=== PATIENT | male | born 1995 | race Caucasian/White ===

== ENCOUNTER → 2018-06-09 | Outpatient (CLI) | payer OTHER ==
--- NOTE | 2018-06-09 19:24 | DIAGNOSTIC IMAGING REPORT ---
FACIAL BONES 6 VIEWS RTN CLINICAL HISTORY: S09.93XA Injury of jaw trauma pain COMPARISON STUDY: No previous studies for comparison. FINDINGS: There is left maxillary sinus mucosal thickening. No air-fluid levels are visualized. There is no orbital emphysema. There is a nondisplaced fracture of the anterior body and submental portion of the right hemimandible. There is no evidence of condylar dislocation on conventional radiographic imaging. Further evaluation of this patient's fracture could be obtained with CT scanning as deemed clinically necessary. IMPRESSION: Acute fracture of the right hemimandible. Electronically signed by: Darvin Whitley M.D. 06/09/2018 7:23 PM Dictated Date/Time: 06/09/2018 7:18 PM
== END | disposition home or self-care (01) ==
LOC: C.RAD 18:11
PROVIDERS: ATTEND Internal Medicine
DX: S02.609A Fracture of mandible, unspecified, initial encounter for closed fracture (principal); X58.XXXA Exposure to other specified factors, initial encounter

== ENCOUNTER 2023-11-29 10:29 | Inpatient (IN) ==
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
--- OUTSIDE RECORDS SUMMARY | 2023-11-29 10:37 | External Medical Summary | Summary of Care ---
Author Name Unknown Organization [facility] Address [address] [facility] [place] [address] Phone [phone] Care Team Providers Care Landscape Architecture Teacher Name Role Phone Power Beltran Attnola DO Primary Care Provider Encounter Details Date Type Department Care Team (Late st Contact Info) Description 11/28/2023 Orders Only PATIENT PORTAL DO NOT DELETE THIS DEPT USED BY [facility] [place] [id number] Allergies Active Allergy Reactions Criticality Noted Date Comments Adhesive Tape 08/12/2018 documented as of this encounter (statuses as of 11/28/2023) Medications Medication Sig Dispensed Refills Start Date [...] before bedtime. 180 Tablet 1 11/27/2023 Active documented as of this encounter (statuses as of 11/28/2023) Active Problems Problem Noted Date Diagnosed Date [...] as of this encounter (statuses as of 11/28/2023) Social History Tobacco Use Types Packs/Day Years [...] No 09/12/2023 documented as of this encounter Plan of Treatment Upcoming Encounters Date Type Department Care Team (Late st Contact Info) Description 12/14/2023 1:30 PM EST Imaging Radiology [address] [place] [address] 12/15/2023 9:30 AM EST Telemedicine Neurosurgery, [place] [address] [place] [address] Ministerio Graham MD [address] [place] [address] 12/28/2023 [place] [facility] [facility] [place]AN[place] [address] [place], [place] [phone] Ministerio Graham MD [address] [place] [address] Scheduled Procedures Name Priority Associated Diagnoses Date/Ti [...] this encounter Medical Devices Implanted Type Area Rn Admission Device Identifier Shelf Expiration Date Model / Serial / Lot Graft Mesh Duragen Pl 4.0x5in - [id number] - [id number] Implanted:Qty: 1 on 09/14/2023 by Ministerio Graham MD [place] [facility] Head [employer] [id number] 01/06/2026 [id number] / [id number] / [id number] documented as of this encounter Advance Directives Latest Code Status on File Code Status Date Activated Date Inactivated Comments Full Code 09/12/2023 6:51 AM 09/24/2023 8:31 PM This order reflects the patients wishes and were consensually agreed upon. Question Answer Comments Discussion of Advance Directives occurred with: Patient Care Teams Landscape Architecture Teacher Relationship Specialty Start Date End Date Power Beltran DO [address] [place] [address] PCP - General Family Medicine 11/04/23 documented as of this encounter
--- OUTSIDE RECORDS SUMMARY | 2023-11-29 10:37 | External Medical Summary | Summary of Care ---
Author Name Unknown Organization [facility] Address [address] [place] [address] Phone [phone] Care Team Providers Care Licensed Dispensing Optician Name Role Phone Power Beltran DO Primary [...] Seizure (HCC) Montserrat Walsh PA-C [address] [place] [address] Referral ID Status Reason Start Date Expiration Date Visits Requested Visits Authorized [id number] Pending Review Specialty Services Required 11/17/[phone] Encounter Details Date Type Department Care Team (Late st Contact Info) Description 11/27/2023 1:00 PM EST Telemedicine Neurology [facility] Mec[place] [address] [facility] [place] [address] Thomas Garrett DO [address] [place] [address] Traumatic brain injury with loss of consciousness, [...] 11/27/2023 1:05 PM EST [place] [address] NAME: Juan Hill Date of : 1995 [...] performed by Ministerio Graham MD at [place] [facility] Family History Problem Relation Age of Onset Diabetes Mother Type 1 Coronary Artery disease Mother [place], CABG Social History Socioeconomic History Marital status: [...] CT head non contrast from 11/08/23 at [facility]: Post surgical changes. No hemorrhage or [...] Keppra level. Did discuss driving rules in [place]: no driving for 6 months after a seizure. Encouraged him to avoid alcohol and compliance with Keppra. Will arrange follow up in 6 months or sooner if needed. Thomas Garrett DO Patient location: HOME. I was not in a hospital or clinic location. After connecting through televideo, patient was verified with two unique identifiers. Patient (or authorized legal lead generation representative) was then informed that this was [...] Description 12/14/2023 1:30 PM EST Imaging Radiology [address] [address] 12/15/2023 9:30 AM EST Telemedicine Neurosurgery, [place] [address] [place], [place] [phone] Ministerio Graham MD [address] [place], [place] [phone] 12/28/2023 Hospital Encounter [place] [facility] ROOM [facility] [address] [place], [place] [phone] Ministerio Graham MD [address] [place], [place] [phone] Scheduled Orders Name Type Priority Associated Diagnoses [...] this encounter Medical Devices Implanted Type Area Shaker Out Device Identifier Shelf Expiration Date Model / Serial / Lot Graft Mesh Duragen [address] 4.0x5in - [id number] - [id number] Implanted:Qty: 1 on 09/14/2023 by Ministerio Graham MD at [place] [facility] Head [employer] [id number] 01/06/2026 [id number] / [id number] / [id number] documented as of this encounter Visit Diagnoses [...] Advance Directives occurred with: Patient Care Teams Licensed Dispensing Optician Relationship Specialty Start Date End Date Power Beltran DO [address] [place] [address] PCP - General Family Medicine 11/04/23 documented as of this encounter
--- OUTSIDE RECORDS SUMMARY | 2023-11-29 10:38 | External Medical Summary | Summary of Care ---
Author Name Unknown Organization [facility] Address [address] [place] [address] Phone [phone] Care Team Providers Care Pt Sitter Name Role Phone BeltranRogeliokiran Chatman DO Primary Care Provider Encounter Details Date Type Department Care Team (Late st Contact Info) Description 09/12/2023 Orders Only Neurosurgery, [place] [address] [place], [place] [phone] Ministerio Graham MD [address] [place] [address] Allergies Active Allergy Reactions Criticality Noted Date Comments Adhesive Tape 08/12/2018 documented as of this encounter (statuses as of 11/18/2023) Medications Medication Sig Dispensed Refills Start Date End Date Status Cetirizine HCl 10 MG Oral Tablet (ZyrTEC Allergy) Take 1 Tablet by mouth daily as needed for Rhinitis. 0 Active Vitamin B-12 1000 MCG Oral Tablet (Cyanocobalamin) Take 1 Tablet by mouth every morning. 60 Tablet 0 09/25/2023 11/24/2023 Active Folic Acid 1 MG Oral Tablet Take 1 Tablet by mouth every morning. 60 Tablet 0 09/25/2023 11/24/2023 Active Multi-Vitamins Oral Tablet Take 1 Tablet by mouth daily at noon. 60 Tablet 0 09/24/2023 11/23/2023 Active Thiamine HCl 100 MG Oral Tablet (vitamin B-1) Take 1 Tablet by mouth every morning. 60 Tablet 0 09/25/2023 11/24/2023 Active oxyCODONE HCl 5 MG Oral Tablet (Oxy IR) Take 1 Tablet by mouth every 4 hours as needed for moderate or severe pain. 30 Tablet 0 09/24/2023 Active documented as of this encounter (statuses as of 11/18/2023) Active Problems Problem Noted Date Diagnosed Date [...] as of this encounter (statuses as of 11/18/2023) Social History Tobacco Use Types Packs/Day Years Used Date Smoking Tobacco: Former Cigarettes 0.5 Smokeless Tobacco: Never Alcohol Use Standard Drinks/Week Comments Yes 0 (1 standard drink = 0.6 oz pur e alcohol) some PHQ-2 Answer Date Recorded PHQ-2 Score 0 [...] (15 years old or older) No 09/12/20 23 Cognitive Status Response Date of Assessm ent Because of a physical, menta l, or emotional condition, do you have serious difficulty concentrating, remembering, or making decisions? (5 years old or older) No 09/12/2023 documented as of this encounter Plan of Treatment Upcoming Encounters Date Type Department Care Team (Late st Contact Info) Description 12/14/2023 1:30 PM EST Imaging Radiology [address] [facility] [place] [address] 12/22/2023 10:40 AM EST Office Visit Neurology [facility] [address] [place] [address] Cele Dodge MD [address] [facility] [place] [address] Health Maintenance Due Date Last Done Comments [...] this encounter Medical Devices Implanted Type Area Shutdown Planner Device Identifier Shelf Expiration Date Model / Serial / Lot Graft Mesh Duragen Pl 4.0x5in - [id number] - [id number] Implanted:Qty: 1 on 09/14/2023 by Ministerio Graham MD [place] [facility] [place] [employer] [id number] 01/06/2026 [id number] / [id number] / [id number] documented as of this encounter Procedures Procedure Name Priority Date/Time Associated Diagnosis Comments RADIOLOGY EXAM - CT (IMAGES ONLY, NO REPORT) Routine 09/12/2023 1:05 AM EDT documented in this encounter Results * RADIOLOGY EXAM - CT (IMAGES ONLY, NO REPORT) (09/12/2023 1:05 AM EDT) 09/12/2023 1:00 AM EDT Narrative Scheduling, Silent - 11/18/2023 8:55 AM EST This is an imaging study not interpreted or resulted by a [employer] or [employer] contracted radiologist. Ministerio Graham MD RAD CT documented in this encounter Advance Directives Latest Code Status on File Code Status Date Activated Date Inactivated Comments Full Code 09/12/2023 6:51 AM 09/24/2023 8:31 PM This order reflects the patients wishes and were consensually agreed upon. Question Answer Comments Discussion of Advance Directives occurred with: Patient Care Teams Pt Sitter Relationship Specialty Start Date End Date Power Beltran DO [address] [place] [address] PCP - General Family Medicine 11/04/23 documented as of this encounter
--- OUTSIDE RECORDS SUMMARY | 2023-11-29 10:38 | External Medical Summary | Summary of Care ---
Author Name Unknown Organization [facility] Address [address] [place] [address] Phone [phone] Care Team Providers Care Service Rig Operator Name Role Phone BeltranRogeliokiran Chatman DO Primary Care Provider Encounter Details Date Type Department Care Team (Late st Contact Info) Description 11/08/2023 Orders Only [facility] [place] [address] [place] [address] Ministerio Graham MD [address] [place] [address] Allergies Active Allergy Reactions Criticality [...] Description 12/14/2023 1:30 PM EST Imaging Radiology [address] 132 [facility] [place] [address] 12/22/2023 10:40 AM EST Office Visit Neurology [facility] [address] [place] [address] Cele Dodge MD 200 [facility] [place] [place] [address] Health Maintenance Due Date Last Done Comments [...] this encounter Medical Devices Implanted Type Area Footwear Factory Worker Device Identifier Shelf Expiration Date Model / Serial / Lot Graft Mesh Duragen [address] 4.0x5in - [id number] - [id number] Implanted:Qty: 1 on 09/14/2023 by Ministerio Graham MD at OR [facility] Head [employer] [id number] 01/06/2026 [id number] / [id number] / [id number] documented as of this encounter Procedures Procedure Name Priority Date/Time Associated Diagnosis Comments RADIOLOGY EXAM - CT (IMAGES ONLY, NO REPORT) Routine 11/08/2023 6:20 PM EST documented in this encounter Results * RADIOLOGY EXAM - CT (IMAGES ONLY, NO REPORT) (11/08/2023 6:20 PM EST) 11/08/2023 6:16 PM EST Narrative Scheduling, Silent - 11/18/2023 8:54 AM EST This is an imaging study not interpreted or resulted by a [employer] or [employer] contracted radiologist. Ministerio Graham MD RAD CT documented in this encounter Advance Directives Latest Code Status on File Code Status Date Activated Date Inactivated Comments Full Code 09/12/2023 6:51 AM 09/24/2023 8:31 PM This order reflects the patients wishes and were consensually agreed upon. Question Answer Comments Discussion of Advance Directives occurred with: Patient Care Teams Service Rig Operator Relationship Specialty Start Date End Date Power Beltran DO [address] [place] [address] PCP - General Family Medicine 11/04/23 documented as of this encounter
--- OUTSIDE RECORDS SUMMARY | 2023-11-29 10:38 | External Medical Summary | Summary of Care ---
Author Name Unknown Organization [facility] Address [address] [place] [address] Phone [phone] Care Team Providers Care Seasonal Recruiter Name Role Phone Rogelio Beltrankiran Chatman DO Primary Care Provider Reason for Visit * Reason Onset Date Comments Appointment 11/18/2023 PT WILL CALL TO SCHEDULE EMG, MAY WANT TO DO AT OSH Encounter Details Date Type Department Care Team (Late st Contact Info) Description 11/18/2023 Telephone Neurophysiology, [place] [address] [place] [address] Specified, [facility] [address] [place] [address] Appointment (PT WILL CALL TO SCHEDULE EMG,... Allergies Active Allergy Reactions Criticality Noted Date [...] Tablet before bedtime. 40 Tablet 0 11/17/2023 Active documented as of this encounter (statuses [...] No 09/12/2023 documented as of this encounter Miscellaneous Notes * Telephone Encounter - Sowmya Alvarez OSA - 11/18/2023 8:38 AM EST PT WILL CALL TO SCHEDULE EMG, MAY WANT TO DO AT OSH documented in this encounter Plan of Treatment Upcoming Encounters Date Type Department Care Team (Late st Contact Info) Description 12/14/2023 1:30 PM EST Imaging Radiology [address] 132 [facility] Yusef [facility] [place] [address] 12/22/2023 10:40 AM EST Office Visit Neurology [facility] 200 [facility] [place] [address] Cele Dodge MD 200 [facility] [place] [address] Health Maintenance Due Date Last Done Comments [...] this encounter Medical Devices Implanted Type Area Progressive Die Maker Device Identifier Shelf Expiration Date Model / Serial / Lot Graft Mesh Duragen [address] 4.0x5in - [id number] - [id number] Implanted:Qty: 1 on 09/14/2023 by Ministerio Graham MD at OR [facility] Head [employer] [id number] 01/06/2026 [id number] / [id number] / [id number] documented as of this encounter Advance Directives Latest Code Status on File Code Status Date Activated Date Inactivated Comments Full Code 09/12/2023 6:51 AM 09/24/2023 8:31 PM This order reflects the patients wishes and were consensually agreed upon. Question Answer Comments Discussion of Advance Directives occurred with: Patient Care Teams Seasonal Recruiter Relationship Specialty Start Date End Date Power Beltran DO [address] [employer] | mentor | [place] [address] PCP - General Family Medicine 11/04/23 documented as of this encounter"
--- OUTSIDE RECORDS SUMMARY | 2023-11-29 10:38 | External Medical Summary | Summary of Care ---
Author Name Unknown Organization [facility] Address [address] [place] [address] Phone [phone] Care Team Providers Care Managed Care Provider Name Role Phone Power Beltran DO Primary Care Provider Encounter Details Date Type Department Care Team (Latest Contact Info) Description 11/08/2023 6:20 PM EST - 11/08/2023 11:59 PM EST Hospital Encounter Radiology Film [place] [address] [place] [address] Discharge Disposition: Home - Self Care Allergies Active Allergy Reactions Criticality Noted Date Comments Adhesive Tape 08/12/2018 documented as of this encounter (statuses as of 11/19/2023) Medications Medication Sig Dispensed Refills Start Date [...] as of this encounter (statuses as of 11/19/2023) Active Problems Problem Noted Date Diagnosed Date [...] as of this encounter (statuses as of 11/19/2023) Social History Tobacco Use Types Packs/Day Years [...] Care Team (Late st Contact Info) Description 11/25/2023 6:45 AM EST NeuroDiagnostic Study Neurophysiology, [facility] 400 [facility] [place] [address] [place], Neurophys Tech [facility] [place] [address] 11/27/2023 1:00 PM EST Office Visit Neurology [facility] [address] [place] [address] Thomas Garrett, DO [address] [place] [address] 12/14/2023 1:30 PM EST Imaging Radiology [address] 132 [facility] [place] [address] Health Maintenance Due Date Last Done Comments [...] this encounter Medical Devices Implanted Type Area Drive Man Device Identifier Shelf Expiration Date Model / Serial / Lot Graft Mesh Dur[address] 4.0x5in - [id number] - [id number] Implanted:Qty: 1 on 09/14/2023 by Ministerio Graham MD at OR [facility] Head [employer] [id number] 01/06/2026 [id number] / [id number] / [id number] documented as of this encounter Procedures Procedure [...] study not interpreted or resulted by a [facility] or [facility] contracted radiologist. Ministerio Graham MD RAD CT documented in this encounter Advance Directives Latest Code Status on File Code Status Date Activated Date Inactivated Comments Full Code 09/12/2023 6:51 AM 09/24/2023 8:31 PM This order reflects the patients wishes and were consensually agreed upon. Question Answer Comments Discussion of Advance Directives occurred with: Patient Care Teams Managed Care Provider Relationship Specialty Start Date End Date Power Beltran DO [address] [facility] [place] [address] PCP - General Family Medicine 11/04/23 documented as of this encounter
--- OUTSIDE RECORDS SUMMARY | 2023-11-29 10:38 | External Medical Summary | Summary of Care ---
Author Name Unknown Organization [facility] Address [address] [place] [address] Phone [phone] Care Team Providers Care Jigmaker Name Role Phone Power Beltran DO Primary Care Provider Encounter Details Date Type Department Care Team (Late st Contact Info) Description 11/27/2023 Orders Only Neurosurgery, [place] [address] [place] [address] Montserrat Walsh PA-C [address] [place] [address] Status post craniectomy*; Traumatic brain injury with loss of consciousness, subsequent encounter; Seizure (HCC); Brain edema (HCC); SDH (subdural hematoma) (HCC); Pre-op testing Allergies Active Allergy Reactions Criticality Noted Date [...] Description 11/27/2023 1:00 PM EST Telemedicine Neurology [facility] [address] [place] [address] Thomas Garrett, DO [address] [place] [address] 12/14/2023 1:30 PM EST Imaging Radiology [address], [place] 132 Michelle Yusef [facility] [place] [id number] 12/15/2023 9:30 AM EST Telemedicine Neurosurgery, [place] [address] [place] [address] Ministerio Graham MD [address], [place] [id number] 12/28/2023 Hospital Encounter OR [facility], OPERATING ROOM [facility], [facility] [address], [place] [id number] Ministerio Graham MD [address], [place] [id number] Scheduled Orders Name Type Priority Associated Diagnoses Orde r Schedule CBC WITH WBC DIFFERENTIAL Lab Routine Traumatic brain injury with loss of consciousness, subsequent encounter Seizure (HCC) Brain edema (HCC) SDH (subdural hematoma) (HCC) Status post craniectomy Pre-op testing Expected: 12/22/2023 (Approximate), Expires: 05/25/2024 BASIC METABOLIC PANEL Lab Routine Traumatic brain injury with loss of consciousness, subsequent encounter Seizure (HCC) Brain edema (HCC) SDH (subdural hematoma) (HCC) Status post craniectomy Pre-op testing Expected: 12/22/2023 (Approximate), Expires: 05/25/2024 PT INR Lab Routine Traumatic brain injury with loss of consciousness, subsequent encounter Seizure (HCC) Brain edema (HCC) SDH (subdural hematoma) (HCC) Status post craniectomy Pre-op testing Expected: 12/22/2023 (Approximate), Expires: 05/25/2024 APTT Lab Routine Traumatic brain injury with loss of consciousness, subsequent encounter Seizure (HCC) Brain edema (HCC) SDH (subdural hematoma) (HCC) Status post craniectomy Pre-op testing Expected: 12/22/2023 (Approximate), Expires: 05/25/2024 TYPE AND SCREEN Lab Routine Traumatic brain injury with loss of consciousness, subsequent encounter Seizure (HCC) Brain edema (HCC) SDH (subdural hematoma) (HCC) Status post craniectomy Pre-op testing Expected: 12/22/2023 (Approximate), Expires: 05/25/2024 STAPH AUREUS PCR Lab Routine Traumatic brain injury with loss of consciousness, subsequent encounter Seizure (HCC) Brain edema (HCC) SDH (subdural hematoma) (HCC) Status post craniectomy Pre-op testing Expected: 12/22/2023 (Approximate), Expires: 11/27/2024 URINALYSIS, REFLEX TO MICROSCOPIC Lab Routine Traumatic brain injury with loss of consciousness, subsequent encounter Seizure (HCC) Brain edema (HCC) SDH (subdural hematoma) (HCC) Status post craniectomy Pre-op testing Expected: 12/22/2023 (Approximate), Expires: 11/27/2024 XR CHEST 2 VIEWS Medical Imaging Routine Traumatic brain injury with loss of consciousness, subsequent encounter Seizure (HCC) Brain edema (HCC) SDH (subdural hematoma) (HCC) Status post craniectomy Pre-op testing Expected: 12/22/2023, Expires: 12/28/2024 Scheduled Procedures Name Priority Associated Diagnoses Date/Ti [...] Screening 08/12/2019 08/12/2018 COVID-19 Vaccine (3 - 3-2 4 season) 2023 08/15/2021, 07/25/2021 Influenza Vaccine (FLU shot) (#1) 2023 GARDASIL-HPV IMMUNIZATION SERIES Aged Out No longer eligible b ased on patient's age to complete this topic MENINGOCOCCAL (MENACTRA/MENVEO) Aged Out No longer eligible b ased on patient's age to complete this topic documented as of this encounter Medical Devices Implanted Type Area Director Of Neighborhood Service Center Device Identifier Shelf Expiration Date Model / Serial / Lot Graft Mesh Duragen [address] 4.0x5in - [id number] - [id number] Implanted:Qty: 1 on 09/14/2023 by Ministerio Graham MD at OR [facility] Head [employer] [id number] 01/06/2026 [id number] / [id number] / [id number] documented as of this encounter Visit Diagnoses Diagnosis Status post craniectomy- Primary Traumatic brain injury with loss of consciousness, subsequent encounter Seizure (HCC) Other convulsions Brain edema (HCC) Cerebral edema SDH (subdural hematoma) (HCC) Subdural hemorrhage Pre-op testing Preoperative examination, unspecified documented in this encounter Advance Directives Latest Code Status on File Code Status Date Activated Date Inactivated Comments Full Code 09/12/2023 6:51 AM 09/24/2023 8:31 PM This order reflects the patients wishes and were consensually agreed upon. Question Answer Comments Discussion of Advance Directives occurred with: Patient Care Teams Jigmaker Relationship Specialty Start Date End Date Power Beltran DO [address] [place] [address] PCP - General Family Medicine 11/04/23 documented as of this encounter
--- OUTSIDE RECORDS SUMMARY | 2023-11-29 10:38 | External Medical Summary | Summary of Care ---
Author Name Unknown Organization [facility] Address [address] [facility] [place] [address] Phone [phone] Care Team Providers Care Moto Mix Operator Name Role Phone Unavailable Primary Care Provider Unavailabl e Encounter Details Date Type Department Care Team (Latest Contact Info) Description 09/12/2023 1:00 AM EDT - 09/12/2023 5:34 AM EDT Hospital Encounter Radiology Film File [address] [facility] [place] [address] Discharge Disposition: Home - Self Care [...] 11/25/2023 6:45 AM EST NeuroDiagnostic Study Neurophysiology, [facility] [address] [place] [address] [facility], Neurophys Tech 400 [facility] [place] [address] 11/27/2023 1:00 PM EST Office Visit Neurology [facility] [address] [place] [address] Thomas Garrett, DO [address] [place] [address] 12/14/2023 1:30 PM EST Imaging Radiology [address] 132 [facility] [place] [address] Health Maintenance Due Date Last Done Comments [...] this encounter Medical Devices Implanted Type Area Training And Development Head Device Identifier Shelf Expiration Date Model / Serial / Lot Graft Mesh Dur[address] 4.0x5in - [id number] - [id number] Implanted:Qty: 1 on 09/14/2023 by Ministerio Graham MD [place] [facility] Head [employer] [id number] 01/06/2026 [id number] / [id number] / [id number] documented as of this encounter Procedures Procedure Name Priority Date/Time Associated Diagnosis Comments RADIOLOGY EXAM - CT (IMAGES ONLY, NO REPORT) Routine 09/12/2023 1:00 AM EDT documented in this encounter Results * RADIOLOGY EXAM - CT (IMAGES ONLY, NO REPORT) (09/12/2023 1:00 AM EDT) 09/12/2023 1:00 AM EDT Narrative Scheduling, Silent - 11/17/2023 3:23 PM EST This is an imaging study not interpreted or resulted by a [employer] or [employer] contracted radiologist. Ministerio Graham MD RAD CT documented in this encounter Advance Directives Latest Code Status on File Code Status Date Activated Date Inactivated Comments Full Code 09/12/2023 6:51 AM 09/24/2023 8:31 PM This order reflects the patients wishes and were consensually agreed upon. Question Answer Comments Discussion of Advance Directives occurred with: Patient
--- OUTSIDE RECORDS SUMMARY | 2023-11-29 10:38 | External Medical Summary | Summary of Care ---
Author Name Unknown Organization [facility] Address [address] [place] [address] Phone [phone] Care Team Providers Care Refrigeration Operator Name Role Phone BeltranRogeliokiran Chatman DO Primary Care Provider Encounter Details Date Type Department Care Team (Late st Contact Info) Description 09/12/2023 Orders Only Neurosurgery, [place] [address] [place], [place] [id number] Ministerio Graham MD [address] [place] [address] Allergies Active Allergy Reactions Criticality Noted Date Comments Adhesive Tape 08/12/2018 documented as of this encounter (statuses as of 11/17/2023) Medications Medication Sig Dispensed Refills Start Date [...] as of this encounter (statuses as of 11/17/2023) Active Problems Problem Noted Date Diagnosed Date [...] as of this encounter (statuses as of 11/17/2023) Social History Tobacco Use Types Packs/Day Years [...] Description 12/14/2023 1:30 PM EST Imaging Radiology [address] 132 [facility] [place] [address] 12/22/2023 10:40 AM EST Office Visit Neurology [facility] [address] [place] [address] Cele Dodge MD 200 [place] [address] Health Maintenance Due Date Last Done Comments [...] this encounter Medical Devices Implanted Type Area Water Sander Device Identifier Shelf Expiration Date Model / Serial / Lot Graft Mesh Dur[address] 4.0x5in - [id number] - [id number] Implanted:Qty: 1 on 09/14/2023 by Ministerio Graham MD at OR [facility] Head [employer] [id number] 01/06/2026 [id number] / [id number] / [id number] documented as of this encounter Procedures Procedure [...] study not interpreted or resulted by a [employer] or [employer] contracted radiologist. Ministerio Graham MD RAD CT documented in this encounter Advance Directives Latest Code Status on File Code Status Date Activated Date Inactivated Comments Full Code 09/12/2023 6:51 AM 09/24/2023 8:31 PM This order reflects the patients wishes and were consensually agreed upon. Question Answer Comments Discussion of Advance Directives occurred with: Patient Care Teams Refrigeration Operator Relationship Specialty Start Date End Date Power Beltran DO [address] [place] [address] PCP - General Family Medicine 11/04/23 documented as of this encounter
--- OUTSIDE RECORDS SUMMARY | 2023-11-29 10:38 | External Medical Summary | Summary of Care ---
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 40 Tablet 0 11/17/2023 Active levETIRAcetam 500 MG Oral Tablet (Keppra) Take 1 Tablet by mouth in the morning and 1 Tablet before bedtime. Do all this for 20 days. 40 Tablet 0 09/24/2023 11/17/2023 Discontinued (Refill) documented as of this encounter [...] Tobacco: Former Cigarettes 0.5 Smokeless Tobacco: Never Tobacco Cessation:Counseling Given: Not Answered Alcohol Use Standard Drinks/Week Comments Yes 6 [...] on file documented as of this encounter Last Filed Vital Signs Vital Sign Reading Time Taken Comments Blood Pressure - - Pulse - - Temperature 36.8 C (98.2 F) 11/17/2023 1:51 PM ES T Respiratory Rate - - Oxygen Saturation - - Inhaled Oxygen Concentration - - Weight 65.4 kg (144 lb 1.6 oz) 11/17/2023 1:51 P M EST Height - - Body Mass Index 25.53 09/12/2023 9:01 AM EDT documented in this encounter Functional Status Functional Status Response [...] shopping? (15 years old or older) No 11/04/20 23 Cognitive Status Response Date of Assessm ent Because of a physical, menta l, or emotional condition, do you have serious difficulty concentrating, remembering, or making decisions? (5 years old or older) No 09/12/2023 documented as of this encounter Progress Notes * Ministerio Graham MD - 11/17/2023 2:20 PM EST PROGRESS NOTE - Neurosurgery [facility] [address] Name: Juan Hill Date: 11/17/2023 Time: 2:20 PM 28-year-old gentleman very well known to me, decompressive craniectomy with hematoma evacuation after he had a fall and experienced a blossoming of the intraparenchymal hematoma. Clinically he is doing very well, incision is well healing, flap is thinking appropriately. His left arm is improved substantially from the preoperative baseline. He has not been entirely compliant with his Keppra nor his helmet. He apparently experienced 2 seizures and was recently evaluated at [facility]. I think he is a candidate for cranioplasty in the coming weeks. 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 Would plan for admission and infectious workup in the week prior to performing the operation. We will also need to medically optimize him and ensure that his platelets another hematologic in metabolic parameters are under good control. The patient and his family voiced understanding and proceed as outlined. All questions answered. PAST MEDICAL HISTORY: No past medical history on file. PAST SURGICAL HISTORY: Past Surgical History: Procedure Laterality Date OPEN SKULL FOR REMOVAL OF HEMATOMA Right 09/14/2023 CRANIOTOMY EVACUATION OF SUBDURAL OR EXTRADURAL HEMATOMA SUPRATENTORIAL performed by Ministerio Graham MD at OR [facility] FAMILY HISTORY: Family History Problem Relation Age of Onset Diabetes Mother Type 1 Coronary Artery disease Mother CO, CABG SOCIAL HISTORY: Social History Tobacco Use Smoking status: Former Packs/day: .5 Types: Cigarettes Smokeless tobacco: Never Vaping Use Vaping Use: Never used Substance Use Topics Alcohol use: Yes Alcohol/week: 6.0 standard drinks of alcohol Types: 6 12 oz of beer per week Drug use: Not Currently Types: Marijuana Current Outpatient Medications: levETIRAcetam 500 MG Oral Tablet (Keppra), Take 1 Tablet by mouth in the morning and 1 Tablet before bedtime., Disp: 40 Tablet, Rfl: 0 Folic Acid 1 MG Oral Tablet, Take 1 Tablet by mouth every morning., Disp: 60 Tablet, Rfl: 0 Multi-Vitamins Oral Tablet, Take 1 Tablet by mouth daily at noon., Disp: 60 Tablet, Rfl: 0 oxyCODONE HCl 5 MG Oral Tablet (Oxy IR), Take 1 Tablet by mouth every 4 hours as needed for moderate or severe pain., Disp: 30 Tablet, Rfl: 0 Thiamine HCl 100 MG Oral Tablet (vitamin B-1), Take 1 Tablet by mouth every morning., Disp: 60 Tablet, Rfl: 0 Vitamin B-12 1000 MCG Oral Tablet (Cyanocobalamin), Take 1 Tablet by mouth every morning., Disp: 60Tablet, Rfl: 0 Cetirizine HCl 10 MG Oral Tablet (ZyrTEC Allergy), Take 1 Tablet by mouth daily as needed for Rhinitis., Disp: , Rfl: ALLERGIES: Adhesive tape VITALS: Temp 36.8 C (98.2 F) (Tympanic) | Wt 65.4 kg (144 lb 1.6 oz) | BMI 25.53 kg/m | BSA 1.7 m Ministerio Dai Neurosurgery This document was dictated using voice recognition software. Please excuse any errors. documented in this encounter Plan of Treatment Upcoming Encounters Date Type Department Care Team (Late st Contact Info) Description 12/14/2023 1:30 PM EST Imaging Radiology [facility] [address] [place] [address] 12/22/2023 10:40 AM EST Office Visit Neurology [facility] [place] [address] [facility] [place] [address] Cele Dodge MD [address] [place] [address] Scheduled Orders Name Type Priority Associated Diagnoses Orde r Schedule EEG ROUTINE Procedures Routine Status post craniectomy Traumatic brain injury with loss of consciousness, subsequent encounter 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, sequela (HCC) Seizure (HCC) Ordered: 11/17/2023 Scheduled Referrals Name Type Priority Associated Diagnoses Orde r Schedule NEUROLOGY REFERRAL OP Referral Within 10 days (routine) Status post craniectomy Traumatic brain injury with loss of consciousness, subsequent encounter 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, sequela (HCC) Seizure (HCC) Ordered: 11/17/2023 Health Maintenance Due Date Last Done Comments [...] Medical Devices Implanted Type Area Director Of Religious Activities Device Identifier Shelf Expiration Date Model / Serial / Lot Graft Mesh [employer] [address] 4.0x5in - [id number] - [id number] Implanted:Qty: 1 on 09/14/2023 by Ministerio Graham MD at OR [facility] Head [employer] [id number] 01/06/2026 [id number] / [id number] / [id number] documented as of this encounter Visit Diagnoses Diagnosis Seizure (HCC)- Primary Other convulsions Status post craniectomy Traumatic brain injury with loss of consciousness, subsequent encounter 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 Question Answer Comments Discussion of Advance Directives occurred with: Patient Care Teams Media Relations Coordinator Relationship Specialty Start Date End Date Power Beltran DO [address] [place] [address] PCP - General Family Medicine 11/04/23 documented as of this encounter"
--- OUTSIDE RECORDS SUMMARY | 2023-11-29 10:38 | External Medical Summary | Summary of Care ---
Author Name Unknown Organization [facility] Address [address] [facility] [place] [address] Phone [phone] Care Team Providers Care Creative Technologist Name Role Phone Unavailable Primary Care Provider Unavailabl e Encounter Details Date Type Department Care Team (Latest Contact Info) Description 09/12/2023 1:05 AM EDT - 09/12/2023 5:34 AM EDT Hospital Encounter Radiology [place] [address] [facility] [place] [address] Discharge Disposition: Home - [...] 11/25/2023 6:45 AM EST NeuroDiagnostic Study Neurophysiology, [facility] [address] [place] [address] [facility], Neurophys Tech [address] [facility] [place] [address] 11/27/2023 1:00 PM EST Office Visit Neurology [facility] [address] [place] [address] Thomas Garrett, DO [address] [place] [address] 12/14/2023 1:30 PM EST Imaging Radiology [address] [facility] [place] [address] Health Maintenance Due Date Last Done Comments [...] this encounter Medical Devices Implanted Type Area Intelligence Analyst Device Identifier Shelf Expiration Date Model / Serial / Lot Graft Mesh [address] 4.0x5in - [id number] - [id number] Implanted:Qty: 1 on 09/14/2023 by Ministerio Graham MD [place] [facility] [place] [email or web address] [id number] 01/06/2026 [id number] / [id number] / [id number] documented as of this encounter Procedures Procedure [...] study not interpreted or resulted by a [employer] or [employer] contracted radiologist. Ministerio Graham MD RAD CT documented in this encounter Advance Directives Latest Code Status on File Code Status Date Activated Date Inactivated Comments Full Code 09/12/2023 6:51 AM 09/24/2023 8:31 PM This order reflects the patients wishes and were consensually agreed upon. Question Answer Comments Discussion of Advance Directives occurred with: Patient
[2023-11-29 11:01] LABS: Basophils # (auto) 0.06 K/uL (0.00-0.20); Eosinophils # (auto) 0.32 K/uL (0.00-0.50); Eosinophils % (auto) 5.4 %; Hematocrit (blood only) 47.9 % (42.0-52.0); Hemoglobin 16.6 g/dl (14.0-18.0); Immature Granulocytes # (auto) 0.01 K/uL (0.01-0.20); Immature Granulocytes % (auto) 0.2 %; Lymphocytes # (auto) 1.32 K/uL (1.20-3.40); Lymphocytes % (auto) 22.3 %; Mean Corpuscular Hemoglobin 30.7 pg (25.0-34.0); Mean Corpuscular Hgb Conc 34.7 g/dL (32.0-36.0); Mean Corpuscular Volume 88.7 fL (80.0-100.0); Mean Platelet Volume 9.1 fL (9.4-12.4); Monocytes % (auto) 11.8 %; Neutrophils % (auto) 59.3 %; Platelet Count 233 K/uL (130-400); RDW Coefficient of Variation 12.3 % (11.5-14.5); RDW Standard Deviation 40.2 fL (36.4-46.3); White Blood Count 5.91 K/ul (4.8-10.8)
--- NOTE | 2023-11-29 11:03 | Emergency Department Note ---
Impression & Plan Stroke-like symptoms, Seizure disorder, Weakness, History of traumatic brain injury ED Provider Note NAME: KORTNEY CALL AGE: 28 SEX: M : 1995 ARRIVES VIA: Ambulance INFORMANT: Patient ED PROVIDER(S): Cr Gautam DO CHIEF COMPLAINT: Left-sided weakness HPI: Patient is a 28-year-old male with recent TBI back in September who ended up having a brain bleed and resection/removal of part of his skull who presents to the ER as he woke up this morning and he was okay. He went to get his coffee and noticed numbness on the left arm and left leg. This has progressed significantly. 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 He denies any headache or change in vision. No chest pain or shortness of breath. No belly pain, nausea, vomiting, or diarrhea. Does have a history of a recent seizure. ADDITIONAL HISTORY OBTAINED: Per HPI Chronic Medical/Social Conditions Affecting Care: Per HPI PAST MEDICAL HISTORY:See Below PAST SURGICAL HISTORY:See Below FAMILY HISTORY:See Below SOCIAL HISTORY:See Below HOME MEDICATIONS:See Below ALLERGIES:See Below VITALS:See Below PHYSICAL EXAMINATION: GENERAL: Sitting up in bed, alert, well appearing, well nourished, no distress, non-toxic EYE EXAM: normal conjunctiva. PERRL and EOM's intact. OROPHARYNX: no exudate, no erythema, lips, buccal mucosa, and tongue normal and mucous membranes are moist NECK: supple, no nuchal rigidity, no adenopathy, non-tender LUNGS: Clear to auscultation. Normal chest wall mechanics HEART: no murmurs, S1 normal and S2 normal ABDOMEN: abdomen soft, non-tender, normo-active bowel sounds, no masses, no rebound or guarding. BACK: Back is symmetrical on inspection and there is no deformity, no midline tenderness, no CVA tenderness. SKIN: no rashes and no bruising UPPER EXTREMITIES: upper extremities are grossly normal. LOWER EXTREMITIES: No pitting edema. NEURO EXAM: Normal sensorium, cranial nerves II-XII intact, normal speech, weakness with grasp as well as flexion extension shoulder elbow and wrist of the left upper extremity. No weakness of the right upper extremity. Subtle weakness in the left lower extremity. Unable to perform drift MEDICAL DECISION MAKING: Patient is a 28-year-old male with past medical history of a TBI and craniotomy who presents to the ER for left arm and leg numbness as well as weakness. This started earlier today. IV was established blood work is obtained. Patient is not a TNK candidate with a previous brain bleed/trauma in September into October. Labs show no significant leukocytosis or anemia. INR unremarkable. BMP along with LFTs bilirubin was unremarkable. Troponin was negative. CT angios of the head and neck showed no acute pathology. Patient was discussed with neurology. They evaluated the patient. They recommended aspirin which the patient declined rectally as he felt his dysphagia screen. I did recommend a Keppra load which I do feel this most consistent with his presentation of being possibly a seizure. He was given 1 g and they recommended 1 g twice daily. Patient and family were updated bedside. Consults/Care Managements Discussions: Per [facility] Triage Nursing notes reviewed. Limited review of prior medical records performed Vital Signs: reviewed and remarkable for no significant abnormalities Differential diagnosis: Differential Diagnosis includes but is not limited to ischemic Stroke, hemorrhagic stroke, bells palsy, mass, neoplasm, migraine headache, seizure, subarachnoid hemorrhage, TIA, and transient global amnesia. ER treatment provided: See below Diagnostics interpreted by me include EKG and cardiac monitoring as listed below: -Cardiac Monitoring: An order was placed for continuous cardiac monitoring. The monitor shows a rate of 98 with sinus rhythm. -ECG: Sinus rhythm rate 82 Normal axis No PVCs QTc 430 -Laboratory studies:Interpreted by me as stated above in [facility] and shown below. Imaging studies: Xrays: As interpreted by me:none CT of the head per my preliminary interpretation showed no obvious large bleed CTs show: CT angios of the head and neck as described above Procedures:none Critical Care: None Past Med/Surg History Medical History (Updated 11/29/23 @ 17:42 by Cr Gautam DO) Weakness Seizure disorder History of traumatic brain injury Stroke-like symptoms Pneumothorax on right Multiple rib fractures Surgical History No significant past surgical history Family History (Updated 11/29/23 @ 14:55 by BERNICE Benjamin) Mother Coronary heart disease Social History Smoking Status: Never smoker Tobacco Type: Cigarettes Hx Alcohol Use: No Preferred Language: Albanian marital status: Single Current Living Situation: Family current occupational status: employed Feels Safe at Home: Yes Allergies Allergies Allergy/AdvReac Type Severity Reaction Status Date / Time adhesive Allergy Intermediate REDDENED Verified 09/12/23 00:57 RASH Home Meds Home Medications Medication Instructions Recorded Confirmed levetiracetam 500 mg tablet 500 mg PO BID 11/29/23 11/29/23 Results & Data (ED) Vital Signs Vital Signs - 24 hr 11/29/23 10:49 11/29/23 11:10 11/29/23 11:11 Temperature 36.9 C Temperature Source Oral Pulse Rate 90 98 H Pulse Rate [Apical] Pulse Rate from SpO2 Sensor 98 H 100 H Pulse Rhythm [Apical] Pulse Strength [Apical] Respiratory Rate 18 20 Respiratory Effort / Characteristics Non-Labored Respiratory Depth Normal Respiratory Pattern Regular Blood Pressure 144/99 H 128/101 H Blood Pressure [Right Arm] Blood Pressure Mean 114 110 Blood Pressure Mean [Right Arm] Blood Pressure Position [Right Arm] Pulse Oximetry 95 96 99 Oxygen Delivery Method Room Air Room Air Sepsis Recent Fever Within 48 Hours No Sepsis New/Unexplained Change in Mental Status N/A Sepsis Action Taken by Nursing No Action Required 11/29/23 11:18 11/29/23 11:21 11/29/23 11:30 Temperature Temperature Source Pulse Rate 94 H 94 H Pulse Rate [Apical] 86 Pulse Rate from SpO2 Sensor Pulse Rhythm [Apical] Regular Pulse Strength [Apical] Normal Respiratory Rate 15 22 Respiratory Effort / Characteristics Non-Labored Spontaneous Respiratory Depth Normal Respiratory Pattern Regular Blood Pressure 129/87 Blood Pressure [Right Arm] 128/101 H Blood Pressure Mean 101 Blood Pressure Mean [Right Arm] 110 Blood Pressure Position [Right Arm] Semi-fowlers Pulse Oximetry 96 96 Oxygen Delivery Method Room Air Room Air Sepsis Recent Fever Within 48 Hours Sepsis New/Unexplained Change in Mental Status Sepsis Action Taken by Nursing 11/29/23 11:30 11/29/23 11:45 11/29/23 12:00 Temperature Temperature Source Pulse Rate 93 H 88 87 Pulse Rate [Apical] Pulse Rate from SpO2 Sensor 93 H 86 88 Pulse Rhythm [Apical] Pulse Strength [Apical] Respiratory Rate 15 16 14 Respiratory Effort / Characteristics Respiratory Depth Respiratory Pattern Blood Pressure 133/89 138/103 H 125/83 Blood Pressure [Right Arm] Blood Pressure Mean 103 114 97 Blood Pressure Mean [Right Arm] Blood Pressure Position [Right Arm] Pulse Oximetry 96 98 97 Oxygen Delivery Method Room Air Room Air Room Air Sepsis Recent Fever Within 48 Hours Sepsis New/Unexplained Change in Mental Status Sepsis Action Taken by Nursing Laboratory Data 11/29/23 10:35 11/29/23 10:35 Lab Results 11/29/23 11/29/23 11/29/23 Range/Units 10:35 10:50 10:55 WBC 5.91 (4.8-10.8) K/ul RBC 5.40 (4.70-6.10) M/uL Hgb 16.6 (14.0-18.0) g/dl Hct 47.9 (42.0-52.0) % MCV 88.7 (80.0-100.0) fL MCH 30.7 (25.0-34.0) pg MCHC 34.7 (32.0-36.0) g/dL RDW Std Deviation 40.2 (36.4-46.3) fL RDW Coeff of Arthur 12.3 (11.5-14.5) % Plt Count 233 (130-400) K/uL MPV 9.1 L (9.4-12.4) fL Immature Gran % (Auto) 0.2 % Neut % (Auto) 59.3 % Lymph % (Auto) 22.3 % [place] % (Auto) 11.8 % Eos % (Auto) 5.4 % Baso % (Auto) 1.0 % Neut # (Auto) 3.50 (1.40-6.50) K/uL Lymph # (Auto) 1.32 (1.20-3.40) K/uL [place] # (Auto) 0.70 H (0.11-0.59) K/uL Eos # (Auto) 0.32 (0.00-0.50) K/uL Baso # (Auto) 0.06 (0.00-0.20) K/uL Immature Gran # (Auto) 0.01 (0.01-0.20) K/uL PT 11.4 (9.0-12.0) Seconds INR 1.0 (0.9-1.1) APTT 26 (21-31) Seconds PTT Ratio 0.9 Sodium 138 (136-145) mmol/L Potassium 3.8 (3.5-5.1) mmol/L Chloride 103 (98-107) mmol/L Carbon Dioxide 28 (21-32) mmol/L Anion Gap 7 (3-11) BUN 5 L (6-23) mg/dl Creatinine 0.79 (0.6-1.4) mg/dl Est Cr Clr Drug Dosing 113.0 ml/min Est GFR ( Amer) 142.6 ml/min Est GFR (Non-Af Amer) 123.1 ml/min BUN/Creatinine Ratio 6.3 L (10-20) Glucose 97 (70-99(Fasting)) mg/dl POC Glucose 106 H (70-99) mg/dl Calcium 10.5 H (8.6-10.3) mg/dl Magnesium 1.8 (1.7-2.4) mg/dl Total Bilirubin 1.0 (0.2-1.0) mg/dl AST 52 H (13-39) U/L ALT 47 (7-52) U/L Alkaline Phosphatase 89 (34-104) U/L Troponin I High Sens 2.3 (0-20) pg/ml Total Protein 8.4 H (6.0-8.3) gm/dl Albumin 5.0 (3.4-5.0) gm/dl Globulin 3.4 (2.5-4.0) gm/dl Albumin/Globulin Ratio 1.5 (0.9-2) Triglycerides 139 (0-150) mg/dl Cholesterol 151 (0-200) mg/dl LDL Cholesterol, Calc 76 mg/dl VLDL Cholesterol, Calc 28 (0-30) mg/dl HDL Cholesterol 47 mg/dl Cholesterol/HDL Ratio 3.2 (0-5) Administered Medications Sodium Chloride (Nss) 1,000 mls @ 75 mls/hr IV .[id number] JERILYN Stop: 11/30/23 15:24 Last Admin: 11/29/23 12:55 Dose: 75 mls/hr Documented By: FANTA Acetaminophen (Ofirmev) 1,000 mg in 100 mls @ 400 mls/hr IV Q8H PRN PRN Reason: Pain Stop: 12/02/23 12:42 Last Admin: 11/29/23 12:53 Dose: 400 mls/hr Documented By: FANTA Thiamine HCl 100 mg/ Syringe 10 mls @ 2 mls/min IV QAM JERILYN Stop: 12/29/23 14:59 Last Admin: 11/29/23 15:37 Dose: 2 mls/min Documented By: REMEDIOS Folic Acid 1 mg/ Syringe 10 mls @ 5 mls/min IV QAM JERILYN Stop: 12/29/23 14:59 Last Admin: 11/29/23 15:38 Dose: 5 mls/min Documented By: REMEDIOS Discontinued Medications Acetaminophen (Acetaminophen 325 Mg Tab) 650 mg PO NOW STA Stop: 11/29/23 11:48 Last Admin: 11/29/23 12:22 Dose: Not Given Documented By: FANTA Sodium Chloride (Nss) 500 mls @ 50 mls/hr IV .Q10H JERILYN Stop: 12/29/23 11:59 Last Infusion: 11/29/23 12:25 Dose: 0 mls/hr Documented By: Admin: 11/29/23 12:21 Dose: 50 mls/hr Documented By: FANTA Levetiracetam 1,000 mg/ Sodium (Chloride) 110 mls @ 440 mls/hr IV NOW STA Stop: 11/29/23 12:17 Last Infusion: 11/29/23 12:46 Dose: Infused Documented By: Admin: 11/29/23 12:23 Dose: 440 mls/hr Documented By: FANTA Lorazepam (Lorazepam 1 Mg/1 Ml Syr Ed Inj Use) 2 mg IV ONE STA Stop: 11/29/23 12:05 Last Admin: 11/29/23 12:14 Dose: 2 mg Documented By: FANTA Ondansetron HCl (Ondansetron Inj 2 Mg/Ml 2 Ml Vial) Confirm Administered Dose 4 mg .ROUTE .STK-MED ONE Stop: 11/29/23 11:24 Last Admin: 11/29/23 11:28 Dose: Not Given Documented By: FANTA Ondansetron HCl (Ondansetron Inj 2 Mg/Ml 2 Ml Vial) 4 mg IV NOW STA Stop: 11/29/23 11:25 Last Admin: 11/29/23 11:28 Dose: 4 mg Documented By: FANTA Imaging Data Radiologist's Impression: Head CT 11/29/23 10:50 CT OF THE HEAD WITHOUT CONTRAST CLINICAL HISTORY: neuro deficit, acute stroke suspected COMPARISON STUDY: Head CT November 08, 2023. CT DOSE: 1129.97 mGy.cm TECHNIQUE: Helical axial images of the head were obtained without IV contrast. Automated exposure control was utilized for the study. A dose lowering technique was utilized adhering to the principles of ALARA. FINDINGS: No acute intracranial hemorrhage is identified. Right-sided craniectomy is unchanged in appearance since CT of November 08, 2023. Hypodensity within the right temporal lobe is unchanged. The appearance of the brain is unchanged. Basal cisterns are patent. Ventricular system is stable. There are no findings to suggest acute dural sinus thrombosis or acute territorial infarct. No acute calvarial fractures are present. IMPRESSION: 1. No acute intracranial findings. 2. Stable findings following right craniectomy since CT of November 08, 2023. No change in right temporal lobe hypodensity since prior exam. No significant change in appearance of the brain. ACT 112: Negative or not required by law. Electronically signed by: Bigg Godoy M.D. 11/29/2023 11:15 AM Head CTA 11/29/23 10:50 CTA ANGIOGRAPHY OF THE HEAD CLINICAL HISTORY: neuro deficit, acute stroke suspected COMPARISON STUDY: Head CT November 08, 2023. TECHNIQUE: Helical axial images of the head were obtained following uneventful intravenous administration of 117 cc of Optiray. Sagittal and coronal reconstructions were viewed as well as maximal intensity projections on an independent 3-D workstation. Automated exposure control was utilized for the study. A dose lowering technique was utilized adhering to the principles of ALARA. FINDINGS: No acute intracranial hemorrhage is identified. The ventricular system is unremarkable. Basal cisterns are patent. There are no extra axial collections. There are stable postoperative findings following right sided craniectomy. No significant change in appearance of brain since CT of November 08, 2023. Right temporal lobe hypodensity remains unchanged. The bilateral M1, M2, A1 and A2 segments are patent. There is no intracranial enhancing. There is no central vessel occlusion. Posterior circulation is intact. IMPRESSION: 1. No central vessel occlusion. No intracranial aneurysm. 2. Stable postoperative findings following right craniectomy. Stable hypodensity within the right temporal lobe. No significant change in appearance of the brain since CT of November 08, 2023. ACT 112: Negative or not required by law. Electronically signed by: Bigg Godoy M.D. 11/29/2023 11:30 AM Neck CTA 11/29/23 10:50 CT ANGIOGRAPHY OF THE NECK WITH CONTRAST CLINICAL HISTORY: neuro deficit, acute stroke suspected COMPARISON STUDY: No previous studies for comparison. Technique: CT angiography of the carotid and vertebral arteries was obtained using Optiray and 3D reconstruction on an independent workstation. NASCET criteria was utilized. Automated exposure control was utilized for the study. A dose lowering technique was utilized adhering to the principles of ALARA. Findings: Visual portions of the lung apices are unremarkable. There are several prominent mediastinal lymph nodes. Index prevascular node on image 12 of 384 measures 1 cm in short axis diameter. The bilateral common carotid, cervical internal carotid and vertebral arteries are patent. There is no stenosis or dissection within these vessels. No aneurysm within the neck is present. Right craniectomy and right temporal lobe hypodensity is better depicted on the head CT and CTA of the head which will be reported separately. IMPRESSION: Unremarkable CTA of the neck. No stenosis or dissection within the bilateral common carotid, cervical internal carotid or vertebral arteries. ACT 112: Negative or not required by law. Electronically signed by: Bigg Godoy M.D. 11/29/2023 11:22 AM Discharge Plan Visit Data Chief Complaint: Stroke/CVA Symptoms Stated Complaint: WEAKNESS TO L ARM & LEG ED Provider: Cr Gautam Discharge Problem: Stroke-like symptoms, Seizure disorder, Weakness, History of traumatic brain injury Patient Disposition: Admitted As Inpatient Discharge Instructions Interventions: ED Discharge Assessment Last Done: 11/29/23 14:06
[2023-11-29 11:14] LABS: Calcium 10.5 mg/dl (8.6-10.3); Magnesium 1.8 mg/dl (1.7-2.4); Partial Thromboplastin Ratio 0.9; Partial Thromboplastin Time 26 Seconds (21-31); Potassium 3.8 mmol/L (3.5-5.1); Prothrombin Time 11.4 Seconds (9.0-12.0)
--- NOTE | 2023-11-29 11:18 | CT Scan Report ---
CT OF THE HEAD WITHOUT CONTRAST CLINICAL HISTORY: neuro deficit, acute stroke suspected COMPARISON STUDY: Head CT November 08, 2023. CT DOSE: 1129.97 mGy.cm TECHNIQUE: Helical axial images of the head were obtained without IV contrast. Automated exposure con trol was utilized for the study. A dose lowering technique was utilized adhering to the principles o f ALARA. FINDINGS: No acute intracranial hemorrhage is identified. Right-sided craniectomy is unchanged in alan earance since CT of November 08, 2023. Hypodensity within the right temporal lobe is unchanged. The a ppearance of the brain is unchanged. Basal cisterns are patent. Ventricular system is stable. There a re no findings to suggest acute dural sinus thrombosis or acute territorial infarct. No acute calvari al fractures are present. IMPRESSION: 1. No acute intracranial findings. 2. Stable findings following right craniectomy since CT of November 08, 2023. No change in right temp oral lobe hypodensity since prior exam. No significant change in appearance of the brain. ACT 112: Negative or not required by law. Electronically signed by: Bigg Godoy M.D. 11/29/2023 11:15 AM
[2023-11-29 11:20] LABS: Albumin Globulin Ratio 1.5 (0.9-2); BUN Creatinine Ratio 6.3 (10-20); Est GFR (African American) 142.6 ml/min; Est GFR (Non-African American) 123.1 ml/min; Globulin 3.4 gm/dl (2.5-4.0); Total Protein 8.4 gm/dl (6.0-8.3)
[2023-11-29] MEDS ORDERED: ONDANSETRON INJ 2 MG/ML 2 ML VIAL ONE (11:23)
[2023-11-29] MEDS ORDERED: ONDANSETRON INJ 2 MG/ML 2 ML VIAL IV STA (11:24)
--- NOTE | 2023-11-29 11:25 | CT Scan Report ---
CT ANGIOGRAPHY OF THE NECK WITH CONTRAST CLINICAL HISTORY: neuro deficit, acute stroke suspected COMPARISON STUDY: No previous studies for comparison. Technique: CT angiography of the carotid and vertebral arteries was obtained using Optiray and 3D rec onstruction on an independent workstation. NASCET criteria was utilized. Automated exposure control was utilized for the study. A dose lowering technique was utilized adhering to the principles of ALA RA. Findings: Visual portions of the lung apices are unremarkable. There are several prominent mediastina l lymph nodes. Index prevascular node on image 12 of 384 measures 1 cm in short axis diameter. The bi lateral common carotid, cervical internal carotid and vertebral arteries are patent. There is no sten osis or dissection within these vessels. No aneurysm within the neck is present. Right craniectomy an d right temporal lobe hypodensity is better depicted on the head CT and CTA of the head which will be reported separately. IMPRESSION: Unremarkable CTA of the neck. No stenosis or dissection within the bilateral common carot id, cervical internal carotid or vertebral arteries. ACT 112: Negative or not required by law. Electronically signed by: Bigg Godoy M.D. 11/29/2023 11:22 AM
[2023-11-29 11:26] LABS: Troponin I High Sensitivity 2.3 pg/ml (0-20)
--- NOTE | 2023-11-29 11:32 | CT Scan Report ---
CTA ANGIOGRAPHY OF THE HEAD CLINICAL HISTORY: neuro deficit, acute stroke suspected COMPARISON STUDY: Head CT November 08, 2023. TECHNIQUE: Helical axial images of the head were obtained following uneventful intravenous administr ation of 117 cc of Optiray. Sagittal and coronal reconstructions were viewed as well as maximal inten sity projections on an independent 3-D workstation. Automated exposure control was utilized for the study. A dose lowering technique was utilized adhering to the principles of ALARA. FINDINGS: No acute intracranial hemorrhage is identified. The ventricular system is unremarkable. Bas al cisterns are patent. There are no extra axial collections. There are stable postoperative findings following right sided craniectomy. No significant change in appearance of brain since CT of November 08, 2023. Right temporal lobe hypodensity remains unchanged. The bilateral M1, M2, A1 and A2 segment s are patent. There is no intracranial enhancing. There is no central vessel occlusion. Posterior cir culation is intact. IMPRESSION: 1. No central vessel occlusion. No intracranial aneurysm. 2. Stable postoperative findings following right craniectomy. Stable hypodensity within the right tem poral lobe. No significant change in appearance of the brain since CT of November 08, 2023. ACT 112: Negative or not required by law. Electronically signed by: Bigg Godoy M.D. 11/29/2023 11:30 AM
[2023-11-29] MEDS ORDERED: ACETAMINOPHEN 325 MG TAB PO STA (11:47)
[2023-11-29] MEDS ORDERED: SODIUM CHLORIDE 0.9% 500 ML IV SCH (12:00)
[2023-11-29] MEDS ORDERED: levETIRAcetam 1,000 MG in 0.9 % SODIUM CHLORIDE 100 ML IV STA (12:03)
[2023-11-29] MEDS ORDERED: LORazepam 1 MG/1 ML SYR ED Inj Use IV STA (12:04)
[2023-11-29] MEDS ORDERED: ALUMINUM/MAGNESIUM SUSP 30 ML UDC PO PRN (12:06)
[2023-11-29] MEDS ORDERED: ONDANSETRON INJ 2 MG/ML 2 ML VIAL IV PRN (12:06)
[2023-11-29] MEDS ORDERED: POLYETHYLENE (MIRALAX) 17 GM PACK PO PRN (12:06)
[2023-11-29] MEDS ORDERED: MAGNESIUM HYDROXIDE SUSP 30 ML UDC PO PRN (12:06)
--- NOTE | 2023-11-29 12:22 | History & Physical Report ---
Date of Service November 29, 2023 Assessment & Plan (1) Stroke-like symptoms: (2) History of traumatic brain injury: (3) Seizure disorder: (4) Weakness: Plan Mr. Hill is a 28 year old male with an unfortunate history that includes a TBI in September secondary to an ICH s/p decompression craniotomy hematoma evacuation/intraparenchymal hemorrhage that was performed at [facility] by neurosurgeon Dr. Graham. Consideration for a cranioplasty in the coming weeks/month whom presents to the ED today with stroke like symptoms. He woke up this morning, not feeling well. He proceeded to make his coffee and started to have numbness in both of his hands, more on his left and proceeded into his left leg. He lives with his grandparents. 911 was called and he proceeded to the ED. ED MD called stroke alert and spoke with Dr. Man at [facility]. Last known well last evening at 2100. He had an isolated breakthrough tonic clonic seizure that occurred on 11/08/23. There was questionable compliance at that time with his Keppra. Today reports compliance with Keppra. Head CT: No acute intracranial findings and with stable findings following right craniectomy since CT of November 08, 2023. No change in right temporal lobe hypodensity since prior exam. No significant change in appearance of the brain. Head and neck CTAs: Unremarkable CTA of the neck. No stenosis or dissection within the bilateral common carotid, cervical internal carotid or vertebral arteries. No leukocytosis otherwise labs unremarkable. Hemodynamically stable and on room air [facility] stroke team recommended rectal ASA and Keppra load started. Recommended increase Keppra to 1000mg BID. He is not a TNK candidate. Patients grandfather stated that Juan's mother at the age of 47 and had numerous AMI's secondary to hypertrophic heart disease and known alcoholism. Father has never been involved. Pt denies tobacco use and recreational drug use. Pt reports he has been alcohol free for 16 days. Pt is AAx4 and able to answer some questions appropriately. Cranial nerves II-XII intact, normal speech, weakness with grasp as well as flexion extension shoulder elbow and wrist of the left upper extremity. No weakness of the right upper extremity. Subtle weakness in the left lower extremity. Unable to perform drift. Does have facial droop. Grandfather largely involved in providing history. Patient will be admitted for continuation of stroke workup including MRI brain, echocardiogram, PT/OT/ST, formal neurology consultation, as per recommended by [facility] stroke center loaded with 1 g Keppra and continue at increased dose of 1 g twice daily. Due to patient's known alcoholism will add folic acid and thiamine. weakness with grasp as well as flexion extension shoulder elbow and wrist of the left upper extremity. No weakness of the right upper extremity. Subtle weakness in the left lower extremity. Unable to perform drift. Does have facial droop. Stroke Like Symptoms: Acute Head CT: No acute intracranial findings and with stable findings following right craniectomy since CT of November 08, 2023. No change in right temporal lobe hypodensity since prior exam. No significant change in appearance of the brain. Head and neck CTAs: Unremarkable CTA of the neck. No stenosis or dissection within the bilateral common carotid, cervical internal carotid or vertebral arteries. MRI brain, echocardiogram ordered Just had an EEG; unable to obtain records As per recommended by [facility] stroke center loaded with 1 g Keppra and continue at increased dose of 1 g twice daily A1C, lipid panel PT/OT/ST Initially failed dysphagia screen; if passes will order diet; if continues to fail; will add IVF formal neurology consultation; Discussed with Neurologist Dr Alfonso Keen on the phone; recommends repeat brain MRI on Thursday to reassess findings EEG ordered Rectal ASA loading at 300 mg. 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 Graham Consideration for a cranioplasty in the coming weeks/month Seizure Disorder: Chronic Isolated breakthrough tonic clonic seizure that occurred on 11/08/23 Takes Keppra 500 mg PO BID; concerns for non-compliance more recently. As per recommended by [facility] stroke center loaded with 1 g Keppra and continue at increased dose of 1 g twice daily No tremulous noted on examination Disposition: PCP: Dr. Beltran Code Status: Full Code VTE Prophylaxis: Teds and SCDs for now I spent a total of 87 minutes coordinating, documenting, and providing care for this patient excluding time spent in the performance of separately billed services. All of the aforementioned completed while collaborating with the assigned attending physician for a full treatment plan. Please see their addendum for further details. History of Present Illness Chief Complaint: stroke like symptoms Primary Care Provider: NO PCP Mr. Hill is a 28 year old male with an unfortunate history that includes a TBI in September secondary to an ICH s/p decompression craniotomy hematoma evacuation/intraparenchymal hemorrhage that was performed at [facility] by neurosurgeon Dr. Graham. Consideration for a cranioplasty in the coming weeks/month whom presents to the ED today with stroke like symptoms. He woke up this morning, not feeling well. He proceeded to make his coffee and started to have numbness in both of his hands, more on his left and proceeded into his left leg. He lives with his grandparents. 911 was called and he proceeded to the ED. ED MD called stroke alert and spoke with Dr. Man at [facility]. Last known well last evening at 2100. He had an isolated breakthrough tonic clonic seizure that occurred on 11/08/23. There was questionable compliance at that time with his Keppra. Today reports compliance with Keppra. Head CT: No acute intracranial findings and with stable findings following right craniectomy since CT of November 08, 2023. No change in right temporal lobe hypodensity since prior exam. No significant change in appearance of the brain. Head and neck CTAs: Unremarkable CTA of the neck. No stenosis or dissection within the bilateral common carotid, cervical internal carotid or vertebral arteries. No leukocytosis otherwise labs unremarkable. Hemodynamically stable and on room air [facility] stroke team recommended rectal ASA and Keppra load started. Recommended increase Keppra to 1000mg BID. He is not a TNK candidate. Patients grandfather stated that Juan's mother at the age of 47 and had numerous AMI's secondary to hypertrophic heart disease and known alcoholism. Father has never been involved. Pt denies tobacco use and recreational drug use. Pt reports he has been alcohol free for 16 days. Pt is AAx4 and able to answer some questions appropriately. Cranial nerves II-XII intact, normal speech, weakness with grasp as well as flexion extension shoulder elbow and wrist of the left upper extremity. No weakness of the right upper extremity. Subtle weakness in the left lower extremity. Unable to perform drift. Does have facial droop. Grandfather largely involved in providing history. Patient will be admitted for continuation of stroke workup including MRI brain, echocardiogram, PT/OT/ST, formal neurology consultation, as per recommended by [facility] stroke center loaded with 1 g Keppra and continue at increased dose of 1 g twice daily. Due to patient's known alcoholism will add folic acid and thiamine. Allergies Allergy/AdvReac Type Severity Reaction Status Date / Time adhesive Allergy Intermediate REDDENED Verified 09/12/23 00:57 RASH Home Medications Medication Instructions Recorded Confirmed Type levetiracetam 500 mg tablet 500 mg PO BID 11/29/23 11/29/23 History Past Med/Surg History Medical History (Updated 11/29/23 @ 17:02 by BERNICE Benjamin) Weakness Seizure disorder History of traumatic brain injury Stroke-like symptoms Pneumothorax on right Multiple rib fractures Surgical History No significant past surgical history Family History (Updated 11/29/23 @ 14:55 by BERNICE Benjamin) Mother Coronary heart disease Social History Smoking Status: Former smoker Tobacco Type: Cigarettes Hx Alcohol Use: Yes Preferred Language: Kiswahili marital status: Single Current Living Situation: Family current occupational status: employed Feels Safe at Home: Yes Review of Systems Review of Systems: Neuro: (-) Falls, trauma, slurred speech HEENT: (+) ANGULO, dizziness, dysphagia, visual or auditory changes CV: (-) CP, palpitations, swelling Resp: (-) SOB GI: (-) appetite changes, N/V/D, bowel changes : (-) urinary changes Skin: (-) rashes Psych: (-) anxiety, depression Physical Exam Physical Exam: Neuro: AAOx4, PERRLA, no aphagia, memory changes, Cranial nerves II-XII intact, normal speech HEENT: head normocephalic, moist mucus membranes CV: S1/S2, (-) M/G/R, (-) edema, cap refill < 3 seconds Resp: Lungs CTA in all quintana. On RA GI: Abdomen S/NT/ND, Ax4 bowel sounds, (-) CVA tenderness Musculoskeletal: weakness with grasp as well as flexion extension shoulder elbow and wrist of the left upper extremity. No weakness of the right upper extremity. Subtle weakness in the left lower extremity. Unable to perform drift. Does have facial droop. Skin: (-) rashes , (-) erythema. Psych: euthymic mood Results & Data Results & Data Vital Signs (Past 12 Hours) Vital Signs Temp Pulse Pulse Resp BP BP Pulse Ox 11/29/23 11:30 93 H 15 133/89 96 11/29/23 11:30 94 H 11/29/23 11:21 94 H 22 129/87 96 11/29/23 11:18 86 15 128/101 H 96 11/29/23 11:11 98 H 20 128/101 H 99 11/29/23 11:10 96 11/29/23 10:49 36.9 C 90 18 144/99 H 95 O2 Del Method 11/29/23 11:30 Room Air 11/29/23 11:30 11/29/23 11:21 Room Air 11/29/23 11:18 Room Air 11/29/23 11:11 Room Air 11/29/23 11:10 11/29/23 10:49 Room Air Laboratory Results Short CBC 11/29/23 Range/Units 10:35 WBC 5.91 (4.8-10.8) K/ul Hgb 16.6 (14.0-18.0) g/dl Hct 47.9 (42.0-52.0) % Plt Count 233 (130-400) K/uL BMP 11/29/23 10:35 Sodium 138 Potassium 3.8 Chloride 103 Carbon Dioxide 28 BUN 5 L Creatinine 0.79 Glucose 97 Calcium 10.5 H Liver Function 11/29/23 Range/Units 10:35 Total Bilirubin 1.0 (0.2-1.0) mg/dl AST 52 H (13-39) U/L ALT 47 (7-52) U/L Alkaline Phosphatase 89 (34-104) U/L Albumin 5.0 (3.4-5.0) gm/dl Diagnostic Findings Head CT 11/29/23 10:50 CT OF THE HEAD WITHOUT CONTRAST CLINICAL HISTORY: neuro deficit, acute stroke suspected COMPARISON STUDY: Head CT November 08, 2023. CT DOSE: 1129.97 mGy.cm TECHNIQUE: Helical axial images of the head were obtained without IV contrast. Automated exposure control was utilized for the study. A dose lowering technique was utilized adhering to the principles of ALARA. FINDINGS: No acute intracranial hemorrhage is identified. Right-sided craniectomy is unchanged in appearance since CT of November 08, 2023. Hypodensity within the right temporal lobe is unchanged. The appearance of the brain is unchanged. Basal cisterns are patent. Ventricular system is stable. There are no findings to suggest acute dural sinus thrombosis or acute territorial infarct. No acute calvarial fractures are present. IMPRESSION: 1. No acute intracranial findings. 2. Stable findings following right craniectomy since CT of November 08, 2023. No change in right temporal lobe hypodensity since prior exam. No significant change in appearance of the brain. ACT 112: Negative or not required by law. Electronically signed by: Bigg Godoy M.D. 11/29/2023 11:15 AM Head CTA 11/29/23 10:50 CTA ANGIOGRAPHY OF THE HEAD CLINICAL HISTORY: neuro deficit, acute stroke suspected COMPARISON STUDY: Head CT November 08, 2023. TECHNIQUE: Helical axial images of the head were obtained following uneventful intravenous administration of 117 cc of Optiray. Sagittal and coronal reconstructions were viewed as well as maximal intensity projections on an independent 3-D workstation. Automated exposure control was utilized for the study. A dose lowering technique was utilized adhering to the principles of ALARA. FINDINGS: No acute intracranial hemorrhage is identified. The ventricular system is unremarkable. Basal cisterns are patent. There are no extra axial colle ctions. There are stable postoperative findings following right sided craniectomy. No significant change in appearance of brain since CT of November 08, 2023. Right temporal lobe hypodensity remains unchanged. The bilateral M1, M2, A1 and A2 segments are patent. There is no intracranial enhancing. There is no central vessel occlusion. Posterior circulation is intact. IMPRESSION: 1. No central vessel occlusion. No intracranial aneurysm. 2. Stable postoperative findings following right craniectomy. Stable hypodensity within the right temporal lobe. No significant change in appearance of the brain since CT of November 08, 2023. ACT 112: Negative or not required by law. Electronically signed by: Bigg Godoy M.D. 11/29/2023 11:30 AM Neck CTA 11/29/23 10:50 CT ANGIOGRAPHY OF THE NECK WITH CONTRAST CLINICAL HISTORY: neuro deficit, acute stroke suspected COMPARISON STUDY: No previous studies for comparison. Technique: CT angiography of the carotid and vertebral arteries was obtained using Optiray and 3D reconstruction on an independent workstation. NASCET criteria was utilized. Automated exposure control was utilized for the study. A dose lowering technique was utilized adhering to the principles of ALARA. Findings: Visual portions of the lung apices are unremarkable. There are several prominent mediastinal lymph nodes. Index prevascular node on image 12 of 384 measures 1 cm in short axis diameter. The bilateral common carotid, cervical internal carotid and vertebral arteries are patent. There is no stenosis or dissection within these vessels. No aneurysm within the neck is present. Right craniectomy and right temporal lobe hypodensity is better depicted on the head CT and CTA of the head which will be reported separately. IMPRESSION: Unremarkable CTA of the neck. No stenosis or dissection within the bilateral common carotid, cervical internal carotid or vertebral arteries. ACT 112: Negative or not required by law. Electronically signed by: Bigg Godoy M.D. 11/29/2023 11:22 AM Code Status & VTE Plan Code Status Full Code in the event of cardiac or respiratory arrest VTE Prophylaxis Plan VTE Prophylaxis will be ordered: Yes Supervising Physician Co-Signing Physician Notes 28 year old male with an unfortunate history that includes a TBI in September secondary to an ICH s/p decompression craniotomy hematoma evacuation/intraparenchymal hemorrhage that was performed at [facility], being considered for cranioplasty who presents with LUE/LLE numbness that was noticed this morning Reports some left sided weakness, blurred vision and headache Exam notable for right skull depression (site of craniotomy), LUE/LLE sensory deficit and reduced power. Left facial droop Labs notable for Ca 10.5, Head CT and CTA head/neck did not show acute abnormalities Brain MRI: Equivocal foci of restricted diffusion within the posterior right frontal and parietal lobes as well as the right thalamus. These foci are likely artifactual however developing areas of acute infarction cannot be completely excluded. Short-term follow-up MRI of the brain might be considered for further evaluation. Possible Acute CVA vs seizure Stroke Neuro in ER had recommended rectal ASA, keppra loading Get TTE PARTS CATALOGUER/PT/OT IVF Neuro consult A1c, Lipid panel Did not do well with dysphagia screening on presentation and got Rectal ASA loading. Discussed with Neurologist Dr Alfonso Keen. She agrees with plan and recommends repeating MRI brain in 2 days to reassess some of the findings EEG RN notified me that patient passed Dysphagia screen this evening Started on po diet, po atorvastatin, po ASA 81mg daily Aspiration precautions Agree with plans as detailed by Silvia QUEEN I spent a total of 45 minutes coordinating, documenting and providing care for this patient excluding time spent in performance of separately billed services
[2023-11-29] MEDS ORDERED: ACETAMINOPHEN 1,000 MG/100 ML VIAL IV PRN (12:43)
[2023-11-29] MEDS: SODIUM CHLORIDE 0.9% 1,000 ML IV SCH (12:55)
--- NOTE | 2023-11-29 13:27 | Electrocardiogram Report ---
Test Reason : Blood Pressure : / mmHG Vent. Rate : 082 BPM Atrial Rate : 082 BPM P-R Int : 146 ms QRS Dur : 078 ms QT Int : 376 ms P-R-T Axes : 039 -04 032 degrees QTc Int : 439 ms Normal sinus rhythm Possible Inferior infarct , age undetermined Abnormal ECG When compared with ECG of 08-NOV-2023 16:49, Borderline criteria for Inferior infarct are now Present Confirmed by Tom Lopez ([id number]) on 11/29/2023 1:27:11 PM Referred By: Confirmed By:Matty Lopez
[2023-11-29 13:58] LABS: Chol HDL Ratio 3.2 (0-5)
--- NOTE | 2023-11-29 14:02 | Magnetic Resonance Report ---
MRI OF THE BRAIN WITHOUT CONTRAST CLINICAL HISTORY: Stroke like symptoms. Left arm and leg numbness. History of traumatic brain injury status post surgery. COMPARISON STUDY: Head CT and CTA of the head performed earlier today. Head CT November 08, 2023. TECHNIQUE: Utilizing a 1.5 Magi magnet and dedicated coil, multiplanar, multiecho imaging of the bra in was performed without IV contrast. FINDINGS: Extensive postoperative findings with right craniectomy are noted. No definite foci of rest ricted diffusion to suggest acute infarct are identified. There is subtle increased cortical signal i ntensity within the posterior right frontal lobe and right parietal lobes on diffusion-weighted seque nce. This is hypointense on the ADC map. This is best shown on axial images 16 and 17 of 24. No corre sponding FLAIR/T2 hyperintensity is present. This is probably artifactual. Subtle asymmetric hyperint ensity within the right thalamus on diffusion-weighted sequence measuring approximately 7 mm is noted . This is slightly hypointense on the ADC map. There is mild sulcal effacement within the right cereb ral hemisphere and mild leftward midline shift of 6 mm. There is slight compression of the right late ral ventricle. These findings are stable to slightly increased since CT of November 08, 2023. Encepha lomalacia with gliosis within the right temporal lobe is noted. Hypointensity on the gradient echo se quence within the right temporal lobe suggests old blood products. An additional smaller hypodense fo cus within the left temporal lobe also suggests old blood products. No intracranial masses are identi fied on unenhanced exam. IMPRESSION: 1. Equivocal foci of restricted diffusion within the posterior right frontal and parietal lobes as we ll as the right thalamus. These foci are likely artifactual however developing areas of acute infarct ion cannot be completely excluded. Short-term follow-up MRI of the brain might be considered for furt her evaluation. 2. Status post right craniectomy. Encephalomalacia, gliosis and old blood products within the right t emporal lobe. The findings are likely chronic although correlation with prior postoperative MRI of th e brain would be of benefit. 3. Mild sulcal effacement within the right cerebral hemisphere with mild leftward midline shift and m ild compression of the right lateral ventricle. The findings are stable to slightly increased since h ead CT of November 08, 2023. Short-term imaging follow-up is recommended to exclude the possibility o f underlying mild cerebral edema. ACT 112: Negative or not required by law. Electronically signed by: Bigg Godoy M.D. 11/29/2023 2:01 PM
[2023-11-29] MEDS ORDERED: ASPIRIN 300 MG SUPP PR ONE (15:36)
[2023-11-29] MEDS: THIAMINE HCL 100 MG in SYRINGE 9 ML IV SCH (15:37)
[2023-11-29] MEDS: FOLIC ACID 1 MG in SYRINGE 9.8 ML IV SCH (15:38)
--- NOTE | 2023-11-29 16:03 | Communication Note ---
Date of Service: November 29, 2023 to be seen on 11/30:Seen by Molly11/29 A hx of TBI and ICH , Right hemicraniectomy, presenting with lefts sided numbness. possible seizure, concerns for alcohol use ( last drink 16 days ago ), loaded with 1 gram , and keppra was increased from 500mg to 1000mg bid. MRI with equivocal changes , right parietal and right thalamus. plan for repeated MRI on Thursday. started aspirin - EEG
[2023-11-29] MEDS ORDERED: ASPIRIN CHEW 324 MG PO STA (18:11)
[2023-11-29] MEDS: ACETAMINOPHEN 325 MG TAB PO PRN (19:39)
[2023-11-29] MEDS: levETIRAcetam 1,000 MG in 0.9 % SODIUM CHLORIDE 100 ML IV SCH (20:17)
[2023-11-30] MEDS: SODIUM CHLORIDE 0.9% 1,000 ML IV SCH (02:21)
[2023-11-30 06:29] LABS: Hematocrit (blood only) 41.9 % (42.0-52.0); Hemoglobin 14.5 g/dl (14.0-18.0); Mean Corpuscular Hemoglobin 30.5 pg (25.0-34.0); Mean Corpuscular Hgb Conc 34.6 g/dL (32.0-36.0); Mean Corpuscular Volume 88.2 fL (80.0-100.0); Mean Platelet Volume 9.4 fL (9.4-12.4); Platelet Count 200 K/uL (130-400); RDW Coefficient of Variation 12.1 % (11.5-14.5); RDW Standard Deviation 39.6 fL (36.4-46.3); Red Blood Count 4.75 M/uL (4.70-6.10); White Blood Count 5.83 K/ul (4.8-10.8)
[2023-11-30 06:41] LABS: Albumin Level 4.3 gm/dl (3.4-5.0); Bilirubin,Total 0.8 mg/dl (0.2-1.0); Calcium 9.7 mg/dl (8.6-10.3); Magnesium 1.7 mg/dl (1.7-2.4); Potassium 3.5 mmol/L (3.5-5.1)
[2023-11-30 06:47] LABS: Albumin Globulin Ratio 1.5 (0.9-2); BUN Creatinine Ratio 6.7 (10-20); Creatinine Clr Calc Pharmacy 119.1 ml/min; Est GFR (African American) 145.7 ml/min; Est GFR (Non-African American) 125.7 ml/min; Globulin 2.8 gm/dl (2.5-4.0); Total Protein 7.1 gm/dl (6.0-8.3)
[2023-11-30 07:31] LABS: Estimated Average Glucose 82 mg/dl; Hemoglobin A1C 4.5 % (4.5-5.6)
--- NOTE | 2023-11-30 07:40 | Electroencephalogram ---
EEG Procedure Note Date of Service November 30, 2023 Start / End Times Start Time: 06:21 End Time: 06:41 Referring Physician Silvia Hi History A 28 year old male with history of seizure and traumatic right sided ICH s/p craniotomy with possibe breakthrough seizure. EEG performed for evaluation of epileptiform activity. Home Medication List Medication Instructions Recorded Confirmed Type levetiracetam 500 mg tablet 500 mg PO BID 11/29/23 11/29/23 History Inpatient Medication List Acetaminophen (Acetaminophen 325 Mg Tab) 650 mg PO Q4H PRN PRN Reason: Pain or Fever Stop: 12/29/23 12:05 Last Admin: 11/29/23 19:39 Dose: 650 mg Documented By: KAVYA Al Hydrox/Mg Hydrox/Simethicone (Aluminum/Magnesium Susp 30 Ml Udc) 15 ml PO Q4H PRN PRN Reason: Dyspepsia Stop: 12/29/23 12:05 Last Admin: 11/29/23 20:17 Dose: 15 ml Documented By: KAVYA Sodium Chloride (Nss) 1,000 mls @ 75 mls/hr IV .[id number] [facility] Stop: 11/30/23 15:24 Last Admin: 11/30/23 02:21 Dose: 75 mls/hr Documented By: Infusion: 11/30/23 02:15 Dose: Infused Documented By: Admin: 11/29/23 12:55 Dose: 75 mls/hr Documented By: FANTA Acetaminophen (Ofirmev) 1,000 mg in 100 mls @ 400 mls/hr IV Q8H PRN PRN Reason: Pain Stop: 12/02/23 12:42 Last Infusion: 11/29/23 19:17 Dose: Infused Documented By: Admin: 11/29/23 12:53 Dose: 400 mls/hr Documented By: FANTA Thiamine HCl 100 mg/ Syringe 10 mls @ 2 mls/min IV QAM [facility] Stop: 12/29/23 14:59 Last Admin: 11/29/23 15:37 Dose: 2 mls/min Documented By: REMEDIOS Folic Acid 1 mg/ Syringe 10 mls @ 5 mls/min IV QAM JERILYN Stop: 12/29/23 14:59 Last Admin: 11/29/23 15:38 Dose: 5 mls/min Documented By: REMEDIOS Levetiracetam 1,000 mg/ Sodium (Chloride) 110 mls @ 440 mls/hr IV BID JERILYN Stop: 12/29/23 20:59 Last Infusion: 11/29/23 20:43 Dose: Infused Documented By: Admin: 11/29/23 20:17 Dose: 440 mls/hr Documented By: KAVYA Discontinued Medications Acetaminophen (Acetaminophen 325 Mg Tab) 650 mg PO NOW STA Stop: 11/29/23 11:48 Last Admin: 11/29/23 12:22 Dose: Not Given Documented By: FANTA Aspirin (Aspirin 300 Mg Supp) 300 mg [place] ONE ONE Stop: 11/29/23 15:37 Last Admin: 11/29/23 19:17 Dose: Not Given Documented By: KAVYA Aspirin (Aspirin Chew 324 Mg) 324 mg PO NOW STA Stop: 11/29/23 18:12 Last Admin: 11/29/23 18:33 Dose: 324 mg Documented By: DANIA Sodium Chloride (Nss) 500 mls @ 50 mls/hr IV .Q10H JERILYN Stop: 12/29/23 11:59 Last Infusion: 11/29/23 19:16 Dose: Infused Documented By: Infusion: 11/29/23 12:25 Dose: 0 mls/hr Documented By: Admin: 11/29/23 12:21 Dose: 50 mls/hr Documented By: FANTA Levetiracetam 1,000 mg/ Sodium (Chloride) 110 mls @ 440 mls/hr IV NOW STA Stop: 11/29/23 12:17 Last Infusion: 11/29/23 12:46 Dose: Infused Documented By: Admin: 11/29/23 12:23 Dose: 440 mls/hr Documented By: FANTA Lorazepam (Lorazepam 1 Mg/1 Ml Syr Ed Inj Use) 2 mg IV ONE STA Stop: 11/29/23 12:05 Last Admin: 11/29/23 12:14 Dose: 2 mg Documented By: FANTA Ondansetron HCl (Ondansetron Inj 2 Mg/Ml 2 Ml Vial) Confirm Administered Dose 4 mg .ROUTE .STK-MED ONE Stop: 11/29/23 11:24 Last Admin: 11/29/23 11:28 Dose: Not Given Documented By: FANTA Ondansetron HCl (Ondansetron Inj 2 Mg/Ml 2 Ml Vial) 4 mg IV NOW STA Stop: 11/29/23 11:25 Last Admin: 11/29/23 11:28 Dose: 4 mg Documented By: FANTA Description This is a 21 electrode EEG with a single channel dedicated to limited EKG. The electrodes were placed in accordance with the International 10-20 system. REPORT: At the onset of the EEG the patinet is awake. The background is asymmetric with continuous polymorphic focal slowing on the right side consisting of an admixture of theta/delta activity. The posterior dominant rhythm is 9-10 Hz seen on the left. There is intermittent sharp waves seen in the right temporal head region. No stage II sleep transients are seen. Photic does not induce any additional abnormalities. Interpretation IMPRESSION: This is an abnormal routine EEG due to 1. Intermittent right temporal sharps waves suggestive of a predisposition for seizures from this area, 2. Continuous focal slowing on the right hemisphere maximal in the right frontotemporal head region suggestive of underlying structural abnormality or neuronal dysfunction. No electrographic seizures are recorded.
[2023-11-30] MEDS: ATORVASTATIN 40 MG TAB PO SCH (08:25)
[2023-11-30] MEDS: ASPIRIN 81 MG ECTAB PO SCH (08:25)
[2023-11-30] MEDS: levETIRAcetam 1,000 MG in 0.9 % SODIUM CHLORIDE 100 ML IV SCH (08:26)
[2023-11-30] MEDS: FOLIC ACID 1 MG in SYRINGE 9.8 ML IV SCH (08:27)
[2023-11-30] MEDS: THIAMINE HCL 100 MG in SYRINGE 9 ML IV SCH (08:27)
[2023-11-30] MEDS ORDERED: ASPIRIN 300 MG SUPP PR SCH (09:00)
--- NOTE | 2023-11-30 11:46 | Neurology Consultation ---
Date of Consultation November 30, 2023 Assessment & Plan (1) Weakness: Plan 28 y/o male with history of traumatic ICH s/o chon crani, seizure, and alcohol abuse that presented following a transient episode of left sided paresthesias and with worsening left sided weakness. Keppra load given in ED and keppra has been increased. Unclear etiology of symptoms. EEG with intermittent right temporal sharps and given this and his history, continuing with increased dose of keppra likely reasonable for now. MRI with equivocal changes, plan for repeat MRI brain tomorrow. 1. Repeat MRI brain 2. Opthalmology outpatient 3. Neurochecks q4 4. Continue keppra 1000 mg bid 5. Seizure precautions 6. No driving Telehealth Consultation Telehealth Information Telehealth Information: I performed this visit using a real-time telehealth connection between my location and the patients location ([facility]). After connecting through interactive tele-video, patient was identified by name and date of and/or wristband check.Patient (or authorized healthcare sales representative girls' apparel) was informed that this was a telemedicine visit and it was being conducted confidentially over secure lines. My office door was closed and no one else was present in the room with me.Patient (or authorized healthcare sales representative girls' apparel) provided consent to proceed with the visit, expressed an underst anding of privacy and security of the telemedicine visit, and gave permission to have a hospital sales representative girls' apparel in the room in order to assist with the visit and to conduct portions of the visit, as needed. I informed the patient (or authorized healthcare sales representative girls' apparel) that I reviewed their record and presented the opportunity for them to ask any questions regarding the visit today. The patient agreed to participate. History of Present Illness Reason for Consultation: stroke like symptoms Requesting Physician: BERNICE Greene Attending Physician: Isaiah Watts MD History of Present Illness 28 y/o that presented with left sided numbness/weakness. He states that on yesterday morning, he fell asleep at 4 am and woke up at 830 am. At that time, he got up and made a cup of coffee and when he went to sit down, he noticed tingling in his left fingers and then also noticed numbness/tingling in his left leg. He also began to become diaphoretic. He also began to feel that he was having weakness in his left upper and left lower extremity. He was concerned because these symptoms were similar to a prior seizure. He contacted his grandfather, and they decided to come to the ED for further evaluation. While in the emergency department, he was given a dose of keppra. He reports that while in the emergency department, he began to feel that his symptoms were improving. On today, he continues to feel that he has some weakness involving his left upper and lower extremity, although this is improved signifcantly. He did have left sided weakness following his prior TBI but he states that he states this had improved significantly but was not quite normal. He reports that back in September, he was at work when he started to feel tired and lethargic. He also noticed that he was having nausea. He had an episode of emesis in the bathroom and while in the bathroom was found to be convulsing by coworkers which followed a fall to the ground. He states that he had been drinking heavily and was not eating regularly. He reports having been found to have traumatic ICH at that time. Then in October, he was at home when he experienced tingling in his left fingertips and he remembered reaching out to catch something and the nect thing he know, EMS were there and he was taken to the ED. After this, he was started on keppra 500 mg bid. He states that his last drink was 16 days ago. He had no loss of awareness with his symptoms on yesterday. Allergies Allergy/AdvReac Type Severity Reaction Status Date / Time adhesive Allergy Intermediate REDDENED Verified 09/12/23 00:57 RASH Home Medications Medication Instructions Recorded Confirmed Type levetiracetam 500 mg tablet 500 mg PO BID 11/29/23 11/29/23 History Patient History Medical History (Updated 11/29/23 @ 17:42 by Cr Gautam DO) Weakness Seizure disorder History of traumatic brain injury Stroke-like symptoms Pneumothorax on right Multiple rib fractures Surgical History No significant past surgical history Family History (Updated 11/29/23 @ 14:55 by BERNICE Benjamin) Mother Coronary heart disease Social History Smoking Status: Never smoker Tobacco Type: Cigarettes Hx Alcohol Use: No Preferred Language: Omani Communication Ability: Effective marital status: Single Current Living Situation: Family current occupational status: employed Feels Safe at Home: Yes Assistive Devices: None Physical Exam AAO X 3 No aphasia or dysarthria ?Partial VF defect, inconsistent exam EOMI, no nystagmus Facial sensations intact No facial asymmetry Tongue protrudes midline Motor: Moves bilateral upper extremities antigravity with mild drift in left upper extremity. No pronation in left UE. Tiller and min tiller-negative. Moves bilateral lower extremities antigravity with no drift. Sensation: Intact to light touch throughout Cerebellar: FTN intact Results & Data Vital Signs (Past 12 Hours) Vital Signs Temp Pulse Pulse Resp BP Pulse Ox O2 Del Method 11/30/23 07:42 36.4 C L 83 16 123/76 98 Room Air 11/30/23 05:58 71 11/30/23 04:51 36.5 C 74 20 109/73 97 Room Air 11/30/23 00:21 36.9 C 101 H 20 98/59 L 97 Room Air Laboratory Results WBC 5.83, HGB 14.5, HCT 41.0, Plts 200, NA 136, Potassium 3.5, Chlorde 103, Carbon dioxide 23, BUN 5, Creatinine 0.75, Glucose 74, Magnesim 1.7, total bilirubin 0.8, AST 40, ALT 38, Albumin 4.3, Diagnostic Findings CT 11/29:. No acute intracranial findings. Stable findings following right craniectomy since CT of November 08, 2023. No change in right temporal lobe hypodensity since prior exam. No significant change in appearance of the brain. CTA head/neck 11/29:. No central vessel occlusion. No intracranial aneurysm. Stable postoperative findings following right craniectomy. Stable hypodensity within the right temporal lobe. No significant change in appearance of the brain since CT of November 08, 2023. MRI brain 11/29:1. Equivocal foci of restricted diffusion within the posterior right frontal and parietal lobes as well as the right thalamus. These foci are likely artifactual however developing areas of acute infarction cannot be completely excluded. Short-term follow-up MRI of the brain might be considered for further evaluation. 2. Status post right craniectomy. Encephalomalacia, gliosis and old blood products within the right temporal lobe. The findings are likely chronic although correlation with prior postoperative MRI of the brain would be of benefit. 3. Mild sulcal effacement within the right cerebral hemisphere with mild leftward midline shift and mild compression of the right lateral ventricle. The findings are stable to slightly increased since head CT of November 08, 2023. Short-term imaging follow-up is recommended to exclude the possibility of underlying mild cerebral edema. EEG: This is an abnormal routine EEG due to 1. Intermittent right temporal sha rps waves suggestive of a predisposition for seizures from this area, 2. Continuous focal slowing on the right hemisphere maximal in the right frontotemporal head region suggestive of underlying structural abnormality or neuronal dysfunction. No electrographic seizures are recorded.
--- NOTE | 2023-11-30 13:54 | Hospitalist Progress Note ---
Date of Service November 30, 2023 Assessment & Plan (1) Stroke-like symptoms: (2) History of traumatic brain injury: (3) Seizure disorder: (4) Weakness: Plan Mr. Hill is a 28 year old male with an unfortunate history that includes a TBI in September secondary to an ICH s/p decompression craniotomy hematoma evacuation/intraparenchymal hemorrhage that was performed at [facility] by neurosurgeon Dr. Graham. Consideration for a cranioplasty in the coming weeks/month whom presents to the ED with stroke like symptoms. He woke up this morning, not feeling well. He proceeded to make his coffee and started to have numbness in both of his hands, more on his left and proceeded into his left leg. He lives with his grandparents. 911 was called and he proceeded to the ED. ED MD called stroke alert and spoke with Dr. Man at [facility]. Last known well last evening of November 28 at 2100. He had an isolated breakthrough tonic clonic seizure that occurred on 11/08/23. Head CT: No acute intracranial findings and with stable findings following right craniectomy since CT of November 08, 2023. No change in right temporal lobe hypodensity since prior exam. No significant change in appearance of the brain. Head and neck CTAs: Unremarkable CTA of the neck. No stenosis or dissection within the bilateral common carotid, cervical internal carotid or vertebral arteries. No leukocytosis otherwise labs unremarkable. Hemodynamically stable and on room air [facility] stroke team recommended rectal ASA and Keppra load started. Recommended increase Keppra to 1000mg BID. He is not a TNK candidate. Patient admitted to telemetry floor for further management Stroke Like Symptoms History of TBI with ICH s/p decompression craniotectomy hematoma evacuation/intraparenchymal hemorrhage in September, Possible breakthrough seizure Patient presented with left-sided weakness. Head CT: No acute intracranial findings and with stable findings following right craniectomy since CT of November 08, 2023. No change in right temporal lobe hypodensity since prior exam. No significant change in appearance of the brain. Head and neck CTAs: Unremarkable CTA of the neck. No stenosis or dissection within the bilateral common carotid, cervical internal carotid or vertebral arteries. MRI brain on admission shows equivocal foci of restriction diffusion within posterior right frontal and parietal lobe as well as right thalamus. Likely artifactual; however developing areas of acute infarction cannot be excluded. Status post right craniectomy, encephalomalacia, gliosis and old blood products within right temporal lobe. EEG shows intermittent right temporal sharp waves suggestive of predisposition of seizure from this area. focal slowing on the right hemisphere maximal in the right frontotemporal head region suggestive of underlying structural abnormality or neuronal dysfunction. No electrographic seizures are recorded. Echocardiogram shows EF of 60 to 65%; injection of agitated saline contrast; small bubbles were noted in the left sided cardiac chambers consistent with small PFO or perhaps extracardiac [id number] shunt. Plan to repeat MRI brain tomorrow as per neurology Ultrasound venous duplex of bilateral lower extremities Neurochecks every 4 hours Continue Keppra 1000 mg twice daily Seizure precautions On aspirin and Lipitor as per neurology. Disposition: PCP: Dr. Beltran Code Status: Full Code VTE Prophylaxis: Teds and SCDs for now Time spent evaluating patient, direct bedside care, chart review, placing orders, interpretation of diagnostic studies, discussion with consultants, patient, and family members, as well as other required patient management activities is 50 minutes Please note the above document was generated using voice recognition software. It may contain grammatical, syntax or spelling errors. Any formal questions or concerns about the content, text or information contained within the body of this dictation should be directly addressed to the provider for clarification Admission and Anticipated Discharge Date Admission Date: November 29, 2023 Subjective Patient seen and examined at bedside. He reports that he is feeling much better. He reports improved strength on right arm. Still reporting mild weakness on supervisor testing strength. No other overnight events Review of Systems Review of Systems: All systems reviewed & are unremarkable except as noted in Subjective Physical Exam Physical Exam: Constitutional: Alert oriented x 3. Respiratory: Bilateral basilar breath sound Cardiovascular: RRR, no murmur, no edema Vessels: no JVD or carotid bruit Chest: normal inspection of chest Abdomen: normal bowel sounds, soft, nontender, no hepatosplenomegaly Musculoskeletal: no cyanosis or clubbing, extremities motor strength 5/5 Skin: no rashes, warm and dry normal turgor Neurologic: PERRL, EOMI, accommodation nl, no face palsy, no dysarthria CN's II- XI Sensation intact throughout. Mild decrease in left supervisor testing strength; otherwise strength 5 /5 Psychiatric: A+Ox3, euthymic affect Results & Data Results & Data Vital Signs (Past 12 Hours) Vital Signs Temp Pulse Pulse Resp BP Pulse Ox O2 Del Method 11/30/23 12:37 36.7 C 74 18 119/80 99 Room Air 11/30/23 07:42 36.4 C L 83 16 123/76 98 Room Air 11/30/23 05:58 71 11/30/23 04:51 36.5 C 74 20 109/73 97 Room Air
--- NOTE | 2023-11-30 15:22 | Ultrasound Report ---
BILATERAL LOWER EXTREMITY VENOUS DOPPLER HISTORY: Acute pain and swelling of the right lower extremity Rule out DVT COMPARISON STUDY: None. FINDINGS: There is normal compressibility, flow, and augmentation within the bilateral lower extremit y deep venous systems. IMPRESSION: No DVT within the right or left lower extremity. ACT 112: Negative or not required by law. Electronically signed by: Tani Hurtado M.D. 11/30/2023 3:20 PM
[2023-11-30] MEDS: levETIRAcetam 500 MG TAB PO SCH (21:07)
[2023-11-30] MEDS: ACETAMINOPHEN 325 MG TAB PO PRN (21:10)
--- NOTE | 2023-11-30 22:06 | CT Scan Report ---
Exam(s): CT HEAD Without Contrast EXAM: CT Head Without Intravenous Contrast CLINICAL HISTORY: Reason for exam: numbness on left side?. TECHNIQUE: Axial computed tomography images of the head/brain without intravenous contrast. Automated exposure control was utilized for the study. A dose lowering technique was utilized adhering to the principles of ALARA. COMPARISON: November 29, 2023. FINDINGS: No acute intracranial hemorrhage. No midline shift or mass effect. 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 The ventricles and sulci are commensurate with age. The visualized orbits appear grossly unremarkable. Old RIGHT hemicraniectomy. Similar when compared to November 29, 2023. The visualized paranasal sinuses and mastoid air cells are grossly clear. IMPRESSION: No acute intracranial hemorrhage, midline shift, or mass effect. 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 Old RIGHT hemicraniectomy. Similar when compared to November 29, 2023. Electronically signed by: Willem Pereira MD 11/30/23 22:06 PM
--- NOTE | 2023-12-01 02:21 | Magnetic Resonance Report ---
Exam(s): MRI HEAD Without Contrast EXAM: MR Head Without Intravenous Contrast CLINICAL HISTORY: Reason for exam: stroke. TECHNIQUE: Magnetic resonance images of the head/brain without intravenous contrast in multiple planes. COMPARISON: MRI dated 11/29/23, CT head dated 11/30/23 FINDINGS: Brain: Stable right temporal lobe encephalomalacia and increased cortical T1 signal intensity/laminar necrosis. No hemorrhage. No acute infarct. Ventricles: Unremarkable. No ventriculomegaly. Bones/joints: Right hemicraniectomy as on the priors. No acute fracture. Sinuses: Unremarkable as visualized. No acute sinusitis. Mastoid air cells: Unremarkable as visualized. No mastoid effusion. Orbits: Unremarkable as visualized. IMPRESSION: 1. No evidence of acute intracranial abnormality. 2. Stable chronic changes of right hemicraniectomy, right temporal lobe encephalomalacia/laminar necrosis. Electronically signed by: Constanza Boss M.D. 12/01/23 02:20 AM
[2023-12-01] MEDS: ATORVASTATIN 40 MG TAB PO SCH (08:23)
[2023-12-01] MEDS: ASPIRIN 81 MG ECTAB PO SCH (08:23)
[2023-12-01] MEDS: levETIRAcetam 500 MG TAB PO SCH (08:24)
[2023-12-01] MEDS ORDERED: THIAMINE HCL 100 MG TAB PO SCH (09:00)
--- NOTE | 2023-12-01 13:07 | Hospitalist Progress Note ---
Date of Service December 01, 2023 Assessment & Plan (1) Stroke-like symptoms: (2) History of traumatic brain injury: (3) Seizure disorder: (4) Weakness: Plan Mr. 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 Graham. Consideration for a cranioplasty in the coming weeks/month whom presents to the ED with stroke like symptoms. He woke up this morning, not feeling well. He proceeded to make his coffee and started to have numbness in both of his hands, more on his left and proceeded into his left leg. He lives with his grandparents. 911 was called and he proceeded to the ED. ED MD called stroke alert and spoke with Dr. Man at [facility]. Last known well last evening of November 28 at 2100. He had an isolated breakthrough tonic clonic seizure that occurred on 11/08/23. Head CT: No acute intracranial findings and with stable findings following right craniectomy since CT of November 08, 2023. No change in right temporal lobe hypodensity since prior exam. No significant change in appearance of the brain. Head and neck CTAs: Unremarkable CTA of the neck. No stenosis or dissection within the bilateral common carotid, cervical internal carotid or vertebral arteries. No leukocytosis otherwise labs unremarkable. Hemodynamically stable and on room air [facility] stroke team recommended rectal ASA and Keppra load started. Recommended increase Keppra to 1000mg BID. He is not a TNK candidate. Patient admitted to telemetry floor for further management Stroke Like Symptoms History of TBI with ICH s/p decompression craniotectomy hematoma evacuation/intraparenchymal hemorrhage in September, Possible breakthrough seizure Patient presented with left-sided weakness. Head CT: No acute intracranial findings and with stable findings following right craniectomy since CT of November 08, 2023. No change in right temporal lobe hypodensity since prior exam. No significant change in appearance of the brain. Head and neck CTAs: Unremarkable CTA of the neck. No stenosis or dissection within the bilateral common carotid, cervical internal carotid or vertebral arteries. MRI brain on admission shows equivocal foci of restriction diffusion within posterior right frontal and parietal lobe as well as right thalamus. Likely artifactual; however developing areas of acute infarction cannot be excluded. Status post right craniectomy, encephalomalacia, gliosis and old blood products within right temporal lobe. EEG shows intermittent right temporal sharp waves suggestive of predisposition of seizure from this area. focal slowing on the right hemisphere maximal in the right frontotemporal head region suggestive of underlying structural abnormality or neuronal dysfunction. No electrographic seizures are recorded. Echocardiogram shows EF of 60 to 65%; injection of agitated saline contrast; small bubbles were noted in the left sided cardiac chambers consistent with small PFO or perhaps extracardiac [id number]-to-[id number] shunt. Repeat MRI brain on December 01, 2023: No evidence of acute intracranial abnormality. Stable chronic changes. Venous duplex; no DVT Appreciate neurology's input; discussed with Dr. Shepard. Dr. Shepard to discuss further with the patient. Neurochecks every 4 hours Continue Keppra 1000 mg twice daily Seizure precautions On aspirin and Lipitor as per neurology. Disposition: PCP: Dr. Beltran Code Status: Full Code VTE Prophylaxis: Teds and SCDs for now Time spent evaluating patient, direct bedside care, chart review, placing orders, interpretation of diagnostic studies, discussion with consultants, patient, and family members, as well as other required patient management activities is 50 minutes Please note the above document was generated using voice recognition software. It may contain grammatical, syntax or spelling errors. Any formal questions or concerns about the content, text or information contained within the body of this dictation should be directly addressed to the provider for clarification Admission and Anticipated Discharge Date Admission Date: November 29, 2023 Subjective Patient seen and examined at bedside. Not in distress. He had intermittent weakness on his left side which got resolved spontaneously. No significant overnight events. Review of Systems Review of Systems: All systems reviewed & are unremarkable except as noted in Subjective Physical Exam Physical Exam: Constitutional: Alert oriented x 3. Respiratory: Bilateral vesicular breath sound Cardiovascular: RRR, no murmur, no edema Vessels: no JVD or carotid bruit Chest: normal inspection of chest Abdomen: normal bowel sounds, soft, nontender, no hepatosplenomegaly Musculoskeletal: no cyanosis or clubbing, extremities motor strength 5/5 Skin: no rashes, warm and dry normal turgor Neurologic: PERRL, EOMI, accommodation nl, no face palsy, no dysarthria CN's II- XI Sensation intact throughout. Mild decrease in left data processing systems project planner strength; otherwise strength 5 /5 Psychiatric: A+Ox3, euthymic affect Results & Data Results & Data Vital Signs (Past 12 Hours) Vital Signs Temp Pulse Pulse Resp BP Pulse Ox O2 Del Method 12/01/23 11:09 36.9 C 87 20 107/66 97 Room Air 12/01/23 07:47 36.8 C 75 18 114/79 97 Room Air 12/01/23 05:48 74 12/01/23 04:16 36.4 C L 84 20 106/67 95 Room Air
--- NOTE | 2023-12-01 15:47 | Discharge Summary ---
Date of Service December 01, 2023 Admission HPI Per Admitting Provider Mr. 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 Graham. Consideration for a cranioplasty in the coming weeks/month whom presents to the ED today with stroke like symptoms. He woke up this morning, not feeling well. He proceeded to make his coffee and started to have numbness in both of his hands, more on his left and proceeded into his left leg. He lives with his grandparents. 911 was called and he proce eded to the ED. ED MD called stroke alert and spoke with Dr. Man at [facility]. Last known well last evening at 2100. He had an isolated breakthrough tonic clonic seizure that occurred on 11/08/23. There was questionable compliance at that time with his Keppra. Today reports compliance with Keppra. Head CT: No acute intracranial findings and with stable findings following right craniectomy since CT of November 08, 2023. No change in right temporal lobe hypodensity since prior exam. No significant change in appearance of the brain. Head and neck CTAs: Unremarkable CTA of the neck. No stenosis or dissection within the bilateral common carotid, cervical internal carotid or vertebral arteries. No leukocytosis otherwise labs unremarkable. Hemodynamically stable and on room air [facility] stroke team recommended rectal ASA and Keppra load started. Recommended increase Keppra to 1000mg BID. He is not a TNK candidate. Patients grandfather stated that Juan's mother at the age of 47 and had nu merous AMI's secondary to hypertrophic heart disease and known alcoholism. Father has never been involved. Pt denies tobacco use and recreational drug use. Pt reports he has been alcohol free for 16 days. Pt is AAx4 and able to answer some questions appropriately. Cranial nerves II-XII intact, normal speech, weakness with grasp as well as flexion extension shoulder elbow and wrist of the left upper extremity. No weakness of the right upper extremity. Subtle weakness in the left lower extremity. Unable to perform drift. Does have facial droop. Grandfather largely involved in providing history. Patient will be admitted for continuation of stroke workup including MRI brain, echocardiogram, PT/OT/ST, formal neurology consultation, as per recommended by [facility] stroke center loaded with 1 g Keppra and continue at increased dose of 1 g twice daily. Due to patient's known alcoholism will add folic acid and thiamine. Admission Exam Per Admitting Provider Neuro: AAOx4, PERRLA, no aphagia, memory changes, Cranial nerves II-XII intact, normal speech HEENT: head normocephalic, moist mucus membranes CV: S1/S2, (-) M/G/R, (-) edema, cap refill < 3 seconds Resp: Lungs CTA in all quintana. On RA GI: Abdomen S/NT/ND, Ax4 bowel sounds, (-) CVA tenderness Musculoskeletal: weakness with grasp as well as flexion extension shoulder elbow and wrist of the left upper extremity. No weakness of the right upper extremity. Subtle weakness in the left lower extremity. Unable to perform drift. Does have facial droop. Skin: (-) rashes , (-) erythema. Psych: euthymic mood Principal Diagnosis Left-sided weakness, stroke ruled out Possible breakthrough seizure Discharge Exam Constitutional: Alert oriented x 3. Respiratory: Bilateral vesicular breath sound Cardiovascular: RRR, no murmur, no edema Vessels: no JVD or carotid bruit Chest: normal inspection of chest Abdomen: normal bowel sounds, soft, nontender, no hepatosplenomegaly Musculoskeletal: no cyanosis or clubbing, extremities motor strength 5/5 Skin: no rashes, warm and dry normal turgor Neurologic: PERRL, EOMI, accommodation nl, no face palsy, no dysarthria CN's II- XI Sensation intact throughout. Mild decrease in left treasury assistant strength; otherwise strength 5 /5 Psychiatric: A+Ox3, euthymic affect Discharge Data Allergies Allergy/AdvReac Type Severity Reaction Status Date / Time adhesive Allergy Intermediate REDDENED Verified 09/12/23 00:57 RASH Consultations 11/29/23 11:47 ED Decision to Admit Stat 11/29/23 12:06 Consult Neurology Routine Ordered Studies 11/29/23 10:50 CT angio head w con Stat CT angio neck with con Stat CT head/brain wo con Stat 11/29/23 12:10 MRI Brain [MR brain wo con] Routine 11/30/23 13:44 US venous duplex leg [US venous doppler LE BI] Routine 11/30/23 21:22 CT head/brain wo con Stat 12/01/23 08:00 MRI Brain [MR brain wo con] Routine Hospital Course (1) Stroke-like symptoms: (2) History of traumatic brain injury: (3) Seizure disorder: (4) Weakness: Plan Mr. 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 He woke up in the morning, not feeling well. He proceeded to make his coffee and started to have numbness in both of his hands, more on his left and proceeded into his left leg. He lives with his grandparents. 911 was called and he proceeded to the ED. ED MD called stroke alert and spoke with Dr. Man at [facility]. Last known well last evening of November 28 at 2100. He had an isolated breakthrough tonic clonic seizure that occurred on 11/08/23. Head CT: No acute intracranial findings and with stable findings following right craniectomy since CT of November 08, 2023. No change in right temporal lobe hypodensity since prior exam. No significant change in appearance of the brain. Head and neck CTAs: Unremarkable CTA of the neck. No stenosis or dissection within the bilateral common carotid, cervical internal carotid or vertebral arteries. No leukocytosis otherwise labs unremarkable. Hemodynamically stable and on room air [facility] stroke team recommended rectal ASA and Keppra load started. Recommended increase Keppra to 1000mg BID. He is not a TNK candidate. Patient admitted to telemetry floor for further management MRI brain on admission shows equivocal foci of restriction diffusion within posterior right frontal and parietal lobe as well as right thalamus. Likely artifactual; however developing areas of acute infarction cannot be excluded. Status post right craniectomy, encephalomalacia, gliosis and old blood products within right temporal lobe. EEG shows intermittent right temporal sharp waves suggestive of predisposition of seizure from this area. focal slowing on the right hemisphere maximal in the right frontotemporal head region suggestive of underlying structural abnormality or neuronal dysfunction. No electrographic seizures are recorded. Echocardiogram shows EF of 60 to 65%; injection of agitated saline contrast; small bubbles were noted in the left sided cardiac chambers consistent with small PFO or perhaps extracardiac [id number] shunt. Repeat MRI brain on December 01, 2023: No evidence of acute intracranial abnormality. Stable chronic changes. Bilateral lower extremity duplex did not show any acute finding. Although imaging findings were discussed with the patient. All the questions were answered. Patient complained of intermittent episode of altered sensation on his left side. Discussion was done by neurology with the patient; no further workup was necessary for the time being. Patient was prescribed increased dose of Keppra 1000 mg twice daily. Patient to follow-up with PCP and neurology as outpatient. Please note the above document was generated using voice recognition software. It may contain grammatical, syntax or spelling errors. Any formal questions or concerns about the content, text or information contained within the body of this dictation should be directly addressed to the provider for clarification Total Time Total Time Spent Total Time Spent (In Minutes): 45 Total Time Includes: Examination of the Patient, Discharge Planning, Medication Reconciliation, Communication With Other Providers and Other Discharge Plan Discharge Items Patient Disposition: Home - Self-Care Reason For Visit: STROKE LIKE SYMPTOMS Discharge Diagnosis: Strokelike symptoms, ruled out Activity: Resume your previous activity Non-emergency contact: Primary Care Provider Call non-emergency contact if: you have any medication questions and your symptoms worsen Follow-up/Referrals: Power Belrtan DO [Physician] - 12/08/23 9:20 am Beti To PA-C [Physician Penetration Tester] - (Date & Time 12/08/2023 2:00 PM Provider Beti To PA-C Department Neurology [facility] ) Diet: Regular Addtl Attending Provider Instructions: You were admitted to the hospital due to transient episode of left-sided paresthesia and worsening weakness. You were evaluated by neurology during the hospitalization. You underwent brain MRI on November 29, 2023 and December 01, 2023. No acute findings were seen in the MRI. You also had EEG done which was abnormal. It showed: 1. Intermittent right temporal sharps waves suggestive of a predisposition for seizures from this area, 2. Continuous focal slowing on the right hemisphere maximal in the right frontotemporal head region suggestive of underlying structural abnormality or neuronal dysfunction. No electrographic seizures are recorded. Echocardiogram with bubble study was done. Small number of bubbles were seen in the left side of the heart consistent with small PFO or possible [id number] shunt. Your heart function was normal. The neurologist recommended that the dose of Keppra is increased to 1000 mg twice daily. A new prescription has been sent to your pharmacy. If you have previous prescription of 500 mg; please take 2 tablets twice a day. Please follow-up with your primary care doctor and neurologist as scheduled salas morrison. Pending Studies at Discharge: No Stand-Alone Forms: My [facility], Smoking Cessation Medications and DC Order Prescriptions: New levetiracetam [Keppra] 1,000 mg tablet 1,000 mg PO BID 60 Days Qty: 120 0RF Discontinued levetiracetam 500 mg tablet 500 mg PO BID Discharge Orders: Discharge Order (Routine); Ordered 12/01/23 Ordered By: Isaiah Watts Admission Data Admit Date/Time: 11/29/23 12:06 Attending Provider: Isaiah Watts Admit Provider: Bella Dickerson I. Primary Care Provider: PCP,NO Other Providers: Bella Dickerson I.; Steve Tom
--- NOTE | 2023-12-01 17:12 | Neurology Progress Note ---
Date of Service December 01, 2023 Assessment & Plan (1) Weakness: Plan 28 y/o male with history of traumatic ICH s/p chon crani, seizure, and alcohol abuse that presented following a transient episode of left sided paresthesias and with worsening left sided weakness. Unclear etiology of presentation. Unable to rule out seizure and keppra has been increased. Repeat MRI brain with no acute intracranial findings and clinically pt is improving. 1. Continue keppra 1000 mg bid 2. Opthalmology outpatient 3. Seizure precautions 4. No driving 5. Neurology outpatient follow-up Subjective Telehealth Information I performed this visit using a real-time telehealth connection between my location and the patients location ([facility]). After connecting through interactive tele-video, patient was identified by name and date of and/or wristband check.Patient (or authorized healthcare sales representative wire rope) was informed that this was a telemedicine visit and it was being conducted confidentially over secure lines. My office door was closed and no one else was present in the room with me.Patient (or authorized healthcare sales representative wire rope) provided consent to proceed with the visit, expressed an understanding of privacy and security of the telemedicine visit, and gave permission to have a hospital sales representative wire rope in the room in order to assist with the visit and to conduct portions of the visit, as needed. I informed the patient (or authorized healthcare sales representative wire rope) that I reviewed their record and presented the opportunity for them to ask any questions regarding the visit today. The patient agreed to participate. He states that every so often when he is sitting up, he feels a sensation of pulling or drifting on his left side, like he needs to lay down. He also sometimes feels a perception that he is at a different depth than what he is. This does not seem to occur if he is up standing or walking. He states that he otherwise feels that he is doing well and his left sided numbness is resolved and left sided weakness is approaching prior baseline. Physical Exam AAO X 3 No aphasia or dysarthria No obvious VF defect EOMI, no nystagmus Facial sensations intact No facial asymmetry Tongue protrudes midline Motor: Moves bilateral upper extremities antigravity with mild drift in left upper extremity. No pronation in left UE. Tiller and min tiller-negative. Moves bilateral lower extremities antigravity with no drift. Sensation: Intact to light touch throughout Cerebellar: FTN intact Results & Data Vital Signs (Past 12 Hours) Vital Signs Temp Pulse Pulse Resp BP Pulse Ox O2 Del Method 12/01/23 15:34 37.1 C 84 18 114/73 96 Room Air 12/01/23 11:09 36.9 C 87 20 107/66 97 Room Air 12/01/23 07:47 36.8 C 75 18 114/79 97 Room Air 12/01/23 05:48 74 Diagnostic Findings MRI brain 12/01/2023:1. No evidence of acute intracranial abnormality. 2. Stable chronic changes of right hemicraniectomy, right temporal lobe encephalomalacia/laminar necrosis. CTH 11/30/2023:No acute intracranial hemorrhage, midline shift, or mass effect. 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 Old RIGHT hemicraniectomy. Similar when compared to November 29, 2023. Bilateral LE Doppler: No DVT within the right or left lower extremity.
== END 2023-12-01 19:40 | disposition home or self-care (01) | DRG 101 ==
LOC: ED 10:29 → EDINP 12:06 → SUATTDRO 12:06 → 2N 14:06

== ENCOUNTER 2023-12-07 09:30 | Inpatient (IN) ==
[2023-12-07] MEDS ORDERED: MAGNESIUM SULFATE / D5W 1 GM/100 ML BAG IV ONE (09:43)
[2023-12-07] MEDS ORDERED: levETIRAcetam IV 1,000 MG in 0.9 % SODIUM CHLORIDE 100 ML IV STA (09:43)
[2023-12-07] MEDS ORDERED: ACETAMINOPHEN 1000 MG/100 ML IV IV STA (09:43)
[2023-12-07] MEDS ORDERED: ONDANSETRON INJ 2 MG/ML 2 ML VIAL IV STA (09:43)
[2023-12-07] MEDS ORDERED: SODIUM CHLORIDE 0.9% 1,000 ML IV SCH (09:45)
--- NOTE | 2023-12-07 09:47 | Emergency Department Note ---
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 planes. 3-D MIPS images are created and assessed. IV contrast was administered without complication. All measurements were calculated based on NASCET criteria. A dose lowering technique was utilized adhering to the principles of ALARA. CT DOSE: 1102.05 mGy.cm FINDINGS: Visual portions of the lung apices are unremarkable. There are several prominent mediastinal lymph nodes which appear stable in size measuring up to approximately 1 cm. The bilateral common carotid, cervical internal carotid and vertebral arteries are patent. There is no stenosis or dissection within these vessels. No aneurysm within the neck is present. Right craniectomy and right temporal lobe hypodensity is better depicted on the head CT and CTA of the head which will be reported separately. IMPRESSION:Unremarkable CTA of the neck. ACT 112: Negative or not required by law. The above report was generated using voice recognition software. It may contain grammatical, syntax or spelling errors. Electronically signed by: Tani Hurtado M.D. 12/07/2023 10:15 AM Discharge Plan Visit Data Chief Complaint: Neuro Symptoms/Deficit Stated Complaint: BRAIN INJURY IN SEPTEMBER, NAUSEA, WEAKNESS ED Provider: Hector Milner Discharge Problem: Stroke-like symptoms, History of traumatic brain injury, Seizure disorder, Left-sided weakness, H/O craniotomy, Headache Patient Disposition: Admitted As Inpatient Discharge Instructions Interventions: ED Discharge Assessment Last Done: 12/07/23 12:34
[2023-12-07 09:59] LABS: Basophils # (auto) 0.08 K/uL (0.00-0.20); Eosinophils # (auto) 0.25 K/uL (0.00-0.50); Hemoglobin 16.6 g/dl (14.0-18.0); Immature Granulocytes # (auto) 0.03 K/uL (0.01-0.20); Immature Granulocytes % (auto) 0.4 %; Lymphocytes # (auto) 2.17 K/uL (1.20-3.40); Lymphocytes % (auto) 26.3 %; Mean Corpuscular Hemoglobin 30.4 pg (25.0-34.0); Mean Corpuscular Hgb Conc 35.3 g/dL (32.0-36.0); Mean Corpuscular Volume 86.1 fL (80.0-100.0); Mean Platelet Volume 9.2 fL (9.4-12.4); Monocytes # (auto) 0.87 K/uL (0.11-0.59); Monocytes % (auto) 10.6 %; Neutrophils # (auto) 4.84 K/uL (1.40-6.50); Neutrophils % (auto) 58.7 %; Platelet Count 277 K/uL (130-400); RDW Coefficient of Variation 11.9 % (11.5-14.5); RDW Standard Deviation 37.4 fL (36.4-46.3); Red Blood Count 5.46 M/uL (4.70-6.10); White Blood Count 8.24 K/ul (4.8-10.8)
--- NOTE | 2023-12-07 10:01 | Electrocardiogram Report ---
Test Reason : Blood Pressure : / mmHG Vent. Rate : 096 BPM Atrial Rate : 096 BPM P-R Int : 144 ms QRS Dur : 082 ms QT Int : 360 ms P-R-T Axes : 057 022 026 degrees QTc Int : 454 ms Normal sinus rhythm Cannot rule out Inferior infarct (cited on or before 29-NOV-2023) Abnormal ECG When compared with ECG of 29-NOV-2023 10:34, No significant change was found Confirmed by Uriel Nicholson ([id number]) on 12/07/2023 10:01:24 AM Referred By: Confirmed By:Uriel Nicholson
[2023-12-07 10:05] LABS: iSTAT Creatinine 0.9 mg/dl (0.6-1.3); iSTAT Hemoglobin 16.3 g/dl (14.0-18.0); iSTAT Ionized Calcium 1.26 mmol/l (1.12-1.32); iSTAT Potassium 3.4 mmol/L (3.3-5.0)
--- NOTE | 2023-12-07 10:05 | CT Scan Report ---
HEAD CT NONCONTRAST CT DOSE: HISTORY: Left-sided weakness. Confusion. neuro deficit, acute stroke suspected TECHNIQUE: Multiaxial CT images of the head were performed without the use of intravenous contrast. A utomated exposure control was utilized for this study. A dose lowering technique was utilized adheri ng to the principles of ALARA. Comparison: Head CT 11/30/2023. Findings: The paranasal sinuses and mastoid air cells are clear. Prior right-sided craniectomy and mi ld right temporal lobe encephalomalacia, unchanged. The ventricles are stable in size. There is no ma ss, hematoma, midline shift, acute infarct. Right posterior temporal lobe hypodensity is also stable. This favors gliosis. Impression: No significant change compared to the prior study. No acute intracranial abnormality. ACT 112: Negative or not required by law. Electronically signed by: Bogdan Amador M.D. 12/07/2023 10:04 AM
--- NOTE | 2023-12-07 10:11 | CT Scan Report ---
CTA ANGIOGRAPHY OF THE HEAD CLINICAL HISTORY: neuro deficit, acute stroke suspected . Left-sided weakness. COMPARISON STUDY: Head CTA 11/29/2023. TECHNIQUE: Helical axial images of the head were obtained following uneventful intravenous administr ation of 112 cc of Optiray. Sagittal and coronal reconstructions were viewed as well as maximal inten sity projections on an independent 3-D workstation. Automated exposure control was utilized for the study. A dose lowering technique was utilized adhering to the principles of ALARA. FINDINGS: No acute intracranial hemorrhage is identified. The ventricular system is unremarkable. Bas al cisterns are patent. There are no extra axial collections. There are stable postoperative findings following right sided craniectomy. Right temporal lobe hypodensity remains unchanged. The bilateral M1, M2, A1 and A2 segments are patent. There is no intracranial enhancing. There is no central vessel occlusion. Posterior circulation is intact. The major dural venous sinuses are partially opacified b ut likely benign. IMPRESSION: 1. No central vessel occlusion. No intracranial aneurysm. 2. Stable postoperative findings following right craniectomy. Stable hypodensity within the right tem poral lobe. ACT 112: Negative or not required by law. Electronically signed by: Bogdan Amador M.D. 12/07/2023 10:10 AM
--- NOTE | 2023-12-07 10:17 | CT Scan Report ---
CT angio neck with con CLINICAL HISTORY: 28 years-old Male with neuro deficit, acute stroke suspected. Acute strokelike s ymptoms with left-sided weakness COMPARISON STUDY: CT neck 11/29/2023 TECHNIQUE: Following the IV administration of 112 mL of Optiray, CT angiogram of the neck was perform ed from the aortic arch to the skull base. Images are reviewed in the axial, sagittal, and coronal pl anes. 3-D MIPS images are created and assessed. IV contrast was administered without complication. Al l measurements were calculated based on NASCET criteria. A dose lowering technique was utilized adhe ring to the principles of ALARA. CT DOSE: 1102.05 mGy.cm FINDINGS: Visual portions of the lung apices are unremarkable. There are several prominent mediastinal lymph no alexander which appear stable in size measuring up to approximately 1 cm. The bilateral common carotid, cer vical internal carotid and vertebral arteries are patent. There is no stenosis or dissection within t hese vessels. No aneurysm within the neck is present. Right craniectomy and right temporal lobe hypod ensity is better depicted on the head CT and CTA of the head which will be reported separately. IMPRESSION:Unremarkable CTA of the neck. ACT 112: Negative or not required by law. The above report was generated using voice recognition software. It may contain grammatical, syntax o r spelling errors. Electronically signed by: Tani Hurtado M.D. 12/07/2023 10:15 AM
[2023-12-07 10:18] LABS: Alanine Aminotransferase 42 U/L (7-52); Albumin Globulin Ratio 1.6 (0.9-2); Albumin Level 5.1 gm/dl (3.4-5.0); Alkaline Phosphatase 85 U/L (34-104); Anion Gap 12 (3-11); Aspartate Aminotransferase 39 U/L (13-39); Bilirubin,Total 0.9 mg/dl (0.2-1.0); Blood Urea Nitrogen 9 mg/dl (6-23); Calcium 10.8 mg/dl (8.6-10.3); Carbon Dioxide 23 mmol/L (21-32); Chloride 101 mmol/L (98-107); Est GFR (African American) 140.5 ml/min; Est GFR (Non-African American) 121.2 ml/min; Globulin 3.1 gm/dl (2.5-4.0); Glucose 142 mg/dl (70-99(Fasting)); Magnesium 1.7 mg/dl (1.7-2.4); Potassium 3.4 mmol/L (3.5-5.1); Sodium 136 mmol/L (136-145); Total Protein 8.2 gm/dl (6.0-8.3)
[2023-12-07 10:19] LABS: Partial Thromboplastin Ratio 0.9; Partial Thromboplastin Time 25 Seconds (21-31); Prothrombin Time 11.4 Seconds (9.0-12.0)
[2023-12-07 10:24] LABS: Troponin I High Sensitivity 2.7 pg/ml (0-20)
[2023-12-07] MEDS ORDERED: diphenhydrAMINE 50 MG/ML VIAL IV STA (11:27)
[2023-12-07] MEDS ORDERED: PROCHLORPERAZINE 5 MG/ML 2 ML VIAL IV STA (11:27)
[2023-12-07] MEDS ORDERED: dexAMETHasone**PF** 10 MG/ML VIAL IV ONE (11:27)
--- OUTSIDE RECORDS SUMMARY | 2023-12-07 11:38 | External Medical Summary | Summary of Care ---
Author Name Unknown Organization [facility] Address [address] [facility] [place] [address] Phone [phone] Care Team Providers Care Director E Learning Name Role Phone Power Beltran DO Primary Care Provider Reason for Visit * Reason Comments EEG Encounter Details Date Type Department Care Team (Late st Contact Info) Description 11/25/2023 6:45 AM EST NeuroDiagnostic Study Neurophysiology, [address] [place] [address] [facility], Neurophys Tech [address] [place] [address] Allergies Active Allergy Reactions Criticality Noted Date Comments Adhesive Tape 08/12/2018 documented as of this encounter (statuses as of 11/30/2023) Medications Medication Sig Dispensed Refills Start Date [...] as of this encounter (statuses as of 11/30/2023) Active Problems Problem Noted Date Diagnosed Date [...] as of this encounter (statuses as of 11/30/2023) Social History Tobacco Use Types Packs/Day Years [...] encounter Progress Notes * Thomas Garrett, - 11/30/2023 4:18 PM EST ROUTINE EEG REPORT Name: Juan Hill Date of study: 11/15/2023, 07:19-07:56 Age: [age] year old Outpatient Referring Physician: Ministerio Graham MD TECHNICAL REMARKS: This is a technically satisfactory eighteen channel record employing 21 disc electrodes applied according to a measured international 10-20 electrode placement system. There were no significant technical difficulties. CLINICAL INFORMATION: A 28 year old male with symptomatic seizures and traumatic right ICH s/p craniotomy. EEG performed for evaluation of epileptiform activity. MEDICATIONS: Current Outpatient Medications Medication Sig Dispense Refill [...] in the morning and 1 Tablet beforebedtime. 180 Tablet 1 No current facility-administered medications for this visit. REPORT: At the onset of the EEG, the patient is awake. The background is asymmetric. There is continuous focal slowing on the right maximal in the right frontotemporal head region which at times is sharply contoured. The posterior dominant rhythm is 9-10 Hz best seen on the left. There is low amplitude superimposed fast frequencies seen in the right parasaggital head region consistent with a breach rhythm. No stage II sleep transients are seen. IMPRESSION: This is an abnormal routine EEG due to continuous focal slowing in the right frontotemporal head region with at times some sharply contoured waveforms which is suggestive of underlying structural abnormality or neuronal dysfunction. Right sided breach rhythm is consistent with previous craniotomy. Thomas Garrett DO documented in this encounter Plan of Treatment Upcoming Encounters Date Type Department Care Team (Latest Contact Info) Description 12/14/2023 1:30 PM EST Imaging Radiology [facility] [address] 12/15/2023 9:30 AM EST Telemedicine Neurosurgery, [place] [address] [place] [address] Ministerio Graham MD [address] [place] [address] 12/28/2023 7:30 AM EST Hospital Encounter [facility] [address] [place] [address] Ministerio Graham MD [address] [place] [address] 01/04/2024 7:30 AM EST - 01/04/2024 11:00 AM EST Surgery [facility] [address] [place] [address] Ministerio Graham MD [address] [place] [address] CRANIOPLASTY WITH AUTOGRAFT 01/07/2024 8:00 AM EST Scheduled Telephone Neurosurgery, [place] [address] [place] [address] [place] Nurse Follow Up Phone Call Neurosurg [address] [place] [address] 01/19/2024 11:30 AM EDT Office Visit Neurosurgery, [place] [address] [place] [address] Ministerio Graham MD [address] [place] [address] 05/31/2024 4:20 PM EDT Office Visit Neurology [facility] [place] [address] [place] [id number] Thomas Garrett, [address] [place] [address] Scheduled Procedures Name Priority Associated Diagnoses Date/Ti me CRANIOPLASTY WITH AUTOGRAFT Seizure (HCC) Status post craniectomy Traumatic brain injury with loss of consciousness, subsequent encounter 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, sequela (HCC) 01/04/2024 7:30 AM EST Health Maintenance Due Date Last Done Comments [...] this encounter Medical Devices Implanted Type Area Nursing Tech Device Identifier Shelf Expiration Date Model / Serial / Lot Graft Mesh Duragen [address] 4.0x5in - [id number] - [id number] Implanted:Qty: 1 on 09/14/2023 by Ministerio Graham MD at [place] [facility] Head [employer] [id number] 01/06/2026 [id number] / [id number] / [id number] documented as of this encounter Visit Diagnoses Diagnosis 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
--- OUTSIDE RECORDS SUMMARY | 2023-12-07 11:38 | External Medical Summary | Summary of Care ---
Author Name Unknown Organization [facility] Address [address] [facility] [place] [address] Phone [phone] Care Team Providers Care Warehouse Supervisor Name Role Phone Devin Power Chatman DO Primary Care Provider Reason for Visit * Reason Onset Date Comments Medication Refill 12/04/2023 Encounter Details Date Type Department Care Team (Late st Contact Info) Description 12/04/2023 Refill Neurology [facility] [place] [address] [place] [address] Thomas Garrett DO [address] [place] [address] Allergies Active Allergy Reactions Criticality Noted Date Comments Adhesive Tape 08/12/2018 documented as of this encounter (statuses as of 12/04/2023) Medications Medication Sig Dispensed Refills Start Date [...] as of this encounter (statuses as of 12/04/2023) Active Problems Problem Noted Date Diagnosed Date [...] as of this encounter (statuses as of 12/04/2023) Social History Tobacco Use Types Packs/Day Years [...] encounter Miscellaneous Notes * Telephone Encounter - Camilla Davis CPhT - 12/04/2023 9:03 AM EST Neurology call- transferred to specialty line Thank you, Camilla Davis CPhT II Family Life Educator [facility] (Former[facility]) 12/04/2023, 9:03 AM documented in this encounter Plan of Treatment Upcoming Encounters Date Type Department Care Team (Latest Contact Info) Description 12/08/2023 2:00 PM EST Office Visit Neurology [facility] [address] [place] [address] Beti To PA-C [address] [facility] [place] [address] 12/14/2023 1:30 PM EST Imaging Radiology [address] [facility] [place] [address] 12/15/2023 9:30 AM EST Telemedicine Neurosurgery, [place] [address] [place], [place] [phone] Ministerio Graham MD [address] [place], [place] [phone] 12/28/2023 1:40 PM EST Hospital Encounter [place] [facility] OPER[facility] ROOM [facility] [address] [place], [place] [phone] Ministerio Graham MD [address] [place] [address] 01/04/2024 1:40 PM EST - 01/04/2024 5:10 PM EST Surgery [place] [facility], O[facility] [place] [address] [place] [address] Ministerio Graham MD [address] [place], [place] [id number] CRANIOPLASTY WITH AUTOGRAFT 01/07/2024 8:00 AM EST Scheduled Telephone Neurosurgery, [place] [address] [place] [address] [place] Nurse Follow Up Phone Call Neurosurg [address] [place] [address] 01/19/2024 11:30 AM EDT Office Visit Neurosurgery, [place] [address] [facility] [place] [address] Ministerio Graham MD [address] [place], [place] [id number] 05/31/2024 4:20 PM EDT Office Visit Neurology [facility] [place] [address] [place] [address] Thomas Garrett, [address] [place] [address] Scheduled Procedures Name Priority Associated Diagnoses Date/Ti me CRANIOPLASTY WITH AUTOGRAFT Seizure (HCC) Status post craniectomy Traumatic brain injury with loss of consciousness, subsequent encounter 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, sequela (HCC) 01/04/2024 1:40 PM EST Health Maintenance Due Date Last Done [...] this encounter Medical Devices Implanted Type Area Dag Coater Device Identifier Shelf Expiration Date Model / Serial / Lot Graft Mesh Duragen [address] 4.0x5in - [id number] - [id number] Implanted:Qty: 1 on 09/14/2023 by Ministerio Graham MD at [place] [facility] Head [employer] [id number] 01/06/2026 [id number] / [id number] / [id number] documented as of this encounter Advance Directives Latest Code Status on File Code Status Date Activated Date Inactivated Comments Full Code 09/12/2023 6:51 AM 09/24/2023 8:31 PM This order reflects the patients wishes and were consensually agreed upon. Question Answer Comments Discussion of Advance Directives occurred with: Patient Care Teams Warehouse Supervisor Relationship Specialty Start Date End Date Power Beltran DO [address] [place] [address] PCP - General Family Medicine 11/04/23 documented as of this encounter
--- OUTSIDE RECORDS SUMMARY | 2023-12-07 11:38 | External Medical Summary | Continuity of Care Document ---
Author Name Unknown Organization [facility] [address] Address [address] [place], [place] [id number] [facility] [place] [place] [id number] Date(s): 11/29/23 - 11/29/23 [facility] [address] [facility], [place] [phone] Discharge Disposition: Home or Self Care Attending Physician: MD Man Raphaella Referring Physician: DO Gautam Ryan M Social History Social History Type Response Sex Male Patient Care team information Care Team Personnel Name: Lenny Hernandez Position: HIS Supervisor_P Member Role: HIS Lifetime Care Team Related Persons Name: MATTHIAS RUCKER Address: home [address] [place] [address] [phone] Name: BRYAN CONSTANTINO
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
[2023-12-07] MEDS ORDERED: POLYETHYLENE (MIRALAX) 17 GM PACK PO PRN (15:03)
[2023-12-07] MEDS ORDERED: PHARMACIST DISCHARGE MED REC CONSULT PRN (15:30)
[2023-12-07] MEDS: SODIUM CHLORIDE 0.9% 1,000 ML IV SCH (17:12)
[2023-12-07] MEDS: ACETAMINOPHEN 325 MG TAB PO PRN (17:14)
[2023-12-07] MEDS: levETIRAcetam 500 MG TAB PO SCH (20:39)
[2023-12-07] MEDS ORDERED: POTASSIUM CHLORIDE CRTAB 20 MEQ TABCR PO ONE (21:00)
[2023-12-08] MEDS: SODIUM CHLORIDE 0.9% 1,000 ML IV SCH (02:46)
[2023-12-08 06:44] LABS: Hematocrit (blood only) 39.8 % (42.0-52.0); Hemoglobin 14.4 g/dl (14.0-18.0); Mean Corpuscular Hgb Conc 36.2 g/dL (32.0-36.0); Mean Corpuscular Volume 85.6 fL (80.0-100.0); Mean Platelet Volume 9.8 fL (9.4-12.4); Platelet Count 240 K/uL (130-400); RDW Coefficient of Variation 11.7 % (11.5-14.5); RDW Standard Deviation 36.1 fL (36.4-46.3); Red Blood Count 4.65 M/uL (4.70-6.10); White Blood Count 10.04 K/ul (4.8-10.8)
[2023-12-08 07:14] LABS: Anion Gap 8 (3-11); BUN Creatinine Ratio 10.3 (10-20); Blood Urea Nitrogen 7 mg/dl (6-23); Calcium 10.3 mg/dl (8.6-10.3); Carbon Dioxide 23 mmol/L (21-32); Chloride 107 mmol/L (98-107); Creatinine Clr Calc Pharmacy 142.2 ml/min; Est GFR (African American) > 150.0 ml/min; Est GFR (Non-African American) 130.9 ml/min; Glucose 99 mg/dl (70-99(Fasting)); Magnesium 1.8 mg/dl (1.7-2.4); Sodium 138 mmol/L (136-145)
[2023-12-08] MEDS: levETIRAcetam 500 MG TAB PO SCH (08:02)
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
--- NOTE | 2023-12-08 12:32 | Hospitalist Progress Note ---
Date of Service December 08, 2023 Assessment & Plan (1) Left-sided weakness: Plan 28-year-old male with a history of alcohol abuse suspected alcohol withdrawal seizure with traumatic right IPH/SDH s/p decompression craniotomy in September 2023 with breakthrough seizure on 11/08/2023 with residual left arm numbness who was started on Keppra and then the dose uptitrated because of his worsening left arm numbness. This time he reports drinking a lot of coffee and following day he had increased weakness in his left upper extremity and hence he presented to the hospital. He is being managed for the following: (1) Left-sided weakness: Uncertain baseline, with patient reporting a h/o LUE weakness since the episode last Sep, but not as intense. Patient was also having intermittent weakness and numbness on his left side last week during his admission which neurology fully worked up. His Keppra was increased out of concern for additional breakthrough seizure activity and it appears he has been doing well. He underwent two brain MRIs last week, had an echo with bubble showing a possible PFO, and has now had additional CT imaging of his head at presentation with contrast without additional change. Neurology consulted, await recommendation. He is not on antiplatelet therapy at this time, will await neurology input. LUE weakness has improved. Denies headache. She reports feeling better. Continue neurochecks and telemetry monitoring. (2) History of traumatic brain injury: Plan: per history. Scheduled to go back for additional neurosurgery next month per outpatient records review. (3) Seizure disorder: Plan: Has been ongoing after Nov insult and IPH/SDH with breakthough tonic clonic seizure on 11/08 and possible additional breakthrough seizures just last week. Keppra level has been ordered. He has been following with [facility] neurology who is now consulted. Cont seizure precautions and Keppra 1gm PO BID. (4) Headache: Improved. Cont supportive care. Consider repeat MRI if neurology feels this is appropriate. (5) Alcohol abuse: Nov 14 - last drink. States he quit completely. DVT proph: SCDs/ambulation Full Code Dispo-cont PCU monitoring for now. To home in next 1-2 days pending therapy recommendations and clinical improvement. Admission and Anticipated Discharge Date Admission Date: December 07, 2023 Subjective Patient was seen and examined at bedside. Patient was lying in bed, on room air, resting comfortably, not in any acute distress. Patient reports improvement in his LUE weakness significantly, denies any seizure activity. Patient reports having taken significant amount of coffee the day prior this symptoms started. Patient denies any febrile illness or headache or dizziness or chest pain. Reports eating okay and moving bowels okay. Physical Exam Physical Exam: GENERAL: Alert and oriented x3. NAD, on RA. HEENT: No pallor, no icterus. Pupils equal, round and reactive to light. Oral mucosa moist. Rt craniectomy scar healing well. NECK: No JVD, no neck masses. HEART: S1 and S2 heard. Regular rate and rhythm. No murmur, no gallop. RESPIRATORY SYSTEM: Normal AP diameter. No accessory muscle use. No wheezing, no crackles. ABDOMEN: Soft, bowel sounds present, nontender, no distention. CENTRAL NERVOUS SYSTEM: No facial droop. Speech is clear. Obeys simple commands. Moves extremities. LUE weakness resolved, near normal power. EXTREMITIES: No edema, no erythema seen. LLE short/club foot noted. Results & Data Results & Data Vital Signs (Past 12 Hours) Vital Signs Temp Pulse Pulse Resp BP Pulse Ox O2 Del Method 12/08/23 08:00 61 12/08/23 03:20 36.5 C 81 16 107/62 96 Room Air
--- NOTE | 2023-12-08 14:38 | Discharge Summary ---
Date of Service December 08, 2023 Admission HPI Per Admitting Provider The patient is a 28 yo M with a history of alcohol abuse and suspected alcohol withdrawal seizure with traumatic right IPH/SDH s/p decompression craniotomy in Sep 2023 with breakthrough seizure on 11/08/23. Residual L arm numbness was noted in neurology note. He was on Keppra 500mg PO BID and compliant per recent neurology outpatient note from 11/27/23. He presented to [facility] ER on 11/29 for acute on chronic worsening of his L arm numbness. At that time he declined concurrent speech or vision deficits and no ANGULO. He was loaded with ASA and Keppra with seizure was on the differential after an involuntary rhythmic abdominal movement was noted which consciousness was intact. Echo revealed a small PFO vs extracardiac right-to left shunt. MRI brain on admission shows equivocal foci of restriction diffusion within posterior right frontal and parietal lobe as well as right thalamus. Likely artifactual; however developing areas of acute infarction could not be excluded. EEG revealed intermittent right temporal sharp waves suggestive of predisposition of seizure from this area. Focal slowing on the right hemisphere maximal in the right frontotemporal head region suggestive of underlying structural abnormality or neuronal dysfunction. No electrographic seizures were recorded. Repeat MRI brain on December 01, 2023: No evidence of acute intracranial abnormality with stable chronic changes. Bilateral lower extremity duplex did not show any acute finding. He was discharged on Keppra 1000mg PO BID. Notably he was having intermittent episodes of altered sensation on his left side. This was discussed with the neurologist with no further workup needed for the time being. Outpatient ophthalmology evaluation was recommended. Patient presents again today for L sided weakness and numbness that began this morning. (History is limited as patient is sleepy from the benadryl given in the ER for his headache.) A stroke alert was called and patient is not a TNK candidate. Repeat head imaging today including head CT and head and neck CTA is unchanged from prior. Although he was having intermittent weakness in the past, he reports that his current LUE weakness is more intense than previous. He reports some recent Ibuprofen at home prior to arrival. Admission Exam Per Admitting Provider CONSTITUTIONAL: WNWD, vitals as above,lethargic, but able to wake up and sit on the side of the bed to participate in exam. Not confused. EYES: pupils are round and equal bilaterally, patient was not able to participate in further eye exam 2/2 lethargy, normal conjunctivae, no scleral icterus ENT: external ear and nose normal, MMM NECK: trachea midline RESPIRATORY: clear to auscultation bilaterally, no crackles, rales or wheezes, normal respiratory effort CARDIOVASCULAR: regular rate and rhythm, S1 and 2 heard without murmurs, gallops or rubs, no JVD, no peripheral edema CHEST: inspection of chest was normal GASTROINTESTINAL: soft, nontender, ND, no guarding MUSCULOSKELETAL: strength 5/5 throughout except in the LUE-->he cannot lift the left arm against gravity unless trying hard and then arm falls quickly, 1/5 biceps flexion, 1/5 triceps extension, L hand physician's aide strength intact, finger spread (lumbricals) strength is intact, he is s/p right hemicraniectomy with well healed incision sites. SKIN: warm and dry NEUROLOGIC: patellar DTRs 2/4 bilat. no facial palsy, no dysarthria. Touch, pain and proprioception normal. CN 2-12 grossly intact, no sensory deficit, normal cognition, normal speech, no tremor PSYCHIATRIC: alert cooperative and oriented to person, place and time. language grossly intact, recent and remote memory grossly intact. Sleepy so limited exam. Principal Diagnosis Left-sided weakness History of traumatic brain injury Headache Seizure disorder Discharge Exam GENERAL: Alert and oriented x3. NAD, on RA. HEENT: No pallor, no icterus. Pupils equal, round and reactive to light. Oral mucosa moist. Rt craniectomy scar healing well. NECK: No JVD, no neck masses. HEART: S1 and S2 heard. Regular rate and rhythm. No murmur, no gallop. RESPIRATORY SYSTEM: Normal AP diameter. No accessory muscle use. No wheezing, no crackles. ABDOMEN: Soft, bowel sounds present, nontender, no distention. CENTRAL NERVOUS SYSTEM: No facial droop. Speech is clear. Obeys simple commands. Moves extremities. LUE weakness resolved, near normal power. EXTREMITIES: No edema, no erythema seen. LLE short/club foot noted. Discharge Data Allergies Allergy/AdvReac Type Severity Reaction Status Date / Time adhesive Allergy Intermediate REDDENED Verified 12/07/23 12:13 RASH Consultations 12/07/23 11:56 ED Decision to Admit Stat 12/07/23 15:03 Consult Neurology Routine Ordered Studies 12/07/23 09:43 CT angio head w con Stat CT angio neck with con Stat CT head/brain wo con Stat Hospital Course (1) Left-sided weakness: Plan 28-year-old male with a history of alcohol abuse suspected alcohol withdrawal seizure with traumatic right IPH/SDH s/p decompression craniotomy in September 2023 with breakthrough seizure on 11/08/2023 with residual left arm numbness who was started on Keppra and then the dose uptitrated because of his worsening left arm numbness. This time he reports drinking a lot of coffee and following day he had increased weakness in his left upper extremity and hence he presented to the hospital. He was managed for the following: (1) Left-sided weakness: Uncertain baseline, with patient reporting a h/o LUE weakness since the episode last Sep, but not as intense. Patient was also having intermittent weakness and numbness on his left side last week during his admission which neurology fully worked up. His Keppra was increased out of concern for additional breakthrough seizure activity and it appears he has been doing well. He underwent two brain MRIs last week, had an echo with bubble showing a possible PFO, and has now had additional CT imaging of his head at presentation with contrast without additional change. Neurology consulted, likely exacerbation of existing weakness secondary to poor sleep secondary to increased caffeine consumption. Patient advised to taper caffeine consumption to discontinue, practice sleep hygiene, no driving. LUE weakness has improved. Denies headache. HE reports feeling better. Patient is hemodynamically stable and would like to go home. PT/OT recs reviewed. Patient to follow-up with neurology upon discharge. (2) History of traumatic brain injury: Plan: per history. Scheduled to go back for additional neurosurgery next month per outpatient records review. (3) Seizure disorder: Plan: Has been ongoing after Nov insult and IPH/SDH with breakthough tonic clonic seizure on 11/08 and possible additional breakthrough seizures just last week. Keppra level has been ordered. He has been following with [facility] neurology who is now consulted. Cont seizure precautions and Keppra 1gm PO BID. (4) Headache: Improved. Cont supportive care. Consider repeat MRI if neurology feels this is appropriate. (5) Alcohol abuse: Nov 14 - last drink. States he quit completely. DVT proph: SCDs/ambulation Full Code Dispo-cont PCU monitoring for now. To home in next 1-2 days pending therapy recommendations and clinical improvement. The patient is being discharged with following instruction at the point of discharge: Follow-up with your primary care physician within a week time and likely you will need labs CBC/CMP/magnesium/phosphorus. Neurology evaluated you for your acute worsening of your upper extremity weakness left. You are recommended to maintain your sleep hygiene properly. Continue to take your prior to arrival dose of Keppra. No driving. Follow-up with neurology as an outpatient in 2 to 4 weeks time upon discharge. Take your medications as prescribed. Please make sure that you are able to get your medications today by calling your pharmacy before you leave the hospital so that your treatment continuity is not broken. Home Health Attestation I certify that this patient is under my care and that I, or a physicians health assistant working with me, had a face to-face encounter that meets the home health [id number]-ococ encounter requirements with this patient. The encounter with the patient was in whole, or in part, for the following medical condition, which is the primary reason for home health care (list medical condition): I certify that, based on my findings, the following services are medically necessary home health services: My clinical findings support the need for the above services because: Further, I certify that my clinical findings support that this patient is homebound (i.e. absences from home require considerable and taxing effort and are for medical reasons or sikh services or infrequently or of short duration when for other reasons) because: Certification for Home Health Services: Based on the above findings, I certify that this patient is confined to the home and needs intermittent detention care, physical therapy and/or speech therapy or continues to need occupational therapy. The patient is under my care, and I have initiated the establishment of the plan of care. This patient will be followed by a physician who will periodically review the plan of care. Total Time Total Time Spent Total Time Spent (In Minutes): 45 Discharge Plan Discharge Items Patient Disposition: Home - Self-Care Reason For Visit: STROKE SYMPTOMS, H/O HEMICRANIECTOMY Discharge Diagnosis: Left-sided weakness History of traumatic brain injury Headache Seizure disorder Activity: Resume your previous activity Non-emergency contact: Primary Care Provider Call non-emergency contact if: you have any medication questions, your symptoms worsen and your temperature is above 101 Follow-up/Referrals: PCP,NO [Primary Care Provider] - Diet: Regular Addtl Attending Provider Instructions: Follow-up with your primary care physician within a week time and likely you will need labs CBC/CMP/magnesium/phosphorus. Neurology evaluated you for your acute worsening of your upper extremity weakness left. You are recommended to maintain your sleep hygiene properly. Continue to take your prior to arrival dose of Keppra. No driving. Follow-up with neurology as an outpatient in 2 to 4 weeks time upon discharge. Take your medications as prescribed. Please make sure that you are able to get your medications today by calling your pharmacy before you leave the hospital so that your treatment continuity is not broken. Pending Studies at Discharge: No Stand-Alone Forms: [facility] [employer] Smoking Cessation Medications and DC Order Prescriptions: Continued levetiracetam [Keppra] 1,000 mg tablet 1,000 mg PO BID 60 Days Qty: 120 0RF ibuprofen 200 mg Tablet 200 mg PO Q6H PRN (Reason: PAIN/FEVER) Discharge Orders: Discharge Order (Routine); Ordered 12/08/23 Ordered By: Christy Cancino Admission Data Admit Date/Time: 12/07/23 12:07 Attending Provider: Christy Cancino Admit Provider: Elizabeth Barber Primary Care Provider: PCP,NO Other Providers: Elizabeth Barber; Ciro Caballero
[2023-12-08] MEDS: ACETAMINOPHEN 325 MG TAB PO PRN (15:15)
== END 2023-12-08 15:50 | disposition home or self-care (01) | DRG 57 ==
LOC: ED 09:30 → SUATTDRO 12:07 → EDINP 12:07 → 2S 14:42

== ENCOUNTER 2023-12-18 13:19 | Inpatient (IN) ==
--- NOTE | 2023-12-18 13:29 | ED Triage Note ---
Date of Service December 18, 2023 Provider in Triage Author: Kristen Aldridge History of Present Illness This patient was briefly evaluated while in triage. An abbreviated physical exam was performed. This patient is a 28-year-old Male who presents to the ED for evaluation of weakness in left arm with numbness and tingling. Hx, brain bleed in September. Stroke workup ordered in triage with consultation from Dr. Corea, no angio studies at this time. Physical Exam Initial orders for labs and / or imaging were placed and patient was placed in the waiting area until a bed is available. Please see further documentation for the full ED course.
[2023-12-18] MEDS: SODIUM CHLORIDE 0.9% 1,000 ML IV ONE (14:08)
[2023-12-18] MEDS: ACETAMINOPHEN 1,000 MG/100 ML VIAL IV STA (14:08)
[2023-12-18] MEDS: diphenhydrAMINE 50 MG/ML VIAL IV STA ×2 (14:08→19:23)
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
[2023-12-18 14:10] LABS: Basophils # (auto) 0.07 K/uL (0.00-0.20); Basophils % (auto) 0.9 %; Eosinophils # (auto) 0.19 K/uL (0.00-0.50); Eosinophils % (auto) 2.3 %; Hematocrit (blood only) 46.4 % (42.0-52.0); Hemoglobin 16.4 g/dl (14.0-18.0); Immature Granulocytes # (auto) 0.02 K/uL (0.01-0.20); Immature Granulocytes % (auto) 0.2 %; Lymphocytes # (auto) 1.16 K/uL (1.20-3.40); Lymphocytes % (auto) 14.3 %; Mean Corpuscular Hemoglobin 30.5 pg (25.0-34.0); Mean Corpuscular Hgb Conc 35.3 g/dL (32.0-36.0); Mean Corpuscular Volume 86.4 fL (80.0-100.0); Mean Platelet Volume 9.4 fL (9.4-12.4); Monocytes # (auto) 0.77 K/uL (0.11-0.59); Monocytes % (auto) 9.5 %; Neutrophils # (auto) 5.88 K/uL (1.40-6.50); Neutrophils % (auto) 72.8 %; Platelet Count 197 K/uL (130-400); RDW Coefficient of Variation 11.7 % (11.5-14.5); RDW Standard Deviation 37.1 fL (36.4-46.3); Red Blood Count 5.37 M/uL (4.70-6.10); White Blood Count 8.09 K/ul (4.8-10.8)
[2023-12-18] MEDS: PROCHLORPERAZINE 10 MG in SYRINGE 8 ML IV ONE (14:25)
[2023-12-18 14:30] LABS: Albumin Globulin Ratio 1.5 (0.9-2); Albumin Level 4.8 gm/dl (3.4-5.0); BUN Creatinine Ratio 5.3 (10-20); Bilirubin,Total 0.7 mg/dl (0.2-1.0); Calcium 10.2 mg/dl (8.6-10.3); Creatinine Clr Calc Pharmacy 101.8 ml/min; Est GFR (African American) 126.6 ml/min; Est GFR (Non-African American) 109.3 ml/min; Globulin 3.2 gm/dl (2.5-4.0); Magnesium 1.7 mg/dl (1.7-2.4); Potassium 4.2 mmol/L (3.5-5.1)
[2023-12-18 14:32] LABS: Troponin I High Sensitivity 2.5 pg/ml (0-20)
[2023-12-18 14:43] LABS: Partial Thromboplastin Ratio 0.9; Partial Thromboplastin Time 26 Seconds (21-31); Prothrombin Time 11.2 Seconds (9.0-12.0)
--- NOTE | 2023-12-18 15:12 | Electrocardiogram Report ---
Test Reason : Blood Pressure : / mmHG Vent. Rate : 101 BPM Atrial Rate : 101 BPM P-R Int : 134 ms QRS Dur : 078 ms QT Int : 354 ms P-R-T Axes : 042 -12 029 degrees QTc Int : 459 ms Sinus tachycardia Otherwise normal ECG When compared with ECG of 07-DEC-2023 09:45, Minimal criteria for Inferior infarct are no longer Present Confirmed by Uriel Nicholson ([id number]) on 12/18/2023 3:12:38 PM Referred By: REFERRED SELF Confirmed By:Uriel Nicholson
--- NOTE | 2023-12-18 15:23 | CT Scan Report ---
CT OF THE HEAD WITHOUT CONTRAST CLINICAL HISTORY: neuro deficit, acute stroke suspected COMPARISON STUDY: MRI of the brain December 01, 2023. Head CT and CTA of the head December 07, 2023. CT DOSE: 625.8 mGy.cm TECHNIQUE: Helical axial images of the head were obtained without IV contrast. Automated exposure con trol was utilized for the study. A dose lowering technique was utilized adhering to the principles o f ALARA. FINDINGS: The appearance of the right craniectomy is unchanged. Hypodensity within the right temporal lobe is also unchanged since prior CT and MRI. No acute intracranial hemorrhage is present. Ventricu lar system is unremarkable. Basal cisterns are patent. There are no extra axial collections. There ar e no findings to suggest acute dural sinus thrombosis or acute territorial infarct. IMPRESSION: 1. No acute intracranial findings. 2. Stable findings following right craniectomy. No change in right temporal lobe hypodensity. ACT 112: Negative or not required by law. Electronically signed by: Bigg Godoy M.D. 12/18/2023 3:21 PM
[2023-12-18] MEDS: KETOROLAC TROMETHAMINE 15 MG/ML VIAL IV ONE (15:54)
[2023-12-18] MEDS: levETIRAcetam 500 MG/5 ML VIAL IV STA (15:54)
[2023-12-18] MEDS: ONDANSETRON INJ 2 MG/ML 2 ML VIAL IV STA (17:07)
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
[2023-12-18] MEDS: PROMETHAZINE HCL 6.25 MG in SODIUM CHLORIDE 0.9% 50 ML IV STA (17:35)
[2023-12-18] MEDS ORDERED: ONDANSETRON INJ 2 MG/ML 2 ML VIAL IV PRN (17:48)
[2023-12-18] MEDS: PANTOprazole 40 MG TAB PO STA (19:22)
[2023-12-18] MEDS: ACETAMINOPHEN 325 MG TAB PO SCH (19:22)
[2023-12-18] MEDS: MAGNESIUM SULFATE / D5W 1 GM/100 ML BAG IV SCH (19:23)
--- OUTSIDE RECORDS SUMMARY | 2023-12-18 20:27 | External Medical Summary | Summary of Care ---
Author Name Unknown Organization [facility] Address [address] [place] [address] Phone [phone] Care Team Providers Care Service Learning Coordinator Name Role Phone Power Beltran DO Primary Care Provider Encounter Details Date Type Department Care Team (Late st Contact Info) Description 12/15/2023 9:30 AM EST [facility] [address] [place] [address] Ministerio Graham MD [address] [place] [address] Traumatic brain injury with loss of consciousness, sequela (HCC)* Allergies Active Allergy Reactions Criticality Noted Date Comments Adhesive Tape 08/12/2018 documented as of this encounter (statuses as of 12/15/2023) Medications Medication Sig Dispensed Refills Start Date [...] as of this encounter (statuses as of 12/15/2023) Active Problems Problem Noted Date Diagnosed Date [...] as of this encounter (statuses as of 12/15/2023) Social History Tobacco Use Types Packs/Day Years [...] Progress Notes * Ministerio Graham MD - 12/15/2023 9:42 AM EST PROGRESS NOTE - Neurosurgery [address] [address] Name: Juan Hill Date: 12/15/2023 Time: 9:42 AM Patient location: HOME. I was in a hospital or clinic location. After connecting through televideo,patient was verified with two unique identifiers. 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 Methods to assure confidentiality were taken. Patient acknowledged consent and understanding of pr ivacy and security of the Telemedicine visit. The patient agreed to participate. Please note that this encounter has taken place via remote video tele- conference. Before the encounter began, the patient voiced an understanding of the limitations of this form of encounter. Specifically, that I cannot physically examine the patient under such conditions, thus subtle findings that may ultimately affect management may go undetected until I am able to evaluate the patient more fully in person. The patient voices an understanding of these limitations and requests to proceed with the video tele-conference session. [age] year old gentleman very well known to me, previous TBI, underwent craniectomy with evacuation of hematoma. Now presenting for cranioplasty. Otherwise he is doing well. I did send him to Neurology for repeat EEG, there are multiple abnormalities for which they recommended continuing 1 gof Keppra twice daily. Recent labs unremarkable. We will plan to update complete infectious panel including cultures and chest x-ray to rule out occult infection about a week before surgery. Otherwise plan for cranioplasty on the . Specific risks include but are not limited to: pain, scarring, bleeding, surgical site hematoma, remote hematoma, need for transfusion of blood products, surgical site infection, other infection including but not limited to urinary tract infection or pneumonia, cerebrospinal fluid leak, neurologic deficit including new or worsened numbness/weakness/pain, injury to cranio-cervical vasculature, other vascular injury,ischemic optic neuropathy, malposition of instrumentation or hardware, vascular injury, thromboembolic events including deep vein thrombosis and pulmonary embolus, myocardial infarction, stroke, coma, and . The patient voices understanding requests to proceed as outlined. All questions answered. PAST MEDICAL HISTORY: No past medical history on file. PAST SURGICAL HISTORY: Past Surgical History: Procedure Laterality Date OPEN SKULL FOR REMOVAL OF HEMATOMA Right 09/14/2023 CRANIOTOMY EVACUATION OF SUBDURAL OR EXTRADURAL HEMATOMA SUPRATENTORIAL performed by Ministerio Graham [place] [facility] [place]: Family History Problem Relation Age of Onset Diabetes Mother Type 1 Coronary Artery disease Mother [place], CABG SOCIAL HISTORY: Social History Tobacco Use [...] morning and 1 Tablet before bedtime., Disp: 180 Tablet, Rfl: 1 oxyCODONE HCl 5 MG Oral Tablet (Oxy IR), Take 1 Tablet by mouth every 4 hours as needed for moderate or severe pain., Disp: 30 Tablet, Rfl: 0 Cetirizine HCl 10 MG Oral Tablet (ZyrTEC Allergy), Take 1 Tablet by mouth daily as needed for Rhinitis., Disp: , Rfl: No current facility-administered medications for this visit. ALLERGIES: Adhesive tape VITALS: There were no vitals taken for this visit. Ministerio Graham [facility] Neurosurgery This document was dictated using voice recognition software. Please excuse any errors. documented in this encounter Plan of Treatment Upcoming Encounters Date Type Department Care Team (Latest Contact Info) Description 12/28/2023 1:40 PM EST Hospital En[place] [facility] [place] [facility] [place] [facility] [address] [facility] [place] [address] Ministerio Graham MD [address] [place] [address] 01/04/2024 1:40 PM EST - 01/04/2024 5:10 PM EST Surgery [place] [facility] [place] [facility] [place] [address] [place] [address] Ministerio Graham MD [address] [place] [address] CRANIOPLASTY WITH AUTOGRAFT 01/07/2024 8:00 AM EST Scheduled Telephone Neurosurgery, [place] [address] [place] [address] Trudy, Nurse Follow Up Phone Call Neurosurg [address] [place] [address] 01/14/2024 11:20 AM EST Office Visit Neurology [facility] [address] [place] [address] Beti To PA-C [address] [place] [address] 01/19/2024 11:30 AM EDT Office Visit Neurosurgery, [place] [address] [place] [address] Ministerio Graham MD [address] [place] [address] 05/31/2024 4:20 PM EDT Office Visit Neurology [facility] [address] [place], [place] [address] Thomas Garrett DO [address] [place], [place] [address] Scheduled Orders Name Type Priority Associated Diagnoses Orde r Schedule CBC WITH WBC DIFFERENTIAL Lab Routine Traumatic brain injury with loss of consciousness, sequela (HCC) Expected: 12/29/2023, Expires: 12/15/2024 ERYTHROCYTE SEDIMENTATION RATE (ESR) Lab Routine Traumatic brain injury with loss of consciousness, sequela (HCC) Expected: 12/29/2023, Expires: 12/15/2024 CRP (INFLAMMATORY MARKER) Lab Routine Traumatic brain injury with loss of consciousness, sequela (HCC) Expected: 12/29/2023, Expires: 12/15/2024 CULTURE, URINE, QUANTITATIVE Lab Routine Traumatic brain injury with loss of consciousness, sequela (HCC) Expected: 12/29/2023, Expires: 12/15/2024 CULTURE, BLOOD Lab Routine Traumatic brain injury with loss of consciousness, sequela (HCC) Expected: 12/29/2023, Expires: 12/15/2024 XR CHEST 2 VIEWS Medical Imaging Routine Traumatic brain injury with loss of consciousness, sequela (HCC) Ordered: 12/15/2023 Scheduled Procedures Name Priority Associated Diagnoses Date/Ti [...] this encounter Medical Devices Implanted Type Area Receiving Associate Device Identifier Shelf Expiration Date Model / Serial / Lot Graft Mesh Duragen Pl 4.0x5in - [id number] - [id number] Implanted:Qty: 1 on 09/14/2023 by Ministerio Graham MD [place] [facility] [place] Head [employer] [id number] 01/06/2026 [id number] / [id number] / [id number] documented as of this encounter Visit Diagnoses Diagnosis Traumatic brain injury with loss of consciousness, sequela (HCC)- Primary Seizure (HCC) Other convulsions Status post craniectomy [...] Directives occurred with: Patient Care Teams Service Learning Coordinator Relationship Specialty Start Date End Date Power Beltran DO [address] [place] [address] PCP - General Family Medicine 11/04/23 documented as of this encounter
--- OUTSIDE RECORDS SUMMARY | 2023-12-18 20:28 | External Medical Summary ---
Author Name Unknown Address Unknown Organization [id number]:[facility] [place] [address] [place] [address] Laboratory Report Ordering Provider Test Date Status SAMANTHA POLLARD 12/14/2023 12:34:10 Final Observation Date Value Abnormality Reference (Units ) Status BUN 12/14/2023 12:34:10 6 6-20 (mg/dL) Final Creatinine 12/14/2023 12:34:10 0.8 0.6-1.2 (mg/dL) Final Glomerular filtration rate/1.73 sq M.predicted [Volume Rate/Area] in Serum, Plasma or Blood by Creatinine-based formula (CKD-EPI) 12/14/2023 12:34:10 >90 >=60 (mL/min) Final eGFR is calculated based on the CKD-EPI 2020 equation SODIUM 12/14/2023 12:34:10 138 135-146 (m mol/L) Final Potassium 12/14/2023 12:34:10 3.9 3.5-5.1 (m mol/L) Final Cl 12/14/2023 12:34:10 98 98-107 (mm ol/L) Final CO2 12/14/2023 12:34:10 24 22-32 (mmo l/L) Final Anion gap 12/14/2023 12:34:10 16 Above high normal 7- 15 (mmol/L) Final Glucose 12/14/2023 12:34:10 98 70-120 (mg /dL) Final Calcium 12/14/2023 12:34:10 10.3 Above high normal 8. 4-10.2 (mg/dL) Final Performing Location [facility] [place] [address]
--- OUTSIDE RECORDS SUMMARY | 2023-12-18 20:28 | External Medical Summary ---
Author Name Unknown Address Unknown Organization [id number]:[facility] [place] [address] [facility] [address] Laboratory Report Ordering Provider Test Date Status SAMANTHA POLLARD 12/14/2023 12:36:39 Final Observation Date Value Abnormality Reference (Units ) Status Color of Urine by Auto 12/14/2023 12:36:39 Colorless Colorless, Light Yellow, Yellow, Dark Yellow Final Clarity, Urine 12/14/2023 12:36:39 Clear Clear Final Glucose [Mass/volume] in Urine by Automated test strip 12/14/2023 12:36:39 Negative Negative (mg/dL) Final Bilirubin.total [Presence] in Urine by Automated test strip 12/14/2023 12:36:39 Negative Negative Final Ketones [Mass/volume] in Urine by Automated test strip 12/14/2023 12:36:39 Negative Negative (mg/dL) Final Specific gravity, Urine 12/14/2023 12:36:39 1.004 1.003-1.030 Final Hemoglobin [Presence] in Urine by Automated test strip 12/14/2023 12:36:39 Negative Negative Final pH, Urine 12/14/2023 12:36:39 6.0 5.0-7.5 (Units) Final Protein [Mass/volume] in Urine by Automated test strip 12/14/2023 12:36:39 Negative Negative (mg/dL) Final Urobilinogen [Mass/volume] in Urine by Automated test strip 12/14/2023 12:36:39 Normal Normal (mg/dL) Final Nitrite [Presence] in Urine by Automated test strip 12/14/2023 12:36:39 Negative Negative Final Leukocyte esterase [Presence] in Urine by Automated test strip 12/14/2023 12:36:39 Negative Negative Final Annotation Comment 12/14/2023 12:36:39 Final Screen negative - Microscopi c not performed. Performing Location LAB[facility]ATORY [facility] - [address] [facility] [address]
--- OUTSIDE RECORDS SUMMARY | 2023-12-18 20:28 | External Medical Summary ---
Author Name Unknown Address Unknown Organization [id number]:[facility] - [address] [place] [address] Laboratory Report Ordering Provider Test Date Status SAMANTHA POLLARD 12/14/2023 12:34:10 Final Observation Date Value Abnormality Reference (Units ) Status ABO 12/14/2023 12:34:10 B Final RH 12/14/2023 12:34:10 Positive Final RED BLOOD CELL ANTIBODY SCREEN 12/14/2023 12:34:10 Negative Final SPECIMEN EXPIRATION DATE 12/14/2023 12:34:10 12/31/2023 23:59 Final Performing Location [facility] - [address] [place] [address]
--- OUTSIDE RECORDS SUMMARY | 2023-12-18 20:28 | External Medical Summary | Summary of Care ---
Author Name Unknown Organization [facility] Address [address] [facility] [place] [address] Phone [phone] Care Team Providers Care Vp Ad Sales West Name Role Phone Beltran Powerkiran Chatman DO Primary Care Provider Reason for Visit * Reason Comments Outpatient Testing Encounter Details Date Type Department Care Team (Late st Contact Info) Description 12/14/2023 12:50 PM EST Laboratory Laboratory, [facility] [place] [phone] [facility] [address] [facility] [place] [address] Traumatic brain injury with loss of consciousness, subsequent encounter; Seizure (HCC); Brain edema (HCC); SDH (subdural hematoma) (HCC); Status post craniectomy; Pre-op testing; Traumatic brain injury with loss of consciousness, sequela (HCC); 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) Allergies Active Allergy Reactions Criticality Noted Date Comments Adhesive Tape 08/12/2018 documented as of this encounter (statuses as of 12/14/2023) Medications Medication Sig Dispensed Refills Start Date [...] as of this encounter (statuses as of 12/14/2023) Active Problems Problem Noted Date Diagnosed Date [...] as of this encounter (statuses as of 12/14/2023) Social History Tobacco Use Types Packs/Day Years [...] Description 12/14/2023 1:30 PM EST Imaging Radiology [address], [place] [address] [place] [address] Seizure (HCC); Intraparenchymal hematoma of brain, right, with loss of consciousness of 30 minutes or less, subsequent encounter 12/15/2023 9:30 AM EST Telemedicine Neurosurgery, [place] [address] [facility] [place] [address] Ministerio Graham MD [address] [place] [address] 12/28/2023 1:40 PM EST Hospital [place] [facility] [place] [facility] [address] [facility] [place] [address] Ministerio Graham MD [address] [place] [address] 01/04/2024 1:40 PM EST - 01/04/2024 5:10 PM EST Surgery [place] [facility] [place] [facility] [address] [facility] [place] [address] Ministerio Graham MD [address] [place] [address] CRANIOPLASTY WITH AUTOGRAFT 01/07/2024 8:00 AM EST Scheduled Telephone Neurosurgery, [place] [address] [facility] [place] [address] Zacarias Nurse Follow Up Phone Call Neurosurg [facility] [place] [address] 01/14/2024 11:20 AM EST Office Visit Neurology [facility] [address] [place] [address] Beti To PA-C [address] [place] [address] 01/19/2024 11:30 AM EDT Office Visit Neurosurgery, [place] [address] [place] [address] Ministerio Graham MD [address] [place] [address] 05/31/2024 4:20 PM EDT Office Visit Neurology [facility] [place] [address] [place] [address] Thomas Garrett DO [address] [place] [address] Pending Results Name Type Priority Associated Diagnoses Date /Time CBC WITH WBC DIFFERENTIAL Lab Routine Traumatic brain injury with loss of consciousness, subsequent encounter Seizure (HCC) Brain edema (HCC) SDH (subdural hematoma) (HCC) Status post craniectomy Pre-op testing 12/14/2023 12:34 PM EST BASIC METABOLIC PANEL Lab Routine Traumatic brain injury with loss of consciousness, subsequent encounter Seizure (HCC) Brain edema (HCC) SDH (subdural hematoma) (HCC) Status post craniectomy Pre-op testing 12/14/2023 12:34 PM EST PT INR Lab Routine Traumatic brain injury with loss of consciousness, subsequent encounter Seizure (HCC) Brain edema (HCC) SDH (subdural hematoma) (HCC) Status post craniectomy Pre-op testing 12/14/2023 12:34 PM EST APTT Lab Routine Traumatic brain injury with loss of consciousness, subsequent encounter Seizure (HCC) Brain edema (HCC) SDH (subdural hematoma) (HCC) Status post craniectomy Pre-op testing 12/14/2023 12:34 PM EST TYPE AND SCREEN Lab Routine Traumatic brain injury with loss of consciousness, subsequent encounter Seizure (HCC) Brain edema (HCC) SDH (subdural hematoma) (HCC) Status post craniectomy Pre-op testing 12/14/2023 12:34 PM EST LEVETIRACETAM LEVEL Lab Routine Traumatic brain injury with loss of consciousness, sequela (HCC) Seizure (HCC) 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) 12/14/2023 12:34 PM EST CBC Lab Routine Traumatic brain injury with loss of consciousness, subsequent encounter Seizure (HCC) Brain edema (HCC) SDH (subdural hematoma) (HCC) Status post craniectomy Pre-op testing 12/14/2023 12:34 PM EST DIFFERENTIAL, AUTOMATED Lab Routine Traumatic brain injury with loss of consciousness, subsequent encounter Seizure (HCC) Brain edema (HCC) SDH (subdural hematoma) (HCC) Status post craniectomy Pre-op testing 12/14/2023 12:34 PM EST URINALYSIS, REFLEX TO MICROSCOPIC Lab Routine Traumatic brain injury with loss of consciousness, subsequent encounter Seizure (HCC) Brain edema (HCC) SDH (subdural hematoma) (HCC) Status post craniectomy Pre-op testing 12/14/2023 12:36 PM EST Scheduled Procedures Name Priority Associated Diagnoses Date/Ti [...] this encounter Medical Devices Implanted Type Area Therapy Technician Device Identifier Shelf Expiration Date Model / Serial / Lot Graft Mesh Duragen Pl 4.0x5in - [id number] - [id number] Implanted:Qty: 1 on 09/14/2023 by Ministerio Graham [place] [facility] [place] Head [employer] [id number] 01/06/2026 [id number] / [id number] / [id number] documented as of this encounter Visit Diagnoses Diagnosis Seizure (HCC) Other convulsions Intraparenchymal hematoma of brain, right, with loss of consciousness of 30 minutes or less, subsequent encounter Traumatic brain injury with loss of consciousness, subsequent encounter Seizure (HCC) Other convulsions Brain edema (HCC) Cerebral edema SDH (subdural hematoma) (HCC) Subdural hemorrhage Status post craniectomy Pre-op testing Preoperative examination, unspecified Traumatic brain injury with loss of consciousness, sequela (HCC) Localization-related focal epilepsy with complex partial [...] Advance Directives occurred with: Patient Care Teams Vp Ad Sales West Relationship Specialty Start Date End Date Power Beltran DO [address] [place] [address] PCP - General Family Medicine 11/04/23 documented as of this encounter
--- OUTSIDE RECORDS SUMMARY | 2023-12-18 20:28 | External Medical Summary ---
Author Name Unknown Address Unknown Organization K0G:[facility] [place] [address] - [address] [place] [address] Laboratory Report Ordering Provider Test Date Status SAMANTHA POLLARD 12/14/2023 12:34:10 Final Anticoagulation may affect t esting. Refer to [employer] Test Catalog for a list of effects. Observation Date Value Abnormality Reference (Units ) Status aPTT panel - Platelet poor plasma 12/14/2023 12:34:10 28 21-38 (seconds) Final Performing Location [facility]ORY [place] [address] [place] [address]
--- OUTSIDE RECORDS SUMMARY | 2023-12-18 20:28 | External Medical Summary ---
Author Name Unknown Address Unknown Organization K0G:[facility]ATORY [facility] [address] - [address] [place] [address] Laboratory Report Ordering Provider Test Date Status SAMANTHA POLLARD 12/14/2023 12:34:10 Final Observation Date Value Abnormality Reference (Units ) Status WBC, Total 12/14/2023 12:34:10 6.57 4.00-10.8 0 (K/uL) Final RBC 12/14/2023 12:34:10 5.16 4.50-5.25 (M/uL) Final Hemoglobin 12/14/2023 12:34:10 15.9 14.0-16.8 (g/dL) Final HCT 12/14/2023 12:34:10 46.0 40.0-48.4 (%) Final MCV 12/14/2023 12:34:10 89.1 82.0-99.5 (fL) Final MCH 12/14/2023 12:34:10 30.8 27.0-34.0 (pg) Final MCHC 12/14/2023 12:34:10 34.6 32.0-36.0 (g/dL) Final RDW 12/14/2023 12:34:10 12.2 11.5-15.5 (%) Final Platelets 12/14/2023 12:34:10 200 140-400 (K /uL) Final MPV 12/14/2023 12:34:10 9.7 6.6-11.1 ( fL) Final [facility] [address] - [address] [place] [address]
--- OUTSIDE RECORDS SUMMARY | 2023-12-18 20:28 | External Medical Summary | Summary of Care ---
Author Name Unknown Organization [facility] Address [address] [facility] [place] [address] Phone [phone] Care Team Providers Care Driver Wheelchair Name Role Phone Beltran Powerkiran Chatman DO Primary Care Provider Reason for Visit * Reason Onset Date Comments Appointment 12/12/2023 MRI Encounter Details Date Type Department Care Team (Late st Contact Info) Description 12/12/[address]23 [address]phone [address] [place] [id number] Kristne Albrecht, RT (R) Appointment (/MRI) Allergies Active Allergy Reactions Criticality Noted Date Comments Adhesive Tape 08/12/2018 documented as of this encounter (statuses as of 12/12/2023) Medications Medication Sig Dispensed Refills Start Date [...] as of this encounter (statuses as of 12/12/2023) Active Problems Problem Noted Date Diagnosed Date [...] as of this encounter (statuses as of 12/12/2023) Social History Tobacco Use Types Packs/Day Years [...] encounter Miscellaneous Notes * Telephone Encounter - Kristen Albrecht RT (R) - 12/12/2023 12:16 PM EST Name: Juan Hill Do you have any of the following: Pacemaker, stents, heart valves, aneurysm clips? No Have you ever worked with metal or have you ever gotten metal in your eyes? No Have you had a colonoscopy in the last 30 days? No On dialysis? No Do you have any dermals or body piercing's? No Do you wear an insulin pump or diabetic monitor? No No tattoos Knows to be here at 1 RT Lisa (R) documented in this encounter Plan of Treatment Upcoming Encounters Date Type Department Care Team (Latest Contact Info) Description 12/14/2023 1:30 PM EST Imaging Radiology [address] [address] 12/15/2023 9:30 AM EST Telemedicine Neurosurgery, [place] [address] [place] [address] Ministerio Graham MD [address] [place] [address] 12/28/2023 1:40 PM EST Hospital Encounter [place] [facility] [place] [facility] [address] [place] [address] Ministerio Graham MD [address] [place] [address] 01/04/2024 1:40 PM EST - 01/04/2024 5:10 PM EST Surgery [place] [facility] [place] [facility] [address] [place] [address] Ministerio Graham MD [address] [place] [address] CRANIOPLASTY WITH AUTOGRAFT 01/07/2024 8:00 AM EST Scheduled Telephone Neurosurgery, [place] [address] [place] [address] Nurse Trudy Follow Up Phone Call Neurosurg [address] [place] [address] 01/14/2024 11:20 AM EST Office Visit Neurology [facility] [address] [place] [address] Beti To PA-C [address] [place] [address] 01/19/2024 11:30 AM EDT Office Visit Neurosurgery, [place] [address] [place] [address] Ministerio Graham MD [address] [place] [address] 05/31/2024 4:20 PM EDT Office Visit Neurology [facility] [place] [address] [place] [address] Thomas Garrett DO [address] [place] [address] Scheduled Procedures Name Priority Associated Diagnoses Date/Ti [...] this encounter Medical Devices Implanted Type Area Ip Network Architect Device Identifier Shelf Expiration Date Model / Serial / Lot Graft Mesh Duragen [address] 4.0x5in - [id number] - [id number] Implanted:Qty: 1 on 09/14/2023 by Ministerio Graham MD [place] [facility] [place] Head Move In History [id number] 01/06/2026 [id number] / [id number] / [id number] documented as of this encounter Advance Directives Latest Code Status on File Code Status Date Activated Date Inactivated Comments Full Code 09/12/2023 6:51 AM 09/24/2023 8:31 PM This order reflects the patients wishes and were consensually agreed upon. Question Answer Comments Discussion of Advance Directives occurred with: Patient Care Teams Driver Wheelchair Relationship Specialty Start Date End Date Power Beltran DO [address] [place] [address] PCP - General Family Medicine 11/04/23 documented as of this encounter
--- OUTSIDE RECORDS SUMMARY | 2023-12-18 20:28 | External Medical Summary ---
Author Name Unknown Address Unknown Organization [id number]:[facility] [address] [place] [id number] Laboratory Report Ordering Provider Test Date Status SAMANTHA POLLARD 12/14/2023 12:34:10 Final Warfarin Therapy
INR: 2 .0-3.0 conventional anticoagulation
INR: 2.5- 3.5 high intensity anticoagulation Observation Date Value Abnormality Reference (Units ) Status PT 12/14/2023 12:34:10 13.3 11.6-15.2 (seconds) Final INR 12/14/2023 12:34:10 1.0 0.8-1.2 Final Performing Location [facility] [address] [place] [id number]
--- OUTSIDE RECORDS SUMMARY | 2023-12-18 20:28 | External Medical Summary ---
Author Name Unknown Address Unknown Organization K0G:[facility] [place] [address] [place] [id number] Laboratory Report Ordering Provider Test Date Status SAMANTHA POLLARD 12/14/2023 12:34:10 Final Observation Date Value Abnormality Reference (Units ) Status SYNC LEUKOCYTES IN BLOOD BY AUTOMATED COUNT 12/14/2023 12:34:10 6.57 4.00-10.80 (K/uL) Final Segs 12/14/2023 12:34:10 61.6 40.0-75.0 (%) Final Lymphs % 12/14/2023 12:34:10 22.1 18.0-42.0 (%) Final Monos 12/14/2023 12:34:10 11.1 Above high normal 1.0-11.0 (%) Final Eosinophils 12/14/2023 12:34:10 4.9 0.0-6.0 (%) Final Basos 12/14/2023 12:34:10 0.3 0.0-2.0 (%) Final Absolute Segs 12/14/2023 12:34:10 4.05 1.80-7.70 (K/uL) Final Lymphs, absolute 12/14/2023 12:34:10 1.45 1.00-4.80 (K/ul) Final Monos, Abs 12/14/2023 12:34:10 0.73 0.00-1.10 (K/uL) Final Eos, Abs 12/14/2023 12:34:10 0.32 0.00-0.70 (K/uL) Final Basos, Abs 12/14/2023 12:34:10 0.02 0.00-0.20 (K/uL) Final Performing Location [facility] [place] [address] [place] [id number]
[2023-12-18 20:41] LABS: Adenovirus PCR Not Detected (NotDetected); Bordetella parapertussis PCR Not Detected (NotDetected); Bordetella pertussis PCR Not Detected (NotDetected); Chlamydia pneumoniae PCR Not Detected (NotDetected); Coronavirus 229E PCR Not Detected (NotDetected); Coronavirus CoV-2 (COVID19)PCR Not Detected (NotDetected); Coronavirus HKU1 PCR Not Detected (NotDetected); Coronavirus NL63 PCR Not Detected (NotDetected); Coronavirus OC43PCR Not Detected (NotDetected); Human Metapneumovirus PCR Not Detected (NotDetected); Influenza A PCR Not Detected (NotDetected); Influenza B PCR Not Detected (NotDetected); Mycoplasma pneumoniae PCR Not Detected (NotDetected); Parainfluenza Virus 1 PCR Not Detected (NotDetected); Parainfluenza Virus 2 PCR Not Detected (NotDetected); Parainfluenza Virus 3 PCR Not Detected (NotDetected); Parainfluenza Virus 4 PCR Not Detected (NotDetected); Respiratory Syncytial VirusPCR Not Detected (NotDetected); Rhinovirus/Enterovirus PCR Not Detected (NotDetected)
[2023-12-18] MEDS: GADOBUTROL 65ML VIAL IV ONE (20:53)
--- NOTE | 2023-12-18 21:29 | Magnetic Resonance Report ---
MRI OF THE BRAIN COMBO CLINICAL HISTORY: Headache. Left sided weakness. COMPARISON STUDY: CT of the brain dated 12/18/2023. MRI of the brain dated 12/01/2023. TECHNIQUE: MRI of the brain was performed utilizing various T1 and T2-weighted sequences in the axial , sagittal, and coronal planes. Contrast-enhanced sequences were acquired following the administratio n of 6.9 cc of Gadavist. The examination is performed using the seizure protocol. FINDINGS: Brain parenchyma: Right temporal encephalomalacia is unchanged an consistent with a remote insult. Th ere is associated laminar necrosis. There is no hemorrhage or mass effect. There is no restricted dif fusion to suggest acute ischemia. No enhancing mass lesion is identified on the postcontrast images. Hernandez-white matter differentiation is preserved. No extra-axial fluid collection is seen. The cerebell ar tonsils are normal in configuration. Ventricles, sulci, and cisterns: Normal in configuration. Pituitary and sella: Unremarkable. Intracranial vasculature: Normal flow voids are maintained at the skull base. Orbits: The bony orbits are grossly intact. Orbital contents are normal in appearance. Sinuses and mastoids: Trace mucosal thickening is noted in the maxillary antra. Retention cysts measu re up to 1.8 cm. The remaining paranasal sinuses and the mastoid air cells are clear. Calvarium: Again seen is postsurgical change from right sided craniectomy. No destructive calvarial l esion is seen. Cervical cord: Partially visualized cervical spinal cord is normal in morphology and signal intensity . IMPRESSION: Chronic and postsurgical changes as above with no acute intracranial abnormality. ACT 112: Negative or not required by law. Electronically signed by: Dallas Lambert M.D. 12/18/2023 9:27 PM
[2023-12-18] MEDS: levETIRAcetam 500 MG TAB PO SCH (22:09)
[2023-12-18] MEDS ORDERED: diphenhydrAMINE 50 MG/ML VIAL IV PRN (22:14)
[2023-12-19 06:36] LABS: Basophils # (auto) 0.05 K/uL (0.00-0.20); Basophils % (auto) 0.9 %; Eosinophils # (auto) 0.26 K/uL (0.00-0.50); Eosinophils % (auto) 4.6 %; Hematocrit (blood only) 41.7 % (42.0-52.0); Hemoglobin 14.5 g/dl (14.0-18.0); Immature Granulocytes # (auto) 0.01 K/uL (0.01-0.20); Immature Granulocytes % (auto) 0.2 %; Lymphocytes # (auto) 1.23 K/uL (1.20-3.40); Mean Corpuscular Hemoglobin 30.1 pg (25.0-34.0); Mean Corpuscular Hgb Conc 34.8 g/dL (32.0-36.0); Mean Corpuscular Volume 86.7 fL (80.0-100.0); Mean Platelet Volume 9.4 fL (9.4-12.4); Monocytes # (auto) 0.61 K/uL (0.11-0.59); Monocytes % (auto) 10.9 %; Neutrophils # (auto) 3.44 K/uL (1.40-6.50); Neutrophils % (auto) 61.4 %; Platelet Count 180 K/uL (130-400); RDW Coefficient of Variation 11.5 % (11.5-14.5); RDW Standard Deviation 36.6 fL (36.4-46.3); Red Blood Count 4.81 M/uL (4.70-6.10)
[2023-12-19 07:30] LABS: BUN Creatinine Ratio 5.7 (10-20); Calcium 9.4 mg/dl (8.6-10.3); Creatinine Clr Calc Pharmacy 102.6 ml/min; Est GFR (African American) 137.1 ml/min; Est GFR (Non-African American) 118.3 ml/min; Magnesium 1.8 mg/dl (1.7-2.4); Potassium 3.8 mmol/L (3.5-5.1)
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
[2023-12-19] MEDS: DIVALPROEX DELAY RELEASE 500 MG TAB PO SCH (13:42)
--- NOTE | 2023-12-19 18:13 | Discharge Summary ---
Date of Service December 19, 2023 Admission HPI Per Admitting Provider Juan is a 28 yo M with a history of alcohol abuse and suspected alcohol withdrawal seizure with traumatic right IPH/SDH s/p decompression craniotomy in Sep 2023 at [facility] with breakthrough seizure on 11/08/23, multiple recent admissions to [facility] for recurrent headaches/migraines and left sided paresthesias/weakness who presented to the [facility] ED with his Grandmother on 12/18/23 after he developed another headache with left sided extremity numbness/weakness while cooking this afternoon. Her remained stable in the ED. Labs including CBC and CMP were significant for a lymphocyte count of 1.16. Ct of the head was read as "1. No acute intracranial findings. 2. Stable findings following right craniectomy. No change in right temporal lobe hypodensity.". The patient was initially given 1gm IV tylenol, 10 mg IV Compazine, 25 mg IV Benadryl. 10 mg IV toradol, 250 mg IV Keppra, and 1L NSS without significant improvement in his symptoms. We were asked to admit the patient to our service, as he recently started following with [facility] for Primary care and they would like to establish care with the [facility] group for closer follow-up. At the time of the exam the patient was laying in maryann in mild distress with his grandmother sitting bedside, history was obtained from both. The patient states that he was in the kitchen this afternoon, making lunch, when he started to develop the same headache and left upper/lower extremity paresthesias and weakness he has been recently experiencing. When asked, he confirms these are the same symptoms that led to him being admitted at the beginning of the month. He denies new neurologic symptoms at this time. His currently complaints are his headache, nausea, and the left sided upper/lower extremity weakness. He denies recent alcohol use and has been trying to cut back on caffeine as recommended on last admission. Principal Diagnosis Recurrent episodes of left sided paresthesias likely related to focal sensory seizures Discharge Data Allergies Allergy/AdvReac Type Severity Reaction Status Date / Time adhesive Allergy Intermediate REDDENED Verified 12/18/23 16:14 RASH Consultations 12/19/23 11:30 Consult Neurology Routine Ordered Studies 12/18/23 13:31 CT head/brain wo con Stat 12/18/23 17:46 MRI Brain [MR brain seizure wo/w con] Stat Hospital Course (1) Seizure disorder: Juan has history of L craniectomy right IPH/SDH s/p decompression craniotomy in Sep 2023 at [facility] with breakthrough seizure on 11/08/23 and recurrent episodes of headache and left sided paresthesia / weakness. Presented with similar pattern to ED. Stroke evaluation was negative, as per multiple previous evaluations. Neurologist Dr. Sanderson consulted. Presentations are likely related to focal seizures. He recommended continuing keppra at same dosage (recent level was midtherapeutic range) and adding depakote -he will follow up in neurology clinic in 2-3 weeks -follow up with neurosurgery at [facility] as planned -outpatient opthalmology assessment recommended for visual quintana testing (L hemianopsia) -discussed with Dr. Sanderson (2) Headache: possibly migrainous, responds to IV fluids, analgesics. Neurologist recommended avoiding triptans. resolved (3) H/O craniotomy: -Continue to follow up with [facility] Neurosurgery, cranioplasty planned in future (4) Left-sided weakness: recurrent episodes of left sided weakness and numbness, see above (5) Alcohol abuse: -No recent alcohol use Total Time Total Time Spent Total Time Spent (In Minutes): 25 minutes Discharge Plan Discharge Items Patient Disposition: Home - Self-Care Reason For Visit: HEADACHE, RECURRENT LEFT UPPER/LOWER EXTREMITY WEA Discharge Diagnosis: increased left sided numbness, seizure disorder Condition on Discharge: Fair Activity: Resume your previous activity Non-emergency contact: Primary Care Provider and Neurologist Call non-emergency contact if: you have any medication questions and your symptoms worsen Follow-up/Referrals: Pradip Sanderson MD [Physician] - Power Beltran DO [Primary Care Provider] - 12/28/23 9:20 am Diet: Regular Addtl Attending Provider Instructions: You were evaluated for headache and increased left sided numbness Neurologist Dr. Sanderson consulted These symptoms seem likely related to seizure disorder. He recommended continuing keppra and trying adding a second antiepileptic medication called depakote (valproate) Follow up with Dr. Sanderson in the office Sally Braga MD Pending Studies at Discharge: No Stand-Alone Forms: [facility] Blue [place], Smoking Cessation Medications and DC Order Prescriptions: New divalproex 500 mg Tablet,Delayed Release (Dr/Ec) 500 mg PO BID Qty: 60 0RF Continued ibuprofen 200 mg tablet 200 mg PO Q6H PRN (Reason: PAIN/FEVER) Qty: 90 1RF acetaminophen [Tylenol Extra Strength] 500 mg tablet 500 mg PO Q6H PRN (Reason: fever) Qty: 120 0RF levetiracetam [Keppra] 1,000 mg tablet 1,000 mg PO BID 60 Days Qty: 120 0RF Discharge Orders: Discharge Order (Routine); Ordered 12/19/23 Ordered By: Sally Ramirez/Other Patient Handouts: Valproate Delayed Release Oral Tablet Admission Data Admit Date/Time: 12/18/23 17:45 Attending Provider: Sally Braga Admit Provider: Chris Sánchez Primary Care Provider: Power Beltran Other Providers: Pradip Sanderson Other Interventions: Discharge Summary Assessment (RN) Last Done: 12/19/23 13:58 Coding Level of Care Code 08616 IN/OBS DISCH 30 MIN/LESS Diagnoses Seizure disorder G40.909 Headache R51.9 H/O craniotomy Z98.890 Left-sided weakness R53.1 Alcohol abuse F10.10
== END 2023-12-19 16:17 | disposition home or self-care (01) | DRG 101 ==
LOC: ED 13:19 → EDINP 17:45 → SUATTDRO 17:45 → 2N 18:35

== ENCOUNTER 2023-12-22 20:04 | Inpatient (IN) ==
--- OUTSIDE RECORDS SUMMARY | 2023-12-22 20:54 | External Medical Summary | Summary of Care ---
Author Name Unknown Organization [facility] Address [address] [place] [address] Phone [phone] Care Team Providers Care Police Reserves Commander Name Role Phone Power Beltran Lurdes CURTIS Primary Care Provider Reason for Visit * Reason Onset Date Comments Other 11/17/2023 [place] / Outs yahaira Records Encounter Details Date Type Department Care Team (Late st Contact Info) Description 11/17/2023 Telephone [facility], [place] [address] [place] [address] Specified, No Resource [address] [place] [address] Other ([place] / Outside Records) Allergies Active Allergy Reactions Criticality Noted Date Comments Adhesive Tape 08/12/2018 documented as of this encounter (statuses as of 12/21/2023) Medications Medication Sig Dispensed Refills Start Date [...] as of this encounter (statuses as of 12/21/2023) Active Problems Problem Noted Date Diagnosed Date [...] as of this encounter (statuses as of 12/21/2023) Social History Tobacco Use Types Packs/Day Years [...] encounter Miscellaneous Notes * Telephone Encounter - Lida Campos OSA - 11/17/2023 9:41 AM EST Message from Cherri Martin Nurse Navigator via [employer] message: Patient was recently at [facility] (I think on 11/08) with seizures. Can you call over and see if they can send the notes from the hospitalization and get the CT pictures they did? Patient verified identity by spelling of last name and date. I called [facility] and spoke to Emani. She is pushing to life image the CT Head and Brain 11/08/23. Faxed request for 11/08/23 records and report to [facility] [phone] and advised them to fax results to [phone] fax documented in this encounter Plan of Treatment Upcoming Encounters Date Type Department Care Team (Latest Contact Info) Description 12/28/2023 1:40 PM EST Hospital Encounter [place] [facility] [place]ORDANO [address] [place] [id number] Ministerio Graham MD [address] [place] [address] 01/04/2024 1:40 PM EST - 01/04/2024 5:10 PM EST Surgery [facility] GI[facility]AN[facility] [address] [place] [id number] Ministerio Graham MD [address] [id number] CRANIOPLASTY WITH AUTOGRAFT 01/07/2024 8:00 AM EST Scheduled Telephone Neurosurgery, [place] [address] [address] [place] Nurse Follow Up Phone Call Neurosurg [address] [place] [id number] 01/14/2024 11:20 AM EST Office Visit Neu[facility] [place] [address] [facility] [phone] Beti To PA-C [address] [place] [id number] 01/19/2024 11:30 AM EDT Office Visit Neurosurgery, [place] [address] [place] [address] Ministerio Graham MD [address] [place], [place] [phone] 05/31/2024 4:20 PM EDT Office Visit Neurology [facility] [place] [address] [place] [address] Thomas Garrett, [address] [place] [id number] Scheduled Procedures Name Priority Associated Diagnoses Date/Ti [...] this encounter Medical Devices Implanted Type Area Dispute Coordinator Device Identifier Shelf Expiration Date Model / Serial / Lot Graft Mesh [employer] [address] 4.0x5in - [id number] - [id number] Implanted:Qty: 1 on 09/14/2023 by Ministerio Graham MD at [place] [facility] Head [employer] [id number] 01/06/2026 [id number] / [id number] / [id number] documented as of this encounter Advance Directives Latest Code Status on File Code Status Date Activated Date Inactivated Comments Full Code 09/12/2023 6:51 AM 09/24/2023 8:31 PM This order reflects the patients wishes and were consensually agreed upon. Question Answer Comments Discussion of Advance Directives occurred with: Patient Care Teams Police Reserves Commander Relationship Specialty Start Date End Date Power Beltran DO [address] [place] [address] PCP - General Family Medicine 11/04/23 documented as of this encounter
[2023-12-22 21:12] LABS: iSTAT Blood Urea Nitrogen < 3 mg/dl (7-18); iSTAT Carbon Dioxide 29 mmol/L (24-31); iSTAT Chloride 102 mmol/L (101-112); iSTAT Creatinine 0.8 mg/dl (0.6-1.3); iSTAT Glucose 90 mg/dl (70-99); iSTAT Hematocrit 42 % (42-52); iSTAT Hemoglobin 14.3 g/dl (14.0-18.0); iSTAT Ionized Calcium 1.27 mmol/l (1.12-1.32); iSTAT Potassium 3.8 mmol/L (3.3-5.0); iSTAT Sodium 140 mmol/L (135-144)
--- NOTE | 2023-12-22 21:20 | CT Scan Report ---
Exam(s): CT HEAD Without Contrast EXAM: CT Head Without Intravenous Contrast CLINICAL HISTORY: Reason for exam: Neuro deficit, acute, stroke suspected. TECHNIQUE: Axial computed tomography images of the head/brain without intravenous contrast. Automated exposure control was utilized for the study. A dose lowering technique was utilized adhering to the principles of ALARA. COMPARISON: Brain MRI December 18, 2023. FINDINGS: No acute intracranial hemorrhage. RIGHT hemicraniectomy. Encephalomalacia in the RIGHT frontotemporal lobe, consistent with old infarct. Midline shift to the LEFT measures approximately 5 mm, likely due to altered pressure changes from the craniectomy. No definite mass-effect in the RIGHT brain. The ventricles and sulci are commensurate with age. The visualized orbits appear grossly unremarkable. The visualized paranasal sinuses and mastoid air cells are grossly clear. IMPRESSION: RIGHT hemicraniectomy. Encephalomalacia in the RIGHT frontotemporal lobe, consistent with old infarct. Midline shift to the LEFT measures approximately 5 mm, likely due to altered pressure changes from the craniectomy. No definite mass-effect in the RIGHT brain. Electronically signed by: Willem Pereira MD 12/22/23 21:20 PM
[2023-12-22 21:21] LABS: Hematocrit (blood only) 44.5 % (42.0-52.0); Hemoglobin 15.4 g/dl (14.0-18.0); Mean Corpuscular Hemoglobin 29.8 pg (25.0-34.0); Mean Corpuscular Hgb Conc 34.6 g/dL (32.0-36.0); Mean Corpuscular Volume 86.1 fL (80.0-100.0); Mean Platelet Volume 9.8 fL (9.4-12.4); Platelet Count 179 K/uL (130-400); RDW Coefficient of Variation 11.5 % (11.5-14.5); RDW Standard Deviation 36.2 fL (36.4-46.3); Red Blood Count 5.17 M/uL (4.70-6.10); White Blood Count 5.59 K/ul (4.8-10.8)
[2023-12-22 21:22] LABS: Albumin Level 4.5 gm/dl (3.4-5.0); Anion Gap 10 (3-11); Bilirubin,Total 0.6 mg/dl (0.2-1.0); Carbon Dioxide 26 mmol/L (21-32); Chloride 102 mmol/L (98-107); Magnesium 1.7 mg/dl (1.7-2.4); Potassium 3.8 mmol/L (3.5-5.1); Sodium 138 mmol/L (136-145)
[2023-12-22 21:32] LABS: Alanine Aminotransferase 19 U/L (7-52); Albumin Globulin Ratio 1.4 (0.9-2); Alkaline Phosphatase 74 U/L (34-104); Aspartate Aminotransferase 21 U/L (13-39); BUN Creatinine Ratio 5.8 (10-20); Blood Urea Nitrogen 5 mg/dl (6-23); Est GFR (African American) 137.7 ml/min; Est GFR (Non-African American) 118.8 ml/min; Globulin 3.3 gm/dl (2.5-4.0); Glucose 95 mg/dl (70-99(Fasting)); Total Protein 7.8 gm/dl (6.0-8.3)
[2023-12-22 22:17] LABS: Partial Thromboplastin Ratio 0.9; Partial Thromboplastin Time 26 Seconds (21-31); Prothrombin Time 11.4 Seconds (9.0-12.0)
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
[2023-12-22 23:11] LABS: D Dimer 410 ug/L FEU (0-500)
[2023-12-23 00:45] LABS: Adenovirus PCR Not Detected (NotDetected); Bordetella parapertussis PCR Not Detected (NotDetected); Bordetella pertussis PCR Not Detected (NotDetected); Chlamydia pneumoniae PCR Not Detected (NotDetected); Coronavirus 229E PCR Not Detected (NotDetected); Coronavirus CoV-2 (COVID19)PCR Not Detected (NotDetected); Coronavirus HKU1 PCR Not Detected (NotDetected); Coronavirus NL63 PCR Not Detected (NotDetected); Coronavirus OC43PCR Not Detected (NotDetected); Human Metapneumovirus PCR Not Detected (NotDetected); Influenza A PCR Not Detected (NotDetected); Influenza B PCR Not Detected (NotDetected); Mycoplasma pneumoniae PCR Not Detected (NotDetected); Parainfluenza Virus 1 PCR Not Detected (NotDetected); Parainfluenza Virus 2 PCR Not Detected (NotDetected); Parainfluenza Virus 3 PCR Not Detected (NotDetected); Parainfluenza Virus 4 PCR Not Detected (NotDetected); Respiratory Syncytial VirusPCR Not Detected (NotDetected); Rhinovirus/Enterovirus PCR DETECTED (NotDetected)
[2023-12-23] MEDS: SODIUM CHLORIDE 0.9% 1,000 ML IV ONE (01:09)
[2023-12-23] MEDS: ONDANSETRON INJ 2 MG/ML 2 ML VIAL IV STA (01:11)
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
[2023-12-23] MEDS ORDERED: IBUPROFEN 200 MG TAB PO PRN (02:07)
[2023-12-23] MEDS ORDERED: ACETAMINOPHEN 500 MG TAB PO PRN (02:07)
[2023-12-23] MEDS: levETIRAcetam IV 1,000 MG in 0.9 % SODIUM CHLORIDE 100 ML IV STA (02:20)
[2023-12-23] MEDS: ONDANSETRON INJ 2 MG/ML 2 ML VIAL IV PRN (04:30)
--- NOTE | 2023-12-23 06:49 | XRay Report ---
SINGLE VIEW CHEST CLINICAL HISTORY: Strokelike symptoms. FINDINGS: An AP, portable, upright chest radiograph is compared to study dated 08/19/2018. The cardio mediastinal silhouette is unremarkable. There is mild bibasilar atelectasis. The lungs and pleural sp aces otherwise clear. No pneumothorax is seen. The bony thorax is grossly intact. IMPRESSION: No active disease in the chest. ACT 112: Negative or not required by law. Electronically signed by: Dallas Lambert M.D. 12/23/2023 6:47 AM
[2023-12-23] MEDS: DIVALPROEX DELAY RELEASE 500 MG TAB PO SCH (07:31)
[2023-12-23] MEDS: levETIRAcetam 500 MG TAB PO SCH (07:31)
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
--- NOTE | 2023-12-24 05:35 | Electrocardiogram Report ---
Test Reason : Blood Pressure : / mmHG Vent. Rate : 073 BPM Atrial Rate : 073 BPM P-R Int : 130 ms QRS Dur : 080 ms QT Int : 364 ms P-R-T Axes : 043 049 047 degrees QTc Int : 401 ms Normal sinus rhythm Early repolarization When compared with ECG of 18-DEC-2023 13:42, Questionable change in QRS axis QT has shortened Confirmed by Walt Araujo ([id number]) on 12/24/2023 5:35:14 AM Referred By: REFERRED SELF Confirmed By:Walt Araujo
== END 2023-12-23 15:00 | disposition home or self-care (01) | DRG 153 ==
LOC: ED 20:04 → EDINP 12-23 01:38 → SUATTDRO 12-23 01:38 → EDINP 12-23 02:07

== ENCOUNTER 2023-12-24 13:17 | Inpatient (IN) ==
[2023-12-24 14:13] LABS: Basophils # (auto) 0.01 K/uL (0.00-0.20); Basophils % (auto) 0.1 %; Eosinophils # (auto) 0.06 K/uL (0.00-0.50); Eosinophils % (auto) 0.8 %; Hematocrit (blood only) 41.4 % (42.0-52.0); Immature Granulocytes # (auto) 0.03 K/uL (0.01-0.20); Immature Granulocytes % (auto) 0.4 %; Lymphocytes # (auto) 0.92 K/uL (1.20-3.40); Lymphocytes % (auto) 12.2 %; Mean Corpuscular Hemoglobin 30.2 pg (25.0-34.0); Mean Corpuscular Hgb Conc 36.2 g/dL (32.0-36.0); Mean Corpuscular Volume 83.5 fL (80.0-100.0); Mean Platelet Volume 9.6 fL (9.4-12.4); Monocytes # (auto) 0.77 K/uL (0.11-0.59); Monocytes % (auto) 10.2 %; Neutrophils # (auto) 5.74 K/uL (1.40-6.50); Neutrophils % (auto) 76.3 %; Platelet Count 210 K/uL (130-400); RDW Coefficient of Variation 11.5 % (11.5-14.5); RDW Standard Deviation 34.8 fL (36.4-46.3); Red Blood Count 4.96 M/uL (4.70-6.10); White Blood Count 7.53 K/ul (4.8-10.8)
[2023-12-24] MEDS: SODIUM CHLORIDE 0.9% 1,000 ML IV ONE (14:19)
[2023-12-24 14:29] LABS: Alanine Aminotransferase 13 U/L (7-52); Albumin Globulin Ratio 1.4 (0.9-2); Albumin Level 4.6 gm/dl (3.4-5.0); Alkaline Phosphatase 67 U/L (34-104); Anion Gap 9 (3-11); Aspartate Aminotransferase 18 U/L (13-39); BUN Creatinine Ratio 10.6 (10-20); Bilirubin,Total 0.9 mg/dl (0.2-1.0); Blood Urea Nitrogen 7 mg/dl (6-23); Calcium 10.3 mg/dl (8.6-10.3); Carbon Dioxide 28 mmol/L (21-32); Chloride 96 mmol/L (98-107); Creatinine Clr Calc Pharmacy 135.3 ml/min; Est GFR (African American) > 150.0 ml/min; Est GFR (Non-African American) 132.5 ml/min; Globulin 3.2 gm/dl (2.5-4.0); Glucose 102 mg/dl (70-99(Fasting)); Potassium 3.7 mmol/L (3.5-5.1); Sodium 133 mmol/L (136-145); Total Protein 7.8 gm/dl (6.0-8.3)
[2023-12-24 14:44] LABS: Magnesium 1.6 mg/dl (1.7-2.4)
--- NOTE | 2023-12-24 14:47 | XRay Report ---
XR chest 1V portable CLINICAL HISTORY: Altered mental status. COMPARISON STUDY: Chest CT April 23, 2018. Chest radiograph December 22, 2023. FINDINGS: Lung volumes are normal. There is no consolidation to suggest pneumonia. Linear left basila r densities represent atelectasis or scarring. There is no pneumothorax or pleural effusion. Cardiac size is normal. Mediastinal contours are normal. There is no evidence for pulmonary edema. IMPRESSION: No acute cardiopulmonary findings. ACT 112: Negative or not required by law. Electronically signed by: Bigg Godoy M.D. 12/24/2023 2:45 PM
[2023-12-24 14:49] LABS: Phosphorus 3.5 mg/dl (2.5-4.9)
[2023-12-24 15:04] LABS: Thyroid Stimulating Hormone 1.153 uIu/ml (0.300-4.500)
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
[2023-12-24] MEDS: MAGNESIUM SULFATE / D5W 1 GM/100 ML BAG IV SCH (15:24)
--- NOTE | 2023-12-24 16:17 | CT Scan Report ---
CT SCAN OF THE BRAIN WITHOUT IV CONTRAST CLINICAL HISTORY: Change in mental status. COMPARISON STUDY: Prior CT scans of the brain, most recently dated 12/22/2023. TECHNIQUE: Unenhanced axial CT scan of the brain is performed from the vertex to the skull base. A d ose lowering technique was utilized adhering to the principles of ALARA. CT DOSE: 547.75 mGy.cm FINDINGS: Brain parenchyma: A focus of right temporal lobe encephalomalacia is consistent with a previous insul t. There is no hemorrhage, mass effect, or evidence of acute territorial ischemia by CT criteria. Min imal rightward midline shift is again noted and likely related prior surgery. Hernandez-white matter diffe rentiation is preserved. No extra-axial fluid collection is seen. Ventricles, sulci, cisterns: Normal in configuration. Intracranial vasculature: The visualized intracranial vasculature at the skull base is normal in appe arance. Calvarium: Again seen is postsurgical change from right-sided craniectomy. No destructive calvarial l esion is seen. Sinuses and mastoids: The visualized paranasal sinuses are clear. The mastoid air cells are well pneu matized. Orbits: The bony orbits are grossly intact. IMPRESSION: Postsurgical changes above with no hemorrhage, mass effect, or evidence of acute territor ial ischemia by CT criteria. No significant changes compared to 12/22/2023. ACT 112: Negative or not required by law. Electronically signed by: Dallas Lambert M.D. 12/24/2023 4:15 PM
[2023-12-24 16:47] LABS: Adenovirus PCR Not Detected (NotDetected); Bordetella parapertussis PCR Not Detected (NotDetected); Bordetella pertussis PCR Not Detected (NotDetected); Chlamydia pneumoniae PCR Not Detected (NotDetected); Coronavirus 229E PCR Not Detected (NotDetected); Coronavirus CoV-2 (COVID19)PCR Not Detected (NotDetected); Coronavirus HKU1 PCR Not Detected (NotDetected); Coronavirus NL63 PCR Not Detected (NotDetected); Coronavirus OC43PCR Not Detected (NotDetected); Human Metapneumovirus PCR Not Detected (NotDetected); Influenza A PCR Not Detected (NotDetected); Influenza B PCR Not Detected (NotDetected); Mycoplasma pneumoniae PCR Not Detected (NotDetected); Parainfluenza Virus 1 PCR Not Detected (NotDetected); Parainfluenza Virus 2 PCR Not Detected (NotDetected); Parainfluenza Virus 3 PCR Not Detected (NotDetected); Parainfluenza Virus 4 PCR Not Detected (NotDetected); Respiratory Syncytial VirusPCR Not Detected (NotDetected); Rhinovirus/Enterovirus PCR Not Detected (NotDetected)
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
[2023-12-24] MEDS: LORazepam 2 MG in SYRINGE 1 ML IV PRN (22:54)
[2023-12-24] MEDS: levETIRAcetam 500 MG TAB PO SCH (22:55)
[2023-12-24] MEDS: DIVALPROEX DELAY RELEASE 500 MG TAB PO SCH (22:55)
[2023-12-25 07:38] LABS: Basophils # (auto) 0.04 K/uL (0.00-0.20); Basophils % (auto) 0.6 %; Eosinophils # (auto) 0.08 K/uL (0.00-0.50); Eosinophils % (auto) 1.2 %; Hematocrit (blood only) 39.3 % (42.0-52.0); Hemoglobin 14.1 g/dl (14.0-18.0); Immature Granulocytes # (auto) 0.02 K/uL (0.01-0.20); Immature Granulocytes % (auto) 0.3 %; Lymphocytes # (auto) 0.74 K/uL (1.20-3.40); Lymphocytes % (auto) 11.4 %; Mean Corpuscular Hemoglobin 29.6 pg (25.0-34.0); Mean Corpuscular Hgb Conc 35.9 g/dL (32.0-36.0); Mean Corpuscular Volume 82.6 fL (80.0-100.0); Mean Platelet Volume 9.5 fL (9.4-12.4); Monocytes % (auto) 10.8 %; Neutrophils # (auto) 4.89 K/uL (1.40-6.50); Neutrophils % (auto) 75.7 %; Platelet Count 169 K/uL (130-400); RDW Coefficient of Variation 11.1 % (11.5-14.5); RDW Standard Deviation 33.2 fL (36.4-46.3); Red Blood Count 4.76 M/uL (4.70-6.10); White Blood Count 6.47 K/ul (4.8-10.8)
[2023-12-25 08:03] LABS: Anion Gap 10 (3-11); BUN Creatinine Ratio 11.5 (10-20); Blood Urea Nitrogen 7 mg/dl (6-23); Calcium 9.2 mg/dl (8.6-10.3); Carbon Dioxide 26 mmol/L (21-32); Chloride 98 mmol/L (98-107); Creatinine Clr Calc Pharmacy 146.4 ml/min; Est GFR (African American) > 150.0 ml/min; Est GFR (Non-African American) 136.9 ml/min; Glucose 82 mg/dl (70-99(Fasting)); Potassium 3.1 mmol/L (3.5-5.1); Sodium 134 mmol/L (136-145)
[2023-12-25] MEDS: POTASSIUM CHLORIDE CRTAB 20 MEQ TABCR PO STA (09:01)
[2023-12-25 14:50] LABS: Appearance Urine Clear (Clear); Blood Urine Negative (Negative); Color Urine Dark Yellow; Glucose Urine UA Negative (Negative); Ketones Urine 3+ (Negative); Leukocyte Esterase Urine Negative (Negative); Nitrite Urine Negative (Negative); Protein Urine Negative (Negative); Specific Gravity Urine 1.021 (1.000-1.030); Urobilinogen Urine Positive (Negative); pH Urine 6.5 (4.5-7.5)
[2023-12-25 15:03] LABS: Bilirubin Urine 1+ (Negative)
[2023-12-25] MEDS: IBUPROFEN 200 MG TAB PO PRN (15:39)
--- NOTE | 2023-12-25 16:01 | Ultrasound Report ---
LEFT UPPER EXTREMITY VENOUS DOPPLER ULTRASOUND CLINICAL HISTORY: LUE doppler, ?UE DVT COMPARISON STUDY: No previous studies for comparison. TECHNIQUE: Sonography of the deep venous system of the left upper extremity was performed. FINDINGS: There is a suspected prominent elongated left cervical lymph node. There is no deep venous thrombus within the left upper extremity. Note is made of superficial thrombus within the left cephal ic vein which extends from the proximal to distal aspect of the upper arm. No additional sites of rustam ous thrombus within the left upper extremity are present. IMPRESSION: 1. No deep venous thrombus within the left upper extremity. 2. Long segment superficial thrombus within the left cephalic vein which extends from the proximal to distal upper arm. ACT 112: Negative or not required by law. Electronically signed by: Bigg Godoy M.D. 12/25/2023 4:00 PM
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
--- NOTE | 2023-12-25 18:46 | Billing Data ---
Date of Service December 25, 2023 Coding Level of Care Code 49640 SUB INP/OBS CARE MIN
[2023-12-25] MEDS: APIXABAN 2.5 MG TAB PO SCH (19:35)
[2023-12-26 06:54] LABS: Basophils # (auto) 0.05 K/uL (0.00-0.20); Basophils % (auto) 1.2 %; Eosinophils # (auto) 0.16 K/uL (0.00-0.50); Eosinophils % (auto) 3.7 %; Hematocrit (blood only) 40.7 % (42.0-52.0); Hemoglobin 14.6 g/dl (14.0-18.0); Immature Granulocytes # (auto) 0.02 K/uL (0.01-0.20); Immature Granulocytes % (auto) 0.5 %; Lymphocytes # (auto) 0.93 K/uL (1.20-3.40); Lymphocytes % (auto) 21.6 %; Mean Corpuscular Hemoglobin 29.8 pg (25.0-34.0); Mean Corpuscular Hgb Conc 35.9 g/dL (32.0-36.0); Mean Corpuscular Volume 83.1 fL (80.0-100.0); Mean Platelet Volume 9.2 fL (9.4-12.4); Monocytes # (auto) 0.69 K/uL (0.11-0.59); Neutrophils # (auto) 2.45 K/uL (1.40-6.50); Platelet Count 161 K/uL (130-400); RDW Coefficient of Variation 11.3 % (11.5-14.5); RDW Standard Deviation 34.4 fL (36.4-46.3)
[2023-12-26 07:10] LABS: Anion Gap 11 (3-11); BUN Creatinine Ratio 13.6 (10-20); Blood Urea Nitrogen 9 mg/dl (6-23); Calcium 9.4 mg/dl (8.6-10.3); Carbon Dioxide 25 mmol/L (21-32); Chloride 99 mmol/L (98-107); Creatinine Clr Calc Pharmacy 135.3 ml/min; Est GFR (African American) > 150.0 ml/min; Est GFR (Non-African American) 132.5 ml/min; Glucose 72 mg/dl (70-99(Fasting)); Potassium 3.1 mmol/L (3.5-5.1); Sodium 135 mmol/L (136-145)
[2023-12-26 08:42] LABS: Magnesium 1.9 mg/dl (1.7-2.4)
[2023-12-26] MEDS: POTASSIUM CHLORIDE CRTAB 20 MEQ TABCR PO STA (09:05)
--- NOTE | 2023-12-26 09:17 | Hospitalist Progress Note ---
Date of Service December 26, 2023 Assessment & Plan (1) Confusion: Plan: Fluctuating confusion -Reported fluctuating confusion and agitation at home with increasing frequency -Head CT negative, alcohol level negative, RVP negative, UA negative, -Case discussed with neurology on admission and [facility] neurosurgery -Depakote continued, level therapeutic -Keppra decreased to 500 mg BID, level pending -It does appear pt's mental status is improving and closer to baseline today -AMS likely secondary to previous ICH in 09/2023 resulting in chronic waning/waxing deficits and cognitive dysfunction -PT/OT consulted- awaiting rehab placement (2) H/O craniotomy: Plan: Pending skull replantation surgery at the end of December 2023 (3) Left-sided weakness: Plan: Fluctuating chronic deficits though at time of bedside admission pt does not have any new focal weakness - LUE edema is improving with elevation - Dopplers of upper extremity negative for DVT (4) Localized swelling of left upper extremity: Plan: - Found to be superficial venous thrombosis of left cephalic vein via US -Suspect this was due to IV from previous admission and arm that is less active and has deficits due to previous traumatic brain bleed -Continue limb restrictions to left side and make all IV access on the right (5) Hypokalemia: Plan: -K 3.1 today -Repleted -Monitor BMP Plan DVT prophylaxis: Eliquis Diet: Regular Disposition: Medical/surgical, seizure precautions CODE STATUS: Full code Admission and Anticipated Discharge Date Admission Date: December 25, 2023 Supervising Physician Co-Signing Physician Notes I personally examined the patient and verified all hugo points of history and exam, discussed case, and agree with decision making with Dr Jenkins No new complaints. Notes waxing and waning of confusion. Nursing notes no new issues. Vitals noted, in general he is awake but seems to be easily confused hard to stay focused but no distress. Scalp defect noted. Confusioncertainly a lot of it probably has to do with his traumatic brain injury, at the same time given his recent worsening, it is reasonable to think that he may have some degree of overmedication with anticonvulsantsKeppra just reduced on admissionfollow on lower dose for now, continue serial exams consider titrating down further if he shows no seizure activity but ongoing altered mental status. Otherwise, does not appear to have any other metabolic factors at play such as dehydration/electrolyte disturbances/etc., does not appear to have any infections, certainly with his brain injury that changing environments from hospital to home could also be a factor. In resident physician discussion with neurosurgery On 12/25, there is also a syndrome that does occur when the scalp defect puts pressure on brain tissue that could be a contributor as wellbut nothing that sounded emergent, particularly given that he is set to have his skull replaced in about a week and a half. continued vigilance, consider dose reduction further in anticonvulsants if no seizures but also no clearing of mentation in the coming daysbut obviously this needs to happen slowly by nature of the medications. DVT proph and LUE phlebitis - low dose eliquis Subjective Acute events overnight- none. Pt examined at bedside. Awoken from sleep and appropriately drowsy, though did n ot report any acute complaints and was oriented fully. Review of Systems Review of Systems: Per HPI Physical Exam Physical Exam: General: A&Ox3. NAD. Cooperative. Tired. HEENT: S/p right craniotomy Pulm: CTAB A&P. -wheezes, -rales, -rhonchi. Symmetrical chest rise. No increased work of breathing. No respiratory distress. Cardiac: RRR, -mrg. Radial pulses intact and symmetrical. Abdominal: Nontender, nondistended, soft. BS present. Extremities: Radial pulse is brisk and intact cap refill is brisk. Skin: Mild left upper extremity erythema and nonpitting edema. No focal pain. Results & Data Results & Data Vital Signs (Past 12 Hours) Vital Signs Temp Pulse Resp BP Pulse Ox O2 Del Method 12/26/23 07:39 36.7 C 67 16 132/84 98 Room Air Resident Activity Tracking Resident Involvement: Resident Care Provided Care Provided: Adult Hospital Medicine
--- NOTE | 2023-12-26 16:07 | Billing Data ---
Date of Service December 26, 2023 Coding Level of Care Code 56114 SUB INP/OBS CARE
[2023-12-26] MEDS: LORazepam 1 MG TAB PO PRN (20:00)
[2023-12-27 07:26] LABS: Basophils # (auto) 0.05 K/uL (0.00-0.20); Basophils % (auto) 1.3 %; Eosinophils # (auto) 0.17 K/uL (0.00-0.50); Eosinophils % (auto) 4.6 %; Hematocrit (blood only) 39.4 % (42.0-52.0); Hemoglobin 14.4 g/dl (14.0-18.0); Immature Granulocytes # (auto) 0.01 K/uL (0.01-0.20); Immature Granulocytes % (auto) 0.3 %; Lymphocytes # (auto) 0.89 K/uL (1.20-3.40); Lymphocytes % (auto) 23.9 %; Mean Corpuscular Hemoglobin 30.3 pg (25.0-34.0); Mean Corpuscular Hgb Conc 36.5 g/dL (32.0-36.0); Mean Corpuscular Volume 82.8 fL (80.0-100.0); Mean Platelet Volume 9.2 fL (9.4-12.4); Monocytes # (auto) 0.66 K/uL (0.11-0.59); Monocytes % (auto) 17.7 %; Neutrophils # (auto) 1.95 K/uL (1.40-6.50); Neutrophils % (auto) 52.2 %; Platelet Count 168 K/uL (130-400); RDW Coefficient of Variation 11.4 % (11.5-14.5); RDW Standard Deviation 34.2 fL (36.4-46.3); Red Blood Count 4.76 M/uL (4.70-6.10); White Blood Count 3.73 K/ul (4.8-10.8)
[2023-12-27 07:35] LABS: BUN Creatinine Ratio 14.3 (10-20); Calcium 9.3 mg/dl (8.6-10.3); Creatinine Clr Calc Pharmacy 127.6 ml/min; Est GFR (African American) 149.9 ml/min; Est GFR (Non-African American) 129.3 ml/min; Potassium 3.5 mmol/L (3.5-5.1)
--- NOTE | 2023-12-27 11:08 | Hospitalist Progress Note ---
Date of Service December 27, 2023 Assessment & Plan (1) Confusion: Plan: Fluctuating confusion -Reported fluctuating confusion and agitation at home with increasing frequency -Head CT negative, alcohol level negative, RVP negative, UA negative, -Case discussed with neurology on admission and [facility] neurosurgery -Depakote continued, level therapeutic -Keppra decreased to 500 mg BID, level pending -It does appear pt's mental status is improving and closer to baseline today -AMS likely secondary to previous ICH in 09/2023 resulting in chronic waning/waxing deficits and cognitive dysfunction -PT/OT consulted- awaiting rehab placement (2) H/O craniotomy: Plan: Pending skull replantation surgery at [facility] on 01/04 (3) Left-sided weakness: Plan: Fluctuating chronic deficits though at time of bedside admission pt does not have any new focal weakness - LUE edema improving with elevation - Dopplers of upper extremity negative for DVT (4) Localized swelling of left upper extremity: Plan: - Found to be superficial venous thrombosis of left cephalic vein via US -Suspect this was due to IV from previous admission and arm that is less active and has deficits due to previous traumatic brain bleed -Continue limb restrictions to left side and make all IV access on the right (5) Hypokalemia: Plan: -K 3.1 on 12/26 -Repleted, now resolved -Monitor BMP Plan DVT prophylaxis: Eliquis Diet: Regular Disposition: Medical/surgical, seizure precautions CODE STATUS: Full code Admission and Anticipated Discharge Date Admission Date: December 25, 2023 Supervising Physician Co-Signing Physician Notes I personally examined the patient and verified all hugo points of history and exam, discussed case, and agree with decision making with Dr Jenkins Feels okay today. Feels like waxing and waning is less. Vitals noted, in general he is awake and seems more focused today, in no distress. Scalp defect noted. Confusioncertainly a lot of it probably has to do with his traumatic brain injury, at the same time given his recent worsening, it is reasonable to think that he may have some degree of overmedication with anticonvulsantsKeppra just reduced on admissionfollow on lower dose for now, continue serial exams consider titrating down further if he shows no seizure activity but ongoing altered mental status. in consideration of possibly some of his altered mental status being due to anticonvulsant dosinghe does seem a little bit more clear todayalthough obviously it is only 1 point in time and more of a trend would be needed to see that that was truly the casebut could consider reducing the Keppra further given that it seems like it might of helped, and he has not had any seizure-like activity. Otherwise, does not appear to have any other metabolic factors at play such as dehydration/electrolyte disturbances/etc., does not appear to have any infections, certainly with his brain injury that changing environments from hospital to home could also be a factor. In resident physician discussion with neurosurgery On 12/25, there is also a syndrome that does occur when the scalp defect puts pressure on brain tissue that could be a contributor as wellbut nothing that sounded emergent, particularly given that he is set to have his skull replaced in about a week and a half. continued vigilance, consider dose reduction further in anticonvulsants if no seizures but also no clearing of mentation in the coming daysbut obviously this needs to happen slowly by nature of the medications. DVT proph and LUE phlebitis - low dose eliquis Subjective Acute events overnight- none. Pt examined at bedside. Denies any acute complaints. Review of Systems Review of Systems: Per HPI Physical Exam Physical Exam: General: A&Ox3. NAD. Cooperative. Tired. HEENT: S/p right craniotomy Pulm: CTAB A&P. -wheezes, -rales, -rhonchi. Symmetrical chest rise. No increased work of breathing. No respiratory distress. Cardiac: RRR, -mrg. Radial pulses intact and symmetrical. Abdominal: Nontender, nondistended, soft. BS present. Extremities: Radial pulse is brisk and intact cap refill is brisk. LUE swelling improved, only mildly at wrist currently Skin: Warm, dry, no lesions Results & Data Results & Data Vital Signs (Past 12 Hours) Vital Signs Temp Pulse Resp BP Pulse Ox O2 Del Method 12/27/23 07:02 36.7 C 63 16 125/78 97 Room Air Resident Activity Tracking Resident Involvement: Resident Care Provided Care Provided: Adult Hospital Medicine
--- NOTE | 2023-12-27 15:35 | Billing Data ---
Date of Service December 27, 2023 Coding Level of Care Code 84577 SUB INP/OBS CARE
[2023-12-28 08:28] LABS: Hematocrit (blood only) 43.1 % (42.0-52.0); Hemoglobin 15.2 g/dl (14.0-18.0); Mean Corpuscular Hemoglobin 29.6 pg (25.0-34.0); Mean Corpuscular Hgb Conc 35.3 g/dL (32.0-36.0); Mean Corpuscular Volume 83.9 fL (80.0-100.0); Mean Platelet Volume 9.1 fL (9.4-12.4); Platelet Count 182 K/uL (130-400); RDW Coefficient of Variation 11.4 % (11.5-14.5); RDW Standard Deviation 34.7 fL (36.4-46.3); Red Blood Count 5.14 M/uL (4.70-6.10); White Blood Count 4.17 K/ul (4.8-10.8)
[2023-12-28 08:48] LABS: Anion Gap 8 (3-11); BUN Creatinine Ratio 10.1 (10-20); Blood Urea Nitrogen 7 mg/dl (6-23); Calcium 9.6 mg/dl (8.6-10.3); Carbon Dioxide 27 mmol/L (21-32); Chloride 103 mmol/L (98-107); Creatinine Clr Calc Pharmacy 129.4 ml/min; Est GFR (African American) > 150.0 ml/min; Est GFR (Non-African American) 130.1 ml/min; Glucose 76 mg/dl (70-99(Fasting)); Potassium 3.6 mmol/L (3.5-5.1); Sodium 138 mmol/L (136-145)
--- NOTE | 2023-12-28 11:24 | Hospitalist Progress Note ---
Date of Service December 28, 2023 Assessment & Plan (1) Confusion: Plan: Fluctuating confusion -Reported fluctuating confusion and agitation at home with increasing frequency -Head CT negative, alcohol level negative, RVP negative, UA negative, -Case discussed with neurology on admission and [facility] neurosurgery -Depakote continued, level therapeutic -Keppra decreased to 500 mg BID, level pending -It does appear pt's mental status is improving and closer to baseline today -AMS likely secondary to previous ICH in 09/2023 resulting in chronic waning/waxing deficits and cognitive dysfunction -PT/OT consulted- awaiting rehab placement (2) H/O craniotomy: Plan: Pending skull replantation surgery at [facility] on 01/04 (3) Left-sided weakness: Plan: Fluctuating chronic deficits though at time of bedside admission pt does not have any new focal weakness - LUE edema improving with elevation - Dopplers of upper extremity negative for DVT (4) Localized swelling of left upper extremity: Plan: - Found to be superficial venous thrombosis of left cephalic vein via US -Suspect this was due to IV from previous admission and arm that is less active and has deficits due to previous traumatic brain bleed -Continue limb restrictions to left side and make all IV access on the right (5) Hypokalemia: Plan: -K 3.1 on 12/26 -Repleted, now resolved -Monitor BMP Plan DVT prophylaxis: Eliquis 2.5 mg BID Diet: Regular Disposition: Medical/surgical, seizure precautions CODE STATUS: Full code Admission and Anticipated Discharge Date Admission Date: December 25, 2023 Supervising Physician Co-Signing Physician Notes I personally examined the patient and verified hugo points of history and exam, discussed case, and agree with decision making and plan documented by Dr. Jo. No new neurological episodes or seizures, patient endorses continued waxing and waning confusion. Patient hopeful to work on chronic left upper extremity weakness. We discussed his sobriety from alcohol and family history of alcohol abuse. CM working on placement. Patient has cranioplasty scheduled at [facility] next week. Subjective Seen at bedside this AM. No overnight events. Minimal lorazepam use. Review of Systems 2 Review of Systems: Per HPI Physical Exam 2 Physical Exam: General: A&Ox3. NAD. Cooperative. HEENT: S/p right craniotomy Pulm: Symmetrical chest rise. No increased work of breathing. No respiratory distress. Cardiac: Clinically well perfused Abdominal: non-distended Neuro: alert and interactive Psych: appropriate mood and affect Skin: Warm, dry, no lesions Results & Data Results & Data Vital Signs (Past 12 Hours) Vital Signs Temp Pulse Resp BP Pulse Ox O2 Del Method 12/28/23 07:19 36.7 C 97 H 18 111/77 94 Room Air Laboratory Results 12/28/23 08:12 12/28/23 08:12 Resident Activity Tracking Resident Involvement: Resident Care Provided Care Provided: Adult Hospital Medicine
[2023-12-28] MEDS: ACETAMINOPHEN 500 MG TAB PO PRN (21:14)
--- NOTE | 2023-12-29 06:52 | Hospitalist Progress Note ---
Date of Service December 29, 2023 Assessment & Plan (1) Confusion: Plan: Fluctuating confusion. Patient's mental status improving. Did discuss case with [facility] neurosurgery. Continuing Depakote 500 mg BID. Keppra decreased to 500 mg BID. Levels therapeutic. Head CT negative, alcohol level negative, RVP negative, UA negative. 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 [facility] neurosurgery willing to take patient back on their service for further evaluation and pending skull replantation surgery. Patient stable for transfer. (2) H/O craniotomy: Plan: Pending skull replantation surgery at [facility] on 01/04 (3) Left-sided weakness: Plan: Fluctuating chronic deficits though at time of bedside admission pt does not have any new focal weakness - LUE edema improving with elevation - Dopplers of upper extremity negative for DVT (4) Localized swelling of left upper extremity: Plan: - Found to be superficial venous thrombosis of left cephalic vein via US -Suspect this was due to IV from previous admission and arm that is less active and has deficits due to previous traumatic brain bleed -Continue limb restrictions to left side and make all IV access on the right (5) Hypokalemia: Plan: -K 3.1 on 12/26 -Repleted, now resolved -Monitor BMP Plan DVT prophylaxis: Eliquis 2.5 mg BID Diet: Regular Disposition: Medical/surgical, seizure precautions CODE STATUS: Full code Admission and Anticipated Discharge Date Admission Date: December 25, 2023 Supervising Physician Co-Signing Physician Notes I personally examined the patient and verified hugo points of history and exam, discussed case, and agree with decision making and plan documented by Dr. Jo. Patient denies new symptoms or events, no new concerns. Primary team arranging for patient to be transported to [facility] for scheduled cranioplasty next week. Subjective Seen at bedside this AM. No overnight events. No lorazepam use. Review of Systems 2 Review of Systems: Per HPI Physical Exam 2 Physical Exam: General: A&Ox3. NAD. Cooperative. HEENT: S/p right craniotomy Pulm: Symmetrical chest rise. No increased work of breathing. No respiratory distress. Cardiac: Clinically well perfused Abdominal: non-distended Neuro: alert and interactive Psych: appropriate mood and affect Skin: Warm, dry, no lesions Results & Data Results & Data Vital Signs (Past 12 Hours) Vital Signs Temp Pulse Resp BP Pulse Ox O2 Del Method 12/28/23 21:10 Room Air 12/28/23 20:15 36.7 C 76 14 117/7 L 95 Room Air Laboratory Results 12/29/23 07:23 12/29/23 07:23 Resident Activity Tracking Resident Involvement: Resident Care Provided Care Provided: Adult Hospital Medicine
[2023-12-29 07:55] LABS: Basophils # (auto) 0.05 K/uL (0.00-0.20); Basophils % (auto) 1.1 %; Eosinophils # (auto) 0.21 K/uL (0.00-0.50); Eosinophils % (auto) 4.6 %; Hematocrit (blood only) 44.8 % (42.0-52.0); Immature Granulocytes # (auto) 0.01 K/uL (0.01-0.20); Immature Granulocytes % (auto) 0.2 %; Lymphocytes # (auto) 1.57 K/uL (1.20-3.40); Lymphocytes % (auto) 34.7 %; Mean Corpuscular Hemoglobin 30.4 pg (25.0-34.0); Mean Corpuscular Hgb Conc 35.7 g/dL (32.0-36.0); Mean Platelet Volume 9.2 fL (9.4-12.4); Monocytes # (auto) 0.71 K/uL (0.11-0.59); Monocytes % (auto) 15.7 %; Neutrophils # (auto) 1.97 K/uL (1.40-6.50); Neutrophils % (auto) 43.7 %; Platelet Count 189 K/uL (130-400); RDW Coefficient of Variation 11.6 % (11.5-14.5); RDW Standard Deviation 35.4 fL (36.4-46.3); Red Blood Count 5.27 M/uL (4.70-6.10); White Blood Count 4.52 K/ul (4.8-10.8)
[2023-12-29 08:09] LABS: Calcium 10.2 mg/dl (8.6-10.3); Potassium 4.2 mmol/L (3.5-5.1)
[2023-12-29 08:15] LABS: BUN Creatinine Ratio 15.6 (10-20); Est GFR (African American) 144.1 ml/min; Est GFR (Non-African American) 124.4 ml/min
--- NOTE | 2023-12-29 17:29 | Discharge Summary ---
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 Per physical therapy note 12/08/2023 patient was evaluated by therapy at that time but was able to demonstrate independence to all mobility exercises without assistive devices at that time and additional physical therapy was not recommended. Juan is seen with his grandparents present at the bedside. They report that since returning yesterday he has been intermittently weak on the left side has been much more confused than usual. He has not had any shaking or seizure-like episodes, but is very forgetful of where he is and will sometimes be found wandering outside unsure of where he is or why he went outside, with additional concerns for falls due to his intermittent left-sided weakness. They are not sure if this is a result of his medications, no he can get confused after seizures but he has not had any seizure activity since returning home. Unfortunately due to his intermittent confusion and weakness his grandparents feel that they are not able to care safely for him at home at this time and he is not safe in his home environment. They had previously considered rehab but at that time he had no insurance, currently does have insurance and would like to pursue this. While his fluctuating strength deficits have not worsened again they note that due to his severe confusion and limitations at home they do not feel he is safe to return there at this time. No fever, chills, sweats. No dysuria. No stomach pain. Does not think he has had any infections does not feel like he has a current infection. No headache at time of admission. Denies seizures since returning home. Does note that he tends to leave his left hand hanging at his side and can get swollen/edematous but has not had any sensory change and strength has not changed between episodes. No pain in the upper extremity Per neurology note 12/23/2023: No obvious seizure since 2022. 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 Has had some lethargy and irritability suspected to be a side effect of his Keppra. He was recommended to continue Depakote 500 mg twice daily, decrease Keppra to 750 mg twice daily, and no additional EEG/neurologic testing was recommended at that time. He was noted to have some left-sided visual neglect without field deficits. On ER assessment patient is with very slight hyponatremia of 133, and hypomagnesemia 1.6 without other acute electrolyte abnormalities. CBC unremarkable. CT of the head is with no acute changes compared to 12/22/2023. Chest x-ray is negative, bio fire is negative Ammonia negative Alcohol level on admission negative Valproic acid level therapeutic at 81 Admission Exam Per Admitting Provider General: A&Ox3. NAD. Cooperative. Appears fatigued, mildly increased speech latency but speech otherwise for and answers all questions appropriate HEENT: Right craniotomy. Pupils equal and reactive to light, no visual field cuts Pulm: CTAB A&P. -wheezes, -rales, -rhonchi. Symmetrical chest rise. No increased work of breathing. No respiratory distress. Cardiac: RRR, -mrg. Radial pulses intact and symmetrical. Abdominal: Nontender, nondistended, soft. BS present. Extremities: Histopathology Technician strength 5/5 bilaterally, hip flexion 5/5 on the right 4+/5 on the left, knee extension 4+/5 on the left 5/5 on the right, ankle dorsiflexion/plantarflexion 5/5 bilaterally. L forearm is with mild pitting edema new per patient and which improves when he has his hand elevated. Radial pulse is brisk and intact cap refill is brisk. Principal Diagnosis Confusion Discharge Exam General: A&Ox3. NAD. Cooperative. HEENT: S/p right craniotomy Pulm: Symmetrical chest rise. No increased work of breathing. No respiratory distress. Cardiac: Clinically well perfused Abdominal: non-distended Neuro: alert and interactive Psych: appropriate mood and affect Skin: Warm, dry, no lesions Discharge Data Allergies Allergy/AdvReac Type Severity Reaction Status Date / Time adhesive Allergy Intermediate REDDENED Verified 12/22/23 21:07 RASH Consultations 12/24/23 17:34 ED Decision to Admit Stat Ordered Studies Chest X-Ray 12/24/23 14:10 FINDINGS: Lung volumes are normal. There is no consolidation to suggest pneumonia. Linear left basilar densities represent atelectasis or scarring. There is no pneumothorax or pleural effusion. Cardiac size is normal. Mediastinal contours are normal. There is no evidence for pulmonary edema. IMPRESSION: No acute cardiopulmonary findings. Head CT 12/24/23 15:19 FINDINGS: Brain parenchyma: A focus of right temporal lobe encephalomalacia is consistent with a previous insult. There is no hemorrhage, mass effect, or evidence of acute territorial ischemia by CT criteria. Minimal rightward midline shift is again noted and likely related prior surgery. Hernandez-white matter differentiation is preserved. No extra-axial fluid collection is seen. Ventricles, sulci, cisterns: Normal in configuration. Intracranial vasculature: The visualized intracranial vasculature at the skull base is normal in appearance. Calvarium: Again seen is postsurgical change from right-sided craniectomy. No destructive calvarial lesion is seen. Sinuses and mastoids: The visualized paranasal sinuses are clear. The mastoid air cells are well pneumatized. Orbits: The bony orbits are grossly intact. IMPRESSION: Postsurgical changes above with no hemorrhage, mass effect, or evidence of acute territorial ischemia by CT criteria. No significant changes compared to 12/22/2023. Extremity Venous Study 12/25/23 00:00 FINDINGS: There is a suspected prominent elongated left cervical lymph node. There is no deep venous thrombus within the left upper extremity. Note is made of superficial thrombus within the left cephalic vein which extends from the proximal to distal aspect of the upper arm. No additional sites of venous thrombus within the left upper extremity are present. IMPRESSION: 1. No deep venous thrombus within the left upper extremity. 2. Long segment superficial thrombus within the left cephalic vein which extends from the proximal to distal upper arm. Hospital Course (1) Confusion: Fluctuating confusion. Patient's mental status improving. Did discuss case with [facility] neurosurgery. Continuing Depakote 500 mg BID. Keppra decreased to 500 mg BID. Levels therapeutic. Head CT negative, alcohol level negative, RVP negative, UA negative. 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 [facility] neurosurgery willing to take patient back on their service for further evaluation and pending skull replantation surgery. Patient stable for transfer. (2) H/O craniotomy: Pending skull replantation surgery at [facility] on 01/04 (3) Left-sided weakness: Fluctuating chronic deficits though at time of bedside admission pt does not have any new focal weakness - LUE edema improving with elevation - Dopplers of upper extremity negative for DVT (4) Localized swelling of left upper extremity: - Found to be superficial venous thrombosis of left cephalic vein via US -Suspect this was due to IV from previous admission and arm that is less active and has deficits due to previous traumatic brain bleed -Continue limb restrictions to left side and make all IV access on the right -started on 2.5 mg Eliquis BID for DVT ppx and ?treatment of superficial thrombosis (5) Hypokalemia: -K 3.1 on 12/26 -Repleted, now resolved -Monitor BMP Plan DVT prophylaxis: Eliquis 2.5 mg BID Diet: Regular Disposition: Medical/surgical, seizure precautions CODE STATUS: Full code Total Time Total Time Spent Total Time Spent (In Minutes): See attending attestation Discharge Plan Discharge Items Patient Disposition: Transfer Acute Care Hospital Reason For Visit: CONFUSION, PLACEMENT REQUEST Discharge Diagnosis: confusion Activity: Per Instructions section Non-emergency contact: Primary Care Provider and Surgeon Call non-emergency contact if: your temperature is above 101 Follow-up/Referrals: Power Beltran DO [Primary Care Provider] - Diet: Regular Addtl Attending Provider Instructions: #Confusion Fluctuating confusion. Patient's mental status improving. Did discuss case with [facility] neurosurgery. Continuing Depakote 500 mg BID. Keppra decreased to 500 mg BID. Levels therapeutic. Head CT negative, alcohol level negative, RVP negative, UA negative. 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 [facility] neurosurgery willing to take patient back on their service for further evaluation and pending skull replantation surgery. Patient stable for transfer. #H/O craniotomy: Pending skull replantation surgery at [facility] on 01/04 #Left-sided weakness: Fluctuating chronic deficits though at time of bedside admission pt does not have any new focal weakness - LUE edema improving with elevation - Dopplers of upper extremity negative for DVT #Localized swelling of left upper extremity: - Found to be superficial venous thrombosis of left cephalic vein via US -Suspect this was due to IV from previous admission and arm that is less active and has deficits due to previous traumatic brain bleed -Continue limb restrictions to left side and make all IV access on the right -started on 2.5 mg Eliquis BID for DVT ppx and ?treatment of superficial thrombosis #Hypokalemia: -K 3.1 on 12/26 -Repleted, now resolved -Monitor BMP Plan DVT prophylaxis: Eliquis 2.5 mg BID Diet: Regular Disposition: Medical/surgical, seizure precautions CODE STATUS: Full code Pending Studies at Discharge: No Stand-Alone Forms: My [facility] Skilled Items Patient informed of condition?: Yes DNR: No Discharge Level of Care: Other Communicable Disease: No Discharge Prognosis: Stable Lines: Peripheral IV Urinary Catheter: No Medications and DC Order Prescriptions: New levetiracetam [Keppra] 500 mg Tablet 500 mg PO BID Qty: 0 0RF divalproex 500 mg Tablet,Delayed Release (Dr/Ec) 500 mg PO BID Qty: 0 0RF acetaminophen [Tylenol Extra Strength] 500 mg Tablet 500 mg PO Q6H PRNQty: 0 0RF lorazepam 1 mg Tablet 1 mg PO Q6H PRNQty: 0 0RF Eliquis 2.5 mg Tablet 2.5 mg PO BID Qty: 0 0RF Discontinued ibuprofen 200 mg tablet 200 mg PO Q6H PRN (Reason: PAIN/FEVER) Qty: 90 1RF acetaminophen [Tylenol Extra Strength] 500 mg tablet 500 mg PO Q6H PRN (Reason: fever) Qty: 120 0RF divalproex 500 mg Tablet,Delayed Release (Dr/Ec) 500 mg PO BID Qty: 60 0RF levetiracetam 750 mg tablet 750 mg PO BID Qty: 60 0RF Discharge Orders: Discharge Order (Routine); Ordered 12/31/23 Ordered By: Annette Jo Admission Data Admit Date/Time: 12/25/23 09:38 Attending Provider: Natalie Lacy Admit Provider: Cr Lambert Primary Care Provider: Power Beltran Other Providers: Ion Frias; [facility] Other Interventions: Discharge Summary Assessment (RN) Last Done: 12/31/23 12:24 Supervising Physician Co-Signing Physician Notes I personally examined the patient and verified hugo points of history and exam, discussed case, and agree with decision making and plan documented by Dr. Jo. Patient denied any new neurological symptoms, continues to endorse upper extremity weakness with waxing and waning confusion. Patient transferred to [facility] for further management and upcoming cranioplasty. Will need hold of eliquis prior to surgery. Resident Activity Tracking Resident Involvement: Resident Care Provided Care Provided: Adult [facility] Medicine
[2023-12-29] MEDS: ACETAMINOPHEN 500 MG TAB PO ONE (17:34)
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
== END 2023-12-31 14:11 | disposition short-term general hospital (02) | DRG 948 ==
LOC: 3N 13:17 → ED 13:17 → SUATTDRO 18:24 → 3N 21:36 → SUATTDRO 12-25 09:38

== ENCOUNTER 2024-05-28 20:50 | Inpatient (IN) ==
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
--- OUTSIDE RECORDS SUMMARY | 2024-05-28 20:58 | External Medical Summary | Summary of Care ---
Author Name Unknown Organization [facility] Address [address] [facility] [place] [address] Phone [phone] Care Team Providers Care Supervisor Coremaker Name Role Phone Power Beltran DO Primary Care Provider Reason for Visit * Reason Onset Date Comments Medication Refill 05/08/2024 Encounter Details Date Type Department Care Team (Late st Contact Info) Description 05/08/2024 Refill Neurology [facility] [address] [place] [address] Beti To PA-C [address] [place] [address] Allergies Active Allergy Reactions Criticality Noted Date Comments Adhesive Tape 08/12/2018 documented as of this encounter (statuses as of 05/09/2024) Medications Medication Sig Dispensed Refills Start Date [...] 1 Tablet before bedtime. 90 Tablet 3 04/15/2024 Active levETIRAcetam 1000 MG Oral Tablet Take 1 Tablet by mouth in the morning and 1 Tablet before bedtime. 60 Tablet 3 05/09/2024 Active levETIRAcetam 1000 MG Oral Tablet Take 1 Tablet by mouth in the morning and 1 Tablet before bedtime. 60 Tablet 3 03/21/2024 Discontinue d(Refill) documented as of this encounter (statuses as of 05/09/2024) Active Problems Problem Noted Date Diagnosed Date [...] as of this encounter (statuses as of 05/09/2024) Social History Tobacco Use Types Packs/Day Years [...] money to get more. Never true 12/22/2023 Childcare Answer Date Recorded Do you feel overwhelmed with taking care of a child, family member or friend? No 12/22/2023 Does your family need help f inding childcare? (Household - for ages 0-17 years) Not on file 12/22/2023 Clothing Answer Date Recorded Have you been unable to get clothing when it was really needed? No 12/22/2023 Is your family able to get c lothes or diapers when needed? (Household - for ages 0-17 years) Not on file 12/22/2023 Personal Safety Answer Date Recorded Do you feel unsafe or have concerns for your saf ety? No 12/31/2023 Do you have concerns for you r family's safety? (Household - for ages 0-17 years) Not on file 12/31/2023 Utilities Answer Date Recorded Do you have trouble paying y our heating, water, or electric bill? No 12/31/2023 Is your family able to pay t he heat, water, or electric bill? (Household - for ages 0-17 years) Not on file 12/31/2023 Does your family have access to good internet? (Household - for ages 0-17 years) Not on file 12/31/2023 Employment Status Answer Date Recorded Are you unemployed or without regular income? No 12/22/2023 Does the household have a re gular source of income? (Household - for ages 0-17 years) Not on file 12/22/2023 Social Connections Answer Date Recorded How often do you feel lonely or isolated from th ose around you? Never 12/22/2023 Financial Resource Strain Answer Date R ecorded Do you have any trouble payi ng for your medications, or do you think you might in the future? No 12/22/2023 Does your family have troubl e paying for medicine? (Household - for ages 0-17 years) Not on file 12/22/2023 Transportation Needs Answer Date Record ed READ ONLY Do you have troubl e getting a ride to medical visits or work? Never True 12/31/2023 Does your family have a hard time getting a ride to doctors visits? (Household - for ages 0-17 years) Not on file 12/31/2023 Has lack of transportation k ept you from medical appointments, meetings, work, or from getting things needed for daily living? Check all that apply. (Adult - for ages 18 years and over) Not on file 12/31/2023 Do you (or your family) have trouble finding or paying for a ride (transportation)? (Household - for ages 0-17 years) Not on file 12/31/2023 Housing Stability Answer Date Recorded Do you currently live in a s helter or have no steady place to sleep at night? No 12/31/2023 READ ONLY Do you think you a re at risk of becoming homeless? No 12/31/2023 Does your family worry about paying for your home or becoming homeless? (Household - for ages 0-17 years) Not on file 0 12/31/2023 Are you homeless or worried that you might be in the future? (Adult - for ages 18 years and over) Not on file Are you (or your family) wilma eless or worried that you might be in the future? (Household - for ages 0-17 years) Not on file Food Insecurity Answer Date Recorded Do you need food for this week? No 12/31/2023 Are you able to get enough f ood for your family? (Household - for ages 0-17 years) Not on file 12/31/2023 Does your family need food t his week? (Household - for ages 0-17 years) Not on file 12/31/2023 Do you always have enough fo od for your family? (Household - for ages 0-17 years) Not on file 12/31/2023 Sex and Gender Information Value Date Recorded [...] encounter Miscellaneous Notes * Telephone Encounter - Donte Sun MD - 05/09/2024 8:45 AM EDTSigned Prescriptions: Disp Refills levETIRAcetam 1000 MG Oral Tablet 60 Tab*3 Sig: Take 1 Tablet by mouth in the morning and 1 Tablet before bedtime. Authorizing Provider: DONTE SUN * Telephone Encounter - Marifer Reaves, MED ASSIST - 05/09/2024 8:06 AM EDT Pending Prescriptions: Disp Refills levETIRAcetam 1000 MG Oral Tablet 60 Tab*3 Sig: Take 1 Tablet by mouth in the morning and 1 Tablet before bedtime. documented in this encounter Plan of Treatment Upcoming Encounters Date Type Department Care Team (Late st Contact Info) Description 05/31/2024 4:20 PM EDT Office Visit Neurology [facility] [address] [place] [address] Thomas Garrett DO [address] [place] [address] Health Maintenance Due Date Last Done Comments Pneumococcal Vaccine: Pediatrics (0 to 5 Years) and At-Risk Patients (6 to 64 Years) (1 of 2 - PCV) 2002 DTaP,Tdap,and Td Vaccines (1 - Tdap) 2015 Hepatitis B (1 of 3 - 19+ 3-dose series) 2015 COVID-19 Vaccine (3 - 2022-2 4 season) 2023 08/15/2021, 07/25/2021 Influenza Vaccine (FLU shot) (#1) 2024 Depression Screening 12/22/2024 12/22/2023 GARDASIL-HPV IMMUNIZATION SERIES Aged Out No longer eligible b ased on patient's age to complete this topic MENINGOCOCCAL (MENACTRA/MENVEO) Aged Out No longer eligible b ased on patient's age to complete this topic documented as of this encounter Medical Devices Implanted Type Area Personal Development Educator Device Identifier Shelf Expiration Date Model / Serial / Lot Graft Mesh Duragen Pl 4.0x5in - [id number] - [id number] Implanted:Qty : 1 on 09/14/2023 by Ministerio Graham MD at [place] [facility] Head [employer] [id number] 09/08/2025 [id number] / [id number] / [id number] Graft Mesh Duragen Pl 4.0x5in - [id number] - [id number] Implanted:Qty : 1 on 09/14/2023 by Ministerio Graham MD at OR [facility] Head [employer] [id number] 01/06/2026 [id number] / [id number] / [id number] Cover Brunilda Hole 24mm 421.528 - [id number] Implanted:Qty : 2 on 01/04/2024 by Ministerio Graham MD at [place] [facility] Right: Head [employer] 421.528 / / Description:from set Cover Bur Hol Ti Lo 17 421.527 - [id number] Implanted:Qty : 1 on 01/04/2024 by Ministerio Graham MD at [place] [facility] Right: Head [employer] 421.527 / / Description:from set Plate Ti Lo Pro Str 4h 421.504 - [id number] Implanted:Qty : 1 on 01/04/2024 by Ministerio Graham MD at [place] [facility] Right: Head [employer] 421.504 / / Description:from set Screw Ti Lo Pro Sd 4mm 400.834 - [id number] Implanted:Qty : 27 on 01/04/2024 by Ministerio Graham MD at [place] [facility] Right: Head [employer] 400.834 / / Mesh Plate 1.6mm [id number] .4mm - [id number] Implanted:Qty : 1 on 01/04/2024 by Ministerio Graham MD at [place] [facility] Right: Head [employer] 421.532 / / Description:from set [employer]s Cmf Malleable Plates, Mastoid Medium Implanted:Qty : 1 on 01/04/2024 by Ministerio Graham MD at [place] [facility] Right: Head 421.547 / / Description:from set [...] Advance Directives occurred with: Patient Care Teams Supervisor Coremaker Relationship Specialty Start Date End Date Power Beltran DO [address] [place] [address] PCP - General Family Medicine 11/04/23 documented as of this encounter
--- OUTSIDE RECORDS SUMMARY | 2024-05-28 20:58 | External Medical Summary | Summary of Care ---
Author Name Unknown Organization [facility] Address [address] [place] [address] Phone [phone] Care Team Providers Care Maxillofacial Prosthetics Dentist Name Role Phone Power Beltran DO Primary Care Provider Reason for Visit * Reason Onset Date Comments Forms Request 02/19/2024 Gloria colorado Plan of Care Encounter Details Date Type Department Care Team (Late st Contact Info) Description 02/19/2024 Telephone [facility] [place] [address] [place] [address] Josue, [place] No Resource [address] [place] [address] Forms Request (Gloria Quiñonez Plan of C... Allergies Active Allergy Reactions Criticality Noted Date Comments Adhesive Tape 08/12/2018 documented as of this encounter (statuses as of 04/05/2024) Medications Medication Sig Dispensed Refills Start Date [...] as of this encounter (statuses as of 04/05/2024) Active Problems Problem Noted Date Diagnosed Date [...] as of this encounter (statuses as of 04/05/2024) Social History Tobacco Use Types Packs/Day Years [...] Telephone Encounter - Taylor Moon OSA - 04/05/2024 9:09 AM EDT Final Khang Plan of Care signed and faxed to [phone] on 03.31.24. Scanned into patients chart. * Telephone Encounter - Taylor Moon OSA - 04/05/2024 9:04 AM EDT Drayer Plan of Care signed and faxed to [phone] on 03.31.24. Scanned into patients chart. * Telephone Encounter - Taylor Moon OSA - 03/30/2024 10:37 AM EDT Drayer Plan of Care signed and faxed to [phone] on 03.30.24. Scanned into patients chart * Telephone Encounter - Taylor Moon OSA - 03/30/2024 10:32 AM EDT Drayer Plan of Care signed and faxed to [phone] on 03.30.24. Scanned into patients chart * Telephone Encounter - Taylor Moon OSA - 03/30/2024 9:44 AM EDT Received Drayer Plan of Care from [facility] on 03.30.24. Placed in providers bin for signature. * Telephone Encounter - Taylor Moon OSA - 03/30/2024 9:31 AM EDT Received Drayer Plan of Care from [facility] on 03.30.24. Placed in providers bin for signature. * Telephone Encounter - Taylor Moon OSA - 03/28/2024 10:13 AM EDT Received Drayer Plan of Care from [facility] on 03.28.24. Placed in providers bin for signature. * Telephone Encounter - Taylor Moon, LATRICIA - 03/21/2024 1:03 PM EDT Received Drayer Plan of Care from [facility] on 03.21.24. Placed in providers bin for signature. * Telephone Encounter - Taylor Moon LATRICIA - 03/18/2024 9:30 AM EDT Received Drayer Plan of Care from [facility] on 03.18.24. Placed in providers bin for signature. * Telephone Encounter - Taylor Moon LATRICIA - 03/09/2024 1:59 PM EDT Drayer Plan of Care signed and faxed to [phone] on 03.09.24. Scanned into patients chart. * Telephone Encounter - Taylor Moon LATRICIA - 03/09/2024 1:58 PM EDT Drayer Plan of Care signed and faxed to [phone] on 03.09.24. Scanned into patients chart. * Telephone Encounter - Taylor Moon LATRICIA - 03/04/2024 9:56 AM EDT Received Drayer Plan of Care from [facility] on 03.04.24. Placed in providers bin for signature * Telephone Encounter - Taylor Moon OSA - 03/03/2024 3:26 PM EDT Final Drayer Plan of Care signed and faxed to [phone] on 03.03.24. Scanned into patients chart. * Telephone Encounter - Taylor Moon OSA - 02/25/2024 3:06 PM EDT Received Khang Plan of Care from [facility] on 02.25.24. Placed in providers bin for signature. * Telephone Encounter - Taylor Moon OSA - 02/19/2024 9:00 AM EDT Received Khang Plan of Care from [facility] on 02.19.24. Placed in providers bin for signature. documented in this encounter Plan of Treatment Upcoming Encounters Date Type Department Care Team (Late st Contact Info) Description 05/31/2024 4:20 PM EDT Office Visit Neurology [place] Juarez [address] [facility] [place] [address] Thomas Garrett, [address] [facility] [place] [address] Health Maintenance Due Date Last Done Comments [...] this encounter Medical Devices Implanted Type Area Rad Tech Device Identifier Shelf Expiration Date Model / Serial / Lot Graft Mesh Duragen Pl 4.0x5in - [id number] - [id number] Implanted:Qty : 1 on 09/14/2023 by Ministerio Graham MD at [place] [facility] Head [employer] LIFE Savorfull [id number] 09/08/2025 [id number] / [id number] / [id number] Graft Mesh Duragen Pl 4.0x5in - [id number] - [id number] Implanted:Qty : 1 on 09/14/2023 by Ministerio Graham MD at [place] [facility] Head [employer] [id number] 01/06/2026 [id number] / [id number] / [id number] Cover [place] Hole 24mm 421.528 - [id number] Implanted:Qty : 2 on 01/04/2024 by Ministerio Graham MD at [place] [facility] Right: Head SYNTHES MAXILLOFACIAL 421.528 / / Description:from set Cover Bur Hol Ti Lo 17 421.527 - [id number] Implanted:Qty : 1 on 01/04/2024 by Ministerio Graham MD at [place] [facility] Right: Head SYNTHES MAXILLOFACIAL 421.527 / / Description:from set Plate Ti Lo Pro Str 4h 421.504 - [id number] Implanted:Qty : 1 on 01/04/2024 by Ministerio Graham MD at [place] [facility] Right: Head SYNTHES MAXILLOFACIAL 421.504 / / Description:from set Screw Ti Lo Pro Sd 4mm 400.834 - [id number] Implanted:Qty : 27 on 01/04/2024 by Ministerio Graham MD at [place] [facility] Right: Head SYNTHES MAXILLOFACIAL 400.834 / / Mesh Plate 1.6mm [id number] .4mm - [id number] Implanted:Qty : 1 on 01/04/2024 by Ministerio Graham MD at [place] [facility] Right: Head SYNTHES MAXILLOFACIAL 421.532 / / Description:[facility] Malleable Plates, Mastoid Medium Implanted:Qty : 1 on 01/04/2024 by Ministerio Graham MD at [facility] Right: Head 421.547 / / Description:from set [...] Advance Directives occurred with: Patient Care Teams Maxillofacial Prosthetics Dentist Relationship Specialty Start Date End Date Power Beltran DO [address] [place] [address] PCP - General Family Medicine 11/04/23 documented as of this encounter
--- OUTSIDE RECORDS SUMMARY | 2024-05-28 20:58 | External Medical Summary | Summary of Care ---
Author Name Unknown Organization [facility] Address [address] [place] [address] Phone [phone] Care Team Providers Care Ironer Sock Name Role Phone Power Beltran DO Primary Care Provider Reason for Visit * Reason Onset Date Comments Forms Request 02/19/2024 Gloria colorado Plan of Care Encounter Details Date Type Department Care Team (Late st Contact Info) Description 02/19/2024 Telephone [facility], [place] [address] [place] [address] Josue, [place] No Resource [address] [place] [address] Forms Request (Gloria Quiñonez Plan [...] Moon OSA - 04/05/2024 9:04 AM EDT Khang Plan of Care signed and faxed to [phone] on 03.31.24. Scanned into patients chart. * Telephone Encounter - Taylor Moon OSA - 03/30/2024 10:37 AM EDT Drayer Plan of Care signed and faxed to [phone] on 03.30.24. Scanned into patients chart * Telephone Encounter - Taylor Moon OSA - 03/30/2024 10:32 AM EDT Drayer Plan of Care signed and faxed to [phone] on 03.30.24. Scanned into patients chart * Telephone Encounter - Taylor Moon OSA - 03/30/2024 9:44 AM EDT Received Drayer Plan of Care from [facility] on 03.30.24. Placed in providers bin for signature. * Telephone Encounter - Taylor Moon OSA - 03/30/2024 9:31 AM EDT Received Drayer Plan of Care from [facility] on 03.30.24. Placed in providers bin for signature. * Telephone Encounter - Taylor Moon OSA - 03/28/2024 10:13 AM EDT Received Drayer Plan of Care from [facility] on 03.28.24. Placed in providers bin for signature. * Telephone Encounter - Taylor Moon OSA - 03/21/2024 1:03 PM EDT Received Drayer Plan of Care from [facility] on 03.21.24. Placed in providers bin for signature. * Telephone Encounter - Taylor Moon, LATRICIA - 03/18/2024 9:30 AM EDT Received Drayer Plan of Care from [facility] on 03.18.24. Placed in providers bin for signature. * Telephone Encounter - Taylor Moon LATRICIA - 03/09/2024 1:59 PM EDT Drayer Plan of Care signed and faxed to [phone] on 03.09.24. Scanned into patients chart. * Telephone Encounter - Taylor Moon LATRICIA - 03/09/2024 1:58 PM EDT Drayer Plan of Care signed and faxed to [phone] on 03.09.24. Scanned into patients chart. * Telephone Encounter - Taylor Moon LATRICIA - 03/04/2024 9:56 AM EDT Received Drayer Plan of Care from [facility] on 03.04.24. Placed in providers bin for signature * Telephone Encounter - Taylor Moon LATRICIA - 03/03/2024 3:26 PM EDT Final Drayer Plan of Care signed and faxed to [phone] on 03.03.24. Scanned into patients chart. * Telephone Encounter - Taylor Moon LATRICIA - 02/25/2024 3:06 PM EDT Received Drayer Plan of Care from [facility] on 02.25.24. Placed in providers bin for signature. * Telephone Encounter - Taylor Moon OSA - 02/19/2024 9:00 AM EDT Received Khang Plan of Care from [facility] on 02.19.24. Placed in providers bin for signature. documented in this encounter Plan of Treatment Upcoming Encounters Date Type Department Care Team (Late st Contact Info) Description 05/31/2024 4:20 PM EDT Office Visit Neurology State Tobin Juarez [address] [place] [address] Thomas Garrett, DO [address] [place] [address] Health Maintenance Due Date Last Done Comments Pneumococcal Vaccine: Pediatrics (0 to 5 Years) and At-Risk Patients (6 to 64 Years) (1 of 2 - PCV) 2002 DTaP,Tdap,and Td Vaccines (1 - Tdap) 2015 Hepatitis B (1 of 3 - 19+ 3-dose series) 2015 COVID-19 Vaccine (2022-2 4 season) 2023 08/15/2021, 07/25/2021 Influenza Vaccine (FLU shot) (Season Ended) 2024 Depression Screening 12/22/2024 12/22/2023 GARDASIL-HPV IMMUNIZATION SERIES Aged Out No longer eligible b ased on patient's age to complete this topic MENINGOCOCCAL (MENACTRA/MENVEO) Aged Out No longer eligible b ased on patient's age to complete this topic documented as of this encounter Medical Devices Implanted Type Area Surveyor Geodetic Device Identifier Shelf Expiration Date Model / Serial / Lot Graft Mesh Duragen Pl 4.0x5in - [id number] - [id number] Implanted:Qty : 1 on 09/14/2023 by Ministerio Graham MD at [facility] Head AEA Technology [id number] 09/08/2025 [id number] / [id number] / [id number] Graft Mesh Duragen Pl 4.0x5in - [id number] - [id number] Implanted:Qty : 1 on 09/14/2023 by Ministerio Graham MD at [facility] Head [employer] Dine in [id number] 01/06/2026 [id number] / [id number] / [id number] Cover Brunilda Hole 24mm 421.528 - [id number] Implanted:Qty : 2 on 01/04/2024 by Ministerio Graham MD at [facility] Right: Head SYNTHES MAXILLOFACIAL 421.528 / / Description:from set Cover Bur Hol Ti Lo 17 421.527 - [id number] Implanted:Qty : 1 on 01/04/2024 by Ministerio Graham MD at [facility] Right: Head SYNTHES MAXILLOFACIAL 421.527 / / Description:from set Plate Ti Lo Pro Str 4h 421.504 - [id number] Implanted:Qty : 1 on 01/04/2024 by Ministerio Graham MD at [facility] Right: Head SYNTHES MAXILLOFACIAL 421.504 / / Description:from set Screw Ti Lo Pro Sd 4mm 400.834 - [id number] Implanted:Qty : 27 on 01/04/2024 by Ministerio Graham MD at [facility] Right: Head SYNTHES MAXILLOFACIAL 400.834 / / Mesh Plate 1.6mm [id number] .4mm - [id number] Implanted:Qty : 1 on 01/04/2024 by Ministerio Graham MD at [facility] Right: Head SYNTHES MAXILLOFACIAL 421.532 / / Description:from set Synthes Cmf Malleable Plates, Mastoid Medium Implanted:Qty : 1 on 01/04/2024 by Ministerio Graham MD at [facility] Right: Head 421.547 / / Description:from set [...] Advance Directives occurred with: Patient Care Teams Ironer Sock Relationship Specialty Start Date End Date Power Beltran DO [address] [facility] [address] PCP - General Family Medicine 11/04/23 documented as of this encounter
--- OUTSIDE RECORDS SUMMARY | 2024-05-28 20:58 | External Medical Summary | Summary of Care ---
Author Name Unknown Organization [facility] Address [address] [facility] [place] [address] Phone [phone] Care Team Providers Care Hog Cooler Name Role Phone Power Beltran DO Primary Care Provider Reason for Visit * Reason Onset Date Comments Medication Refill 04/15/2024 Encounter Details Date Type Department Care Team (Late st Contact Info) Description 04/15/2024 Refill Neurology [facility] [address] [place] [address] Beti To PA-C [address] [place] [address] Allergies Active Allergy Reactions Criticality Noted Date Comments Adhesive Tape 08/12/2018 documented as of this encounter (statuses as of 04/15/2024) Medications Medication Sig Dispensed Refills Start Date [...] Additional Information Patient not taking.Reported on 01/14/2024 levETIRAcetam 1000 MG Oral Tablet Take 1 Tablet by mouth in the morning and 1 Tablet before bedtime. 60 Tablet 3 03/21/2024 Active Divalproex Sodium 500 MG Oral Tablet Delayed Release (Depakote DR) Take 1 Tablet by mouth in the morning and 1 Tablet at noon and 1 Tablet before bedtime. 90 Tablet 3 04/15/2024 Active Divalproex Sodium 500 MG Oral Tablet Delayed Release (Depakote DR) Take 1 Tablet by mouth in the morning and 1 Tablet at noon and 1 Tablet before bedtime. 90 Tablet 3 03/21/2024 Discontinue d(Refill) documented as of this encounter (statuses as of 04/15/2024) Active Problems Problem Noted Date Diagnosed Date [...] as of this encounter (statuses as of 04/15/2024) Social History Tobacco Use Types Packs/Day Years [...] Telephone Encounter - Donte Sun MD - 04/15/2024 1:06 PM EDTSigned Prescriptions: Disp Refills Divalproex Sodium 500 MG Oral Tablet Delay*90 Tab*3 Sig: Take 1 Tablet by mouth in the morning and 1 Tablet at noon and 1 Tablet before bedtime. Authorizing Provider: DONTE SUN * Telephone Encounter - Marifer Reaves, MED ASSIST - 04/15/2024 11:35 AM EDTPending Prescriptions: Disp Refills Divalproex Sodium 500 MG Oral Tablet Delay*90 Tab*3 Sig: Take 1Tablet by mouth in the morning and 1 Tablet at noon and 1 Tablet before bedtime. documented in this encounter Plan of Treatment Upcoming Encounters Date Type Department Care Team (Late st Contact Info) Description 05/31/2024 4:20 PM EDT Office Visit Neurology [facility] [address] [facility] [place] [address] Thomas Garrett DO [address] [facility] [place] [address] Health Maintenance Due Date Last Done Comments [...] this encounter Medical Devices Implanted Type Area Shipyard Laborer Device Identifier Shelf Expiration Date Model / Serial / Lot Graft Mesh Duragen Pl 4.0x5in - [id number] - [id number] Implanted:Qty : 1 on 09/14/2023 by Ministerio Graham MD at [place] [facility] Head [employer] LIFE uSamp [id number] 09/08/2025 [id number] / [id number] / [id number] Graft Mesh Duragen Pl 4.0x5in - [id number] - [id number] Implanted:Qty : 1 on 09/14/2023 by Ministerio Graham MD at [place] [facility] Head [employer] SCI[employer]ES [id number] 01/06/2026 [id number] / [id number] / [id number] Cover Brunilda Hole 24mm 421.528 - [id number] Implanted:Qty : 2 on 01/04/2024 by Ministerio Graham MD at [place] [facility] Right: Head SYNTHES MAXILLOFACIAL 421.528 / / Description:from set Cover Bur Hol Ti Lo 17 421.527 - [id number] Implanted:Qty : 1 on 01/04/2024 by Ministerio Graham MD at [place] [facility] Right: Head SYNTHES MAXILLOFACIAL 421.527 / / Description:from set Plate Ti Lo Pro Str 4h 421.504 - [id number] Implanted:Qty : 1 on 01/04/2024 by Ministerio Graham MD at [place] [facility] Right: Head SYNTHES MAXILLOFACIAL 421.504 / / Description:from set Screw Ti Lo Pro Sd 4mm 400.834 - [id number] Implanted:Qty : 27 on 01/04/2024 by Ministerio Graham MD at [place] [facility] Right: Head SYNTHES MAXILLOFACIAL 400.834 / / Mesh Plate 1.6mm 07t25pm .4mm - [id number] Implanted:Qty : 1 on 01/04/2024 by Ministerio Graham MD at [place] [facility] Right: Head SYNTHES MAXILLOFACIAL 421.532 / / Description:from set Synthes Cmf Malleable Plates, Mastoid Medium Implanted:Qty : 1 on 01/04/2024 by Ministerio Graham MD at [place] [facility] Right: Head 421.547 / / Description:from set [...] Advance Directives occurred with: Patient Care Teams Hog Cooler Relationship Specialty Start Date End Date Power Beltran DO [address] [place] [address] PCP - General Family Medicine 11/04/23 documented as of this encounter
--- OUTSIDE RECORDS SUMMARY | 2024-05-28 20:59 | External Medical Summary | Summary of Care ---
Author Name Unknown Organization [facility] Address [address] [place] [address] Phone [phone] Care Team Providers Care Track Inspecting Supervisor Name Role Phone Power Beltran DO Primary Care Provider Reason for Visit * Reason Onset Date Comments Forms Request 02/19/2024 Gloria colorado Plan of Care Encounter Details Date Type Department Care Team (Late st Contact Info) Description 02/19/2024 Telephone [facility], [place] [address] [place] [address] Jos[place], [place] No Resource [address] [place] [address] Forms Request (Gloria Quiñonez Plan of C... Allergies Active Allergy Reactions Criticality Noted Date Comments Adhesive Tape 08/12/2018 documented as of this encounter (statuses as of 03/03/2024) Medications Medication Sig Dispensed Refills Start Date End Date Status Acetaminophen 325 MG Oral Tablet (Tylenol) Take 2 Tablets by mouth every 6 hours as needed for mild pain. 63 Tablet 0 01/07/2024 Active Docusate Sodium 100 MG Oral Capsule (Colace) Take 1 Capsule by mouth in the morning and 1 Capsule before bedtime. 60 Capsule 0 01/07/2024 Active Additional Information Patient not taking.Reported [...] as needed for severe pain. 30 Tablet 0 01/07/2024 Active Additional Information Patient not taking.Reported on 01/14/2024 Divalproex Sodium 500 MG Oral Tablet Delayed Release (Depakote DR) Take 1 Tablet by mouth in the morning and 1 Tablet at noon and 1 Tablet before bedtime. 90 Tablet 3 01/20/2024 Active levETIRAcetam 1000 MG Oral Tablet Take 1 Tablet by mouth in the morning and 1 Tablet before bedtime. 60 Tablet 3 02/08/2024 Discontinue d(Refill) documented as of this encounter (statuses as of 03/03/2024) Active Problems Problem Noted Date Diagnosed Date [...] as of this encounter (statuses as of 03/03/2024) Social History Tobacco Use Types Packs/Day Years [...] OSA - 03/03/2024 3:26 PM EDT Final Khang Plan of Care signed and faxed to [phone] on 03.03.24. Scanned into patients chart. * Telephone Encounter - Taylor Moon OSA - 02/25/2024 3:06 PM EDT Received Khang Plan of Care from [facility] on 02.25.24. Placed in providers bin for signature. * Telephone Encounter - Taylor Moon OSA - 02/19/2024 9:00 AM EDT Received Khang Plan of Care from [facility] on 02.19.24. Placed in providers bin for signature. documented in this encounter Plan of Treatment Upcoming Encounters Date Type Department Care Team (Late st Contact Info) Description 05/31/2024 4:20 PM EDT Office Visit Neurology [place] Tobin Juarez [address] [place] [address] Thomas Garrett, [address] [place] [address] Health Maintenance Due Date Last Done Comments [...] this encounter Medical Devices Implanted Type Area Tie Worker Device Identifier Shelf Expiration Date Model / Serial / Lot Graft Mesh Duragen Pl 4.0x5in - [id number] - [id number] Implanted:Qty : 1 on 09/14/2023 by Ministerio Graham MD at [place] [facility] [place] Head [employer] [id number] 09/08/2025 [id number] / [id number] / [id number] Graft Mesh Duragen Pl 4.0x5in - [id number] - [id number] Implanted:Qty : 1 on 09/14/2023 by Ministerio Graham MD at [place] [facility] [place] Head [employer] [id number] 01/06/2026 [id number] / [id number] / [id number] Cover Brunilda Hole 24mm 421.528 - [id number] Implanted:Qty : 2 on 01/04/2024 by Ministerio Graham MD at [place] [facility] [place] Right: Head SYNTHES MAXILLOFACIAL 421.528 / / Description:from set Cover Bur Hol Ti Lo 17 421.527 - [id number] Implanted:Qty : 1 on 01/04/2024 by Ministerio Graham MD at [place] [facility] [place] Right: Head SYNTHES MAXILLOFACIAL 421.527 / / Description:from set Plate Ti Lo Pro Str 4h 421.504 - [id number] Implanted:Qty : 1 on 01/04/2024 by Ministerio Graham MD at [place] [facility] [place] Right: Head SYNTHES MAXILLOFACIAL 421.504 / / Description:from set Screw Ti Lo Pro Sd 4mm 400.834 - [id number] Implanted:Qty : 27 on 01/04/2024 by Ministerio Graham MD at [place] [facility] [place] Right: Head SYNTHES MAXILLOFACIAL 400.834 / / Mesh Plate 1.6mm 06d52ok .4mm - [id number] Implanted:Qty : 1 on 01/04/2024 by Ministerio Graham MD at [place] [facility] [place] Right: Head SYNTHES MAXILLOFACIAL 421.532 / / Description:from set Synthes Cmf Malleable Plates, Mastoid Medium Implanted:Qty : 1 on 01/04/2024 by Ministerio Graham MD at [place] [facility] [place] Right: Head 421.547 / / Description:from set documented as of this encounter Advance Directives Latest Code Status on File Code Status Date Activated Date Inactivated Comments Full Code 01/04/2024 12:53 PM 01/07/2024 8:49 PM This order reflects the patients wishes and were consensually agreed upon. Question Answer Comments Discussion of Advance Directives occurred with: Patient Code Status History Code Status Date Activated Date Inactivated Comments Full Code 12/31/2023 6:08 PM 01/04/2024 12:53 PM This order reflects the patients wishes and were consensually agreed upon. Question Answer Comments Discussion of Advance Directives occurred with: Patient Full Code 09/12/2023 6:51 AM 09/24/2023 8:31 PM This order reflects the patients wishes and were consensually agreed upon. Question Answer Comments Discussion of Advance Directives occurred with: Patient Care Teams Track Inspecting Supervisor Relationship Specialty Start Date End Date Power Beltran DO [address] [place] [address] PCP - General Family Medicine 11/04/23 documented as of this encounter
--- OUTSIDE RECORDS SUMMARY | 2024-05-28 20:59 | External Medical Summary | Summary of Care ---
Author Name Unknown Organization [facility] Address [address] [place] [address] Phone [phone] Care Team Providers Care Director Of Mobile Marketing Name Role Phone Power Beltran DO Primary Care Provider Reason for Visit * Reason Onset Date Comments Forms Request 02/19/2024 Gloria colorado Plan of Care Encounter Details Date Type Department Care Team (Late st Contact Info) Description 02/19/2024 Telephone [facility], [place] [address] [place] [address] Josue, Christ[place] No Resource [address] [place] [address] Forms Request (Gloria Quiñonez Plan of C... Allergies Active Allergy Reactions Criticality Noted Date Comments Adhesive Tape 08/12/2018 documented as of this encounter (statuses as of 03/09/2024) Medications Medication Sig Dispensed Refills Start Date [...] as of this encounter (statuses as of 03/09/2024) Active Problems Problem Noted Date Diagnosed Date [...] as of this encounter (statuses as of 03/09/2024) Social History Tobacco Use Types Packs/Day Years [...] Telephone Encounter - Taylor Moon OSA - 03/09/2024 1:59 PM EDT Khang Plan of Care signed and faxed to [phone] on 03.09.24. Scanned into patients chart. * Telephone Encounter - Taylor Moon OSA - 03/09/2024 1:58 PM EDT Drerica Plan of Care signed and faxed to [phone] on 03.09.24. Scanned into patients chart. * Telephone Encounter - Taylor Moon OSA - 03/04/2024 9:56 AM EDT Received Khang Plan of Care from [facility] on 03.04.24. Placed in providers bin for signature * Telephone Encounter - Taylor Moon OSA - 03/03/2024 3:26 PM EDT Final Drerica Plan of Care signed and faxed to [phone] on 03.03.24. Scanned into patients chart. * Telephone Encounter - Taylor Moon OSA - 02/25/2024 3:06 PM EDT Received Khang Plan of Care from [facility] on 02.25.24. Placed in providers bin for signature. * Telephone Encounter - Taylor Moon OSA - 02/19/2024 9:00 AM EDT Received Khang Plan of Care from [facility] on 02.19.24. Placed in providers bin for signature. documented in this encounter Plan of Treatment Upcoming Encounters Date Type Department Care Team (Late st Contact Info) Description 05/31/2024 4:20 PM EDT Office Visit Neurology [facility] [address] [place] [address] Thomas Garrett, DO [address] [place] [address] Health Maintenance Due Date Last Done Comments [...] this encounter Medical Devices Implanted Type Area Home Care Manager Rn Device Identifier Shelf Expiration Date Model / Serial / Lot Graft Mesh Duragen Pl 4.0x5in - [id number] - [id number] Implanted:Qty : 1 on 09/14/2023 by Ministerio Graham MD [place] [facility] [place] [employer] [id number] 09/08/2025 [id number] / [id number] / [id number] Graft Mesh Duragen Pl 4.0x5in - [id number] - [id number] Implanted:Qty : 1 on 09/14/2023 by Ministerio Graham MD [place] [facility] [place] [employer] [id number] 01/06/2026 [id number] / [id number] / [id number] Cover [place] Hole 24mm 421.528 - [id number] Implanted:Qty : 2 on 01/04/2024 by Ministerio Graham MD [place] [facility] [place]: Head [employer] 421.528 / / Description:from set Cover Bur Hol Ti Lo 17 421.527 - [id number] Implanted:Qty : 1 on 01/04/2024 by Ministerio Graham MD [place] [facility] [place] Head [employer] 421.527 / / Description:from set Plate Ti Lo Pro Str 4h 421.504 - [id number] Implanted:Qty : 1 on 01/04/2024 by Ministerio Graham MD [place] [facility] [place] Head [employer] 421.504 / / Description:from set Screw Ti Lo Pro Sd 4mm 400.834 - [id number] Implanted:Qty : 27 on 01/04/2024 by Ministerio Graham MD [place] [facility] [place]: Head [employer] 400.834 / / Mesh Plate 1.6mm [id number] .4mm - [id number] Implanted:Qty : 1 on 01/04/2024 by Ministerio Graham MD [place] [facility] [place]: Head [employer] 421.532 / / Description:from set Synthes Cmf Malleable Plates, Mastoid Medium Implanted:Qty : 1 on 01/04/2024 by Ministerio Graham MD [place] [facility] [place]: Head 421.547 / / Description:from set [...] Directives occurred with: Patient Care Teams Director Of Mobile Marketing Relationship Specialty Start Date End Date Power Beltran DO [address] [address] PCP - General Family Medicine 11/04/23 documented as of this encounter
--- OUTSIDE RECORDS SUMMARY | 2024-05-28 20:59 | External Medical Summary | Summary of Care ---
Author Name Unknown Organization [facility] Address [address] [facility] [place] [address] Phone [phone] Care Team Providers Care Lawn Caretaker Name Role Phone Power Beltran DO Primary Care Provider Encounter Details Date Type Department Care Team (Late st Contact Info) Description 02/08/2024 12:15 PM EDT Scheduled Telephone Care Coordination and Integration [address] [place] [address] Ivanna Mazariegos, Community Health Deliverer Merchandise [address] [place] [address] Allergies Active Allergy Reactions Criticality Noted Date Comments Adhesive Tape 08/12/2018 documented as of this encounter (statuses as of 02/08/2024) Medications Medication Sig Dispensed Refills Start Date [...] Tablet before bedtime. 60 Tablet 3 02/08/2024 Active documented as of this encounter (statuses as of 02/08/2024) Active Problems Problem Noted Date Diagnosed Date [...] as of this encounter (statuses as of 02/08/2024) Social History Tobacco Use Types Packs/Day Years [...] money to buy more. Never true 12/22/19 24 Within the past 12 months, t he [...] No 12/31/2023 documented as of this encounter Progress Notes * Ivanna Mazariegos, Community Health Deliverer Merchandise - 02/08/2024 1:18 PM EDT Telemedicine visit: No Community Health Deliverer Merchandise (FLAVIA) documentation: [facility] called and spoke with patient. Patient is doing well. Was able to get his seizure meds refilledand is picking one up today. Has not had any seizuresc, no rash and no signs of infection at incision. Would like to talk about cutting back on seizure medications and coming up with a plan moving forward. Does not see the Neurologist until May, may call them to see if he can get in sooner. Havinga lot of mood swings due to his seizure meds. Ivanna Mazariegos- Community Health Worker 1 Support Services/[email or web address] documented in this encounter Plan of Treatment Upcoming Encounters Date Type Department Care Team (Late st Contact Info) Description 03/01/2024 1:30 PM EDT Office Visit Neurosurgery, [place] [address] [place] [address] Ministerio Graham MD [address] [place] [address] 05/31/2024 4:20 PM EDT Office Visit Neurology [facility] [address] [place], [place] [id number] Thomas Garrett, [address] [place] [address] Health Maintenance Due Date Last Done Comments [...] this encounter Medical Devices Implanted Type Area Production Control Clerk Device Identifier Shelf Expiration Date Model / Serial / Lot Graft Mesh Duragen Pl 4.0x5in - [id number] - [id number] Implanted:Qty : 1 on 09/14/2023 by Ministerio Graham MD [place] [facility] [place] [employer] [id number] 09/08/2025 [id number] / [id number] / [id number] Graft Mesh Duragen Pl 4.0x5in - [id number] - [id number] Implanted:Qty : 1 on 09/14/2023 by Ministerio Graham MD [place] [facility] [place] [employer] [id number] 01/06/2026 [id number] / [id number] / [id number] Cover [place] Hole 24mm 421.528 - [id number] Implanted:Qty : 2 on 01/04/2024 by Ministerio Graham MD [place] [facility] [place]: Head [employer] 421.528 / / Description:from set Cover Bur Hol Ti Lo 17 421.527 - [id number] Implanted:Qty : 1 on 01/04/2024 by Ministerio Graham MD [place] [facility] [place] Head [employer] 421.527 / / Description:from set Plate Ti Lo Pro Str 4h 421.504 - [id number] Implanted:Qty : 1 on 01/04/2024 by Ministerio Graham MD [place] [facility] [place]: Head [employer] 421.504 / / Description:from set Screw Ti Lo Pro Sd 4mm 400.834 - [id number] Implanted:Qty : 27 on 01/04/2024 by Ministerio Graham MD [place] [facility] [place]: Head [employer] 400.834 / / Mesh Plate 1.6mm [id number] .4mm - [id number] Implanted:Qty : 1 on 01/04/2024 by Ministerio Graham MD [place] [facility] [place]: Head [employer] 421.532 / / Description:from set Synthes Cmf Malleable Plates, Mastoid Medium Implanted:Qty : 1 on 01/04/2024 by Ministerio Graham MD [place] [facility] [place]: Head 421.547 / [...] Advance Directives occurred with: Patient Care Teams Lawn Caretaker Relationship Specialty Start Date End Date Power Beltran DO [address] [place] [address] PCP - General Family Medicine 11/04/23 documented as of this encounter
--- OUTSIDE RECORDS SUMMARY | 2024-05-28 20:59 | External Medical Summary | Summary of Care ---
Author Name Unknown Organization [facility] Address [address] [place] [address] Phone [phone] Care Team Providers Care Critical Care Educator Name Role Phone Power Beltran DO Primary Care Provider Reason for Visit * Reason Onset Date Comments Forms Request 02/19/2024 Gloria colorado Plan of Care Encounter Details Date Type Department Care Team (Late st Contact Info) Description 02/19/2024 Telephone [facility] [place] [address] [place] [address] Josue, Christi No Resource [address] [place] [address] Forms Request (Gloria Quiñonez Plan of C... Allergies Active Allergy Reactions Criticality Noted Date Comments Adhesive Tape 08/12/2018 documented as of this encounter (statuses as of 02/25/2024) Medications Medication Sig Dispensed Refills Start Date [...] as of this encounter (statuses as of 02/25/2024) Active Problems Problem Noted Date Diagnosed Date [...] as of this encounter (statuses as of 02/25/2024) Social History Tobacco Use Types Packs/Day Years [...] EDT Received Khang Plan of Care from [facility] on 02.25.24. Placed in providers bin for signature. * Telephone Encounter - Taylor Moon OSA - 02/19/2024 9:00 AM EDT Received Khang Plan of Care from [facility] on 02.19.24. Placed in providers bin for signature. documented in this encounter Plan of Treatment Upcoming Encounters Date Type Department Care Team (Late st Contact Info) Description 03/01/2024 1:30 PM EDT Office Visit Neurosurgery, [place] [address] [place] [address] Ministerio Graham MD [address] [place] [address] 05/31/2024 4:20 PM EDT Office Visit Neurology [facility] [address] [place] [address] Thomas Garrett, DO [address] [place] [address] Health Maintenance Due Date Last Done Comments Pneumococcal Vaccine: Pediatrics (0 to 5 Years) and At-Risk Patients (6 to 64 Years) (1 of 2 - PCV) 2002 DTaP,Tdap,and Td Vaccines (1 - Tdap) 2015 Hepatitis B (1 of 3 - 19+ 3-dose series) 2015 COVID-19 Vaccine ( - 2022-2 4 season) 2023 08/15/2021, 07/25/2021 Influenza Vaccine (FLU shot) (Season Ended) 2024 Depression Screening 12/22/2024 12/22/2023 GARDASIL-HPV IMMUNIZATION SERIES Aged Out No longer eligible b ased on patient's age to complete this topic MENINGOCOCCAL (MENACTRA/MENVEO) Aged Out No longer eligible b ased on patient's age to complete this topic documented as of this encounter Medical Devices Implanted Type Area Malt Liquors Sales Supervisor Device Identifier Shelf Expiration Date Model / Serial / Lot Graft Mesh Duragen Pl 4.0x5in - [id number] - [id number] Implanted:Qty : 1 on 09/14/2023 by Ministerio Graham MD [place] [facility] [place] [employer] [id number] 09/08/2025 [id number] / [id number] / [id number] Graft Mesh Duragen Pl 4.0x5in - [id number] - [id number] Implanted:Qty : 1 on 09/14/2023 by Ministerio Graham MD [place] [facility] [place] [employer] [id number] 01/06/2026 [id number] / [id number] / [id number] Cover [place] Hole 24mm 421.528 - [id number] Implanted:Qty : 2 on 01/04/2024 by Ministerio Graham MD [place] [facility] [place] Head [employer] 421.528 / / Description:from set Cover Bur Hol Ti Lo 17 421.527 - [id number] Implanted:Qty : 1 on 01/04/2024 by Ministerio Graham MD [place] [facility] [place] Head [employer] 421.527 / / Description:from set Plate Ti Lo Pro Str 4h 421.504 - [id number] Implanted:Qty : 1 on 01/04/2024 by Ministerio Graham MD [place] [facility] [place] Head [employer] 421.504 / / Description:from set Screw Ti Lo Pro Sd 4mm 400.834 - [id number] Implanted:Qty : 27 on 01/04/2024 by Ministerio Graham MD [place] [facility] [place]: Head [employer] 400.834 / / Mesh Plate 1.6mm [id number] .4mm - [id number] Implanted:Qty : 1 on 01/04/2024 by Ministerio Graham MD [place] [facility] [place]: Head [employer] 421.532 / / Description:from set Synthes Cmf Malleable Plates, Mastoid Medium Implanted:Qty : 1 on 01/04/2024 by Ministerio Graham MD [place] [facility] [place]: Head 421.547 / / Description:from set [...] Advance Directives occurred with: Patient Care Teams Critical Care Educator Relationship Specialty Start Date End Date Power Beltran DO [address] [place] [address] PCP - General Family Medicine 11/04/23 documented as of this encounter
--- OUTSIDE RECORDS SUMMARY | 2024-05-28 20:59 | External Medical Summary | Summary of Care ---
Author Name Unknown Organization [facility] Address [address] [facility] [place] [address] Phone [phone] Care Team Providers Care Instructor Of Education Name Role Phone Power Beltran DO Primary Care Provider Encounter Details Date Type Department Care Team (Late st Contact Info) Description 02/01/2024 1:15 PM EDT Scheduled Telephone Care Coordination and Integration [address] [place] [address] Ivanna Mazariegos, Community Health Shellfish Manager [address] [place] [address] Allergies Active Allergy Reactions Criticality Noted Date Comments Adhesive Tape 08/12/2018 documented as of this encounter (statuses as of 02/01/2024) Medications Medication Sig Dispensed Refills Start Date End Date Status levETIRAcetam 1000 MG Oral Tablet Take 1 Tablet by mouth in the morning and 1 Tablet before bedtime. 0 12/02/2023 Active Acetaminophen 325 MG Oral Tablet (Tylenol) Take [...] before bedtime. 90 Tablet 3 01/20/2024 Active documented as of this encounter (statuses as of 02/01/2024) Active Problems Problem Noted Date Diagnosed Date [...] as of this encounter (statuses as of 02/01/2024) Social History Tobacco Use Types Packs/Day Years [...] No 12/31/2023 documented as of this encounter Plan of Treatment Upcoming Encounters Date Type Department Care Team (Late st Contact Info) Description 03/01/2024 1:30 PM EDT Office Visit Neurosurgery, [place] [address] [place] [address] Ministerio Graham MD [address] [place] [address] 05/31/2024 4:20 PM EDT Office Visit Neurology [place] [address] [place] [address] Thomas Garrett, [address] [place] [address] Health Maintenance Due Date Last Done Comments Pneumococcal Vaccine: Pediatrics (0 to 5 Years) and At-Risk Patients (6 to 64 Years) (1 of 2 - PCV) 2002 DTaP,Tdap,and Td Vaccines (1 - Tdap) 2015 Hepatitis B (1 of 3 - 19+ 3-dose series) 2015 COVID-19 Vaccine (3 - 2022-2 4 season) 2023 08/15/2021, 07/25/2021 Influenza Vaccine (FLU shot) (#1) 2023 Depression Screening 12/22/2024 12/22/2023 GARDASIL-HPV IMMUNIZATION SERIES Aged Out No longer eligible b ased on patient's age to complete this topic MENINGOCOCCAL (MENACTRA/MENVEO) Aged Out No longer eligible b ased on patient's age to complete this topic documented as of this encounter Medical Devices Implanted Type Area Slitter Creaser Slotter Operator Device Identifier Shelf Expiration Date Model / Serial / Lot Graft Mesh Duragen Pl 4.0x5in - [id number] - [id number] Implanted:Qty : 1 on 09/14/2023 by Ministerio Graham [place] [facility] [place] [employer] [id number] 09/08/2025 [id number] / [id number] / [id number] Graft Mesh Dur[address] Pl 4.0x5in - [id number] - [id number] Implanted:Qty : 1 on 09/14/2023 by Ministerio Graham MD [place] [facility] [place] [employer] [id number] 01/06/2026 [id number] / [id number] / [id number] Cover [place] Hole 24mm 421.528 - [id number] Implanted:Qty : 2 on 01/04/2024 by Ministerio Graham [place] [facility] [place] Head [employer] 421.528 / / Description:from set Cover Bur Hol Ti Lo 17 421.527 - [id number] Implanted:Qty : 1 on 01/04/2024 by Ministerio Graham [place] [facility] [place] Head [employer] 421.527 / / Description:from set Plate Ti Lo Pro Str 4h 421.504 - [id number] Implanted:Qty : 1 on 01/04/2024 by Ministerio Graham [place] [facility] [place] Head [employer] 421.504 / / Description:from set Screw Ti Lo Pro Sd 4mm 400.834 - [id number] Implanted:Qty : 27 on 01/04/2024 by Ministerio Graham [place] [facility] [place] Head [employer] 400.834 / / Mesh Plate 1.6mm [id number] .4mm - [id number] Implanted:Qty : 1 on 01/04/2024 by Ministerio Graham [place] [facility] [place] Head [employer] 421.532 / / Description:from set Synthes Cmf Malleable Plates, Mastoid Medium Implanted:Qty : 1 on 01/04/2024 by Ministerio Graham [place] [facility] [place] Head 421.547 / / [...] Advance Directives occurred with: Patient Care Teams Instructor Of Education Relationship Specialty Start Date End Date Power Beltran DO [address] [place] [address] PCP - General Family Medicine 11/04/23 documented as of this encounter
--- OUTSIDE RECORDS SUMMARY | 2024-05-28 20:59 | External Medical Summary | Summary of Care ---
Author Name Unknown Organization [facility] Address [address] [facility] [place] [address] Phone [phone] Care Team Providers Care Litigator Name Role Phone Power Beltran DO Primary Care Provider Encounter Details Date Type Department Care Team (Late st Contact Info) Description 03/01/2024 1:30 PM EDT Office Visit Neurosurgery, [place] [address] [place] [address] Ministerio Graham MD [address] [place] [address] Traumatic brain injury with loss of consciousness, subsequent encounter* Allergies Active Allergy Reactions Criticality Noted Date Comments Adhesive Tape 08/12/2018 documented as of this encounter (statuses as of 03/01/2024) Medications Medication Sig Dispensed Refills Start Date [...] as of this encounter (statuses as of 03/01/2024) Active Problems Problem Noted Date Diagnosed Date [...] as of this encounter (statuses as of 03/01/2024) Social History Tobacco Use Types Packs/Day Years [...] Progress Notes * Ministerio Graham MD - 03/01/2024 1:44 PM EDT PROGRESS NOTE - Neurosurgery [facility] [place] [address] Name: Juan Hill Date: 03/01/2024 Time: 1:44 PM 28-year-old gentleman very well known to me. 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 Now status post cranioplasty. Doing very well. Incision is well healed. 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 Overall he is looking very well. 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 Overall I am very happy with the way he is looking. I should probably check in with him in about 3 months' time to assess his progress. I think he has improved substantially since his cranioplasty. He seems to be healing very well. Continue physical therapy. Continue antiepileptics per Neurology. PAST MEDICAL HISTORY: No past medical history on file. PAST SURGICAL HISTORY: Past Surgical History: Procedure Laterality Date OPEN SKULL FOR REMOVAL OF HEMATOMA Right 09/14/2023 CRANIOTOMY EVACUATION OF SUBDURAL OR EXTRADURAL HEMATOMA SUPRATENTORIAL performed by Ministerio Graham MD at [facility] REPAIR SKULL W/AUTOGRAFT, UP TO 5CM Right 01/04/2024 CRANIOPLASTY WITH AUTOGRAFT performed by Ministerio Graham MD at [place] [facility] FAMILY HISTORY: Family History Problem Relation Age of Onset Diabetes Mother Type 1 Coronary Artery disease Mother [place], CABG SOCIAL HISTORY: Social History Tobacco Use Smoking status: Former Current packs/day: 0.50 Types: Cigarettes Smokeless tobacco: Never Vaping Use Vaping Use: Never used Substance Use Topics Alcohol use: Not Currently Alcohol/week: 6.0 standard drinks of alcohol Types: 6 12 oz of beer per week 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 Drug use: Not Currently Types: Marijuana Current Outpatient Medications: levETIRAcetam 1000 MG Oral Tablet, Take 1 Tablet by mouth in the morning and 1 Tablet before bedtime., Disp: 60 Tablet, Rfl: 3 Divalproex Sodium 500 MG Oral Tablet Delayed Release (Depakote DR), Take 1 Tablet by mouth in the morning and 1 Tablet at noon and 1 Tablet before bedtime., Disp: 90 Tablet, Rfl: 3 Acetaminophen 325 MG Oral Tablet (Tylenol), Take 2 Tablets by mouth every 6 hours as needed for mild pain., Disp: 63 Tablet, Rfl: 0 Docusate Sodium 100 MG Oral Capsule (Colace), Take 1 Capsule by mouth in the morning and 1 Capsule before bedtime. (Patient not taking: Reported on 01/14/2024), Disp: 60 Capsule, Rfl: 0 oxyCODONE HCl 5 MG Oral Tablet (Oxy IR), Take 1 Tablet by mouth every 4 hours as needed for severe pain. (Patient not taking: Reported on 01/14/2024), Disp: 30 Tablet, Rfl: 0 PEG 3350 17 GM/SCOOP Oral Powder, Take 34 g (two capfuls) by mouth in the morning and 34 g (two capfuls) before bedtime. Mix in liquid as directed on bottle. (Patient not taking: Reported on 01/14/2024), Disp: 510 g, Rfl: 1 ALLERGIES: Adhesive tape VITALS: There were no vitals taken for this visit. Ministerio Dai Neurosurgery This document was dictated using voice recognition software. Please excuse any errors. documented in this encounter Plan of Treatment Upcoming Encounters Date Type Department Care Team (Late st Contact Info) Description 05/31/2024 4:20 PM EDT Office Visit Neurology [facility] [address] [facility] [place] [address] Thomas Garrett, [address] [facility] [place] [address] Health Maintenance Due Date Last Done Comments [...] this encounter Medical Devices Implanted Type Area Acid Cleaner Device Identifier Shelf Expiration Date Model / Serial / Lot Graft Mesh Duragen Pl 4.0x5in - [id number] - [id number] Implanted:Qty : 1 on 09/14/2023 by Ministerio Graham MD [place] [facility] Head [employer] [id number] 09/08/2025 [id number] / [id number] / [id number] Graft Mesh Duragen Pl 4.0x5in - [id number] - [id number] Implanted:Qty : 1 on 09/14/2023 by Ministerio Graham MD at [place] [facility] Head [employer] [id number] 01/06/2026 [id number] / [id number] / [id number] Cover Elberta Hole 24mm 421.528 - [id number] Implanted:Qty : 2 on 01/04/2024 by Ministerio Graham MD at [place] [facility] Right: Head [employer] 421.528 / / Description:from set Cover Bur Hol Ti Lo 17 421.527 - [id number] Implanted:Qty : 1 on 01/04/2024 by Ministerio Graham MD at [place] [facility] Right: Head [employer] 421.527 / / Description:from set Plate Ti Lo Pro Str 4h 421.504 - [id number] Implanted:Qty : 1 on 01/04/2024 by Ministerio Graham MD at [place] [facility] Right: Head [employer] 421.504 / / Description:from set Screw Ti Lo Pro Sd 4mm 400.834 - [id number] Implanted:Qty : 27 on 01/04/2024 by Ministerio Graham MD at [place] [facility] Right: Head [employer] 400.834 / / Mesh Plate 1.6mm 17d12hz .4mm - [id number] Implanted:Qty : 1 on 01/04/2024 by Ministerio Graham MD at [place] [facility] Right: Head [employer] 421.532 / / Description:from set [facility] Malleable Plates, Mastoid Medium Implanted:Qty : 1 on 01/04/2024 by Ministerio Graham MD at [place] [facility] Right: Head 421.547 / / Description:from set documented as of this encounter Visit Diagnoses Diagnosis Traumatic brain injury with loss of consciousness, subsequent encounter- Primary documented in this encounter Advance Directives Latest [...] Advance Directives occurred with: Patient Care Teams Litigator Relationship Specialty Start Date End Date Power Beltran DO [address] [address] PCP - General Family Medicine 11/04/23 documented as of this encounter
--- OUTSIDE RECORDS SUMMARY | 2024-05-28 20:59 | External Medical Summary | Summary of Care ---
Author Name Unknown Organization [facility] Address [address] [place] [address] Phone [phone] Care Team Providers Care Pasteurizer Helper Name Role Phone Power Beltran DO Primary Care Provider Reason for Visit * Reason Onset Date Comments Forms Request 02/19/2024 Gloria colorado Plan of Care Encounter Details Date Type Department Care Team (Late st Contact Info) Description 02/19/2024 Telephone [facility] [place] [address] [place] [address] Josue, Christ[place] No Resource [address] [place] [address] Forms Request (Gloria Quiñonez Plan [...] OSA - 03/30/2024 9:31 AM EDT Received [place] Plan of Care from [facility] on 03.30.24. Placed in providers bin for signature. * Telephone Encounter - Taylor Moon OSA - 03/28/2024 10:13 AM EDT Received [place] Plan of Care from [facility] on 03.28.24. Placed in providers bin for signature. * Telephone Encounter - Taylor Moon OSA - 03/21/2024 1:03 PM EDT Received [place] Plan of Care from [facility] on 03.21.24. Placed in providers bin for signature. * Telephone Encounter - Taylor Moon OSA - 03/18/2024 9:30 AM EDT Received [place] Plan of Care from [facility] on 03.18.24. Placed in providers bin for signature. * Telephone Encounter - Taylor Moon OSA - 03/09/2024 1:59 PM EDT D[place]er Plan of Care signed and faxed to [phone] on 03.09.24. Scanned into patients chart. * Telephone Encounter - Taylor Moon OSA - 03/09/2024 1:58 PM EDT D[place]er Plan of Care signed and faxed to [phone] on 03.09.24. Scanned into patients chart. * Telephone Encounter - Taylor Moon OSA - 03/04/2024 9:56 AM EDT Received [place] Plan of Care from [facility] on 03.04.24. Placed in providers bin for signature * Telephone Encounter - Taylor Moon OSA - 03/03/2024 3:26 PM EDT Final Khang Plan of Care signed and faxed to [phone] on 03.03.24. Scanned into patients chart. * Telephone Encounter - Taylor Mono OSA - 02/25/2024 3:06 PM EDT Received [place] Plan of Care from [facility] on 02.25.24. Placed in providers bin for signature. * Telephone Encounter - Taylor Moon OSA - 02/19/2024 9:00 AM EDT Received [place] Plan of Care from [facility] on 02.19.24. Placed in providers bin for signature. documented in this encounter Plan of Treatment Upcoming Encounters Date Type Department Care Team (Late st Contact Info) Description 05/31/2024 4:20 PM EDT [facility] [address] [place] [address] Thomas Garrett, [address] [place] [address] Health Maintenance Due Date Last Done Comments [...] this encounter Medical Devices Implanted Type Area Pantomimist Device Identifier Shelf Expiration Date Model / Serial / Lot Graft Mesh Duragen Pl 4.0x5in - [id number] - [id number] Implanted:Qty : 1 on 09/14/2023 by Ministerio Graham MD at OR [facility] Head [employer] [id number] 09/08/2025 [id number] / [id number] / [id number] Graft Mesh Duragen Pl 4.0x5in - [id number] - [id number] Implanted:Qty : 1 on 09/14/2023 by Ministerio Graham MD at OR [facility] Head [employer] [id number] 01/06/2026 [id number] / [id number] / [id number] Cover Brunilda Hole 24mm 421.528 - [id number] Implanted:Qty : 2 on 01/04/2024 by Ministerio Graham MD at OR [facility] Right: Head [employer]ES [employer] 421.528 / / Description:from set Cover Bur Hol Ti Lo 17 421.527 - [id number] Implanted:Qty : 1 on 01/04/2024 by Ministerio Graham MD at OR [facility] Right: Head [employer]ES [employer]ILL[employer] 421.527 / / Description:from set Plate Ti Lo Pro Str 4h 421.504 - [id number] Implanted:Qty : 1 on 01/04/2024 by Ministerio Graham MD at OR [facility] Right: Head [employer]ES [employer]ILL[employer] 421.504 / / Description:from set Screw Ti Lo Pro Sd 4mm 400.834 - [id number] Implanted:Qty : 27 on 01/04/2024 by Ministerio Graham MD at OR [facility] Right: Head [employer] 400.834 / / Mesh Plate 1.6mm 56f78by .4mm - [id number] Implanted:Qty : 1 on 01/04/2024 by Ministerio Graham MD at OR [facility] Right: Head [employer] 421.532 / / Description:from set [employer] Cmf Malleable Plates, Mastoid Medium Implanted:Qty : 1 on 01/04/2024 by Ministerio Graham MD at OR [facility] Right: Head 421.547 / / Description:from set [...] Advance Directives occurred with: Patient Care Teams Pasteurizer Helper Relationship Specialty Start Date End Date Power Beltran DO [address] [place] [address] PCP - General Family Medicine 11/04/23 documented as of this encounter
--- OUTSIDE RECORDS SUMMARY | 2024-05-28 20:59 | External Medical Summary | Summary of Care ---
Author Name Unknown Organization [facility] Address [address] [place] [address] Phone [phone] Care Team Providers Care Fly Winder Name Role Phone Power Beltran DO Primary Care Provider Reason for Visit * Reason Onset Date Comments Forms Request 02/19/2024 Gloria colorado Plan of Care Encounter Details Date Type Department Care Team (Late st Contact Info) Description 02/19/2024 Telephone [facility] [place] [address] [place] [address] [place] No Resource [address] [place] [address] Forms Request (Gloria Quiñonez Plan of C... Allergies Active Allergy Reactions Criticality Noted Date Comments Adhesive Tape 08/12/2018 documented as of this encounter (statuses as of 03/28/2024) Medications Medication Sig Dispensed Refills Start Date [...] as of this encounter (statuses as of 03/28/2024) Active Problems Problem Noted Date Diagnosed Date [...] as of this encounter (statuses as of 03/28/2024) Social History Tobacco Use Types Packs/Day Years [...] OSA - 03/28/2024 10:13 AM EDT Received [place] Plan of Care from [facility] on 03.28.24. Placed in providers bin for signature. * Telephone Encounter - Taylor Moon OSA - 03/21/2024 1:03 PM EDT Received [place] Plan of Care from [facility] on 03.21.24. Placed in providers bin for signature. * Telephone Encounter - Taylor Moon OSA - 03/18/2024 9:30 AM EDT Received [place]er Plan of Care from [facility] on 03.18.24. Placed in providers bin for signature. * Telephone Encounter - Taylor Moon OSA - 03/09/2024 1:59 PM EDT Drayer Plan of Care signed and faxed to [phone] on 03.09.24. Scanned into patients chart. * Telephone Encounter - Taylor Moon OSA - 03/09/2024 1:58 PM EDT Drayer Plan of Care signed and faxed to [phone] on 03.09.24. Scanned into patients chart. * Telephone Encounter - Taylor Moon OSA - 03/04/2024 9:56 AM EDT Received [place] Plan of Care from [facility] on 03.04.24. Placed in providers bin for signature * Telephone Encounter - Taylor Moon OSA - 03/03/2024 3:26 PM EDT Final Drayer Plan of Care signed and faxed to [phone] on 03.03.24. Scanned into patients chart. * Telephone Encounter - Taylor Moon OSA - 02/25/2024 3:06 PM EDT Received K[place] Plan of Care from [facility] on 02.25.24. Placed in providers bin for signature. * Telephone Encounter - Taylor Moon OSA - 02/19/2024 9:00 AM EDT Received K[place] Plan of Care from [facility] on 02.19.24. Placed in providers bin for signature. documented in this encounter Plan of Treatment Upcoming Encounters Date Type Department Care Team (Late st Contact Info) Description 05/31/2024 4:20 PM EDT Office Visit Neurology [place] [address] [facility] [place] [address] Thomas Garrett, [address] [facility] [place] [address] Health Maintenance Due Date Last Done Comments [...] this encounter Medical Devices Implanted Type Area Grain Sampler Device Identifier Shelf Expiration Date Model / Serial / Lot Graft Mesh Duragen Pl 4.0x5in - [id number] - [id number] Implanted:Qty : 1 on 09/14/2023 by Ministerio Graham MD [place] [facility] Head [employer] [id number] 09/08/2025 [id number] / [id number] / [id number] Graft Mesh Duragen Pl 4.0x5in - [id number] - [id number] Implanted:Qty : 1 on 09/14/2023 by Ministerio Graham MD [place] [facility] Head [employer] [id number] 01/06/2026 [id number] / [id number] / [id number] Cover Brunilda Hole 24mm 421.528 - [id number] Implanted:Qty : 2 on 01/04/2024 by Ministerio Graham MD at [place] [facility] Right: Head [employer] 421.528 / / Description:from set Cover Bur Hol Ti Lo 17 421.527 - [id number] Implanted:Qty : 1 on 01/04/2024 by Ministerio Graham MD at [place] [facility] Right: Head [employer]ES [employer] 421.527 / / Description:from set Plate Ti Lo Pro Str 4h 421.504 - [id number] Implanted:Qty : 1 on 01/04/2024 by Ministerio Graham MD [place] [facility] Right: Head [employer]ES [employer] 421.504 / / Description:from set Screw Ti Lo Pro Sd 4mm 400.834 - [id number] Implanted:Qty : 27 on 01/04/2024 by Ministerio Graham MD at [place] [facility] Right: Head [employer] 400.834 / / Mesh Plate 1.6mm 40k16br .4mm - [id number] Implanted:Qty : 1 on 01/04/2024 by Ministerio rGaham MD at [place] [facility] Right: Head [employer] 421.532 / / Description:from set Synthe[employer] Cmf Malleable Plates, Mastoid Medium Implanted:Qty : 1 on 01/04/2024 by Ministerio Graham MD [place] [facility] Right: Head 421.547 / / Description:from set [...] Advance Directives occurred with: Patient Care Teams Fly Winder Relationship Specialty Start Date End Date Power Beltran DO [address] [place] [address] PCP - General Family Medicine 11/04/23 documented as of this encounter
--- OUTSIDE RECORDS SUMMARY | 2024-05-28 20:59 | External Medical Summary | Summary of Care ---
Author Name Unknown Organization [facility] Address [address] [facility] [place] [address] Phone [phone] Care Team Providers Care Creosoting Engineer Name Role Phone Power Beltran DO Primary Care Provider Reason for Visit * Reason Onset Date Comments Medication Question 02/08/2024 Encounter Details Date Type Department Care Team (Late st Contact Info) Description 02/08/2024 Telephone Neurology [facility] [address] [place] [address] Beti To PA-C [address] [place] [address] Medication Question Allergies Active Allergy Reactions Criticality Noted Date [...] before bedtime. 60 Tablet 3 02/08/2024 Active levETIRAcetam 1000 MG Oral Tablet Take 1 Tablet by mouth in the morning and 1 Tablet before bedtime. 0 12/02/2023 Discontinue d(Refill) documented as of this encounter [...] encounter Miscellaneous Notes * Telephone Encounter - Bernie Gamez PHARM Tech - 02/08/2024 12:03 PM EDT Pt going to pharmacy today to get depakote filled and would like to get both Medication(s) is/are listed as "Historical". Pt confirmed the current dosage, directions, and qty that they are normally prescribed, as reflected in the pending order below. This is also indicated from encounter on 01/18/24. Confirmed patient has been seen within the last year.. Please review and approve if appropriate. Pending Prescriptions: Disp Refills levETIRAcetam 1000 MG Oral Tablet 60 Tab*3 Sig: Take 1 Tablet by mouth in the morning and 1 Tablet before bedtime. Last Visit: 01/14/2024 (in office), 11/27/2023 (telemedicine) Next Visit: 05/31/2024 If no future appointments scheduled, and last appointment is greater than a year ago, please schedule patient for a follow-up appointment Last date the medication was ordered: Historical Patient Phone Numbers Labs: Lab Results Component Value Date/Time CREAT 0.8 01/07/2024 05:59 AM POTASSIUM 4.0 01/07/2024 05:59 AM ALT 25 01/04/2024 12:48 PM documented in this encounter Plan of Treatment Upcoming Encounters Date Type Department Care Team (Late st Contact Info) Description 03/01/2024 1:30 PM EDT Office Visit Neurosurgery, [place] [address] [place] [address] Ministerio Graham MD [address] [place] [address] 05/31/2024 4:20 PM EDT Office Visit [facility] [address] [facility] [place] [address] Thomas Garrett, [address] [facility] [place] [address] Health Maintenance Due Date Last Done Comments [...] this encounter Medical Devices Implanted Type Area Storm Chaser Device Identifier Shelf Expiration Date Model / Serial / Lot Graft Mesh Duragen Pl 4.0x5in - [id number] - [id number] Implanted:Qty : 1 on 09/14/2023 by Ministerio Graham MD at [place] [facility] Head [employer] [id number] 09/08/2025 [id number] / [id number] / [id number] Graft Mesh Duragen Pl 4.0x5in - [id number] - [id number] Implanted:Qty : 1 on 09/14/2023 by Ministerio Graham MD at OR [facility] Head [employer] [id number] 01/06/2026 [id number] / [id number] / [id number] Cover Brunilda Hole 24mm 421.528 - [id number] Implanted:Qty : 2 on 01/04/2024 by Ministerio Graham MD at OR [facility] Right: Head [employer] 421.528 / / Description:from set Cover Bur Hol Ti Lo 17 421.527 - [id number] Implanted:Qty : 1 on 01/04/2024 by Ministerio Graham MD at [place] [facility] Right: Head [employer]ES [employer] 421.527 / / Description:from set Plate Ti Lo Pro Str 4h 421.504 - [id number] Implanted:Qty : 1 on 01/04/2024 by Ministerio Graham MD at [place] [facility] Right: Head [employer] 421.504 / / Description:from set Screw Ti Lo Pro Sd 4mm 400.834 - [id number] Implanted:Qty : 27 on 01/04/2024 by Ministerio Graham MD at OR [facility] Right: Head [employer] 400.834 / / Mesh Plate 1.6mm 82b77qd .4mm - [id number] Implanted:Qty : 1 on 01/04/2024 by Ministerio Graham MD at [place] [facility] Right: Head [employer] 421.532 / / Description:from set Synthes Cmf Malleable Plates, Mastoid Medium Implanted:Qty : 1 on 01/04/2024 by Ministerio Graham MD at [place] [facility] Right: Head 421.547 / / [...] Advance Directives occurred with: Patient Care Teams Creosoting Engineer Relationship Specialty Start Date End Date Power Beltran DO [address] [place] [address] PCP - General Family Medicine 11/04/23 documented as of this encounter
--- OUTSIDE RECORDS SUMMARY | 2024-05-28 20:59 | External Medical Summary | Summary of Care ---
Author Name Unknown Organization [facility] Address [address] [facility] [place] [address] Phone [phone] Care Team Providers Care Stockbroker Name Role Phone Power Beltran DO Primary Care Provider Reason for Visit * Reason Onset Date Comments Medication Refill 03/21/2024 Encounter Details Date Type Department Care Team (Late st Contact Info) Description 03/21/2024 Refill Neurology [facility] [address] [place] [address] Alexis Meraz PA-C [address] [place] [address] Allergies Active Allergy Reactions Criticality Noted Date Comments Adhesive Tape 08/12/2018 documented as of this encounter (statuses as of 03/21/2024) Medications Medication Sig Dispensed Refills Start Date [...] Tablet before bedtime. 90 Tablet 3 03/21/2024 Active levETIRAcetam 1000 MG Oral Tablet Take [...] 1 Tablet before bedtime. 60 Tablet 3 03/03/2024 4 Discontinue d(Refill) documented as of this encounter (statuses as of 03/21/2024) Active Problems Problem Noted Date Diagnosed Date [...] as of this encounter (statuses as of 03/21/2024) Social History Tobacco Use Types Packs/Day Years [...] encounter Miscellaneous Notes * Telephone Encounter - Alexis Meraz PA-C - 03/21/2024 1:46 PM EDT Signed Prescriptions: Disp Refills Divalproex Sodium 500 MG Oral Tablet Delay*90 Tab*3 Sig: Take 1 Tablet by mouth in the morning and 1 Tablet at noon and 1 Tablet before bedtime. Authorizing Provider: ALEXIS MERAZ levETIRAcetam 1000 MG Oral Tablet 60 Tab*3 Sig: Take 1 Tablet by mouth in the morning and 1 Tablet before bedtime. Authoriz ing Provider: ALEXIS MERAZ * Telephone Encounter - Marifer Reaves [employer] - 03/21/2024 1:26 PM EDT Pending Prescriptions: Disp Refills Divalproex Sodium 500 MG Oral Tablet Delay*90 Tab*3 Sig: Take 1Tablet by mouth in the morning and 1 Tablet at noon and 1 Tablet before bedtime. levETIRAcetam 1000MG Oral Tablet 60 Tab*3 Sig: Take 1 Tablet by mouth in the morning and 1 Tablet before bedtime.----- documented in this encounter Plan of Treatment Upcoming Encounters Date Type Department Care Team (Late st Contact Info) Description 05/31/2024 4:20 PM EDT Office Visit Neurology [place] [address] [place] [address] Thomas Garrett DO [address] [place] [address] Health Maintenance Due Date Last Done Comments [...] this encounter Medical Devices Implanted Type Area Simulation Technician Device Identifier Shelf Expiration Date Model / Serial / Lot Graft Mesh Duragen Pl 4.0x5in - [id number] - [id number] Implanted:Qty : 1 on 09/14/2023 by Ministerio Graham MD at [place] [facility] [place] Head [employer] [id number] 09/08/2025 [id number] / [id number] / [id number] Graft Mesh Duragen Pl 4.0x5in - [id number] - [id number] Implanted:Qty : 1 on 09/14/2023 by Ministerio Graham MD at [place] [facility] [place] Head [employer] [id number] 01/06/2026 [id number] / [id number] / [id number] Cover Brea Hole 24mm 421.528 - [id number] Implanted:Qty : 2 on 01/04/2024 by Ministerio Graham MD at [place] [facility] [place] Right: Head [employer] 421.528 / / Description:from set Cover Bur Hol Ti Lo 17 421.527 - [id number] Implanted:Qty : 1 on 01/04/2024 by Ministerio Graham MD at [place] [facility] [place] Right: Head [employer] 421.527 / / Description:from set Plate Ti Lo Pro Str 4h 421.504 - [id number] Implanted:Qty : 1 on 01/04/2024 by Ministerio Graham MD at [place] [facility] [place] Right: Head [employer] 421.504 / / Description:from set Screw Ti Lo Pro Sd 4mm 400.834 - [id number] Implanted:Qty : 27 on 01/04/2024 by Ministerio Graham MD at [place] [facility] [place] Right: Head [employer] 400.834 / / Mesh Plate 1.6mm [id number] .4mm - [id number] Implanted:Qty : 1 on 01/04/2024 by Ministerio [...] Advance Directives occurred with: Patient Care Teams Stockbroker Relationship Specialty Start Date End Date Power Beltran DO [address] [address] PCP - General Family Medicine 11/04/23 documented as of this encounter
--- OUTSIDE RECORDS SUMMARY | 2024-05-28 20:59 | External Medical Summary | Summary of Care ---
Author Name Unknown Organization [facility] Address [address] [place] [address] Phone [phone] Care Team Providers Care Automotive Sales Representative Name Role Phone Power Beltran DO Primary Care Provider Reason for Visit * Reason Onset Date Comments Forms Request 02/19/2024 Gloria colorado Plan of Care Encounter Details Date Type Department Care Team (Late st Contact Info) Description 02/19/2024 Telephone [facility] [place] [address] [place] [address] [place] No Resource [address] [place] [address] Forms Request (Gloria Quiñonez Plan of C... Allergies Active Allergy Reactions Criticality Noted Date Comments Adhesive Tape 08/12/2018 documented as of this encounter (statuses as of 03/18/2024) Medications Medication Sig Dispensed Refills Start Date [...] as of this encounter (statuses as of 03/18/2024) Active Problems Problem Noted Date Diagnosed Date [...] as of this encounter (statuses as of 03/18/2024) Social History Tobacco Use Types Packs/Day Years [...] OSA - 03/18/2024 9:30 AM EDT Received [place]hang Plan of Care from [facility] on 03.18.24. Placed in providers bin for signature. * Telephone Encounter - Taylor Moon OSA - 03/09/2024 1:59 PM EDT Khang Plan of Care signed and faxed to [phone] on 03.09.24. Scanned into patients chart. * Telephone Encounter - Taylor Moon OSA - 03/09/2024 1:58 PM EDT Drayer Plan of Care signed and faxed to [phone] on 03.09.24. Scanned into patients chart. * Telephone Encounter - Taylor Moon OSA - 03/04/2024 9:56 AM EDT Received [place]er Plan of Care from [facility] on 03.04.24. Placed in providers bin for signature * Telephone Encounter - Taylor Moon OSA - 03/03/2024 3:26 PM EDT Final Drayer Plan of Care signed and faxed to [phone] on 03.03.24. Scanned into patients chart. * Telephone Encounter - Taylor Moon OSA - 02/25/2024 3:06 PM EDT Received Drayer Plan of Care from [facility] on 02.25.24. Placed in providers bin for signature. * Telephone Encounter - Taylor Moon OSA - 02/19/2024 9:00 AM EDT Received D[place]er Plan of Care from [facility] on 02.19.24. Placed in providers bin for signature. documented in this encounter Plan of Treatment Upcoming Encounters Date Type Department Care Team (Late st Contact Info) Description 05/31/2024 4:20 PM EDT Office Visit Neurology [place] Ju[place] [address] [facility] [place] [address] Thomas Garrett, [address] [facility] [place] [address] Health Maintenance Due Date Last Done Comments [...] this encounter Medical Devices Implanted Type Area Cheesemaking Laborer Device Identifier Shelf Expiration Date Model / Serial / Lot Graft Mesh Duragen Pl 4.0x5in - [id number] - [id number] Implanted:Qty : 1 on 09/14/2023 by Ministerio Graham MD [place] [facility] [place] [employer] [id number] 09/08/2025 [id number] / [id number] / [id number] Graft Mesh Duragen Pl 4.0x5in - [id number] - [id number] Implanted:Qty : 1 on 09/14/2023 by Ministerio Graham MD at [place] [facility] [place] [employer] [id number] 01/06/2026 [id number] / [id number] / [id number] Cover [place] Hole 24mm 421.528 - [id number] Implanted:Qty : 2 on 01/04/2024 by Ministerio Graham MD at [place] [facility] [place]: Head [employer] 421.528 / / Description:from set Cover Bur Hol Ti Lo 17 421.527 - [id number] Implanted:Qty : 1 on 01/04/2024 by Ministerio Graham MD [place] [facility] [place]: Head [employer] 421.527 / / Description:from set Plate Ti Lo Pro Str 4h 421.504 - [id number] Implanted:Qty : 1 on 01/04/2024 by Ministerio Graham MD at [place] [facility] [place]: Head [employer] 421.504 / / Description:from set Screw Ti Lo Pro Sd 4mm 400.834 - [id number] Implanted:Qty : 27 on 01/04/2024 by Ministerio Graham MD at [place] [facility] [place]: Head [employer] 400.834 / / Mesh Plate 1.6mm [id number] .4mm - [id number] Implanted:Qty : 1 on 01/04/2024 by Ministerio [...] Advance Directives occurred with: Patient Care Teams Automotive Sales Representative Relationship Specialty Start Date End Date Power Beltran DO [address] [place] [address] PCP - General Family Medicine 11/04/23 documented as of this encounter
--- OUTSIDE RECORDS SUMMARY | 2024-05-28 20:59 | External Medical Summary | Summary of Care ---
Author Name Unknown Organization [facility] Address [address] [place] [address] Phone [phone] Care Team Providers Care Airplane Patroller Name Role Phone Power Beltran DO Primary Care Provider Reason for Visit * Reason Onset Date Comments Forms Request 02/19/2024 Gloria colorado Plan of Care Encounter Details Date Type Department Care Team (Late st Contact Info) Description 02/19/2024 Telephone [facility] [place] [address] [place] [address] [place] No Resource [address] [place] [address] Forms Request (Gloria Quiñonez Plan [...] Moon OSA - 03/30/2024 10:32 AM EDT Khang Plan of Care signed and faxed to [phone] on 03.30.24. Scanned into patients chart * Telephone Encounter - Taylor Moon OSA - 03/30/2024 9:44 AM EDT Received [place]er Plan of Care from [facility] on 03.30.24. Placed in providers bin for signature. * Telephone Encounter - Taylor Moon OSA - 03/30/2024 9:31 AM EDT Received Drayer Plan of Care from [facility] on 03.30.24. Placed in providers bin for signature. * Telephone Encounter - Taylor Moon OSA - 03/28/2024 10:13 AM EDT Received Drayer Plan of Care from [facility] on 03.28.24. Placed in providers bin for signature. * Telephone Encounter - Taylor Moon OSA - 03/21/2024 1:03 PM EDT Received Drayer Plan of Care from [facility] on 03.21.24. Placed in providers bin for signature. * Telephone Encounter - Taylor Moon OSA - 03/18/2024 9:30 AM EDT Received Drayer Plan of Care from [facility] on 03.18.24. Placed in providers bin for signature. * Telephone Encounter - Taylor Moon OSA - 03/09/2024 1:59 PM EDT Drayer Plan of Care signed and faxed to [phone] on 03.09.24. Scanned into patients chart. * Telephone Encounter - Taylor Moon OSA - 03/09/2024 1:58 PM EDT [place] Plan of Care signed and faxed to [phone] on 03.09.24. Scanned into patients chart. * Telephone Encounter - Taylor Moon OSA - 03/04/2024 9:56 AM EDT Received Khang Plan of Care from [facility] on 03.04.24. Placed in providers bin for signature * Telephone Encounter - Taylor Moon OSA - 03/03/2024 3:26 PM EDT Final [place] Plan of Care signed and faxed to [phone] on 03.03.24. Scanned into patients chart. * Telephone Encounter - Taylor Moon OSA - 02/25/2024 3:06 PM EDT Received Khang Plan of Care from [facility] on 02.25.24. Placed in providers bin for signature. * Telephone Encounter - Taylor Moon OSA - 02/19/2024 9:00 AM EDT Received Khang Plan of Care from [facility] on 02.19.24. Placed in providers bin for signature. documented in this encounter Plan of Treatment Upcoming Encounters Date Type Department Care Team (Late st Contact Info) Description 05/31/2024 4:20 PM EDT Office Visit Neurology [place] [address] [facility] [place] [address] Thomas Garrett, DO [address] [place] [address] Health Maintenance Due Date Last Done Comments [...] this encounter Medical Devices Implanted Type Area Ship'S Master Device Identifier Shelf Expiration Date Model / Serial / Lot Graft Mesh Duragen Pl 4.0x5in - [id number] - [id number] Implanted:Qty : 1 on 09/14/2023 by Ministerio Graham [place] [facility] [place] [employer] [id number] 09/08/2025 [id number] / [id number] / [id number] Graft Mesh Duragen Pl 4.0x5in - [id number] - [id number] Implanted:Qty : 1 on 09/14/2023 by Ministerio Graham MD [place] [facility] [place] [employer] [id number] 01/06/2026 [id number] / [id number] / [id number] Cover Brunilda Hole 24mm 421.528 - [id number] Implanted:Qty : 2 on 01/04/2024 by Ministerio Graham [place] [facility] [place]: Head [employer] 421.528 / / Description:from set Cover Bur Hol Ti Lo 17 421.527 - [id number] Implanted:Qty : 1 on 01/04/2024 by Ministerio Graham [place] [facility] [place]: Head [employer] 421.527 / / Description:from set Plate Ti Lo Pro Str 4h 421.504 - [id number] Implanted:Qty : 1 on 01/04/2024 by Ministerio Graham [place] [facility] [place]: Head [employer] 421.504 / / Description:from set Screw Ti Lo Pro Sd 4mm 400.834 - [id number] Implanted:Qty : 27 on 01/04/2024 by Ministerio Graham [place] [facility] [place]: Head [employer] 400.834 / / Mesh Plate 1.6mm [id number] .4mm - [id number] Implanted:Qty : 1 on 01/04/2024 by Ministerio Graham [place] [facility] [place]: Head [employer] 421.532 / / Description:from set Synthes Cmf Malleable Plates, Mastoid Medium Implanted:Qty : 1 on 01/04/2024 by Ministerio Graham [place] [facility] [place]: Head 421.547 / / Description:from set [...] Advance Directives occurred with: Patient Care Teams Airplane Patroller Relationship Specialty Start Date End Date Power Beltran DO [address] [place] [address] PCP - General Family Medicine 11/04/23 documented as of this encounter
--- OUTSIDE RECORDS SUMMARY | 2024-05-28 20:59 | External Medical Summary | Summary of Care ---
Author Name Unknown Organization [facility] Address [address] [place] [address] Phone [phone] Care Team Providers Care Coal Screener Name Role Phone Power Beltran DO Primary Care Provider Reason for Visit * Reason Onset Date Comments Forms Request 02/19/2024 Gloria colorado Plan of Care Encounter Details Date Type Department Care Team (Late st Contact Info) Description 02/19/2024 Telephone [facility] [place] [address] [place] [address] [place] No Resource [address] [place] [address] Forms Request (Gloria Quiñonez Plan of C... Allergies Active Allergy Reactions Criticality Noted Date Comments Adhesive Tape 08/12/2018 documented as of this encounter (statuses as of 02/19/2024) Medications Medication Sig Dispensed Refills Start Date [...] as of this encounter (statuses as of 02/19/2024) Active Problems Problem Noted Date Diagnosed Date [...] as of this encounter (statuses as of 02/19/2024) Social History Tobacco Use Types Packs/Day Years [...] Plan of Care from [facility] on 02.19.24. Placed in providers bin for signature. documented in this encounter Plan of Treatment Upcoming Encounters Date Type Department Care Team (Late st Contact Info) Description 03/01/2024 1:30 PM EDT Office Visit [address] [address] Ministerio Graham MD [address] [place] [address] 05/31/2024 4:20 PM EDT Office Visit Neurology Geo Mcgregor [place] [address] [place] [address] Thomas Garrett, [address] [facility] [place] [address] Health Maintenance Due Date Last Done Comments [...] this encounter Medical Devices Implanted Type Area Workers' Compensation Hearings Officer Device Identifier Shelf Expiration Date Model / Serial / Lot Graft Mesh Duragen Pl 4.0x5in - [id number] - [id number] Implanted:Qty : 1 on 09/14/2023 by Ministerio Graham MD at [place] [facility] [place] [employer] [id number] 09/08/2025 [id number] / [id number] / [id number] Graft Mesh Duragen [address] 4.0x5in - [id number] - [id number] Implanted:Qty : 1 on 09/14/2023 by Ministerio Graham MD at [place] [facility] [place] Head [employer] [id number] 01/06/2026 [id number] / [id number] / [id number] Cover Brunilda Hole 24mm 421.528 - [id number] Implanted:Qty : 2 on 01/04/2024 by Ministerio Graham MD at [place] [facility] [place] Right: Head [employer]ES [employer]ILL[employer] 421.528 / / Description:from set Cover Bur Hol Ti Lo 17 421.527 - [id number] Implanted:Qty : 1 on 01/04/2024 by Ministerio Graham MD at [place] [facility] [place] Right: Head [employer]ES [employer]ILL[employer] 421.527 / / Description:from set Plate Ti Lo Pro Str 4h 421.504 - [id number] Implanted:Qty : 1 on 01/04/2024 by Ministerio Graham MD at [place] [facility] [place] Right: Head [employer]ES [employer]ILL[employer] 421.504 / / Description:from set Screw Ti Lo Pro Sd 4mm 400.834 - [id number] Implanted:Qty : 27 on 01/04/2024 by Ministerio Graham MD at [place] [facility] [place] Right: Head [employer]ES [employer]ILL[employer] 400.834 / / Mesh Plate 1.6mm [id number] .4mm - [id number] Implanted:Qty : 1 on 01/04/2024 by Ministerio Graham MD at [place] [facility] [place] Right: Head [employer] 421.532 / / Description:from set Synthes Cmf Malleable Plates, Mastoid Medium Implanted:Qty : 1 on 01/04/2024 by Ministerio Graham MD at [place] [facility] [place] Right: Head 421.547 [...] Advance Directives occurred with: Patient Care Teams Coal Screener Relationship Specialty Start Date End Date Power Beltran DO [address] [place] [address] PCP - General Family Medicine 11/04/23 documented as of this encounter
--- OUTSIDE RECORDS SUMMARY | 2024-05-28 20:59 | External Medical Summary | Summary of Care ---
Author Name Unknown Organization [facility] Address [address] [place] [address] Phone [phone] Care Team Providers Care Cotton Ginner Name Role Phone Power Beltran DO Primary Care Provider Reason for Visit * Reason Onset Date Comments Forms Request 02/19/2024 Gloria colorado Plan of Care Encounter Details Date Type Department Care Team (Late st Contact Info) Description 02/19/[address] [facility] [place] [address] [place] [address] [place] No Resource [address] [place] [address] Forms Request (Gloria Quiñonez Plan [...] OSA - 03/30/2024 9:44 AM EDT Received Khang Plan of Care from [facility] on 03.30.24. Placed in providers bin for signature. * Telephone Encounter - Taylor Moon OSA - 03/30/2024 9:31 AM EDT Received Drayer Plan of Care from [facility] on 03.30.24. Placed in providers bin for signature. * Telephone Encounter - Taylor Moon OSA - 03/28/2024 10:13 AM EDT Received Drayer Plan of Care from [facility] on 03.28.24. Placed in providers bin for signature. * Telephone Encounter - Taylor Moon OSA - 03/21/2024 1:03 PM EDT Received Drayer Plan of Care from [facility] on 03.21.24. Placed in providers bin for signature. * Telephone Encounter - Taylor Moon OSA - 03/18/2024 9:30 AM EDT Received Drayer Plan of Care from [facility] on 03.18.24. Placed in providers bin for signature. * Telephone Encounter - Taylor Moon OSA - 03/09/2024 1:59 PM EDT Drayer Plan of Care signed and faxed to [phone] on 03.09.24. Scanned into patients chart. * Telephone Encounter - Taylor Moon OSA - 03/09/2024 1:58 PM EDT Drayer Plan of Care signed and faxed to [phone] on 03.09.24. Scanned into patients chart. * Telephone Encounter - Taylor Moon OSA - 03/04/2024 9:56 AM EDT Received Khang Plan of Care from [facility] on 03.04.24. Placed in providers bin for signature * Telephone Encounter - Taylor Moon OSA - 03/03/2024 3:26 PM EDT Final Khang Plan of Care signed and faxed to [phone] on 03.03.24. Scanned into patients chart. * Telephone Encounter - Taylor Moon OSA - 02/25/2024 3:06 PM EDT Received Khang Plan of Care from [facility] on 02.25.24. Placed in providers bin for signature. * Telephone Encounter - Taylor Moon OSA - 02/19/2024 9:00 AM EDT Received Khang Plan of Care from [facility] on 02.19.24. Placed in providers bin for signature. documented in this encounter Plan of Treatment Upcoming Encounters Date Type Department Care Team (Late st Contact Info) Description 05/31/2024 4:20 PM EDT Office Visit Neurology State Tobin Juarez [address] [facility] [place] [address] Thomas Garrett, [address] [facility] [place] [address] Health Maintenance Due Date Last Done Comments [...] this encounter Medical Devices Implanted Type Area Enterprise Business Architect Device Identifier Shelf Expiration Date Model / Serial / Lot Graft Mesh Duragen Pl 4.0x5in - [id number] - [id number] Implanted:Qty : 1 on 09/14/2023 by Ministerio Graham [place] [facility] [place] [employer] [id number] 09/08/2025 [id number] / [id number] / [id number] Graft Mesh Duragen Pl 4.0x5in - [id number] - [id number] Implanted:Qty : 1 on 09/14/2023 by Ministerio Graham MD [place] [facility] [place] [employer] [id number] 01/06/2026 [id number] / [id number] / [id number] Cover [place] Hole 24mm 421.528 - [id number] Implanted:Qty : 2 on 01/04/2024 by Ministerio Graham [place] [facility] [place] Head [employer]ES [employer] 421.528 / / Description:from set Cover Bur Hol Ti Lo 17 421.527 - [id number] Implanted:Qty : 1 on 01/04/2024 by Ministerio Graham [place] [facility] [place] Head [employer] 421.527 / / Description:from set Plate Ti Lo Pro Str 4h 421.504 - [id number] Implanted:Qty : 1 on 01/04/2024 by Ministerio Graham MD [place] [facility] [place]: Head [employer] 421.504 / / Description:from set Screw Ti Lo Pro Sd 4mm 400.834 - [id number] Implanted:Qty : 27 on 01/04/2024 by Ministerio Graham MD [place] [facility] [place] Head [employer] 400.834 / / Mesh Plate 1.6mm [id number] .4mm - [id number] Implanted:Qty : 1 on 01/04/2024 by Ministerio Graham MD [place] [facility] [place]: Head [employer] 421.532 / / Description:from set Synthes Cmf Malleable Plates, Mastoid Medium Implanted:Qty : 1 on 01/04/2024 by Ministerio Graham [place] [facility] [place]: Head 421.547 / / Description:from set [...] Advance Directives occurred with: Patient Care Teams Cotton Ginner Relationship Specialty Start Date End Date Power Beltran DO [address] [place] [address] PCP - General Family Medicine 11/04/23 documented as of this encounter
--- OUTSIDE RECORDS SUMMARY | 2024-05-28 20:59 | External Medical Summary | Summary of Care ---
Author Name Unknown Organization [facility] Address [address] [place] [address] Phone [phone] Care Team Providers Care Linoleum Tile Floor Layer Name Role Phone Power Beltran DO Primary Care Provider Reason for Visit * Reason Onset Date Comments Forms Request 02/19/2024 Gloria colorado Plan of Care Encounter Details Date Type Department Care Team (Late st Contact Info) Description 02/19/2024 Telephone [facility] [place] [address] [place] [address] [place] No Resource [address] [place] [address] Forms Request (Gloria Quiñonez Plan [...] OSA - 03/21/2024 1:03 PM EDT Received Khang Plan of Care from [facility] on 03.21.24. Placed in providers bin for signature. * Telephone Encounter - Taylor Moon OSA - 03/18/2024 9:30 AM EDT Received Khang Plan of Care from [facility] on 03.18.24. Placed in providers bin for signature. * Telephone Encounter - Taylor Moon OSA - 03/09/2024 1:59 PM EDT Drayer Plan of Care signed and faxed to [phone] on 03.09.24. Scanned into patients chart. * Telephone Encounter - Taylor Moon OSA - 03/09/2024 1:58 PM EDT Drayer Plan of Care signed and faxed to [phone] on 03.09.24. Scanned into patients chart. * Telephone Encounter - Taylor Moon LATRICIA - 03/04/2024 9:56 AM EDT Received Drayer Plan of Care from [facility] on 03.04.24. Placed in providers bin for signature * Telephone Encounter - Taylor Moon OSA - 03/03/2024 3:26 PM EDT Final Drayer Plan of Care signed and faxed to [phone] on 03.03.24. Scanned into patients chart. * Telephone Encounter - Taylor Moon OSA - 02/25/2024 3:06 PM EDT Received Drayer Plan of Care from [facility] on 02.25.24. Placed in providers bin for signature. * Telephone Encounter - Taylor Moon OSA - 02/19/2024 9:00 AM EDT Received Khang Plan of Care from [facility] on 02.19.24. Placed in providers bin for signature. documented in this encounter Plan of Treatment Upcoming Encounters Date Type Department Care Team (Late st Contact Info) Description 05/31/2024 4:20 PM EDT Office Visit Neurology [facility] [address] [place] [address] Thomas Garrett, DO [address] [place] [address] Health Maintenance Due Date Last Done Comments [...] this encounter Medical Devices Implanted Type Area Software Project Manager Device Identifier Shelf Expiration Date Model / Serial / Lot Graft Mesh Duragen Pl 4.0x5in - [id number] - [id number] Implanted:Qty : 1 on 09/14/2023 by Ministerio Graham MD at [place] [facility] Head [employer] [id number] 09/08/2025 [id number] / [id number] / [id number] Graft Mesh Duragen Pl 4.0x5in - [id number] - [id number] Implanted:Qty : 1 on 09/14/2023 by Ministerio Graham MD at OR [facility] [place] Head [employer] [id number] 01/06/2026 [id number] / [id number] / [id number] Cover [place] Hole 24mm 421.528 - [id number] Implanted:Qty : 2 on 01/04/2024 by Ministerio Graham MD at OR [facility] Right: Head [employer] 421.528 / / Description:from set Cover Bur Hol Ti Lo 17 421.527 - [id number] Implanted:Qty : 1 on 01/04/2024 by Ministerio Graham MD at OR [facility] Right: Head [employer] 421.527 / / Description:from set Plate Ti Lo Pro Str 4h 421.504 - [id number] Implanted:Qty : 1 on 01/04/2024 by Ministerio Graham MD at OR [facility] Right: Head [employer] 421.504 / / Description:from set Screw Ti Lo Pro Sd 4mm 400.834 - [id number] Implanted:Qty : 27 on 01/04/2024 by Ministerio Graham MD at OR [facility] Right: Head [employer] 400.834 / / Mesh Plate 1.6mm [id number] .4mm - [id number] Implanted:Qty : 1 on 01/04/2024 by Ministerio Graham MD at OR [facility] Right: Head [employer] 421.532 / / Description:from set Synthes Cmf Malleable Plates, Mastoid Medium Implanted:Qty : 1 on 01/04/2024 by Ministerio Graham MD at OR [facility] Right: Head 421.547 / / Description:from set [...] Advance Directives occurred with: Patient Care Teams Linoleum Tile Floor Layer Relationship Specialty Start Date End Date Power Beltran DO [address] [place] [address] PCP - General Family Medicine 11/04/23 documented as of this encounter
--- OUTSIDE RECORDS SUMMARY | 2024-05-28 20:59 | External Medical Summary | Summary of Care ---
Author Name Unknown Organization [facility] Address [address] [facility] [place] [address] Phone [phone] Care Team Providers Care Celery Wrapper Name Role Phone Power Beltran DO Primary Care Provider Reason for Visit * Reason Onset Date Comments Other 02/08/2024 Encounter Details Date Type Department Care Team (Late st Contact Info) Description 02/08/2024 Telephone Neurology [facility] [address] [place] [address] Beti oT PA-C [address] [place] [address] Other Allergies Active Allergy Reactions Criticality Noted Date [...] encounter Miscellaneous Notes * Telephone Encounter - Allie August PHARM Tech - 02/08/2024 12:00 PM EDT Pt calling regarding Divalproex Sodium 500 MG and levETIRAcetam 1000 MG. Transferred to specialty. Thank you, Allie August, Employment Representative [facility] ([facility] (Formerly [facility]) 02/08/2024,12:01 PM documented in this encounter Plan of Treatment Upcoming Encounters Date Type Department Care Team (Late st Contact Info) Description 03/01/2024 1:30 PM EDT Office Visit Neurosurgery, [place] [address] [place] [address] Ministerio Graham MD [address] [place] [address] 05/31/2024 4:20 PM EDT Office Visit Neurology [facility] [address] [facility] [place] [address] Thomas Garrett, DO [address] [facility] [place] [address] Health Maintenance Due Date Last Done Comments [...] this encounter Medical Devices Implanted Type Area Construction Controller Device Identifier Shelf Expiration Date Model / Serial / Lot Graft Mesh Duragen Pl 4.0x5in - [id number] - [id number] Implanted:Qty : 1 on 09/14/2023 by Ministerio Graham MD [place] [facility] [place] [employer] [id number] 09/08/2025 [id number] / [id number] / [id number] Graft Mesh Duragen [address] 4.0x5in - [id number] - [id number] Implanted:Qty : 1 on 09/14/2023 by Ministerio Graham MD [place] [facility] [place] [employer] [id number] 01/06/2026 [id number] / [id number] / [id number] Cover [place] Hole 24mm 421.528 - [id number] Implanted:Qty : 2 on 01/04/2024 by Ministerio Graham MD [place] [facility] Right: Head [employer] 421.528 / / Description:from set Cover Bur Hol Ti Lo 17 421.527 - [id number] Implanted:Qty : 1 on 01/04/2024 by Ministerio Graham MD [place] [facility] [place]: Head [employer] 421.527 / / Description:from set Plate Ti Lo Pro Str 4h 421.504 - [id number] Implanted:Qty : 1 on 01/04/2024 by Ministerio Graham MD at [place] [facility] Right: Head [employer] 421.504 / / Description:from set Screw Ti Lo Pro Sd 4mm 400.834 - [id number] Implanted:Qty : 27 on 01/04/2024 by Ministerio Graham MD [place] [facility] [place]: Head [employer] 400.834 / / Mesh Plate 1.6mm [id number] .4mm - [id number] Implanted:Qty : 1 on 01/04/2024 by Ministerio Graham MD at [place] [facility] Right: Head [employer] 421.532 / / Description:from set Synthes Cmf Malleable Plates, Mastoid Medium Implanted:Qty : 1 on 01/04/2024 by Ministerio Graham MD [place] [facility] Right: Head 421.547 / / Description:from set [...] Advance Directives occurred with: Patient Care Teams Celery Wrapper Relationship Specialty Start Date End Date Power Beltran DO [address] [place] [address] PCP - General Family Medicine 11/04/23 documented as of this encounter
--- OUTSIDE RECORDS SUMMARY | 2024-05-28 20:59 | External Medical Summary | Summary of Care ---
Author Name Unknown Organization [facility] Address [address] [facility] [place] [address] Phone [phone] Care Team Providers Care Hadoop Java Developer Name Role Phone Power Beltran DO Primary Care Provider Reason for Visit * Reason Onset Date Comments Medication Refill 03/03/2024 Encounter Details Date Type Department Care Team (Late st Contact Info) Description 03/03/2024 Refill Neurology [facility] [address] [place] [address] Alexis Meraz PA-C [address] [place] [address] Allergies Active Allergy Reactions Criticality Noted Date [...] Tablet before bedtime. 60 Tablet 3 03/03/2024 Active levETIRAcetam 1000 MG Oral Tablet Take [...] Telephone Encounter - Alexis Meraz PA-C - 03/03/2024 1:45 PM EDT Signed Prescriptions: Disp Refills levETIRAcetam 1000 MG Oral Tablet 60 Tab*3 Sig: Take 1 Tablet by mouth in the morning and 1 Tablet before bedtime. Authorizing Provider: ALEXIS MERAZ * Telephone Encounter - Marifer Reaves MED ASSIST - 03/03/2024 1:44 PM EDT Pending Prescriptions: Disp Refills levETIRAcetam 1000 MG Oral Tablet 60 Tab*3 Sig: Take 1 Tablet by mouth in the morning and 1 Tablet before bedtime. * Telephone Encounter - Marifer Reaves MED ASSIST - 03/03/2024 1:44 PM EDT KK- rx was sent in 02/07 documented in this encounter Plan of Treatment Upcoming Encounters Date Type Department Care Team (Late st Contact Info) Description 05/31/2024 4:20 PM EDT Office Visit Neurology [facility] [place] [address] [place] [address] Thomas Garrett DO [address] [place] [address] Health Maintenance Due Date Last Done Comments [...] this encounter Medical Devices Implanted Type Area Superintendent System Operation Device Identifier Shelf Expiration Date Model / Serial / Lot Graft Mesh Duragen Pl 4.0x5in - [id number] - [id number] Implanted:Qty : 1 on 09/14/2023 by Ministerio Graham MD [place] [facility] [place] [employer] [id number] 09/08/2025 [id number] / [id number] / [id number] Graft Mesh Duragen Pl 4.0x5in - [id number] - [id number] Implanted:Qty : 1 on 09/14/2023 by Ministerio Graham MD [place] [facility] [place] [employer] [id number] 01/06/2026 [id number] / [id number] / [id number] Cover [place]ilda Hole 24mm 421.528 - [id number] Implanted:Qty : 2 on 01/04/2024 by Ministerio Graham MD [place] [facility] [place]: Head [employer] 421.528 / / Description:from set Cover Bur Hol Ti Lo 17 421.527 - [id number] Implanted:Qty : 1 on 01/04/2024 by Ministerio Graham MD [place] [facility] [place]: Head [employer] 421.527 / / Description:from set Plate Ti Lo Pro Str 4h 421.504 - [id number] Implanted:Qty : 1 on 01/04/2024 by Ministerio Graham MD [place] [facility] [place]: Head [employer] 421.504 / / Description:from set Screw Ti Lo Pro Sd 4mm 400.834 - [id number] Implanted:Qty : 27 on 01/04/2024 by Ministerio Graham MD [place] [facility] Right: Head [employer] 400.834 / / Mesh Plate 1.6mm [id number] .4mm - [id number] Implanted:Qty : 1 on 01/04/2024 by Ministerio Graham MD [place] [facility] [place]: Head [employer] 421.532 / / Description:from set Synthes Cmf Malleable Plates, Mastoid Medium Implanted:Qty : 1 on 01/04/2024 by Ministerio Graham MD [place] [facility] Right: Head 421.547 / / Description:from set [...] Advance Directives occurred with: Patient Care Teams Hadoop Java Developer Relationship Specialty Start Date End Date Power Beltran DO [address] [place] [address] PCP - General Family Medicine 11/04/23 documented as of this encounter
--- OUTSIDE RECORDS SUMMARY | 2024-05-28 20:59 | External Medical Summary | Summary of Care ---
Author Name Unknown Organization [facility] Address [address] [place] [address] Phone [phone] Care Team Providers Care Tnt Line Supervisor Name Role Phone Power Beltran DO Primary Care Provider Reason for Visit * Reason Onset Date Comments Forms Request 02/19/2024 Gloria colorado Plan of Care Encounter Details Date Type Department Care Team (Late st Contact Info) Description 02/19/2024 Telephone [facility] [place] [address] [place] [address] [place] No Resource [address] [place] [address] Forms Request (Gloria Quiñonez Plan of C... Allergies Active Allergy Reactions Criticality Noted Date Comments Adhesive Tape 08/12/2018 documented as of this encounter (statuses as of 03/04/2024) Medications Medication Sig Dispensed Refills Start Date [...] as of this encounter (statuses as of 03/04/2024) Active Problems Problem Noted Date Diagnosed Date [...] as of this encounter (statuses as of 03/04/2024) Social History Tobacco Use Types Packs/Day Years [...] EDT Received Khang Plan of Care from [facility] on 03.04.24. Placed in providers bin for signature * Telephone Encounter - Taylor Moon OSA - 03/03/2024 3:26 PM EDT Final Khang Plan of Care signed and faxed to [phone] on 03.03.24. Scanned into patients chart. * Telephone Encounter - Taylor Moon OSA - 02/25/2024 3:06 PM EDT Received Khang Plan of Care from [facility] on 02.25.24. Placed in providers bin for signature. * Telephone Encounter - Taylor Moon OSA - 02/19/2024 9:00 AM EDT Received Khagn Plan of Care from [facility] on 02.19.24. Placed in providers bin for signature. documented in this encounter Plan of Treatment Upcoming Encounters Date Type Department Care Team (Late st Contact Info) Description 05/31/2024 4:20 PM EDT Office Visit Neurology [place] [address] [place] [address] Thomas Garrett DO [address] [facility] [place] [address] Health Maintenance Due Date Last Done Comments [...] this encounter Medical Devices Implanted Type Area Quality Control Head Device Identifier Shelf Expiration Date Model / Serial / Lot Graft Mesh Duragen Pl 4.0x5in - [id number] - [id number] Implanted:Qty : 1 on 09/14/2023 by Ministerio Graham MD at [place] [facility] Head [employer] [id number] 09/08/2025 [id number] / [id number] / [id number] Graft Mesh Duragen Pl 4.0x5in - [id number] - [id number] Implanted:Qty : 1 on 09/14/2023 by Ministerio Graham MD at [place] [facility] Head [employer] [id number] 01/06/2026 [id number] / [id number] / [id number] Cover Brunilda Hole 24mm 421.528 - [id number] Implanted:Qty : 2 on 01/04/2024 by Ministerio Graham MD at [place] [facility] Right: Head [employer] 421.528 / / Description:from set Cover Bur Hol Ti Lo 17 421.527 - [id number] Implanted:Qty : 1 on 01/04/2024 by Ministerio Graham MD at [place] [facility] Right: Head [employer] 421.527 / / Description:from set Plate Ti Lo Pro Str 4h 421.504 - [id number] Implanted:Qty : 1 on 01/04/2024 by Ministerio Graham MD at [place] [facility] Right: Head [employer] 421.504 / / Description:from set Screw Ti Lo Pro Sd 4mm 400.834 - [id number] Implanted:Qty : 27 on 01/04/2024 by Ministerio Graham MD at [place] [facility] Right: Head [employer] 400.834 / / Mesh Plate 1.6mm 42y02yp .4mm - [id number] Implanted:Qty : 1 on 01/04/2024 by Ministerio [...] Advance Directives occurred with: Patient Care Teams Tnt Line Supervisor Relationship Specialty Start Date End Date Power Beltran DO [address] [employer] [address] [place] [address] PCP - General Family Medicine 11/04/23 documented as of this encounter
[2024-05-28] MEDS: LORazepam 1 MG/1 ML SYR ED Inj Use ONE ×3 (21:13→21:14)
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
[2024-05-28] MEDS: OPTIRAY 320 125ml IV ONE (21:20)
[2024-05-28 21:22] LABS: iSTAT Creatinine 1.1 mg/dl (0.6-1.3); iSTAT Hemoglobin 16.7 g/dl (14.0-18.0); iSTAT Ionized Calcium 1.2 mmol/l (1.12-1.32); iSTAT Potassium 4.2 mmol/L (3.3-5.0)
[2024-05-28 21:32] LABS: Albumin Level 4.9 gm/dl (3.4-5.0); Anion Gap 10 (3-11); Bilirubin,Total 0.5 mg/dl (0.2-1.0); Carbon Dioxide 26 mmol/L (21-32); Chloride 100 mmol/L (98-107); Magnesium 1.7 mg/dl (1.7-2.4); Potassium 4.1 mmol/L (3.5-5.1); Sodium 136 mmol/L (136-145)
[2024-05-28 21:38] LABS: Alanine Aminotransferase 21 U/L (7-52); Albumin Globulin Ratio 1.6 (0.9-2); Alkaline Phosphatase 71 U/L (34-104); Aspartate Aminotransferase 24 U/L (13-39); BUN Creatinine Ratio 16.2 (10-20); Blood Urea Nitrogen 16 mg/dl (6-23); Est GFR (African American) 120.5 ml/min; Est GFR (Non-African American) 103.9 ml/min; Glucose 96 mg/dl (70-99(Fasting)); Total Protein 7.9 gm/dl (6.0-8.3)
[2024-05-28 21:41] LABS: INR 1.1 (0.9-1.1); Partial Thromboplastin Time 26 Seconds (21-31)
[2024-05-28 21:42] LABS: Basophils # (auto) 0.03 K/uL (0.00-0.20); Basophils % (auto) 0.5 %; Eosinophils # (auto) 0.17 K/uL (0.00-0.50); Eosinophils % (auto) 2.6 %; Hematocrit (blood only) 50.6 % (42.0-52.0); Hemoglobin 17.6 g/dl (14.0-18.0); Immature Granulocytes # (auto) 0.03 K/uL (0.01-0.20); Immature Granulocytes % (auto) 0.5 %; Lymphocytes # (auto) 1.62 K/uL (1.20-3.40); Lymphocytes % (auto) 24.5 %; Mean Corpuscular Hemoglobin 29.5 pg (25.0-34.0); Mean Corpuscular Hgb Conc 34.8 g/dL (32.0-36.0); Mean Corpuscular Volume 84.9 fL (80.0-100.0); Mean Platelet Volume 9.8 fL (9.4-12.4); Monocytes # (auto) 0.57 K/uL (0.11-0.59); Monocytes % (auto) 8.6 %; Neutrophils % (auto) 63.3 %; Platelet Count 151 K/uL (130-400); RDW Coefficient of Variation 12.7 % (11.5-14.5); RDW Standard Deviation 38.9 fL (36.4-46.3); Red Blood Count 5.96 M/uL (4.70-6.10); White Blood Count 6.62 K/ul (4.8-10.8)
--- NOTE | 2024-05-28 21:42 | CT Scan Report ---
Exam(s): CT HEAD Without Contrast EXAM: CT Head Without Intravenous Contrast CLINICAL HISTORY: Reason for exam: neuro deficit, acute stroke suspected. TECHNIQUE: Axial computed tomography images of the head/brain without intravenous contrast. CTDI is 38.64 mGy and DLP is 624.41 mGy-cm. Automated exposure control was utilized for the study. A dose lowering technique was utilized adhering to the principles of ALARA. COMPARISON: 12/22/2023 FINDINGS: Brain: Right temporal lobe encephalomalacia and overlying dural thickening. No acute stroke. No hemorrhage. No abnormal extra-axial fluid collection. No significant white matter disease. Ventricles: Dilatation of the temporal occipital horns of the right lateral ventricle due to overlying encephalomalacia. No hydrocephalus. No midline shift. Bones/joints: Status post right calvarial craniotomy with interval replacement of the previously absent calvarium within a craniectomy defect. No acute fracture. Soft tissues: Unremarkable. Sinuses: Unremarkable as visualized. No acute sinusitis. IMPRESSION: No acute stroke or hemorrhage. Reversed large right calvarial craniectomy with interval replacement of the calvarium. Underlying right temporal lobe encephalomalacia. Communications: Call Doctor Stroke Electronically signed by: Dane Vasquez M.D. 05/28/24 21:40 PM
[2024-05-28 21:43] LABS: Troponin I High Sensitivity < 2.3 pg/ml (0-20)
[2024-05-28] MEDS: SODIUM CHLORIDE 0.9% 1,000 ML IV ONE (21:44)
[2024-05-28] MEDS: ACETAMINOPHEN 325 MG TAB PO STA (22:07)
[2024-05-28] MEDS: LORazepam 1 MG/1 ML SYR ED Inj Use IV STA (22:08)
[2024-05-28] MEDS: levETIRAcetam 500 MG/5 ML VIAL IV STA (22:08)
[2024-05-28] MEDS: VALPROIC ACID SOLN 500 MG/10 ML UDC PO STA (22:08)
--- NOTE | 2024-05-28 22:11 | CT Scan Report ---
Exam(s): CTA HEAD With Contrast IV Amt: 120ml EXAM: CT Angiography Head With Intravenous Contrast CLINICAL HISTORY: Neuro deficit, acute stroke suspected. TECHNIQUE: Axial computed tomographic angiography images of the head with intravenous contrast. CTDI is 12.16 mGy and DLP is 747.79 mGy-cm. Automated exposure control was utilized for the study. A dose lowering technique was utilized adhering to the principles of ALARA. 3D and MIP reconstructed images were created and reviewed. CONTRAST: Patient received 120ml of IV contrast COMPARISON: CT head 05-28-2024, CTA head 12/07/2023. FINDINGS: Right internal carotid artery: No acute abnormality. Intracranial segment is patent with no significant stenosis. No aneurysm. Right anterior cerebral artery: Unremarkable. No occlusion or significant stenosis. No aneurysm. Right middle cerebral artery: Unremarkable. No occlusion or significant stenosis. No aneurysm. 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 No occlusion or significant stenosis. No aneurysm. Right vertebral artery: Unremarkable as visualized. Left internal carotid artery: No acute abnormality. Intracranial segment is patent with no significant stenosis. No aneurysm. Left anterior cerebral artery: Unremarkable. No occlusion or significant stenosis. No aneurysm. Left middle cerebral artery: Unremarkable. No occlusion or significant stenosis. No aneurysm. Left posterior cerebral artery: Unremarkable. No occlusion or significant stenosis. No aneurysm. Left vertebral artery: Unremarkable as visualized. Basilar artery: Unremarkable. No occlusion or significant stenosis. No aneurysm. IMPRESSION: No large vessel occlusion. Communications: Call Doctor Stroke Electronically signed by: Dane Vasquez M.D. 05/28/24 22:10 PM
--- NOTE | 2024-05-28 22:15 | CT Scan Report ---
Exam(s): CTA NECK With Contrast IV Amt: 120ml EXAM: CT Angiography Neck With Intravenous Contrast CLINICAL HISTORY: Reason for exam: neuro deficit, acute stroke suspected. TECHNIQUE: Routine carotid CT angiography protocol was performed with intravenous contrast. NASCET criteria using the distal ICAs for comparison were used for evaluation of stenoses. CTDI is 11.95 mGy and DLP is 466.56 mGy-cm. Automated exposure control was utilized for the study. A dose lowering technique was utilized adhering to the principles of ALARA. 3D and MIP reconstructed images were created and reviewed. CONTRAST: Patient received 120ml of IV contrast COMPARISON: 12/07/2023. FINDINGS: VASCULATURE: Right common carotid artery: Unremarkable. No occlusion or significant stenosis. No dissection. Right internal carotid artery: Unremarkable. Extracranial segment is patent with no occlusion or significant stenosis. No dissection. Right external carotid artery: Unremarkable. No occlusion. Right vertebral artery: Unremarkable. No occlusion or significant stenosis. No dissection. Left common carotid artery: Unremarkable. No occlusion or significant stenosis. No dissection. Left internal carotid artery: Unremarkable. Extracranial segment is patent with no occlusion or significant stenosis. No dissection. Left external carotid artery: Unremarkable. No occlusion. Left vertebral artery: Unremarkable. No occlusion or significant stenosis. No dissection. NECK: Bones/joints: Unremarkable. No acute fracture. Soft tissues: Unremarkable. Lung apices: Peribronchial thickening.. CAROTID STENOSIS REFERENCE USING NASCET CRITERIA: % ICA stenosis = (1 - narrowest ICA diameter/diameter of distal cervical ICA) x 100. Mild - <50% stenosis. Moderate - 50-69% stenosis. Severe - 70-94% stenosis. Near occlusion - 95-99% stenosis. Occluded - 100% stenosis. IMPRESSION: No acute abnormality. Communications: Call Doctor Stroke Electronically signed by: Dane Vasquez M.D. 05/28/24 22:15 PM
[2024-05-28] MEDS ORDERED: LORazepam 1 MG in SYRINGE 0.5 ML IV PRN (23:45)
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
[2024-05-29] MEDS: NSS + 20MEQ KCL 20 MEQ/1,000 ML BAG IV SCH (00:50)
[2024-05-29] MEDS ORDERED: ONDANSETRON INJ 2 MG/ML 2 ML VIAL IV PRN (01:57)
[2024-05-29] MEDS ORDERED: ACETAMINOPHEN 325 MG TAB PO PRN (01:57)
[2024-05-29 06:38] LABS: Basophils # (auto) 0.03 K/uL (0.00-0.20); Basophils % (auto) 0.5 %; Eosinophils # (auto) 0.22 K/uL (0.00-0.50); Eosinophils % (auto) 3.8 %; Hematocrit (blood only) 43.9 % (42.0-52.0); Hemoglobin 15.6 g/dl (14.0-18.0); Immature Granulocytes # (auto) 0.02 K/uL (0.01-0.20); Immature Granulocytes % (auto) 0.3 %; Lymphocytes # (auto) 2.09 K/uL (1.20-3.40); Lymphocytes % (auto) 36.3 %; Mean Corpuscular Hemoglobin 30.1 pg (25.0-34.0); Mean Corpuscular Hgb Conc 35.5 g/dL (32.0-36.0); Mean Corpuscular Volume 84.6 fL (80.0-100.0); Mean Platelet Volume 9.5 fL (9.4-12.4); Monocytes # (auto) 0.59 K/uL (0.11-0.59); Monocytes % (auto) 10.3 %; Neutrophils % (auto) 48.8 %; Platelet Count 119 K/uL (130-400); RDW Coefficient of Variation 12.4 % (11.5-14.5); Red Blood Count 5.19 M/uL (4.70-6.10); White Blood Count 5.75 K/ul (4.8-10.8)
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
[2024-05-29 07:00] LABS: Albumin Globulin Ratio 1.8 (0.9-2); Albumin Level 3.9 gm/dl (3.4-5.0); BUN Creatinine Ratio 12.1 (10-20); Bilirubin,Total 0.7 mg/dl (0.2-1.0); Creatinine Clr Calc Pharmacy 106.5 ml/min; Est GFR (African American) 133.4 ml/min; Est GFR (Non-African American) 115.1 ml/min; Globulin 2.2 gm/dl (2.5-4.0); Magnesium 1.8 mg/dl (1.7-2.4); Potassium 3.9 mmol/L (3.5-5.1); Total Protein 6.1 gm/dl (6.0-8.3)
--- NOTE | 2024-05-29 08:00 | XRay Report ---
XR chest 1V portable HISTORY: neuro deficit, acute stroke suspected COMPARISON: Chest 12/24/2023. FINDINGS: The lungs are clear. Cardiac silhouette is normal in size. No pleural effusions. No pneumot horax. IMPRESSION: No acute process. ACT 112: Negative or not required by law. Electronically signed by: Bogdan Amador M.D. 05/29/2024 7:59 AM
[2024-05-29] MEDS: levETIRAcetam 500 MG TAB PO SCH (09:07)
[2024-05-29] MEDS: DIVALPROEX DELAY RELEASE 500 MG TAB PO SCH (09:07)
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
[2024-05-29 10:44] LABS: Appearance Urine Clear (Clear); Bilirubin Urine Negative (Negative); Blood Urine Negative (Negative); Color Urine Yellow; Glucose Urine UA Negative (Negative); Ketones Urine Negative (Negative); Leukocyte Esterase Urine Negative (Negative); Nitrite Urine Negative (Negative); Protein Urine Negative (Negative); Specific Gravity Urine 1.014 (1.000-1.030); Urobilinogen Urine Negative (Negative)
[2024-05-29 11:05] LABS: Amphetamines+Metham, Urine Neg (Neg); Barbiturates, Urine Neg (Neg); Benzodiazepine, Urine Neg (Neg); Cocaine, Urine Neg (Neg); Fentanyl, Urine Neg (Neg); MDMA (Ecstacy), Urine Neg (Neg); Marijuana, Urine Pos (Neg); Methadone, Urine Neg (Neg); Opiate, Urine Neg (Neg); Phencyclidine, Urine Neg (Neg)
--- NOTE | 2024-05-29 13:18 | Discharge Summary ---
Date of Service May 29, 2024 Admission HPI Per Admitting Provider The patient is a 28-year-old male with a past medical history including presentation to [facility] emergency department on 09/12/2023 for seizure secondary to intraparenchymal brain hemorrhage, for which she was transferred to [facility] in [place]. Patient underwent a decompressive craniectomy and evacuation of hematoma on 09/14/2023. He then underwent cranioplasty with autograft on 01/04/2024. He has had residual left upper extremity weakness, and upon presentation to the emergency department at [facility] this evening, has developed a spasm and worsening weakness left upper extremity, and a new left lower extremity spasm. In the emergency department he was given lorazepam 2 mg IV, Keppra 1000 mg IV, valproic acid 5 mg p.o. and Tylenol 650 mg p.o. He has now had resolution of left lower extremity spasming, and his left upper extremity has returned to its baseline weakened state. He has been taking his divalproex delayed release, and Keppra as directed. He does report being outside in the heat and increased activity more today, and is feeling somewhat dehydrated at this time. Admission Exam Per Admitting Provider The patient is awake, alert and oriented 3, well developed and well nourished, normocephalic and atraumatic, lying in bed and in no acute distress. HEENT--PERRL, EOMI, mucous membranes and oropharynx dry. Neck--supple. No JVD. No bruits. Thyroid normal, trachea midline, no adenopathy. Heart--normal S1 and S2. No murmurs, rubs or gallops. Lungs--clear bilaterally, no respiratory distress, no accessory muscle use. Abdomen--normal bowel sounds and soft. Nontender. Nondistended, no hernias or masses, no organomegaly. Extremities--no cyanosis or clubbing. No edema. Dermatologic--normal skin turgor, normal color, no abnormal lymph nodes, no rash. Neurologic--cranial nerves II through XII grossly intact. Left upper extremity with residual weakness and spasm from previous stroke. Left lower extremity and remainder of examination is normal Rheumatologic--normal range of motion except for left upper extremity as noted Psychiatric--normal affect. Principal Diagnosis Breakthrough Seizures. Discharge Exam General:Alert and oriented, no acute distress. HEENT: Rt side evidence previous rt craniotomy - scar. moist oral mucosa Cardio: Regular rate and rhythm, no murmur, bradycardia. Neuro: neurology grossly intact including physician office specialist except mild proximal Lt UL ans LL weakness 5-/5, some ataxia(finger-nose) in Rt UL+ likely due to weakness. reflexes 2+ normal b/l, plantars downgoing, sensation intact equal b/l Resp:Lungs clear to auscultation b/l, no wheezes or rhonchi, GI: Soft and nontender, nondistended, bowel sounds active, no suprapubic tend erness. Skin: Warm, pink, dry, Psych: Mood-affect congruence. Discharge Data Allergies Allergy/AdvReac Type Severity Reaction Status Date / Time adhesive Allergy Intermediate REDDENED Verified 05/28/24 22:17 RASH Consultations 05/28/24 22:37 ED Decision to Admit Stat 05/28/24 23:48 Consult Neurology Routine Ordered Studies 05/28/24 21:09 CT angio head w con Stat CT angio neck with con Stat CT head/brain wo con Stat Hospital Course (1) Focal motor seizure: (2) Seizure disorder: (3) History of traumatic brain injury: (4) H/O craniotomy: Plan This is a 28M with known hx of seizure disorder presented to ER with breakthrough seizures to ER on 05/28/24. Focal Motoe seizures Focal motor seizure involving left upper and left lower extremity/seizure disorder/history of intracranial hemorrhage status decompressive craniectomy/status post cranioplasty with autograft. Possible triggers for breakthrough seizures: relative dehydration from increased physical activity in the hot weather. Patient received lorazepam 2 mg IV, Keppra 1000 mg IV, Tylenol 650 mg p.o. and valproic acid 5 mg p.o. from the ED CT scan of head with no acute findings, CTA head and neck negative. ER valproate level 122 (normal range 50-100mcg/ml) Neurology input noted (Dr. Hilario) - no need for MRI brain and EEG at this time and continue with home meds at pts usual doses. C/w divalproex delayed release 500 mg p.o. 3 times daily and Keppra 1000 mg p.o. twice daily Pt clinically stable. safe for discharge home. . Total Time Total Time Spent Total Time Spent (In Minutes): <30 Discharge Plan Discharge Items Patient Disposition: Home - Self-Care Reason For Visit: SEIZURE ACTIVITY Discharge Diagnosis: Breakthrough Seizures Activity: Resume your previous activity Non-emergency contact: Primary Care Provider and Neurologist Call non-emergency contact if: you have any medication questions Follow-up/Referrals: Power Beltran, [Primary Care Provider] - Diet: Regular Addtl Attending Provider Instructions: You were admitted to hospital for a breakthrough seizure and we think its due to possible dehydration. You said you have been compliant with your regular seizure medications. You were treated with IV valproate and ativan. You have been seen by a neurologist at hospital who recommended you to continue with your usual dose of medications and you dont need any additional testing (MRI/EEG) at this time. As we discussed please continue to hydrate well and keep up with balanced nutrition and exercise. Your valproate drug level was found to be slightly elevated (122mcg/ml) on testing this time so we would advise get your medications reviewed when you see your neurologist on 05/31/24. Please contact your PCP and let them know that you have been admitted to hospital for a breakthrough seizures. We wish you all well. take care. Pending Studies at Discharge: No Stand-Alone Forms: My [facility] [employer], Smoking Cessation Medications and DC Order Prescriptions: Continued divalproex 500 mg tablet,delayed release (DR/EC) 500 mg PO TID levetiracetam [Keppra] 500 mg tablet 1,000 mg PO BID Discharge Orders: Discharge Order (Routine); Ordered 05/29/24 Ordered By: Ave Coronado Admission Data Admit Date/Time: 05/28/24 23:48 Attending Provider: Cr Lambert Admit Provider: Kadeem Hendricks Primary Care Provider: Power Beltran Other Providers: Renato Hilario; Kadeem Hendricks Other Interventions: Discharge Summary Assessment (RN) Last Done: 05/29/24 14:35 Supervising Physician Co-Signing Physician Notes I personally examined the patient and verified all hugo points of history and exam, discussed case, and agree with decision making with Dr Kory Coronado feeling better and would like to go home. Neurology input appreciated. No current acute complaints. Does not feel groggy or sedateddiscussed elevated Depakote level. Has neurology follow-up in 2 days already scheduled. Vitals noted, in general he is awake and alert pleasant no distress. HEENT normocephalic atraumatic mucous membranes moist. Breathing unlabored no accessory muscle use good effort. Skin shows no rashes no pallor or icterus. Neuro without focal deficits. Breakthrough seizuresfit with his area of TBI. Agree that dehydration likely was a factor in lowering his seizure thresholdwe discussed this. Discussed elevated Depakote levelbut with no symptoms, for now would not change dosing. Has neurology follow-up with his primary neurologist in 2 days. Safe/stable for home. Otherwise as above. Resident Activity Tracking Resident Involvement: Resident Care Provided Care Provided: Adult Hospital Medicine
--- NOTE | 2024-05-29 16:06 | Billing Data ---
Date of Service May 29, 2024 Coding Level of Care Code 21988 IN/OBS DISCH 30 MIN/LESS
--- NOTE | 2024-05-30 23:13 | Electrocardiogram Report ---
Test Reason : Blood Pressure : / mmHG Vent. Rate : 068 BPM Atrial Rate : 068 BPM P-R Int : 144 ms QRS Dur : 076 ms QT Int : 412 ms P-R-T Axes : 054 040 044 degrees QTc Int : 438 ms Normal sinus rhythm Normal ECG When compared with ECG of 22-DEC-2023 20:44, No significant change was found Confirmed by Mark Loo ([id number]) on 05/30/2024 11:12:57 PM Referred By: REFERRED SELF Confirmed By:Mark Loo
== END 2024-05-29 14:35 | disposition home or self-care (01) | DRG 101 ==
LOC: ED 20:50 → EDINP 23:48 → SUATTDRO 23:48 → EDINP 05-29 01:57

== ENCOUNTER 2024-12-14 18:35 | Observation (INO) ==
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
[2024-12-14] MEDS: levETIRAcetam 500 MG/5 ML VIAL IV STA ×2 (19:11→22:41)
[2024-12-14] MEDS: SODIUM CHLORIDE 0.9% 1,000 ML IV ONE ×2 (19:11→22:39)
[2024-12-14 19:14] LABS: Basophils # (auto) 0.06 K/uL (0.00-0.20); Basophils % (auto) 0.5 %; Eosinophils # (auto) 0.19 K/uL (0.00-0.50); Eosinophils % (auto) 1.5 %; Hematocrit (blood only) 46.9 % (42.0-52.0); Hemoglobin 16.9 g/dl (14.0-18.0); Immature Granulocytes # (auto) 0.04 K/uL (0.01-0.20); Immature Granulocytes % (auto) 0.3 %; Lymphocytes # (auto) 2.49 K/uL (1.20-3.40); Mean Corpuscular Hemoglobin 30.7 pg (25.0-34.0); Mean Corpuscular Volume 85.1 fL (80.0-100.0); Mean Platelet Volume 10.2 fL (9.4-12.4); Monocytes # (auto) 1.35 K/uL (0.11-0.59); Monocytes % (auto) 10.8 %; Neutrophils # (auto) 8.32 K/uL (1.40-6.50); Neutrophils % (auto) 66.9 %; Platelet Count 208 K/uL (130-400); RDW Coefficient of Variation 12.1 % (11.5-14.5); RDW Standard Deviation 37.4 fL (36.4-46.3); Red Blood Count 5.51 M/uL (4.70-6.10); White Blood Count 12.45 K/ul (4.8-10.8)
[2024-12-14 19:19] LABS: Albumin Level 4.9 gm/dl (3.4-5.0); Bilirubin Direct 0.1 mg/dl (0-0.2); Bilirubin,Total 0.5 mg/dl (0.2-1.0); Magnesium 1.8 mg/dl (1.7-2.4); Phosphorus 2.8 mg/dl (2.5-4.9); Total Protein 7.5 gm/dl (6.0-8.3)
[2024-12-14] MEDS: DIVALPROEX EXTENDED RELEASE 500 MG TAB PO ONE (19:25)
[2024-12-14 19:34] LABS: Thyroid Stimulating Hormone 5.612 uIu/ml (0.300-4.500)
[2024-12-14 20:09] LABS: T4 Free Thyroxine 1.05 ng/dl (0.61-1.60)
[2024-12-14] MEDS: SODIUM CHLORIDE 0.9% 500 ML IV ONE (20:49)
[2024-12-14] MEDS: LORazepam 2 MG/1 ML VIAL IV STA ×2 (21:45→22:47)
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
[2024-12-14] MEDS: DIVALPROEX DELAY RELEASE 500 MG TAB PO ONE (23:39)
[2024-12-14] MEDS ORDERED: LORazepam 2 MG/1 ML VIAL IV PRN (23:46)
[2024-12-14] MEDS ORDERED: ONDANSETRON INJ 2 MG/ML 2 ML VIAL IV PRN (23:46)
[2024-12-14 23:56] LABS: Amphetamines+Metham, Urine Neg (Neg); Barbiturates, Urine Neg (Neg); Benzodiazepine, Urine Neg (Neg); Cocaine, Urine Neg (Neg); Fentanyl, Urine Neg (Neg); MDMA (Ecstacy), Urine Neg (Neg); Marijuana, Urine Pos (Neg); Methadone, Urine Neg (Neg); Opiate, Urine Neg (Neg); Phencyclidine, Urine Neg (Neg)
[2024-12-14 23:58] LABS: BUN Creatinine Ratio 8.3 (10-20); Creatinine Clr Calc Pharmacy 116.9 ml/min; Potassium 3.5 mmol/L (3.5-5.1)
--- NOTE | 2024-12-15 05:25 | Billing Data ---
Date of Service December 14, 2024 Coding Level of Care Code 25818 INT INP/OBS CARE
[2024-12-15] MEDS: PLASMA-LYTE A 1,000 ML IV SCH (05:51)
--- OUTSIDE RECORDS SUMMARY | 2024-12-15 05:51 | External Medical Summary | Summary of Care ---
Author Name Unknown Organization [facility] Address [address] [facility] [place] [address] Phone [phone] Care Team Providers Care Concrete Vibrator Operator Name Role Phone Power Beltran DO Primary Care Provider Encounter Details Date Type Department Care Team (Late st Contact Info) Description 12/12/2024 Population Health External Data Unspecified Department Allergies Active Allergy Reactions Criticality Noted Date Comments Adhesive Tape 08/12/2018 documented as of this encounter (statuses as of 12/12/2024) Medications Acetaminophen 325 MG Oral Tablet (Tylenol) Take 2 Tablets by mouth every 6 hours as needed for mild pain. 63 Tablet 01/07/2024 1:28 PM EST Active Docusate Sodium 100 MG Oral Capsule (Colace) Take 1 Capsule by mouth in the morning and 1 Capsule before bedtime. 60 Capsule 01/07/2024 1:28 PM EST Active Additional Information Patient not taking.Reported on 08/23/2024 PEG 3350 17 GM/SCOOP Oral Powder Take 34 g (two capfuls) by mouth in the morning and 34 g (two capfuls) before bedtime. Mix in liquid as directed on bottle. 510 g 1 01/07/2024 1:28 PM EST 02/29/202 4 Active Additional Information Patient not taking.Reported on 08/23/2024 oxyCODONE HCl 5 MG Oral Tablet (Oxy IR) Take 1 Tablet by mouth every 4 hours as needed for severe pain. 30 Tablet 01/07/2024 1:28 PM EST 4 Active Additional Information Patient not taking.Reported on 08/23/2024 Divalproex Sodium 500 MG Oral Tablet Delayed Release (Depakote DR) Take 1 Tablet by mouth in the morning and 1 Tablet at noon and 1 Tablet before bedtime. 90 Tablet 3 4 Active levETIRAcetam 1000 MG Oral Tablet Take 1 Tablet by mouth in the morning and 1 Tablet before bedtime. 180 Tablet 1 4 Active tiZANidine HCl 4 MG Oral Tablet (Zanaflex)Indic ations:Muscle spasm,Spasticit y Take 1 Tablet by mouth every 8 hours as needed for Muscle spasms. 270 Tablet 3 4 Active documented as of this encounter (statuses as of 12/12/2024) Active Problems Problem Noted Date Diagnosed Date [...] as of this encounter (statuses as of 12/12/2024) Social History Tobacco Use Types Packs/Day Years [...] Recorded Sex Assigned at Not on file Legal Sex Male 6:12 AM EST Gender Identity Not on file Sexual Orientation Not on file documented as of this encounter Functional Status * Are you deaf or do you have serious difficulty hearing? Answer Date of Assessment Author No 12/31/2023 3:39 PM Jamison Franklin RN * Are you blind or do you have serious difficulty seeing, even when wearing glasses? Answer Date of Assessment Author No 12/31/2023 3:39 PM Jamison Franklin RN * Do you have serious difficulty walking or climbing stairs? (5 years old or older) Answer Date of Assessment Author No 12/31/2023 3:39 PM Jamison Franklin RN * Do you have difficulty dressing or bathing? (5 years old or older) Answer Date of Assessment Author No 12/31/2023 3:39 PM Jamison Franklni RN * Because of a physical, mental, or emotional condition, do you have difficulty doing errands alone such as visiting a doctors office or shopping? (15 years old or older) Answer Date of Assessment Author Yes 12/31/2023 3:39 PM Jamison Franklin RN documented as of this encounter Mental Status * Because of a physical, mental, or emotional condition, do you have serious difficulty concentrating, remembering, or making decisions? (5 years old or older) Answer Entry Date Author No 12/31/2023 3:39 PM Jamison Franklin RN documented in this encounter Plan of Treatment Upcoming Encounters Date Type Department Care Team (Late st Contact Info) Description 08/23/2025 9:20 AM EDT Office Visit Neurology [facility] [address] [place] [address] Thomas Garrett, [address] [place] [address] Health Maintenance Due Date Last Done Comments DTap/Tdap Vaccines (1 - Tdap) 2015 Hepatitis B Vaccine (1 of 3 - 19+ 3-dose series) 2015 Pneumococcal Vaccine: Pediatrics (0 to 5 Years) and At-Risk Patients (6 to 18 Years and 19+ Years) (1 of 2 - PCV) 2015 COVID-19 Vaccine (3 - 2023-2 5 season) 2024 08/15/2021, 07/25/2021 Influenza Vaccine (FLU shot) (#1) 2024 Depression Screening 12/22/2024 12/22/2023 HPV (Gardasil) Vaccine Aged Out No lo nger eligible based on patient's age to complete this topic MENINGOCOCCAL (MENACTRA/MENVEO) Aged Out No longer eligible b ased on patient's age to complete this topic documented as of this encounter Medical Devices Implanted Type Area Screener Operator Device Identifier Shelf Expiration Date Model / Serial / Lot Graft Mesh Duragen Pl 4.0x5in - [id number] - [id number] Implanted:Qty : 1 on 09/14/2023 by Ministerio Graham MD at OR [facility] [place] Head [employer] Evi [id number] 09/08/2025 [id number] / [id number] / [id number] Graft Mesh Duragen Pl 4.0x5in - [id number] - [id number] Implanted:Qty : 1 on 09/14/2023 by Ministerio Graham MD at OR [facility] [place] Head [employer] [id number] 01/06/2026 [id number] / [id number] / [id number] Cover Brunilda Hole 24mm 421.528 - [id number] Implanted:Qty : 2 on 01/04/2024 by Ministerio Graham MD at OR [facility] [place] Right: Head SYNTHES MAXILLOFACIAL 421.528 / / Description:from set Cover Bur Hol Ti Lo 17 421.527 - [id number] Implanted:Qty : 1 on 01/04/2024 by Ministerio Graham MD at OR [facility] [place] Right: Head [employer] 421.527 / / Description:from set Plate Ti Lo Pro Str 4h 421.504 - [id number] Implanted:Qty : 1 on 01/04/2024 by Ministerio Graham MD at OR [facility] [place] Right: Head [employer] 421.504 / / Description:from set Screw Ti Lo Pro Sd 4mm 400.834 - [id number] Implanted:Qty : 27 on 01/04/2024 by Ministerio Graham MD at OR [facility] [place] Right: Head [employer] 400.834 / / Mesh Plate 1.6mm [id number] .4mm - [id number] Implanted:Qty : 1 on 01/04/2024 by Ministerio Graham MD at OR [facility] [place] Right: Head [employer]ES [employer]ILL[employer] 421.532 / / Description:from set Synthes Cmf Malleable Plates, Mastoid Medium Implanted:Qty : 1 on 01/04/2024 by Ministerio Graham MD at OR [facility] [place] Right: Head 421.547 / / Description:from set [...] Advance Directives occurred with: Patient Care Teams Concrete Vibrator Operator Relationship Specialty Start Date End Date Power Beltran DO [address] [email or web address] [address] PCP - General Family Medicine 11/04/23 documented as of this encounter
--- OUTSIDE RECORDS SUMMARY | 2024-12-15 05:52 | External Medical Summary | Summary of Care ---
Author Name Unknown Organization [facility] Address [address] [place] [address] Phone [phone] Care Team Providers Care Suture Polisher Name Role Phone Power Beltran DO Primary Care Provider Reason for Visit * Reason Onset Date Comments Medication Refill 11/08/2024 Encounter Details Date Type Department Care Team (Late st Contact Info) Description 11/08/2024 Refill Neurology [facility] [address] [place] [address] Thomas Garrett DO [address] [place] [address] Muscle spasm; Spasticity Allergies Active Allergy Reactions Criticality Noted Date Comments Adhesive Tape 08/12/2018 documented as of this encounter (statuses as of 11/08/2024) Medications Acetaminophen 325 MG Oral Tablet (Tylenol) Take 2 Tablets by mouth every 6 hours as needed for mild pain. 63 Tablet 01/07/2024 1:28 PM EST Active Docusate Sodium 100 MG Oral Capsule (Colace) Take 1 Capsule by mouth in the morning and 1 Capsule before bedtime. 60 Capsule 01/07/2024 1:28 PM EST 02/29/202 4 Active Additional Information Patient not taking.Reported on 08/23/2024 PEG 3350 17 GM/SCOOP Oral Powder Take 34 g (two capfuls) by mouth in the morning and 34 g (two capfuls) before bedtime. Mix in liquid as directed on bottle. 510 g 1 01/07/2024 1:28 PM EST 4 Active Additional [...] Active tiZANidine HCl 4 MG Oral Tablet (Zanaflex)Luciana cations:Muscle spasm,Spastici ty Take 1 Tablet by mouth every 8 hours as needed for Muscle spasms. 270 Tablet 3 4 Active tiZANidine HCl 4 MG Oral Tablet (Zanaflex)Luciana cations:Muscle spasm,Spastici ty Take 1 Tablet by mouth every 8 hours as needed for Muscle spasms. 90 Tablet 3 4 11/08/20 24 Discontin ued(Refil l) documented as of this encounter (statuses as of 11/08/2024) Active Problems Problem Noted Date Diagnosed Date [...] as of this encounter (statuses as of 11/08/2024) Social History Tobacco Use Types Packs/Day Years [...] 12/31/2023 3:39 PM Jamison Franklin RN * Because of a physical, mental, [...] Jamison Franklin RN documented in this encounter Miscellaneous Notes * Telephone Encounter - Thomas Garrett DO - 11/08/2024 8:50 AM EST Signed Prescriptions: Disp Refills tiZANidine HCl 4 MG Oral Tablet (Zanaflex) 270 Ta*3 Sig: Take 1 Tablet by mouth every 8 hours as needed for Muscle spasms. Authorizing Provider: THOMAS GARRETT * Telephone Encounter - Radhika Grajeda LPN - 11/08/2024 7:19 AM EST Received request via fax for 90 day supply of Rx from [facility] NA Last seen 08/23/25 Next OV 08/23/25 MD please review as this is a prn documented in this encounter Plan of Treatment Upcoming Encounters Date Type Department Care Team (Late st Contact Info) Description 08/23/2025 9:20 AM EDT Office Visit Neurology [facility] [address] [facility] [address] Thomas Garrett DO [address] [facility] [place] [address] Health Maintenance Due Date Last Done Comments DTap/Tdap Vaccines (1 - Tdap) 2015 Hepatitis B Vaccine (1 of 3 - 19+ 3-dose series) 2015 Pneumococcal Vaccine: Pediatrics (0 to 5 Years) and At-Risk Patients (6 to 18 Years and 19+ Years) (1 of 2 - PCV) 2015 COVID-19 Vaccine ( - 2023-2 5 season) 2024 08/15/2021, 07/25/2021 Influenza Vaccine (FLU shot) (#1) 2024 Depression Screening 12/22/2024 12/22/2023 HPV (Gardasil) Vaccine Aged Out No lo nger eligible based on patient's age to complete this topic MENINGOCOCCAL (MENACTRA/MENVEO) Aged Out No longer eligible b ased on patient's age to complete this topic documented as of this encounter Medical Devices Implanted Type Area Home Health Clinical Liaison Device Identifier Shelf Expiration Date Model / Serial / Lot Graft Mesh Duragen Pl 4.0x5in - [id number] - [id number] Implanted:Qty : 1 on 09/14/2023 by Ministerio Graham MD at [place] [facility] [place] Head [employer] [id number] 09/08/2025 [id number] / [id number] / [id number] Graft Mesh Duragen Pl 4.0x5in - [id number] - [id number] Implanted:Qty : 1 on 09/14/2023 by Ministerio Graham MD at OR [facility] Head [employer] [id number] 01/06/2026 [id number] / [id number] / [id number] Cover [place] Hole 24mm 421.528 - [id number] Implanted:Qty : 2 on 01/04/2024 by Ministerio Graham MD at OR [facility] Right: Head SY[employer]THES MAXILLOFACIAL 421.528 / / Description:from set Cover Bur Hol Ti Lo 17 421.527 - [id number] Implanted:Qty : 1 on 01/04/2024 by Ministerio Graham MD at [place] [facility] Right: Head [employer]ES MAXILL[employer]IAL 421.527 / / Description:from set Plate Ti Lo Pro Str 4h 421.504 - [id number] Implanted:Qty : 1 on 01/04/2024 by Ministerio Graham MD at [place] [facility] Right: Head [employer] 421.504 / / Description:from set Screw Ti Lo Pro Sd 4mm 400.834 - [id number] Implanted:Qty : 27 on 01/04/2024 by Ministerio Graham MD at [place] [facility] Right: Head [employer] 400.834 / / Mesh Plate 1.6mm [id number] .4mm - [id number] Implanted:Qty : 1 on 01/04/2024 by Ministerio Graham MD at [place] [facility] Right: Head [employer]ILL[employer] 421.532 / / Description:from set [facility] Cmf Malleable Plates, Mastoid Medium Implanted:Qty : 1 on 01/04/2024 by Ministerio Graham MD at [facility] Right: Head [id number] / / Description:from set documented as of this encounter Visit Diagnoses Diagnosis Muscle spasm Spasm of muscle Spasticity Abnormal involuntary movements documented in this encounter Advance Directives * Full Code [...] Advance Directives occurred with: Patient Care Teams Suture Polisher Relationship Specialty Start Date End Date Power Beltran DO [address] [place] [address] PCP - General Family Medicine 11/04/23 documented as of this encounter
--- OUTSIDE RECORDS SUMMARY | 2024-12-15 05:52 | External Medical Summary | Summary of Care ---
Author Name Unknown Organization [facility] Address [address] [facility] [place] [address] Phone [phone] Care Team Providers Care School Resource Officer Name Role Phone Power Beltran DO Primary Care Provider Encounter Details Date Type Department Care Team (Late st Contact Info) Description 11/28/2024 Population Health External Data Unspecified Department Allergies Active Allergy Reactions Criticality Noted Date Comments Adhesive Tape 08/12/2018 documented as of this encounter (statuses as of 11/28/2024) Medications Acetaminophen 325 MG Oral Tablet (Tylenol) [...] as of this encounter (statuses as of 11/28/2024) Active Problems Problem Noted Date Diagnosed Date [...] as of this encounter (statuses as of 11/28/2024) Social History Tobacco Use Types Packs/Day Years [...] 08/23/2025 9:20 AM EDT Office Visit Neurology [facility] [address] [facility] [place] [address] Thomas Garrett, [address] [facility] [place] [address] Health Maintenance Due Date Last Done Comments [...] this encounter Medical Devices Implanted Type Area Energy Auditor Device Identifier Shelf Expiration Date Model / Serial / Lot Graft Mesh Duragen Pl 4.0x5in - [id number] - [id number] Implanted:Qty : 1 on 09/14/2023 by Ministerio Graham MD at [place] [facility] [place] Head [employer] [id number] 09/08/2025 [id number] / [id number] / [id number] Graft Mesh Duragen Pl 4.0x5in - [id number] - [id number] Implanted:Qty : 1 on 09/14/2023 by Ministerio Graham MD at [place] [facility] [place] Head [employer] [id number] 01/06/2026 [id number] / [id number] / [id number] Cover Brunilda Hole 24mm 421.528 - [id number] Implanted:Qty : 2 on 01/04/2024 by Ministerio Graham MD at [place] [facility] [place] Right: Head [employer] 421.528 / / Description:from set Cover Bur Hol Ti Lo 17 421.527 - [id number] Implanted:Qty : 1 on 01/04/2024 by Ministerio Graham MD at [place] [facility] [place] Right: Head [employer] 421.527 / / Description:from set Plate Ti Lo Pro Str 4h 421.504 - [id number] Implanted:Qty : 1 on 01/04/2024 by Ministerio Graham MD at [place] [facility] [place] Right: Head [employer] 421.504 / / Description:from set Screw Ti Lo Pro Sd 4mm 400.834 - [id number] Implanted:Qty : 27 on 01/04/2024 by Ministerio Graham MD at [place] [facility] [place] Right: Head [employer]ILL[employer] 400.834 / / Mesh Plate 1.6mm [id number] .4mm - [id number] Implanted:Qty : 1 on 01/04/2024 by Minitserio Graham MD at [facility] [...] Advance Directives occurred with: Patient Care Teams School Resource Officer Relationship Specialty Start Date End Date Power Beltran DO [address] [place] [address] PCP - General Family Medicine 11/04/23 documented as of this encounter
--- NOTE | 2024-12-15 07:41 | Electrocardiogram Report ---
Test Reason : Blood Pressure : */* mmHG Vent. Rate : 103 BPM Atrial Rate : 103 BPM P-R Int : 138 ms QRS Dur : 86 ms QT Int : 330 ms P-R-T Axes : 64 65 60 degrees QTcB Int : 432 ms Sinus tachycardia Otherwise normal ECG When compared with ECG of 28-May-2024 22:15, Vent. rate has increased by 35 bpm Confirmed by Ciro Aggarwal ([id number]) on 12/15/2024 7:41:27 AM Referred By: REFERRED SELF Confirmed By: Ciro Aggarwal
--- NOTE | 2024-12-15 07:46 | CT Scan Report ---
EXAM: CT head/brain wo con CLINICAL HISTORY: Seizure. TECHNIQUE: An axial non-contrast CT scan of the brain was performed from the skull base to the high parietal region. One of the following dose reduction techniques was utilized for this exam: Automated exposure control, adjustment of the mA and/or kV according to patient size, and use of iterative reconstruction. CTDI: 76.8 mGy, DLP: 938.0 mGy-cm. COMPARISON: Prior study dated 05/28/2024. FINDINGS: Beam hardening artifact degrading assessment of the temporal region and posterior fossa. Brain Parenchyma: right temporal encephalomalacia, with volume loss and secondary dilatation of the right lateral ventricle. No hemorrhagic densities seen. No focal mass lesions. Ventricular System: Apart from secondary dilatation of the right lateral ventricle, the ventricles are unremarkable. No evidence of hydrocephalus or ventricular enlargement. Subarachnoid Spaces: Normal sulci and cisterns. No evidence of subarachnoid hemorrhage or extra-axial fluid collections. Cerebellum and Brainstem: Normal size and signal. No masses, lesions, or areas of abnormal signal. Orbits: Normal appearance of the globes, optic nerves, and extraocular muscles. No evidence of orbital masses or abnormal signals. Sinuses: Clear paranasal sinuses. No evidence of sinusitis or mucosal thickening. Mastoid Air Cells: Clear mastoid air cells. No evidence of mastoiditis. Skull: Right frontal, parietal, and temporal craniotomies with mesh seen IMPRESSION: 1. Beam hardening artifact degrading assessment of temporal region and posterior fossa with right-sided craniotomy. 2. Right temporal encephalomalacia, with volume loss and secondary dilatation of the right lateral ventricle. 3. No hemorrhagic densities seen. 4. Right frontal, parietal, and temporal craniotomies with mesh seen. 5. No interval changes. Electronically signed by Abrahan Santana 12-15-2024 07:46 AM
[2024-12-15] MEDS: DIVALPROEX DELAY RELEASE 500 MG TAB PO SCH ×2 (08:04→20:35)
[2024-12-15] MEDS: levETIRAcetam 500 MG TAB PO SCH (08:05)
--- NOTE | 2024-12-15 16:17 | Hospitalist Progress Note ---
Date of Service December 15, 2024 Assessment & Plan (1) Breakthrough seizure: Plan: 28 y/o male with PMH of TBI, history of intracranial hemorrhage status decompressive craniectomy, status post cranioplasty with autograft (o 09/14/2023) and seizure disorder here due to an episode of generalized tonic- clonic episode at work s/p load with Levetiracetam 3 g and Divalproax 500 mg Increase Depakote to 1g BID Continue Keppra 1g BID Keppra level pending Depakote level sub therapeutic CPK unremarkable Urine toxicology +for marijuana, uses for spasms Ativan prn for seizures Seizure precautions Head CT stable DMV paperwork complete and will be faxed by case management Pt does not have insurance - may be a good candidate for CV[facility] at discharge until coverage can be re-initiated Plan FEN: Regular Code status: full code DVT ppx: SCDs Dispo: PCU Admission and Anticipated Discharge Date Admission Date: December 14, 2024 Supervising Physician Co-Signing Physician Notes Attending attestation Pt seen and examined in concert with Dr. Hilton. In agreement with the documented findings as noted in the resident documentation with any exceptions or additions as noted here. Ongoing significant fatigue without apparent focal or diffuse persistent symptoms reported. On examination, S1/S2 nl RRR no MCG. CTAB. Abd NT/ND BS+ve. CNII-XII grossly intact as tested. Seizure disorder w/ acute seizure and LOC - neurology aware - transition to oral medication divalproex 1000 BID, levetiracetam 1000mg daily. Slowly advance diet. 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 Else see resident documentation as noted. Subjective Patient seen and evaluated at bedside this morning. No acute events overnight. Fatigued this am after load with antiepileptics. No acute complaints. VSS. Electrolytes acceptable. Review of Systems Review of Systems: reviewed, per HPI Physical Exam Physical Exam: Constitutional: well-appearing, no acute distress HEENT: NCAT, no conjunctival injection CV: regular rhythm, no murmur appreciated, extremities well-perfused, no LE edema Resp: CTABL, no wheezes/rales/rhonchi appreciated, no increased work of breathing GI: soft, nondistended, nontender, BS normoactive MSK: no gross deformities appreciated Skin: warm, dry, no rash appreciated Neuro: alert, oriented, no focal neurologic deficit appreciated Results & Data Results & Data Vital Signs (Past 12 Hours) Vital Signs Temp Pulse Resp BP BP Pulse Ox O2 Del Method 12/15/24 15:17 75 16 125/78 96 Room Air 12/15/24 12:00 20 101/75 96 12/15/24 11:33 96 12/15/24 11:27 96 12/15/24 11:12 94 12/15/24 10:54 95 12/15/24 10:36 97 12/15/24 10:24 97 12/15/24 10:00 112/82 12/15/24 09:45 94 12/15/24 09:42 93 12/15/24 09:30 96 12/15/24 09:29 114/70 12/15/24 09:24 95 12/15/24 09:21 96 12/15/24 09:00 93 12/15/24 08:57 95 12/15/24 08:48 94 12/15/24 08:33 94 12/15/24 08:30 107/57 L 12/15/24 08:21 93 12/15/24 08:18 94 12/15/24 08:07 36.4 C 99 H 20 101/55 L 96 Room Air 12/15/24 08:05 101/55 L 12/15/24 08:03 96 12/15/24 07:48 94 12/15/24 07:36 93 12/15/24 07:21 93 12/15/24 04:58 88 14 115/69 94 Room Air Resident Activity Tracking Resident Involvement: Resident Care Provided Care Provided: Adult Hospital Medicine
[2024-12-15 19:11] VITALS: RESP 18
[2024-12-16] MEDS: PSEUDOEPHEDRINE HCL 30 MG TAB PO PRN (00:01)
--- NOTE | 2024-12-16 07:36 | Discharge Summary ---
Date of Service December 16, 2024 Admission HPI Per Admitting Provider 28 y/o male with PMH of TBI, hx of craniectomy ( om 09/14/2023) and seizure disorder here due to an episode of generalized tonic- clonic episode at work. Patient refers that he missed his AM dose of Antiseizure medication. He refers poor po as well. Episodes was witness by co workers. Patient uses medical [employer] for spasms. On evaluation patient was drowsy, but easily arousal. refers some mild headaches. Refers spasm had improved. Denied any SOB, chest pain, palpitations, tunny nose, nausea, abdominal pain, or diarrhea. ED course: was given lorazepam 1 mg IV, Keppra 3,000 mg IV, valproic acid 500 mg p.o. 1L NSS Admission Exam Per Admitting Provider Constitutional: + disheveled; no acute distress and no a ltered mental status ENMT: external ear and nose normal, oropharynx normal Respiratory: normal respiratory effort, lungs clear to auscultation Cardiovascular: RRR, no murmur, no edema Gastrointestinal (Abdomen): normal bowel sounds, soft, nontender, no hepatosplenomegaly Neurologic: CN's II-XI intact bilaterally, moves all extremities and awake; not confused Principal Diagnosis breakthrough seizure Discharge Exam Gen: well appearing patient in NAD HEENT: AT NC MMM Resp: CTAB no wheezing no increased work of breathing CV: RRR no m/r/g clinically well perfused Abd: non-distended MSK: no obvious deformities Skin: no rashes or bruising Neuro: alert and oriented Psych: appropriate mood and affect Discharge Data Allergies Allergy/AdvReac Type Severity Reaction Status Date / Time adhesive Allergy Intermediate REDDENED Verified 09/15/24 17:17 RASH Consultations 12/14/24 22:18 ED Decision to Admit Stat Ordered Studies Head CT 12/14/24 23:53 FINDINGS: Beam hardening artifact degrading assessment of the temporal region and posterior fossa. Brain Parenchyma: right temporal encephalomalacia, with volume loss and seco ndary dilatation of the right lateral ventricle. No hemorrhagic densities seen. No focal mass lesions. Ventricular System: Apart from secondary dilatation of the right lateral ventricle, the ventricles are unremarkable. No evidence of hydrocephalus or ventricular enlargement. Subarachnoid Spaces: Normal sulci and cisterns. No evidence of subarachnoid hemorrhage or extra-axial fluid collections. Cerebellum and Brainstem: Normal size and signal. No masses, lesions, or areas of abnormal signal. Orbits: Normal appearance of the globes, optic nerves, and extraocular muscles. No evidence of orbital masses or abnormal signals. Sinuses: Clear paranasal sinuses. No evidence of sinusitis or mucosal thickening. Mastoid Air Cells: Clear mastoid air cells. No evidence of mastoiditis. Skull: Right frontal, parietal, and temporal craniotomies with mesh seen IMPRESSION: 1. Beam hardening artifact degrading assessment of temporal region and posterior fossa with right-sided craniotomy. 2. Right temporal encephalomalacia, with volume loss and secondary dilatation of the right lateral ventricle. 3. No hemorrhagic densities seen. 4. Right frontal, parietal, and temporal craniotomies with mesh seen. 5. No interval changes. Hospital Course (1) Breakthrough seizure: 28 y/o with a PMHx of TBI c/b intracranial hemorrhage s/p decompressive craniectomy and subsequent cranioplasty with autograft 09/14/2023 presented with a tonic-clonic seizure episode at work. 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 CT Head stable. Patient on Keppra 1000 mg BID and Depakote 500 mg TID at home. Missed meds thus likely a breakthrough seizure. Keppra load - 3 g and Depakote 500 mg. No further seizure activity. Depakote level sub-therapeutic. Keppra level pending. Increase to Keppra 1000 mg BID and Depakote 1000 mg BID. With recent seizure like activity - DMV paperwork completed and will be faxed by case management. Will need outpatient follow up. Pt does not have insurance - may be a good candidate for CVIM at discharge until coverage can be re-initiated Total Time Total Time Spent Total Time Spent (In Minutes): See attending attestation Discharge Plan Discharge Items Patient Disposition: Home - Self-Care Reason For Visit: SEIZURES Discharge Diagnosis: seizure Activity: Per Instructions section Non-emergency contact: Primary Care Provider and Neurologist Call non-emergency contact if: your symptoms worsen and your temperature is above 101.5 Follow-up/Referrals: Power Beltran DO [Primary Care Provider] - Thomas Garrett DO [Family Provider] - Diet: Regular Addtl Attending Provider Instructions: You were seen here in the hospital for a break through seizure. There were no new changes on imaging. We did adjust your Depakote dosing to 1000 mg every 12 hours. Continue your Keppra 1000 mg every 12 hours. We would recommend that you follow up with your neurologist and primary care provider. Please use the identified resources to aid in obtaining insurance coverage including CVIM. You should receive a call from Ariana to help navigate the insurance system. If seizures recur then please return to care. Pending Studies at Discharge: No Stand-Alone Forms: My [facility], Smoking Cessation Medications and DC Order Prescriptions: New divalproex 500 mg Tablet,Delayed Release (Dr/Ec) 1,000 mg PO BID 30 Days Qty: 120 1RF Continued tizanidine 4 mg tablet 4 mg PO Q8 PRN (Reason: Muscle Spasm) levetiracetam 1,000 mg tablet 1,000 mg PO AMHS Discontinued divalproex 500 mg tablet,delayed release (DR/EC) 500 mg PO TID Rx Instructions: MORNING,NOON AND BEFORE BED Discharge Orders: Discharge Order (Routine); Ordered 12/16/24 Ordered By: Annette Jo Admission Data Admit Date/Time: 12/14/24 23:02 Attending Provider: Tom Joy Admit Provider: Gertrude Johansen Primary Care Provider: Power Beltran Other Providers: Vandana Arrington Other Interventions: Discharge Summary Assessment (RN) Last Done: 12/16/24 13:31 Supervising Physician Co-Signing Physician Notes Attending attestation Pt seen and examined in concert with Dr. Hilton. In agreement with the documented findings as noted in the resident documentation with any exceptions or additions as noted here. Returned to baseline without recurrence of symptoms. On examination, S1/S2 nl RRR no MCG. CTAB. Abd NT/ND BS+ve. CNII-XII grossly intact as tested. Seizure disorder w/ acute seizure and LOC - neurology aware - tolerating current regimen of divalproex 1000 BID, levetiracetam 1000mg BID, will continue. Encourage follow up with neurology team to discuss DOT/driving and support for case should driving be required/desired. 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 Else see resident documentation as noted. Total attending physician time spent with this patient's care on the day of discharge: 32 minutes. Resident Activity Tracking Resident Involvement: Resident Care Provided Care Provided: Adult Hospital Medicine
[2024-12-16 09:21] LABS: Basophils # (auto) 0.03 K/uL (0.00-0.20); Basophils % (auto) 0.4 %; Eosinophils # (auto) 0.32 K/uL (0.00-0.50); Eosinophils % (auto) 4.6 %; Hematocrit (blood only) 42.4 % (42.0-52.0); Hemoglobin 15.3 g/dl (14.0-18.0); Immature Granulocytes # (auto) 0.02 K/uL (0.01-0.20); Immature Granulocytes % (auto) 0.3 %; Lymphocytes # (auto) 1.38 K/uL (1.20-3.40); Lymphocytes % (auto) 19.8 %; Mean Corpuscular Hemoglobin 30.7 pg (25.0-34.0); Mean Corpuscular Hgb Conc 36.1 g/dL (32.0-36.0); Mean Platelet Volume 9.8 fL (9.4-12.4); Monocytes # (auto) 0.75 K/uL (0.11-0.59); Monocytes % (auto) 10.7 %; Neutrophils # (auto) 4.48 K/uL (1.40-6.50); Neutrophils % (auto) 64.2 %; Platelet Count 125 K/uL (130-400); RDW Coefficient of Variation 12.1 % (11.5-14.5); RDW Standard Deviation 36.9 fL (36.4-46.3); Red Blood Count 4.99 M/uL (4.70-6.10); White Blood Count 6.98 K/ul (4.8-10.8)
[2024-12-16 11:57] VITALS: BP 106/67; PULSE 76; TEMP 98.8; O2SAT 93
[2024-12-18 15:03] LABS: Marijuana Quant, GCMS Urine 105 ng/mL (<5)
== END 2024-12-16 14:50 | disposition home or self-care (01) | DRG 101 ==
LOC: ED 18:35 → INTOOBSV 23:02 → SUATTDRO 23:02 → EDINP 23:02 → 2S 12-15 15:20